=== PATIENT | male | born 1950 | race Caucasian/White ===

== ENCOUNTER → 2023-12-09 | Outpatient (CLI) | payer OTHER, MEDICARE ==
[2023-12-09 19:05] LABS: HCT 40.7 % (39.6-50.0); HGB 13.5 g/dL (13.0-17.0); MCH 33.7 pg (27.0-32.0); MCHC 33.2 g/dL (32.0-37.0); MCV 101.5 FL (80.0-97.0); NRBC Per 100 WBC 0 X 10*3/uL (0.00-0.01); Platelet Count 130 X 10*3/uL (140-440); RBC 4.01 X 10*6/uL (4.40-5.60); RDW 15.9 % (11.5-14.5); WBC 5.64 X 10*3/uL (4.50-10.00)
[2023-12-09 20:45] LABS: VLDL Calculation 6.18 mg/dL (5.00-40.00)
[2023-12-09 22:00] LABS: ALT 18 U/L (10-49); AST 22 U/L (14-35); Calcium 9.7 mg/dL (8.7-10.3); Carbon Dioxide 25.5 mmol/L (21.6-31.8); Chloride 93 mmol/L (96-109); Chol/HDL Ratio 1.86 Ratio; Glucose 99 mg/dL (70-110); LDL Cholesterol,Calculated 32.7 mg/dL (0.0-131.0); Potassium 4.9 mmol/L (3.5-5.5); Sodium 131 mmol/L (135-145)
[2023-12-10 14:04] LABS: NT-Pro-B-Type Natriuretic Pept 2070 pg/mL
== END | disposition home or self-care (01) ==
LOC: LABWHC1 12:50
PROVIDERS: ATTEND Internal Medicine Cardiovascular Disease
DX: I50.22 Chronic systolic (congestive) heart failure (principal); E78.2 Mixed hyperlipidemia
CPT/HCPCS: 36415; 80048; 80061; 83880; 84450; 84460; 85027

== ENCOUNTER 2024-01-21 10:55 | Inpatient (IN) | payer MEDICARE, OTHER ==
--- NOTE | 2024-01-21 11:36 | ED ---
General Adult HPI - General Chief complaint: Abdominal Pain Stated complaint: abn labs-sent by Time Seen by Provider: 01/21/24 11:10 Source: patient, family, RN notes reviewed, old records reviewed Mode of arrival: ambulatory Limitations: no limitations - History of Present Illness Initial comments: This is a 73-year-old male who presents to the emergency department because his doctor told him to come in. Patient states he had no symptoms he has been tired and weak and somewhat short of breath over the last month but he states is not much worse today than it has been. Patient states he does not know why they sent him in but they said it was something abnormal in his blood work. Patient has multiple wounds on his legs he has a wound on the posterior aspect of his left leg and the left big toe patient also has a wound on the right heel. [place] any recent fevers or chills. Patient denies lightheadedness or dizziness. Patient denies any chest pain palpitations or difficulty breathing. Patient has abdominal pain. - Related Data Home Medications Medication Instructions Recorded Confirmed Apixaban [Eliquis] 5 mg PO BID 01/21/24 01/21/24 Bumetanide 1 mg PO BID 01/21/24 01/21/24 Furosemide [Lasix] 40 mg PO BID 01/21/24 01/21/24 Indapamide [Lozol] 1.25 mg PO DAILY 01/21/24 01/21/24 Spironolactone [Aldactone] 50 mg PO DAILY 01/21/24 01/21/24 allopurinoL [Zyloprim] 100 mg PO DAILY 01/21/24 01/21/24 carvediloL [Coreg] 12.5 mg PO BID 01/21/24 01/21/24 lisinopriL [Zestril] 10 mg PO DAILY 01/21/24 01/21/24 Allergies Allergy/AdvReac Type Severity Reaction Status Date / Time No Known Allergies Allergy Verified 01/21/24 13:41 Review of Systems ROS Statement: Those systems with pertinent positive or pertinent negative responses have been documented in the HPI. ROS Other: All systems not noted in ROS Statement are negative. Past Medical History Past Medical History: Atrial Fibrillation, Hyperlipidemia, Hypertension Past Surgical History: No Surgical Hx Reported General Exam - General Exam Comments Initial Comments: GENERAL: Patient is well-developed and well-nourished. Patient is nontoxic and well- hydrated and is in no acute distress. Patient's ideal body weight is 78 kg ENT: Neck is soft and supple. No significant lymphadenopathy is noted. Oropharynx is clear. Moist mucous membranes. Neck has full range of motion without eliciting any pain. EYES: The sclera were anicteric and conjunctiva were pink and moist. Extraocular movements were intact and pupils were equal round and reactive to light. Eyelids were unremarkable. PULMONARY: Unlabored respirations. Good breath sounds bilaterally. No audible rales rhonchi or wheezing was noted. CARDIOVASCULAR: There is a regular rate and rhythm without any murmurs gallops or rubs. ABDOMEN: Soft and nontender with normal bowel sounds. SKIN: Patient has a wound on the posterior lower left leg and the area is tender and malodorous. Patient also has a wound on the right heel. Patient's overall color is a little pale. NEUROLOGIC: Patient is alert and oriented x3. Cranial nerves II through XII are grossly intact. Motor and sensory are also intact. Normal speech, volume and content. Symmetrical smile. MUSCULOSKELETAL: Normal extremities with adequate strength and full range of motion. No lower extremity swelling or edema. No calf tenderness. LYMPHATICS: No significant lymphadenopathy is noted PSYCHIATRIC: Normal psychiatric evaluation. Limitations: no limitations Course Vital Signs 01/21/24 01/21/24 01/21/24 11:08 11:21 12:38 Temperature 97.6 F Pulse Rate 67 58 L Respiratory 16 16 Rate Blood Pressure 66/40 91/52 98/57 O2 Sat by Pulse 94 L 93 L Oximetry 01/21/24 14:00 Temperature Pulse Rate 73 Respiratory 16 Rate Blood Pressure 93/54 O2 Sat by Pulse 98 Oximetry Medical Decision Making - Medical Decision Making EKG is interpreted by myself. EKG shows atrial fibrillation at 66 bpm QRS is 130 QT interval 442 QTc is 455. Patient's EKG shows a right bundle branch block. Was pt. sent in by a medical professional or institution (, [facility], [facility], urgent care, hospital, or longterm...) When possible be specific @ -Patient was sent in by her primary medical care doctor Did you speak to anyone other than the patient for history (EMS, parent, family, police, friend...)? What history was obtained from this source @ -Patient's gave quite a bit of history Did you review nursing and triage notes (agree or disagree)? Why? @ -I reviewed and agree with nursing and triage notes Were old charts reviewed (outside hosp., previous admission, EMS record, old EKG, old radiological studies, urgent care reports/EKG's, longterm records)? Report findings @ -I reviewed prior charts and prior lab work on this patient Differential Diagnosis (chest pain, altered mental status, abdominal pain women, abdominal pain men, vaginal bleeding, weakness, fever, dyspnea, syncope, headache, dizziness, GI bleed, back pain, seizure, CVA, palpatations, mental health, musculoskeletal)? @ -Not applicable EKG interpreted by me (3pts min.). @ -As above X-rays interpreted by me (1pt min.). @ -Patient's chest x-ray showed no acute normality. Patient's x-ray of the leg shows no sign cutaneous air. CT interpreted by me (1pt min.). @ -None done U/S interpreted by me (1pt. min.). @ -None done What testing was considered but not performed or refused? (CT, X-rays, U/S, labs)? Why? @ -None What meds were considered but not given or refused? Why? @ -None Did you discuss the management of the patient with other professionals (professionals i.e. , PA, [facility], lab, RT, psych nurse, social worker health services, cask maker, teacher, sustainability officer, data architect manager)? Give summary @ -I spoke with sound physicians they agreed to admit the patient Was smoking cessation discussed for >3mins.? @ -No Was critical care preformed (if so, how long)? @ -No Were there social determinants of health that impacted care today? How? (Homelessness, low income, unemployed, alcoholism, drug addiction, gutierrez sportation, low edu. Level, literacy, decrease access to med. care, senior living, rehab)? @ -No Was there de-escalation of care discussed even if they declined (Discuss DNR or withdrawal of care, Hospice)? DNR status @ -No What co-morbidities impacted this encounter? (DM, HTN, Smoking, COPD, CAD, Cancer, CVA, ARF, Chemo, Hep., AIDS, mental health diagnosis, sleep apnea, morbid obesity)? @ -None Was patient admitted / discharged? Hospital course, mention meds given and route, prescriptions, significant lab abnormalities, going to OR and other pertinent info. @ -Patient's lab work came back and showed the patient was in acute renal failure. I will admit the patient I will consult nephrology patient will be admitted to sound Undiagnosed new problem with uncertain prognosis? @ -No Drug Therapy requiring intensive monitoring for toxicity (Heparin, Nitro, Insulin, Cardizem)? @ -No Were any procedures done? @ -No Diagnosis/symptom? @ -Acute renal failure Acute, or Chronic, or Acute on Chronic? @ -Acute Uncomplicated (without systemic symptoms) or Complicated (systemic symptoms)? @ -Complicated Side effects of treatment? @ -No Exacerbation, Progression, or Severe Exacerbation? @ -No Poses a threat to life or bodily function? How? (Chest pain, [place], SD, pneumonia, PE, COPD, DKA, ARF, appy, cholecystitis, CVA, Diverticulitis, Homicidal, Suicidal, threat to staff... and all critical care pts) @ -Yes this could lead to electrolyte abnormalities and arrhythmias and possible - Lab Data Result diagrams: 01/21/24 11:39 01/21/24 11:38 Lab Results 01/21/24 01/21/24 01/21/24 Range/Units 11:38 11:38 11:38 WBC (3.8-10.6) k/uL RBC (4.30-5.90) m/uL Hgb (13.0-17.5) gm/dL Hct (39.0-53.0) % MCV (80.0-100.0) fL MCH (25.0-35.0) pg MCHC (31.0-37.0) g/dL RDW (11.5-15.5) % Plt Count (150-450) k/uL MPV Neutrophils % % Lymphocytes % % Monocytes % % Eosinophils % % Basophils % % Neutrophils # (1.3-7.7) k/uL Lymphocytes # (1.0-4.8) k/uL Monocytes # (0-1.0) k/uL Eosinophils # (0-0.7) k/uL Basophils # (0-0.2) k/uL Manual Slide Review Macrocytosis PT 14.4 H (10.0-12.5) sec INR 1.4 H (<1.2) APTT 34.1 H (22.0-30.0) sec Sodium 131 L (137-145) mmol/L Potassium 5.3 H (3.5-5.1) mmol/L Chloride 92 L (98-107) mmol/L Carbon Dioxide 23 (22-30) mmol/L Anion Gap 16 mmol/L BUN 163 H* (9-20) mg/dL Creatinine 4.43 H (0.66-1.25) mg/dL Est GFR (CKD-EPI)AfAm 14 (>60 ml/min/1.73 sqM) Est GFR (CKD-EPI)NonAf 12 (>60 ml/min/1.73 sqM) Glucose 115 H (74-99) mg/dL Plasma Lactic Acid Marcos 1.2 (0.7-2.0) mmol/L Calcium 8.8 (8.4-10.2) mg/dL Total Bilirubin 1.4 H (0.2-1.3) mg/dL AST 24 (17-59) U/L ALT 16 (4-49) U/L Alkaline Phosphatase 98 (38-126) U/L Total Protein 7.4 (6.3-8.2) g/dL Albumin 4.0 (3.5-5.0) g/dL Urine Color Urine Appearance (Clear) Urine pH (5.0-8.0) Ur Specific [place] (1.001-1.035) Urine Protein (Negative) Urine Glucose (UA) (Negative) Urine Ketones (Negative) Urine Blood (Negative) Urine Nitrite (Negative) Urine Bilirubin (Negative) Urine Urobilinogen (<2.0) mg/dL Ur Leukocyte Esterase (Negative) 01/21/24 01/21/24 Range/Units 11:39 13:56 WBC 6.1 (3.8-10.6) k/uL RBC 3.70 L (4.30-5.90) m/uL Hgb 12.4 L (13.0-17.5) gm/dL Hct 38.4 L (39.0-53.0) % MCV 104.0 H (80.0-100.0) fL MCH 33.6 (25.0-35.0) pg MCHC 32.3 (31.0-37.0) g/dL RDW 15.7 H (11.5-15.5) % Plt Count 98 L (150-450) k/uL MPV 11.0 Neutrophils % 76 % Lymphocytes % 11 % Monocytes % 8 % Eosinophils % 1 % Basophils % 1 % Neutrophils # 4.7 (1.3-7.7) k/uL Lymphocytes # 0.7 L (1.0-4.8) k/uL Monocytes # 0.5 (0-1.0) k/uL Eosinophils # 0.1 (0-0.7) k/uL Basophils # 0.0 (0-0.2) k/uL Manual Slide Review Performed Macrocytosis Moderate PT (10.0-12.5) sec INR (<1.2) APTT (22.0-30.0) sec Sodium (137-145) mmol/L Potassium (3.5-5.1) mmol/L Chloride (98-107) mmol/L Carbon Dioxide (22-30) mmol/L Anion Gap mmol/L BUN (9-20) mg/dL Creatinine (0.66-1.25) mg/dL Est GFR (CKD-EPI)AfAm (>60 ml/min/1.73 sqM) Est GFR (CKD-EPI)NonAf (>60 ml/min/1.73 sqM) Glucose (74-99) mg/dL Plasma Lactic Acid Marcos (0.7-2.0) mmol/L Calcium (8.4-10.2) mg/dL Total Bilirubin (0.2-1.3) mg/dL AST (17-59) U/L ALT (4-49) U/L Alkaline Phosphatase (38-126) U/L Total Protein (6.3-8.2) g/dL Albumin (3.5-5.0) g/dL Urine Color Colorless Urine Appearance Clear (Clear) Urine pH 5.5 (5.0-8.0) Ur Specific [place] 1.008 (1.001-1.035) Urine Protein Negative (Negative) Urine Glucose (UA) Negative (Negative) Urine Ketones Negative (Negative) Urine Blood Negative (Negative) Urine Nitrite Negative (Negative) Urine Bilirubin Negative (Negative) Urine Urobilinogen <2.0 (<2.0) mg/dL Ur Leukocyte Esterase Negative (Negative) Disposition Clinical Impression: Acute renal failure Disposition: ADMITTED IP TO THIS HOSP Referrals: Dg Maria MD [Primary Care Provider] - 1-2 days Time of Disposition: 15:05
[2024-01-21 11:53] LABS: Basophils % (A) 1 %; Eosinophils # (A) 0.1 k/uL (0-0.7); Eosinophils % (A) 1 %; HCT 38.4 % (39.0-53.0); HGB 12.4 gm/dL (13.0-17.5); Lymphocytes # (A) 0.7 k/uL (1.0-4.8); Lymphocytes % (A) 11 %; MCH 33.6 pg (25.0-35.0); MCHC 32.3 g/dL (31.0-37.0); Macrocytosis Moderate; Monocytes # (A) 0.5 k/uL (0-1.0); Monocytes % (A) 8 %; Neutrophils # (A) 4.7 k/uL (1.3-7.7); Neutrophils % (A) 76 %; RDW 15.7 % (11.5-15.5); WBC 6.1 k/uL (3.8-10.6)
[2024-01-21] MEDS: SODIUM CHLORIDE 0.9% 500 ML 500 ML IV SCH (11:57)
[2024-01-21 12:13] LABS: ALT 16 U/L (4-49); AST 24 U/L (17-59); African American GFR (CKD) 14 (>60 ml/min/1.73 sqM); Alkaline Phosphatase 98 U/L (38-126); Anion Gap 16 mmol/L; Calcium 8.8 mg/dL (8.4-10.2); Carbon Dioxide 23 mmol/L (22-30); Chloride 92 mmol/L (98-107); Glucose 115 mg/dL (74-99); Non-African American GFR(CKD) 12 (>60 ml/min/1.73 sqM); Potassium 5.3 mmol/L (3.5-5.1); Sodium 131 mmol/L (137-145); Total Bilirubin 1.4 mg/dL (0.2-1.3); Total Protein 7.4 g/dL (6.3-8.2)
[2024-01-21 12:25] LABS: Platelet Count 98 k/uL (150-450)
[2024-01-21 12:41] LABS: Blood Urea Nitrogen 163 mg/dL (9-20)
[2024-01-21 12:44] LABS: INR 1.4 (<1.2); Partial Thromboplastin Time 34.1 sec (22.0-30.0); Prothrombin Time 14.4 sec (10.0-12.5)
[2024-01-21] MEDS: PIPERACILLIN-TAZOBACTAM 3.375 GM in SODIUM CHLORIDE 0.9% 100 ML IVPB STA (12:57)
[2024-01-21 14:30] LABS: Appearance,Urine Clear (Clear); Bilirubin,Urine Negative (Negative); Blood,Urine Negative (Negative); Color,Urine Colorless; Glucose,Urine (UA) Negative (Negative); Ketones,Urine Negative (Negative); Leukocyte Esterase,Urine Negative (Negative); Nitrite,Urine Negative (Negative); PH, Urine 5.5 (5.0-8.0); Protein,Urine Negative (Negative); Specific Gravity,Urine 1.008 (1.001-1.035); Urobilinogen,Urine <2.0 mg/dL (<2.0)
--- NOTE | 2024-01-21 14:54 | XR ---
EXAMINATION TYPE: XR chest 2V DATE OF EXAM: 01/21/2024 2:42 PM CLINICAL INDICATION:Male, 73 years old with history of Fever; PHH COMPARISON: None TECHNIQUE: XR chest 2V Frontal and lateral views of the chest. FINDINGS: Lungs/Pleura: There is no evidence of pleural effusion, focal consolidation, or pneumothorax. Pulmonary vascularity: Mild pulmonary vascular congestion. Heart/mediastinum: Cardiomediastinal silhouette is enlarged and stable. Musculoskeletal: No acute osseous pathology. IMPRESSION: No airspace consolidation visualized.
--- NOTE | 2024-01-21 14:55 | XR ---
EXAMINATION TYPE: XR tibia fibula LT DATE OF EXAM: 01/21/2024 2:42 PM CLINICAL INDICATION:Male, 73 years old with history of Infection; PHH COMPARISON: None TECHNIQUE: XR tibia fibula LT; tibia/fibula was examined in AP and lateral projections. FINDINGS: No evidence of any acute osseous pathology, or joint dislocation. A fabella is present. Sof t tissue swelling throughout the leg is suggested. Mild multi compartment degeneration of the knee wi th osteophyte formation. IMPRESSION: Soft tissue edema without evidence of acute fracture.
[2024-01-21] MEDS ORDERED: ACETAMINOPHEN TAB 325 MG TAB PO PRN (16:06)
[2024-01-21] MEDS ORDERED: MAG HYDROX/AL HYDROX/SIMETH 30 ML CUP PO PRN (16:06)
[2024-01-21] MEDS ORDERED: ONDANSETRON 4 MG/2 ML VIAL IVP PRN (16:06)
[2024-01-21] MEDS ORDERED: NALOXONE 0.4 MG/ML 1 ML VIAL IV PRN (16:06)
--- NOTE | 2024-01-21 16:12 | P.HPIM ---
History of Present Illness H&P Date: 01/21/24 73-year-old male with PMH of atrial fibrillation, CHF presents to the ED for abnormal lab work. He reports fatigue but no other complaints. Recently had his diuretics increased due to lower extremity edema. No nausea or vomiting, diarrhea. Urinating freely. In the ED, he underwent extensive evaluation. BP 66/40, HR 67, RR 16, T 97.6, 94% on room air. CBC, coag panel, CMP was done significant for hemoglobin 12.4, hematocrit 38.4, MCV 104, platelet 98, PT was 14.4, INR 1.4, APTT 34.1, sodium 131, potassium 5.3, chloride 92, BUN 163, creatinine 4.43, Luke was 1:15, total bilirubin 1.4. Urinalysis negative. EKG A-Fib, RBBB, ST/T wave abnormalities II, III, aVF. CXR negative. TibFib XR soft tissue edema without acute fracture. General: non toxic, no distress, appears at stated age Derm: warm, dry Head: atraumatic, normocephalic, symmetric Eyes: EOMI, no lid lag, anicteric sclera Mouth: no lip lesion, mucus membranes moist Cardiovascular: S1S2 reg, no murmur Lungs: Clear to auscultation bilateral, no rhonchi, no rales , no accessory muscle use Ext: no gross muscle atrophy, no edema Neuro: no focal neuro deficits, bilateral upper extremity tremors Psych: Alert, oriented, appropriate affect Based on my assessment of this patient, this patient meets a high complexity level of care. Patient has an acute diagnosis of KOBE that poses a threat to life. KOBE: Start NS at 75 cc/hr. Discontinue Lisinopril, Aldactone, Lasix and Bumex. Renal Bladder US ordered. Repeat BMP tomorrow morning. Nephrology consult. Hypotension: Discontinue Coreg and above antihypertensives. Hyperkalemia: IV hydration as above. Discontinue Lisinopril and Aldactone as above. Repeat K at 7PM and tomorrow morning. Hyponatremia: IV hydration as above. Elevated total bilirubin: Repeat CMP tomorrow morning. Macrocytic anemia: Obtain B12, Folate. Thrombocytopenia: Unknown etiology. Monitor. Chronic conditions: A-Fib, CHF CODE STATUS: FULL CODE. DVT Prophylaxis: Eliquis. GI Prophylaxis: Designated medical POA if patient is not able to make medical decisions for themselves: I have reviewed the following database consultant notes: ED note I have reviewed the results of the following tests: As above. I have ordered the following tests: As above. I have discussed the care of this patient with the following independent historian: I have independently interpreted the following test below: EKG. I have discussed the management of this patient with the following physician: Past Medical History Past Medical History: Atrial Fibrillation, Hyperlipidemia, Hypertension Past Surgical History: No Surgical Hx Reported Medications and Allergies Home Medications Medication Instructions Recorded Confirmed Type Apixaban [Eliquis] 5 mg PO BID 01/21/24 01/21/24 History Bumetanide 1 mg PO BID 01/21/24 01/21/24 History Furosemide [Lasix] 40 mg PO BID 01/21/24 01/21/24 History Indapamide [Lozol] 1.25 mg PO DAILY 01/21/24 01/21/24 History Spironolactone [Aldactone] 50 mg PO DAILY 01/21/24 01/21/24 History allopurinoL [Zyloprim] 100 mg PO DAILY 01/21/24 01/21/24 History carvediloL [Coreg] 12.5 mg PO BID 01/21/24 01/21/24 History lisinopriL [Zestril] 10 mg PO DAILY 01/21/24 01/21/24 History Allergies Allergy/AdvReac Type Severity Reaction Status Date / Time No Known Allergies Allergy Verified 01/21/24 13:41 Physical Exam Vitals: Vital Signs Temp Pulse Resp BP Pulse Ox 01/21/24 14:00 73 16 93/54 98 01/21/24 12:38 98/57 01/21/24 11:21 58 L 16 91/52 93 L 01/21/24 11:08 97.6 F 67 16 66/40 94 L Intake and Output 01/21/24 01/21/24 01/21/24 06:59 14:59 22:59 Other: Weight 104.326 kg Results CBC & Chem 7: 01/21/24 11:39 01/21/24 11:38 Labs: Abnormal Lab Results - Last 24 Hours (Table) 01/21/24 01/21/24 01/21/24 Range/Units 11:38 11:38 11:39 RBC 3.70 L (4.30-5.90) m/uL Hgb 12.4 L (13.0-17.5) gm/dL Hct 38.4 L (39.0-53.0) % MCV 104.0 H (80.0-100.0) fL RDW 15.7 H (11.5-15.5) % Plt Count 98 L (150-450) k/uL Lymphocytes # 0.7 L (1.0-4.8) k/uL PT 14.4 H (10.0-12.5) sec INR 1.4 H (<1.2) APTT 34.1 H (22.0-30.0) sec Sodium 131 L (137-145) mmol/L Potassium 5.3 H (3.5-5.1) mmol/L Chloride 92 L (98-107) mmol/L BUN 163 H* (9-20) mg/dL Creatinine 4.43 H (0.66-1.25) mg/dL Glucose 115 H (74-99) mg/dL Total Bilirubin 1.4 H (0.2-1.3) mg/dL
[2024-01-21] MEDS: SODIUM CHLORIDE 0.9% 1,000 ML IV SCH (16:40)
--- NOTE | 2024-01-21 17:14 | US ---
EXAMINATION TYPE: US kidneys/renal and bladder DATE OF EXAM: 01/21/2024 COMPARISON: NONE CLINICAL INDICATION: Male, 73 years old with history of KOBE; KOBE EXAM MEASUREMENTS: Right Kidney: 11.5 x 6.0 x 5.5 cm Left Kidney: 11.4 x 5.2 x 6.1 cm Right Kidney: Anechoic area seen laterally: 2.0 x 1.7 x 1.1 cm. Cortical medullary differentiation is maintained. Left Kidney: No hydronephrosis or masses seen. Cortical medullary differentiation is maintained. Bladder: Appears anechoic. Bilateral Jets seen: No, only left jet was seen IMPRESSION: 1. No evidence for obstructive uropathy. 2. Right renal cyst.
--- NOTE | 2024-01-21 17:16 | US ---
EXAMINATION TYPE: US venous doppler duplex LE DATE OF EXAM: 01/21/2024 5:01 PM COMPARISON: NONE CLINICAL INDICATION: Male, 73 years old with history of swelling; Swelling. No hx of DVT. Patient is on eliquis. SIDE PERFORMED: Bilateral TECHNIQUE: The lower extremity deep venous system is examined utilizing real time linear array sonog zee with graded compression, doppler sonography and color-flow sonography. VESSELS IMAGED: Common Femoral Vein Deep Femoral Vein Greater Saphenous Vein * Femoral Vein Popliteal Vein Small Saphenous Vein * Proximal Calf Veins (* superficial vessels) Right Leg: No evidence of DVT. Left Leg: No evidence of DVT. IMPRESSION:
[2024-01-21] MEDS: APIXABAN 5 MG TAB PO SCH (20:26)
[2024-01-21] MEDS ORDERED: HEPARIN SODIUM,PORCINE 5,000 UNIT/ML 1 ML VIAL SQ SCH (21:00)
[2024-01-22 08:37] LABS: Basophils # (A) 0.04 X 10*3/uL (0.00-0.10); Basophils % (A) 0.6 %; Eosinophils % (A) 1.6 %; HCT 37.2 % (39.6-50.0); HGB 12.5 g/dL (13.0-17.0); Lymphocytes # (A) 0.75 X 10*3/uL (0.90-5.00); Lymphocytes % (A) 12.1 %; MCH 34.2 pg (27.0-32.0); MCHC 33.6 g/dL (32.0-37.0); MCV 101.6 FL (80.0-97.0); Mean Platelet Volume 14.4 FL (9.5-12.2); Monocytes # (A) 0.55 X 10*3/uL (0.20-1.00); Monocytes % (A) 8.9 %; NRBC Per 100 WBC 0 X 10*3/uL (0.00-0.01); Neutrophils # (A) 4.72 X 10*3/uL (1.80-7.70); Neutrophils % (A) 76.3 %; Platelet Count 90 X 10*3/uL (140-440); RBC 3.66 X 10*6/uL (4.40-5.60); WBC 6.19 X 10*3/uL (4.50-10.00)
[2024-01-22 09:33] LABS: ALT 15 U/L (10-49); AST 15 U/L (14-35); Albumin 4.1 g/dL (3.8-4.9); Albumin/Globulin Ratio 1.41 Ratio (1.60-3.17); Alkaline Phosphatase 111 U/L (41-126); Calcium 9.1 mg/dL (8.7-10.3); Carbon Dioxide 26.5 mmol/L (21.6-31.8); Chloride 94 mmol/L (96-109); Globulin 2.9 g/dL (1.6-3.3); Glucose 111 mg/dL (70-110); Potassium 4.6 mmol/L (3.5-5.5); Sodium 137 mmol/L (135-145); Total Bilirubin 1.4 mg/dL (0.3-1.2)
--- NOTE | 2024-01-22 11:06 | P.CRDCN ---
History of Present Illness History of present illness: HISTORY OF PRESENT ILLNESS: This is a 73-year-old male with a past medical history significant for persistent atrial fibrillation, congestive heart failure, and hypertension. Patient follows in the office with Dr. Reis. We have been asked to see the patient in consultation for multiple diuretics. Patient examined at the bedside. Patient presented to the hospital after being called by his primary care physician's office secondary to worsening kidney function. The patient states he reports generalized weakness that has progressed over the past 4 weeks. It appears that the patient was recently prescribed Bumex by his PCP. According to his med list he is also taking Lasix, Aldactone, and Lozol. The patient was found to have acute kidney failure. He is receiving IV fluids. His diuretics are on hold. DIAGNOSTICS: - EKG reveals atrial fibrillation with controlled ventricular rate - Chest xray negative for acute process - Laboratory data: WBC 6.19. Hemoglobin 12.5. Platelet count 90. Sodium 137. Potassium 4.6. BUN 133. Creatinine 3.9. Lactic acid 1.2. - Current home cardiac medications include Lasix 40 mg twice a day, lisinopril 10 mg daily, carvedilol 12.5 mg twice a day, Aldactone 50 mg daily, Eliquis 5 mg twice a day, Lozol 1.25 mg daily, and Bumex 1 mg twice a day. - Most recent echocardiogram obtained at the office on 12/07/2023 revealed ejection fraction 55 to 60%, trace to mild AR, mild to moderate MR, and moderate to severe TR -Patient underwent Lexiscan stress test on 12/18/2023 which was negative for ischemia REVIEW OF SYSTEMS: At the time of my exam: CONSTITUTIONAL: Denies fever or chills. HEENT: Denies blurred vision, vision changes, or eye pain. Denies hemoptysis CARDIOVASCULAR: Denies chest pain. Denies orthopnea. Denies PND. Denies p alpitations RESPIRATORY: Denies shortness of breath. GASTROINTESTINAL: Denies abdominal pain. Denies nausea or vomiting. HEMATOLOGIC: Denies bleeding disorders. GENITOURINARY: Denies any blood in urine. SKIN: Denies pruitis. Denies rash. PHYSICAL EXAM: VITAL SIGNS: Reviewed. GENERAL: Well-developed in no acute distress. HEENT: Head is normocephalic. Pupils are equal, round. Sclerae anicteric. Mucous membranes of the mouth are moist. Neck supple. No JVD or thyromegaly LUNGS: Respirations even and unlabored. Lungs essentially clear to auscultation bilaterally. HEART: Irregular rate and rhythm. S1 and S2 heard. Systolic murmur noted ABDOMEN: Soft. Nondistended. Nontender. EXTREMITIES: Normal range of motion. No clubbing or cyanosis. Peripheral pulses intact. Trace bilateral lower extremity edema with chronic discoloration noted. NEUROLOGIC: Awake and alert. Oriented x 3. ASSESSMENT: Acute renal failure Hypotension Chronic heart failure with preserved EF, currently not fluid overloaded Persistent atrial fibrillation Hypertension PLAN: No need to repeat echocardiogram as this was performed in the office in November 2023 Continue to hold all diuretics Hold carvedilol as patient's blood pressures are on the lower side with a systolic ranging in the 80s and 90s Continue IV fluid hydration Continue to monitor kidney function Further recommendations pending patient course Nurse practitioner note has been reviewed by physician. Signing provider agrees with the documented findings, assessment, and plan of care documented by TELECOMMUNICATIONS FIELD ENGINEER as a scribe. Past Medical History Past Medical History: Atrial Fibrillation, Heart Failure, Hypertension, Skin Disorder Additional Past Medical History / Comment(s): leg wounds since early 2022. History of Any Multi-Drug Resistant Organisms: None Reported Past Surgical History: No Surgical Hx Reported Past Anesthesia/Blood Transfusion Reactions: No Reported Reaction Past Psychological History: No Psychological Hx Reported Smoking Status: Never smoker Past Alcohol Use History: None Reported Past Drug Use History: None Reported - Past Family History Mother Family Medical History: Hypertension Father Family Medical History: Hypertension Medications and Allergies Home Medications Medication Instructions Recorded Confirmed Type Apixaban [Eliquis] 5 mg PO BID 01/21/24 01/21/24 History Bumetanide 1 mg PO BID 01/21/24 01/21/24 History Furosemide [Lasix] 40 mg PO BID 01/21/24 01/21/24 History Indapamide [Lozol] 1.25 mg PO DAILY 01/21/24 01/21/24 History Spironolactone [Aldactone] 50 mg PO DAILY 01/21/24 01/21/24 History allopurinoL [Zyloprim] 100 mg PO DAILY 01/21/24 01/21/24 History carvediloL [Coreg] 12.5 mg PO BID 01/21/24 01/21/24 History lisinopriL [Zestril] 10 mg PO DAILY 01/21/24 01/21/24 History Allergies Allergy/AdvReac Type Severity Reaction Status Date / Time No Known Allergies Allergy Verified 01/21/24 13:41 Physical Exam Vitals: Vital Signs Temp Pulse Pulse Resp BP BP BP 01/22/24 07:39 97.5 F L 73 16 98/59 01/22/24 02:00 97.9 F 65 16 98/72 01/21/24 21:49 97.4 F L 61 16 86/52 01/21/24 19:16 68 18 94/59 01/21/24 18:00 73 16 89/57 01/21/24 16:45 66 16 104/69 01/21/24 14:00 73 16 93/54 01/21/24 12:38 98/57 01/21/24 11:21 58 L 16 91/52 01/21/24 11:08 97.6 F 67 16 66/40 Pulse Ox 01/22/24 07:39 96 01/22/24 02:00 95 01/21/24 21:49 97 01/21/24 19:16 94 L 01/21/24 18:00 97 01/21/24 16:45 96 01/21/24 14:00 98 01/21/24 12:38 01/21/24 11:21 93 L 01/21/24 11:08 94 L Intake and Output 01/21/24 01/22/24 01/22/24 22:59 06:59 14:59 Intake Total 120 Output Total 600 Balance -480 Intake: Oral 120 Output: Urine 600 Other: Voiding Method Toilet Urinal # Voids 1 2 Weight 104.326 kg 92.5 kg Results 01/22/24 05:42 01/22/24 05:42 Cardiac Enzymes 01/21/24 01/22/24 Range/Units 11:38 05:42 AST 24 15 (17-59) U/L Coagulation 01/21/24 Range/Units 11:38 PT 14.4 H (10.0-12.5) sec APTT 34.1 H (22.0-30.0) sec CBC 01/21/24 01/22/24 Range/Units 11:39 05:42 WBC 6.1 6.19 (3.8-10.6) k/uL RBC 3.70 L 3.66 L (4.30-5.90) m/uL Hgb 12.4 L 12.5 L (13.0-17.5) gm/dL Hct 38.4 L 37.2 L (39.0-53.0) % Plt Count 98 L 90 L (150-450) k/uL Comprehensive Metabolic Panel 01/21/24 01/21/24 01/22/24 Range/Units 11:38 20:26 05:42 Sodium 131 L 137 (137-145) mmol/L Potassium 5.3 H 4.4 4.6 (3.5-5.1) mmol/L Chloride 92 L 94 L (98-107) mmol/L Carbon Dioxide 23 26.5 (22-30) mmol/L BUN 163 H* 133.0 A* (9-20) mg/dL Creatinine 4.43 H 3.9 H (0.66-1.25) mg/dL Glucose 115 H 111 H (74-99) mg/dL Calcium 8.8 9.1 (8.4-10.2) mg/dL AST 24 15 (17-59) U/L ALT 16 15 (4-49) U/L Alkaline Phosphatase 98 111 (38-126) U/L Total Protein 7.4 7.0 (6.3-8.2) g/dL Albumin 4.0 4.1 (3.5-5.0) g/dL Current Medications Generic Name Dose Route Start Last Admin Trade Name Freq PRN Reason Stop Dose Admin Acetaminophen 650 mg 01/21/24 16:06 Acetaminophen Tab 325 Mg Tab PO Q6HR PRN Mild Pain or Fever > 100.5 Al Hydroxide/Mg Hydroxide 15 ml 01/21/24 16:06 Mag Hydrox/Al Hydrox/Simeth 30 Ml Cup PO Q6HR PRN Indigestion Apixaban 5 mg 01/23/24 09:00 Apixaban 5 Mg Tab PO BID KATELYN Protocol Sodium Chloride 1,000 mls @ 75 mls/hr 01/21/24 16:15 01/22/24 06:01 Saline 0.9% IV 75 mls/hr .[id number] KATELYN Administration Naloxone HCl 0.2 mg 01/21/24 16:06 Naloxone 0.4 Mg/Ml 1 Ml Vial IV Q2M PRN Opioid Reversal Ondansetron HCl 4 mg 01/21/24 16:06 Ondansetron 4 Mg/2 Ml Vial IVP Q8HR PRN Nausea And Vomiting Intake and Output 01/21/24 01/22/24 01/22/24 22:59 06:59 14:59 Intake Total 120 Output Total 600 Balance -480 Intake: Oral 120 Output: Urine 600 Other: Voiding Method Toilet Urinal # Voids 1 2 Weight 104.326 kg 92.5 kg 01/22/24 05:42 01/22/24 05:42
--- NOTE | 2024-01-22 11:08 | P.PN ---
Subjective Progress Note Date: 01/22/24 73-year-old male with PMH of atrial fibrillation, CHF presents to the ED for abnormal lab work. He reports fatigue but no other complaints. Recently had his diuretics increased due to lower extremity edema. No nausea or vomiting, diarrhea. Urinating freely. In the ED, he underwent extensive evaluation. BP 66/40, HR 67, RR 16, T 97.6, 94% on room air. CBC, coag panel, CMP was done significant for hemoglobin 12.4, hematocrit 38.4, MCV 104, platelet 98, PT was 14.4, INR 1.4, APTT 34.1, sodium 131, potassium 5.3, chloride 92, BUN 163, creatinine 4.43, Luke was 1:15, total bilirubin 1.4. Urinalysis negative. EKG A-Fib, RBBB, ST/T wave abnormalities II, III, aVF. CXR negative. TibFib XR soft tissue edema without acute fracture. 01/21 Patient was seen and examined. Maintained on NS at 75 cc/hr. Repeat K yesterday 4.4. CBC Hg 12.5 Hct 37.2 MCV 101.6 Plt 90. BMP Cl 94, AG 16.5 BUN 133 Cr 3.9, glu 111, T. Bili 1.4. B12 848. Folate 12.6. Renal US negative for obstruction. LE Duplex negative for DVT. Discussed with Dr. Rossi, agreeable to the current plan. General: non toxic, no distress, appears at stated age Derm: warm, dry Head: atraumatic, normocephalic, symmetric Eyes: EOMI, no lid lag, anicteric sclera Mouth: no lip lesion, mucus membranes moist Cardiovascular: S1S2 reg, no murmur Lungs: Clear to auscultation bilateral, no rhonchi, no rales , no accessory muscle use Ext: no gross muscle atrophy, no edema, right heel wound and left calf wound present on admission Neuro: no focal neuro deficits Psych: Alert, oriented, appropriate affect Based on my assessment of this patient, this patient meets a high complexity level of care. Patient has an acute diagnosis of KOBE that poses a threat to life. KOBE: NS at 75 cc/hr. Discontinue Lisinopril, Aldactone, Lasix and Bumex. Renal Bladder US as above. Nephrology on board. Hypotension: Discontinue Coreg and above antihypertensives. Elevated total bilirubin: Obtain Liver US with GB. Macrocytic anemia: B12 and Folate as above. Thrombocytopenia: Unknown etiology. Monitor. Bilateral lower extremity wounds: Present on admission. Wound care consult. History of CHF: Unknown EF. Obtain Echo. Consult Cardiology. Resolved: Hyperkalemia, Hyponatremia Chronic conditions: A-Fib, CHF CODE STATUS: FULL CODE. DVT Prophylaxis: Eliquis. GI Prophylaxis: Designated medical POA if patient is not able to make medical decisions for themselves: I have reviewed the following supply chain consultant notes: Nephrology, Cardiology I have reviewed the results of the following tests: Renal US, LE Duplex, CBC, BMP I have ordered the following tests: Echo. CBC + BMP for tomorrow morning. I have discussed the care of this patient with the following independent historian: MARTIN. I have independently interpreted the following test below: I have discussed the management of this patient with the following physician: Dr. Rossi Objective - Vital Signs Vital signs: Vital Signs Temp 97.5 F L 01/22/24 07:39 Pulse 73 01/22/24 07:39 Resp 16 01/22/24 07:39 BP 98/59 01/22/24 07:39 Pulse Ox 96 01/22/24 07:39 FiO2 Intake & Output 01/21/24 01/22/24 01/22/24 18:59 06:59 18:59 Output Total 600 Balance -600 Weight 104.326 kg 92.5 kg Output: Urine 600 Other: Voiding Method Toilet Urinal # Voids 2 - Labs CBC & Chem 7: 01/22/24 05:42 01/22/24 05:42 Labs: Abnormal Lab Results - Last 24 Hours (Table) 01/21/24 01/21/24 01/21/24 Range/Units 11:38 11:38 11:39 RBC 3.70 L (4.30-5.90) m/uL Hgb 12.4 L (13.0-17.5) gm/dL Hct 38.4 L (39.0-53.0) % MCV 104.0 H (80.0-100.0) fL MCH (27.0-32.0) pg RDW 15.7 H (11.5-15.5) % Plt Count 98 L (150-450) k/uL MPV (9.5-12.2) FL Lymphocytes # 0.7 L (1.0-4.8) k/uL PT 14.4 H (10.0-12.5) sec INR 1.4 H (<1.2) APTT 34.1 H (22.0-30.0) sec Sodium 131 L (137-145) mmol/L Potassium 5.3 H (3.5-5.1) mmol/L Chloride 92 L (98-107) mmol/L BUN 163 H* (9-20) mg/dL Creatinine 4.43 H (0.66-1.25) mg/dL Glucose 115 H (74-99) mg/dL Total Bilirubin 1.4 H (0.2-1.3) mg/dL 01/22/24 Range/Units 05:42 RBC 3.66 L (4.30-5.90) m/uL Hgb 12.5 L (13.0-17.5) gm/dL Hct 37.2 L (39.0-53.0) % MCV 101.6 H (80.0-100.0) fL MCH 34.2 H (27.0-32.0) pg RDW 16.0 H (11.5-15.5) % Plt Count 90 L (150-450) k/uL MPV 14.4 H (9.5-12.2) FL Lymphocytes # 0.75 L (1.0-4.8) k/uL PT (10.0-12.5) sec INR (<1.2) APTT (22.0-30.0) sec Sodium (137-145) mmol/L Potassium (3.5-5.1) mmol/L Chloride (98-107) mmol/L BUN (9-20) mg/dL Creatinine (0.66-1.25) mg/dL Glucose (74-99) mg/dL Total Bilirubin (0.2-1.3) mg/dL
--- NOTE | 2024-01-22 11:57 | P.NPCON ---
History of Present Illness - Reason for Consult acute renal failure - History of Present Illness Reason for consultation: Acute kidney injury History of present illness: Patient is a 73-year-old male seen in renal consultation for acute kidney injury. Patient's creatinine dated December 09, 2023 was 1.6. This admission it was elevated at 4.43 and is down to 3.9 today. Patient came to the hospital due to abnormal labs. Patient states he had blood work done outpatient and was advised to go to the hospital due to abnormal kidney function. Patient's creatinine on admission was 4.43 and 3.9 today. BUN was also elevated above 160 and is now trending down. Patient's blood pressure was in the systolic 60s and he did receive fluid bolus in the ER. Blood pressure this morning was 98/59. Patient states he follows with cardiology and has been placed on multiple diuretics. Patient states he has been taking Lasix, spironolactone. I also see indapamide on his home medication list. Also on lisinopril and Aldactone. All of these medications are currently held. He is currently receiving IV fluids. Kidney ultrasound showed no evidence of hydronephrosis. No evidence of fluid overload no evidence of fluid overload noted on chest x-ray. Patient denies any dizziness or syncopal episodes. He does admit to feeling weak. Vital signs are stable. General: No acute distress. HEENT: Head exam is unremarkable. LUNGS: No audible rhonchi or wheezes. HEART: Rate and Rhythm are regular. ABDOMEN: Edema. Nontender. EXTREMITITES: No edema. Past Medical History Past Medical History: Atrial Fibrillation, Heart Failure, Hypertension, Skin Disorder Additional Past Medical History / Comment(s): leg wounds since early 2022. History of Any Multi-Drug Resistant Organisms: None Reported Past Surgical History: No Surgical Hx Reported Past Anesthesia/Blood Transfusion Reactions: No Reported Reaction Past Psychological History: No Psychological Hx Reported Smoking Status: Never smoker Past Alcohol Use History: None Reported Past Drug Use History: None Reported - Past Family History Mother Family Medical History: Hypertension Father Family Medical History: Hypertension Medications and Allergies Home Medications Medication Instructions Recorded Confirmed Type Apixaban [Eliquis] 5 mg PO BID 01/21/24 01/21/24 History Bumetanide 1 mg PO BID 01/21/24 01/21/24 History Furosemide [Lasix] 40 mg PO BID 01/21/24 01/21/24 History Indapamide [Lozol] 1.25 mg PO DAILY 01/21/24 01/21/24 History Spironolactone [Aldactone] 50 mg PO DAILY 01/21/24 01/21/24 History allopurinoL [Zyloprim] 100 mg PO DAILY 01/21/24 01/21/24 History carvediloL [Coreg] 12.5 mg PO BID 01/21/24 01/21/24 History lisinopriL [Zestril] 10 mg PO DAILY 01/21/24 01/21/24 History Allergies Allergy/AdvReac Type Severity Reaction Status Date / Time No Known Allergies Allergy Verified 01/21/24 13:41 Physical Exam Vitals: Vital Signs Temp Pulse Pulse Resp BP BP BP 01/22/24 07:39 97.5 F L 73 16 98/59 01/22/24 02:00 97.9 F 65 16 98/72 01/21/24 21:49 97.4 F L 61 16 86/52 01/21/24 19:16 68 18 94/59 01/21/24 18:00 73 16 89/57 01/21/24 16:45 66 16 104/69 01/21/24 14:00 73 16 93/54 01/21/24 12:38 98/57 Pulse Ox 01/22/24 07:39 96 01/22/24 02:00 95 01/21/24 21:49 97 01/21/24 19:16 94 L 01/21/24 18:00 97 01/21/24 16:45 96 01/21/24 14:00 98 01/21/24 12:38 Intake and Output 01/21/24 01/22/24 01/22/24 22:59 06:59 14:59 Intake Total 120 Output Total 600 Balance -480 Intake: Oral 120 Output: Urine 600 Other: Voiding Method Toilet Urinal # Voids 1 2 Weight 104.326 kg 92.5 kg Results - Lab Results Most recent lab results Calcium 9.1 mg/dL (8.7-10.3) 01/22/24 05:42 01/22/24 05:42 01/22/24 05:42 Assessment and Plan Plan: Assessment: 1. Acute kidney injury secondary to ATN secondary to hypotension and diuretics. Creatinine 4.43 on admission and is 3.9 today. Creatinine 1.6 in November 2023. No hydronephrosis noted on kidney ultrasound. UA benign. 2. Hypovolemic hyponatremia improved with IV fluids. 3. Chronic diastolic CHF. 4. Hypovolemia diuretics. Plan: Maintain normal saline. Continue to hold all diuretics. Avoid nephrotoxins. Continue to monitor renal function and urine output. Thank you for the consultation. I will continue to follow the patient with you during his hospital stay. Time with Patient: Greater than 30
--- NOTE | 2024-01-22 12:51 | CA ---
Transthoracic Echo Report Name: Keanu Kent Age: 73 Gender: M : 1950 Exam Date: 01/22/2024 09:19 Exam Location: [place] [facility] Ht (in): 71 Wt (lb): 203 Ordering Physician: Boyd Simeon MD Attending/Referring Phys: Environmental Programs Manager Faye Tian RDCS Procedure CPT: Indications: chf Cardiac Hx: Technical Quality: Contrast 1: Total Dose (mL): Contrast 2: Total Dose (mL): MEASUREMENTS (Male / Female) Normal Values 2D ECHO LV Diastolic Diameter PLAX 4.1 cm 4.2 - 5.9 / 3.9 - 5.3 cm LV Systolic Diameter PLAX 2.8 cm IVS Diastolic Thickness 1.3 cm 0.6 - 1.0 / 0.6 - 0.9 cm LVPW Diastolic Thickness 0.9 cm 0.6 - 1.0 / 0.6 - 0.9 cm LV Relative Wall Thickness 0.5 LVOT Diameter 1.9 cm Aortic Root Diameter 3.2 cm LA Systolic Diameter LX 5.2 cm 3.0 - 4.0 / 2.7 - 3.8 cm LA Volume 158.1 cm??? 18 - 58 / 22 - 52 cm??? LA Volume Index 73.0 cm???/m??? 16 - 28 cm???/m??? DOPPLER AV Peak Velocity 237.3 cm/s AV Peak Gradient 22.5 mmHg AV Mean Velocity 169.0 cm/s AV Mean Gradient 12.9 mmHg AV Velocity Time Integral 46.4 cm LVOT Peak Velocity 72.4 cm/s LVOT Peak Gradient 2.1 mmHg LVOT Velocity Time Integral 12.7 cm LVOT Stroke Volume 34.4 cm??? LVOT Stroke Volume Index 16.2 ml/m??? LVOT Cardiac Index 1097.1 cm???/min???m??? AV Area Cont Eq vti 0.7 cm??? AV Area Cont Eq pk 0.8 cm??? MR Peak Velocity 223.2 cm/s MR Peak Gradient 19.9 mmHg Mitral E Point Velocity 116.1 cm/s Mitral A Point Velocity 33.0 cm/s Mitral E to A Ratio 3.5 MV Deceleration Time 166.2 ms MV E' Velocity 8.1 cm/s Mitral E to MV E' Ratio 14.3 TR Peak Velocity 305.4 cm/s TR Peak Gradient 37.3 mmHg PV Peak Velocity 99.7 cm/s PV Peak Gradient 4.0 mmHg FINDINGS Left Ventricle Left ventricular ejection fraction is estimated at 55-60 %. Normal left ventricular systolic function with no obvious regional wall motion abnormalities.left ventricular cavity size normal. Right Ventricle Mild right ventricular dilatation. Right ventricular systolic pressure estimated at 42.21mmhg. Right Atrium Mild right atrial dilatation. Left Atrium Severely increased left atrial diameter. Mitral Valve Structurally normal mitral valve. Mild mitral regurgitation. Aortic Valve Aortic valve sclerosis. Mild aortic regurgitation. Tricuspid Valve Mild tricuspid regurgitation.structurally normal tricuspid valve. Pulmonic Valve Trace pulmonic regurgitation. Pericardium No pericardial effusion. Aorta Normal size aortic root. CONCLUSIONS 1. Normal left ventricular size and systolic function 2. Mild mitral, aortic and tricuspid regurgitation 3. Mild pulmonary hypertension Previewed by: Dr. Mariam Da Silva MD (Electronically Signed) Final Date: 22 January 2024 12:51
--- NOTE | 2024-01-22 16:03 | P.GSCN ---
History of Present Illness Consult date: 01/22/24 Reason for Consult: Ulcer right heel and left calf. Requesting physician: Boyd Simeon History of present illness: This 73-year-old gentleman is currently hospitalized for renal insufficiency. He has had an ulcer on his left calf and right heel for about a month. He is not a diabetic. He does suffer from heart failure and atrial fibrillation. Past Medical History Past Medical History: Atrial Fibrillation, Heart Failure, Hypertension, Skin Disorder Additional Past Medical History / Comment(s): leg wounds since early 2022. History of Any Multi-Drug Resistant Organisms: None Reported Past Surgical History: No Surgical Hx Reported Past Anesthesia/Blood Transfusion Reactions: No Reported Reaction Past Psychological History: No Psychological Hx Reported Smoking Status: Never smoker Past Alcohol Use History: None Reported Past Drug Use History: None Reported - Past Family History Mother Family Medical History: Hypertension Father Family Medical History: Hypertension Medications and Allergies Home Medications Medication Instructions Recorded Confirmed Type Apixaban [Eliquis] 5 mg PO BID 01/21/24 01/21/24 History Bumetanide 1 mg PO BID 01/21/24 01/21/24 History Furosemide [Lasix] 40 mg PO BID 01/21/24 01/21/24 History Indapamide [Lozol] 1.25 mg PO DAILY 01/21/24 01/21/24 History Spironolactone [Aldactone] 50 mg PO DAILY 01/21/24 01/21/24 History allopurinoL [Zyloprim] 100 mg PO DAILY 01/21/24 01/21/24 History carvediloL [Coreg] 12.5 mg PO BID 01/21/24 01/21/24 History lisinopriL [Zestril] 10 mg PO DAILY 01/21/24 01/21/24 History Allergies Allergy/AdvReac Type Severity Reaction Status Date / Time No Known Allergies Allergy Verified 01/21/24 13:41 Surgical - Exam Osteopathic Statement: *. No significant issues noted on an osteopathic structural exam other than those noted in the History and Physical/Consult. Vital Signs Temp Pulse Resp BP Pulse Ox 97.6 F 67 16 66/40 94 L 01/21/24 11:08 01/21/24 11:08 01/21/24 11:08 01/21/24 11:08 01/21/24 11:08 - General well developed, well nourished, no distress - Eyes normal ocular movement, no icteric - ENT no hearing loss, no congestion - Neck no masses, trachea midline - Respiratory normal respiratory effort, clear to auscultation - Cardiovascular Rhythm: irregularly irregular - Abdomen Abdomen: soft, non tender, no guarding, no rigid, no rebound - Integumentary no rash, no abnormal pigmentation - Neurologic no disoriented, no combative - Psychiatric oriented to time, oriented to person, oriented to place, speech is normal, memory intact Patient has a 2.5 cm hypergranulating ulcer on the posterior left calf and a 1 cm smooth shallow ulcer on the plantar aspect of the right heel. He also has an area on the inner aspect of the left great toe with degenerated callus buildup. Results - Labs 01/22/24 05:42 01/22/24 05:42 Abnormal Lab Results - Last 24 Hours (Table) 01/22/24 01/22/24 Range/Units 05:42 05:42 RBC 3.66 L (4.40-5.60) X 10*6/uL Hgb 12.5 L (13.0-17.0) g/dL Hct 37.2 L (39.6-50.0) % MCV 101.6 H (80.0-97.0) FL MCH 34.2 H (27.0-32.0) pg RDW 16.0 H (11.5-14.5) % Plt Count 90 L (140-440) X 10*3/uL MPV 14.4 H (9.5-12.2) FL Lymphocytes # 0.75 L (0.90-5.00) X 10*3/uL Chloride 94 L (96-109) mmol/L Anion Gap 16.50 H (4.00-12.00) mmol/L BUN 133.0 A* (9.0-27.0) mg/dL Creatinine 3.9 H (0.6-1.5) mg/dL Est GFR (CKD-EPI) 15 L (>=60) BUN/Creatinine Ratio 34.10 H (12.00-20.00) Ratio Glucose 111 H (70-110) mg/dL Total Bilirubin 1.4 H (0.3-1.2) mg/dL Albumin/Globulin Ratio 1.41 L (1.60-3.17) Ratio Diabetes panel 01/21/24 01/22/24 Range/Units 20: 05:42 Sodium 137 (135-145) mmol/L Potassium 4.4 4.6 (3.5-5.1) mmol/L Chloride 94 L (96-109) mmol/L Carbon Dioxide 26.5 (21.6-31.8) mmol/L BUN 133.0 A* (9.0-27.0) mg/dL Creatinine 3.9 H (0.6-1.5) mg/dL Glucose 111 H (70-110) mg/dL Calcium 9.1 (8.7-10.3) mg/dL AST 15 (14-35) U/L ALT 15 (10-49) U/L Alkaline Phosphatase 111 (41-126) U/L Total Protein 7.0 (6.2-8.2) g/dL Albumin 4.1 (3.8-4.9) g/dL Calcium panel 01/22/24 Range/Units 05:42 Calcium 9.1 (8.7-10.3) mg/dL Albumin 4.1 (3.8-4.9) g/dL Pituitary panel 01/21/24 01/22/24 Range/Units 20: 05:42 Sodium 137 (135-145) mmol/L Potassium 4.4 4.6 (3.5-5.1) mmol/L Chloride 94 L (96-109) mmol/L Carbon Dioxide 26.5 (21.6-31.8) mmol/L BUN 133.0 A* (9.0-27.0) mg/dL Creatinine 3.9 H (0.6-1.5) mg/dL Glucose 111 H (70-110) mg/dL Calcium 9.1 (8.7-10.3) mg/dL Adrenal panel 01/21/24 01/22/24 Range/Units 20:26 05:42 Sodium 137 (135-145) mmol/L Potassium 4.4 4.6 (3.5-5.1) mmol/L Chloride 94 L (96-109) mmol/L Carbon Dioxide 26.5 (21.6-31.8) mmol/L BUN 133.0 A* (9.0-27.0) mg/dL Creatinine 3.9 H (0.6-1.5) mg/dL Glucose 111 H (70-110) mg/dL Calcium 9.1 (8.7-10.3) mg/dL Total Bilirubin 1.4 H (0.3-1.2) mg/dL AST 15 (14-35) U/L ALT 15 (10-49) U/L Alkaline Phosphatase 111 (41-126) U/L Total Protein 7.0 (6.2-8.2) g/dL Albumin 4.1 (3.8-4.9) g/dL Assessment and Plan (1) Ulcer of left calf with fat layer exposed Current Visit: Yes Status: Acute Code(s): L97.222 - NON-PRESSURE CHRONIC ULCER OF LEFT CALF W FAT LAYER EXPOSED SNOMED Code(s): 17141772034598067 (2) Ulcer of right heel and midfoot with fat layer exposed Current Visit: Yes Status: Acute Code(s): L97.412 - NON-PRS CHR ULCER OF RIGHT HEEL AND MIDFT W FAT LAYER EXPOS SNOMED Code(s): 756640401 Plan: The left calf ulcer is probably related to swelling and blistering. It is not healed probably related to ongoing E flux of fluid secondary to his other medical issues. The right heel ulcer has had healing stalled, probably related to continued walking and simply lesser degree of healing potential related to hi s illness. Healing can be facilitated by offloading the right heel. I have recommended he use a walker and use the forefoot for balance only. Healing will be facilitated on the left calf by elevating the leg to decrease the amount of fluid coming out of the wound. Use of properly placed Jim wrap's will also facilitate this. To simplify matters I would utilize collagen silver as a topical therapy for both wounds. We would be happy to follow him in the wound center following his discharge to both facilitate healing of these wounds and to follow-up on the area on the medial aspect of the left great toe. We appreciate the opportunity to participate in this pleasant gentleman's care.
--- NOTE | 2024-01-22 16:54 | US ---
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 FINDINGS: EXAM MEASUREMENTS: Liver Length: 18.5 cm Gallbladder Wall: 0.2 cm CBD: 0.2 cm Pancreas: visualized portions wnl, limited by overlying midline bowel gas Liver: enlarged, mildly heterogeneous Gallbladder: wnl Evidence for sonographic Luciano's sign: no CBD: wnl Right Kidney: imaged on renal ultrasound 1 day ago IMPRESSION: 1. Hepatomegaly.
[2024-01-23 08:07] LABS: HCT 36.6 % (39.0-53.0); HGB 11.4 gm/dL (13.0-17.5); MCH 33.2 pg (25.0-35.0); MCV 106.8 fL (80.0-100.0); Macrocytosis Marked; RBC 3.42 m/uL (4.30-5.90); RDW 15.6 % (11.5-15.5); WBC 4.9 k/uL (3.8-10.6)
[2024-01-23 08:09] LABS: African American GFR (CKD) 26 (>60 ml/min/1.73 sqM); Anion Gap 9 mmol/L; Calcium 8.5 mg/dL (8.4-10.2); Carbon Dioxide 26 mmol/L (22-30); Chloride 103 mmol/L (98-107); Glucose 131 mg/dL (74-99); Non-African American GFR(CKD) 22 (>60 ml/min/1.73 sqM); Potassium 4.4 mmol/L (3.5-5.1); Sodium 138 mmol/L (137-145)
[2024-01-23 08:15] LABS: Blood Urea Nitrogen 115 mg/dL (9-20); Platelet Count 94 k/uL (150-450)
[2024-01-23] MEDS: APIXABAN 5 MG TAB PO SCH (09:26)
--- NOTE | 2024-01-23 11:48 | P.PN ---
Subjective Patient is seen in follow-up for acute kidney injury. Renal function improving with IV fluids. Has been voiding. Denies chest pain or shortness of breath. Vital signs are stable. General: No acute distress. HEENT: Head exam is unremarkable. LUNGS: No audible rhonchi or wheezes. HEART: Rate and Rhythm are regular. ABDOMEN: Nontender. EXTREMITITES: No edema. Objective - Vital Signs Vital signs: Vital Signs Temp 97.5 F L 01/23/24 08:00 Pulse 63 01/23/24 08:00 Resp 16 01/23/24 08:00 BP 96/63 01/23/24 08:00 Pulse Ox 95 01/23/24 08:00 FiO2 Intake & Output 01/22/24 01/23/24 01/23/24 18:59 06:59 18:59 Intake Total 700 1300 Output Total 1550 1200 Balance -850 100 Weight 86 kg Intake: Intake, IV Titration 900 Amount Sodium Chloride 0.9% 1, 900 000 ml @ 75 mls/hr IV . [id number] [facility] Rx#:[id number] Oral 700 400 Output: Urine 1550 1200 Other: Voiding Method Toilet Toilet Toilet Urinal Urinal Urinal # Voids 1 - Labs CBC & Chem 7: 01/23/24 06:50 01/23/24 06:50 Labs: Abnormal Lab Results - Last 24 Hours (Table) 01/23/24 01/23/24 Range/Units 06:50 06:50 RBC 3.42 L (4.30-5.90) m/uL Hgb 11.4 L (13.0-17.5) gm/dL Hct 36.6 L (39.0-53.0) % MCV 106.8 H (80.0-100.0) fL RDW 15.6 H (11.5-15.5) % Plt Count 94 L (150-450) k/uL Macrocytosis Marked A BUN 115 H* (9-20) mg/dL Creatinine 2.70 H (0.66-1.25) mg/dL Glucose 131 H (74-99) mg/dL Microbiology - Last 24 Hours (Table) 01/21/24 12:50 Gram Stain - Preliminary Leg - Left Wound Culture - Preliminary 01/21/24 11:25 Blood Culture - Preliminary Blood 01/21/24 11:40 Blood Culture - Preliminary Blood Assessment and Plan Plan: Assessment: 1. Acute kidney injury secondary to ATN secondary to hypotension and diuretics. Creatinine 4.43 on admission and is 2.7 today. Creatinine 1.6 in November 2023. No hydronephrosis noted on kidney ultrasound. UA benign. 2. Hypovolemic hyponatremia improved with IV fluids. 3. Chronic diastolic CHF. 4. Hypovolemia from diuretics. Plan: Maintain normal saline. Continue to hold all diuretics. Avoid nephrotoxins. Continue to monitor renal function and urine output. Check TSH and a.m. cortisol level.
--- NOTE | 2024-01-23 13:06 | P.PN ---
Subjective HISTORY OF PRESENT ILLNESS: This is a 73-year-old male with a past medical history significant for persistent atrial fibrillation, congestive heart failure, and hypertension. Patient follows in the office with Dr. Reis. We have been asked to see the patient in consultation for multiple diuretics. Patient examined at the bedside. Patient presented to the hospital after being called by his primary care physician's office secondary to worsening kidney function. The patient states he reports generalized weakness that has progressed over the past 4 weeks. It appears that the patient was recently prescribed Bumex by his PCP. According to his med list he is also taking Lasix, Aldactone, and Lozol. The patient was found to have acute kidney failure. He is receiving IV fluids. His diuretics are on hold. DIAGNOSTICS: - EKG reveals atrial fibrillation with controlled ventricular rate - Chest xray negative for acute process - Laboratory data: WBC 6.19. Hemoglobin 12.5. Platelet count 90. Sodium 137. Potassium 4.6. BUN 133. Creatinine 3.9. Lactic acid 1.2. - Current home cardiac medications include Lasix 40 mg twice a day, lisinopril 10 mg daily, carvedilol 12.5 mg twice a day, Aldactone 50 mg daily, Eliquis 5 mg twice a day, Lozol 1.25 mg daily, and Bumex 1 mg twice a day. - Most recent echocardiogram obtained at the office on 12/07/2023 revealed ejection fraction 55 to 60%, trace to mild AR, mild to moderate MR, and moderate to severe TR -Patient underwent Lexiscan stress test on 12/18/2023 which was negative for isc hemia 01/23/2024 Patient examined this morning at bedside. Patient denies any chest pain or pressure. He denies shortness of breath. Patient's diuretics and blood pressure medications remain on hold. He is receiving IV fluids. Creatinine has improved today down to 2.7 from 3.9 yesterday. Blood pressure remains on the lower side with a systolic in the low 90s. PHYSICAL EXAM: VITAL SIGNS: Reviewed. GENERAL: Well-developed in no acute distress. HEENT: Head is normocephalic. Pupils are equal, round. Sclerae anicteric. Mucous membranes of the mouth are moist. Neck supple. No JVD or thyromegaly LUNGS: Respirations even and unlabored. Lungs essentially clear to auscultation bilaterally. HEART: Irregular rate and rhythm. S1 and S2 heard. Systolic murmur noted ABDOMEN: Soft. Nondistended. Nontender. EXTREMITIES: Normal range of motion. No clubbing or cyanosis. Peripheral pulses intact. Trace bilateral lower extremity edema with chronic discoloration noted. NEUROLOGIC: Awake and alert. Oriented x 3. ASSESSMENT: Acute renal failure Hypotension Chronic heart failure with preserved EF, currently not fluid overloaded Persistent atrial fibrillation Hypertension PLAN: No need to repeat echocardiogram as this was performed in the office in November 2023 Continue to hold all diuretics Hold carvedilol as patient's blood pressures are on the lower side with a systolic ranging in the 80s and 90s Continue IV fluid hydration Continue to monitor kidney function Further recommendations pending patient course Nurse practitioner note has been reviewed by physician. Signing provider agrees with the documented findings, assessment, and plan of care documented by PREDICTIVE MAINTENANCE SPECIALIST as a scribe. Objective - Vital Signs Vital signs: Vital Signs Temp 97.5 F L 01/23/24 08:00 Pulse 63 01/23/24 08:00 Resp 16 01/23/24 08:00 BP 96/63 01/23/24 08:00 Pulse Ox 95 01/23/24 08:00 FiO2 Intake & Output 01/22/24 01/23/24 01/23/24 18:59 06:59 18:59 Intake Total 700 1300 Output Total 1550 1200 Balance -850 100 Weight 86 kg Intake: Intake, IV Titration 900 Amount Sodium Chloride 0.9% 1, 900 000 ml @ 75 mls/hr IV . [id number] [facility] Rx#:[id number] Oral 700 400 Output: Urine 1550 1200 Other: Voiding Method Toilet Toilet Toilet Urinal Urinal Urinal # Voids 1 - Labs CBC & Chem 7: 01/23/24 06:50 01/23/24 06:50 Labs: Abnormal Lab Results - Last 24 Hours (Table) 01/23/24 01/23/24 Range/Units 06:50 06:50 RBC 3.42 L (4.30-5.90) m/uL Hgb 11.4 L (13.0-17.5) gm/dL Hct 36.6 L (39.0-53.0) % MCV 106.8 H (80.0-100.0) fL RDW 15.6 H (11.5-15.5) % Plt Count 94 L (150-450) k/uL Macrocytosis Marked A BUN 115 H* (9-20) mg/dL Creatinine 2.70 H (0.66-1.25) mg/dL Glucose 131 H (74-99) mg/dL Microbiology - Last 24 Hours (Table) 01/21/24 12:50 Gram Stain - Preliminary Leg - Left Wound Culture - Preliminary 01/21/24 11:25 Blood Culture - Preliminary Blood 01/21/24 11:40 Blood Culture - Preliminary Blood
--- NOTE | 2024-01-23 15:39 | P.PN ---
Subjective Progress Note Date: 01/23/24 Hospital Course: 73-year-old male with PMH of atrial fibrillation, CHF presents to the ED for a bnormal lab work. He reports fatigue but no other complaints. Recently had his diuretics increased due to lower extremity edema. No nausea or vomiting, diarrhea. Urinating freely. In the ED, he underwent extensive evaluation. BP 66/40, HR 67, RR 16, T 97.6, 94% on room air. CBC, coag panel, CMP was done significant for hemoglobin 12.4, hematocrit 38.4, MCV 104, platelet 98, PT was 14.4, INR 1.4, APTT 34.1, sodium 131, potassium 5.3, chloride 92, BUN 163, creatinine 4.43, Luke was 1:15, total bilirubin 1.4. Urinalysis negative. EKG A-Fib, RBBB, ST/T wave abnormalities II, III, aVF. CXR negative. TibFib XR soft tissue edema without acute fracture. 01/21 Patient was seen and examined. Maintained on NS at 75 cc/hr. Repeat K yesterday 4.4. CBC Hg 12.5 Hct 37.2 MCV 101.6 Plt 90. BMP Cl 94, AG 16.5 BUN 133 Cr 3.9, glu 111, T. Bili 1.4. B12 848. Folate 12.6. Renal US negative for obstruction. LE Duplex negative for DVT. Discussed with Dr. Rossi, agreeable to the current plan. Subjective: Patient seen and examined at bedside. No acute events overnight. Pertinent positives and negatives as discussed above, a complete review of systems was performed and all other systems are negative. Vitals Signs Reviewed. General: Nontoxic, no distress, appears at stated age Derm: Warm, dry venous stasis dermatitis Head: Atraumatic, normocephalic, symmetric Eyes: EOMI, no lid lag, anicteric sclera Mouth: No lip lesion, mucus membranes moist Cardiovascular: S1S2 reg, no murmur Lungs: CTA bilateral, no rhonchi, no rales, no accessory muscle use Abdominal: Soft, nontender to palpation, no guarding, no appreciable organomegaly Ext: Bilateral lower extremity movements,, 2+ edema Neuro: CN II-XI grossly intact, no focal neuro deficits Psych: Alert, oriented, appropriate affect Data Reviewed Today: Pertinent Labs: Hemoglobin 11.4, BUN 115, creatinine 2.7, potassium 4.4 Imaging: Liver ultrasound showed hepatomegaly Assessment and Plan: KOBE: NS at 75 cc/hr. Discontinue Lisinopril, Aldactone, Lasix and Bumex. Nephrology note reviewed, continue current management Hypotension: Discontinue Coreg and above antihypertensives. Cardiology note reviewed, Elevated total bilirubin: Liver ultrasound showed hepatomegaly Macrocytic anemia: B12 and Folate within normal limits Thrombocytopenia: Unknown etiology. Monitor. Bilateral lower extremity wounds: Present on admission. Wound care recommending offload boot History of CHF: Cardiology not recommending new echocardiogram as it was done previously Resolved: Hyperkalemia, Hyponatremia Chronic conditions: A-Fib DVT ppx: Eliquis Code status: Full code Anticipated discharge place: Pending clinical course Anticipated discharge time: Pending clinical course Objective - Vital Signs Vital signs: Vital Signs Temp 97.2 F L 01/23/24 14:00 Pulse 62 01/23/24 14:00 Resp 17 01/23/24 14:00 BP 98/64 01/23/24 14:00 Pulse Ox 94 L 01/23/24 14:00 FiO2 Intake & Output 01/22/24 01/23/24 01/23/24 18:59 06:59 18:59 Intake Total 700 1300 Output Total 1550 1200 1000 Balance -850 100 -1000 Weight 86 kg Intake: Intake, IV Titration 900 Amount Sodium Chloride 0.9% 1, 900 000 ml @ 75 mls/hr IV . [id number] [facility] Rx#:[id number] Oral 700 400 Output: Urine 1550 1200 1000 Other: Voiding Method Toilet Toilet Toilet Urinal Urinal Urinal # Voids 1 # Bowel Movements 1 - Labs CBC & Chem 7: 01/23/24 06:50 01/23/24 06:50 Labs: Abnormal Lab Results - Last 24 Hours (Table) 01/23/24 01/23/24 Range/Units 06:50 06:50 RBC 3.42 L (4.30-5.90) m/uL Hgb 11.4 L (13.0-17.5) gm/dL Hct 36.6 L (39.0-53.0) % MCV 106.8 H (80.0-100.0) fL RDW 15.6 H (11.5-15.5) % Plt Count 94 L (150-450) k/uL Macrocytosis Marked A BUN 115 H* (9-20) mg/dL Creatinine 2.70 H (0.66-1.25) mg/dL Glucose 131 H (74-99) mg/dL Microbiology - Last 24 Hours (Table) 01/21/24 12:50 Gram Stain - Preliminary Leg - Left Wound Culture - Preliminary 01/21/24 11:25 Blood Culture - Preliminary Blood 01/21/24 11:40 Blood Culture - Preliminary Blood
[2024-01-23 16:06] VITALS: BMI 26.4
[2024-01-24 02:29] VITALS: RESP 20
--- NOTE | 2024-01-24 10:02 | P.PN ---
Subjective HISTORY OF PRESENT ILLNESS: This is a 73-year-old male with a past medical history significant for persistent atrial fibrillation, congestive heart failure, and hypertension. Patient follows in the office with Dr. Reis. We have been asked to see the patient in consultation for multiple diuretics. Patient examined at the bedside. Patient presented to the hospital after being called by his primary care physician's office secondary to worsening kidney function. The patient states he reports generalized weakness that has progressed over the past 4 weeks. It appears that the patient was recently prescribed Bumex by his PCP. According to his med list he is also taking Lasix, Aldactone, and Lozol. The patient was found to have acute kidney failure. He is receiving IV fluids. His diuretics are on hold. DIAGNOSTICS: - EKG reveals atrial fibrillation with controlled ventricular rate - Chest xray negative for acute process - Laboratory data: WBC 6.19. Hemoglobin 12.5. Platelet count 90. Sodium 137. Potassium 4.6. BUN 133. Creatinine 3.9. Lactic acid 1.2. - Current home cardiac medications include Lasix 40 mg twice a day, lisinopril 10 mg daily, carvedilol 12.5 mg twice a day, Aldactone 50 mg daily, Eliquis 5 mg twice a day, Lozol 1.25 mg daily, and Bumex 1 mg twice a day. - Most recent echocardiogram obtained at the office on 12/07/2023 revealed ejection fraction 55 to 60%, trace to mild AR, mild to moderate MR, and moderate to severe TR -Patient underwent Lexiscan stress test on 12/18/2023 which was negative for isc hemia 01/23/2024 Patient examined this morning at bedside. Patient denies any chest pain or pressure. He denies shortness of breath. Patient's diuretics and blood pressure medications remain on hold. He is receiving IV fluids. Creatinine has improved today down to 2.7 from 3.9 yesterday. Blood pressure remains on the lower side with a systolic in the low 90s. 01/24/2024 Patient examined this morning at the bedside. Patient denies any chest pain or pressure. He denies any shortness of breath. Vital signs are stable. Patient's diuretics remain on hold. Kidney function from this morning is currently pending. PHYSICAL EXAM: VITAL SIGNS: Reviewed. GENERAL: Well-developed in no acute distress. HEENT: Head is normocephalic. Pupils are equal, round. Sclerae anicteric. Mucous membranes of the mouth are moist. Neck supple. Positive JVD LUNGS: Respirations even and unlabored. Lungs essentially clear to auscultation bilaterally. HEART: Irregular rate and rhythm. S1 and S2 heard. Systolic murmur noted ABDOMEN: Soft. Nondistended. Nontender. EXTREMITIES: Normal range of motion. No clubbing or cyanosis. Peripheral pulses intact. Bilateral lower extremity edema with chronic discoloration noted. NEUROLOGIC: Awake and alert. Oriented x 3. ASSESSMENT: Acute renal failure Hypotension Chronic heart failure with preserved EF Persistent atrial fibrillation Hypertension PLAN: No need to repeat echocardiogram as this was performed in the office in November 2023 Continue to hold all diuretics Hold carvedilol as patient's blood pressures are on the lower side with a systolic ranging in the 80s and 90s Recommend discontinuing IV fluids as patient has JVD this morning and worsening lower extremity edema. Will defer to nephrology. Continue to monitor kidney function No further inpatient recommendations from a cardiac standpoint We will sign off. Please reconsult if needed. Nurse practitioner note has been reviewed by physician. Signing provider agrees with the documented findings, assessment, and plan of care documented by FIELD TRAFFIC INVESTIGATOR as a scribe. Objective - Vital Signs Vital signs: Vital Signs Temp 97.8 F 01/24/24 07:08 Pulse 84 01/24/24 07:08 Resp 20 01/24/24 07:08 BP 112/74 01/24/24 07:08 Pulse Ox 96 01/24/24 07:08 FiO2 Intake & Output 01/23/24 01/24/24 01/24/24 18:59 06:59 18:59 Intake Total 1480 1400 Output Total 1000 1400 Balance 480 0 Weight 86 kg 85 kg Intake: Intake, IV Titration 900 900 Amount Sodium Chloride 0.9% 1, 900 900 000 ml @ 75 mls/hr IV . [id number] [facility] Rx#:[id number] Oral 580 500 Output: Urine 1000 1400 Other: Voiding Method Toilet Toilet Urinal Urinal # Voids 1 2 # Bowel Movements 1 - Labs CBC & Chem 7: 01/23/24 06:50 01/23/24 06:50 Labs: Microbiology - Last 24 Hours (Table) 01/21/24 12:50 Anaerobic Culture - Preliminary Leg - Left 01/21/24 11:25 Blood Culture - Preliminary Blood 01/21/24 11:40 Blood Culture - Preliminary Blood 01/21/24 12:50 Gram Stain - Preliminary Leg - Left Wound Culture - Preliminary
[2024-01-24 11:31] LABS: Magnesium 1.7 mg/dL (1.5-2.4)
[2024-01-24 11:39] LABS: Calcium 8.9 mg/dL (8.7-10.3); Carbon Dioxide 26.8 mmol/L (21.6-31.8); Chloride 104 mmol/L (96-109); Glucose 125 mg/dL (70-110); Potassium 4.7 mmol/L (3.5-5.5); Sodium 141 mmol/L (135-145)
--- NOTE | 2024-01-24 12:42 | P.PN ---
Subjective Patient is seen in follow-up for acute kidney injury. Renal function improving with IV fluids. Has been voiding. Denies chest pain or shortness of breath. No active complaints. Vital signs are stable. General: No acute distress. HEENT: Head exam is unremarkable. LUNGS: No audible rhonchi or wheezes. HEART: Rate and Rhythm are regular. ABDOMEN: Nontender. EXTREMITITES: No edema. Objective - Vital Signs Vital signs: Vital Signs Temp 97.5 F L 01/24/24 11:25 Pulse 70 01/24/24 11:25 Resp 20 01/24/24 11:25 BP 120/81 01/24/24 11:25 Pulse Ox 96 01/24/24 11:25 FiO2 Intake & Output 01/23/24 01/24/24 01/24/24 18:59 06:59 18:59 Intake Total 1480 1400 Output Total 1000 1400 1250 Balance 480 0 -1250 Weight 86 kg 85 kg Intake: Intake, IV Titration 900 900 Amount Sodium Chloride 0.9% 1, 900 900 000 ml @ 75 mls/hr IV . [id number] [facility] Rx#:[id number] Oral 580 500 Output: Urine 1000 1400 1250 Other: Voiding Method Toilet Toilet Toilet Urinal Urinal Urinal # Voids 1 2 # Bowel Movements 1 - Labs CBC & Chem 7: 01/23/24 06:50 01/24/24 06:54 Labs: Abnormal Lab Results - Last 24 Hours (Table) 01/24/24 Range/Units 06:54 BUN 72.0 H (9.0-27.0) mg/dL Creatinine 1.8 H (0.6-1.5) mg/dL Est GFR (CKD-EPI) 39 L (>=60) BUN/Creatinine Ratio 40.00 H (12.00-20.00) Ratio Glucose 125 H (70-110) mg/dL Microbiology - Last 24 Hours (Table) 01/21/24 12:50 Gram Stain - Final Leg - Left Wound Culture - Final Staphylococcus aureus Serratia marcescens 01/21/24 12:50 Anaerobic Culture - Preliminary Leg - Left 01/21/24 11:25 Blood Culture - Preliminary Blood 01/21/24 11:40 Blood Culture - Preliminary Blood Assessment and Plan Plan: Assessment: 1. Acute kidney injury secondary to ATN secondary to hypotension and diuretics. Creatinine 4.43 on admission and is 1.8 today. Creatinine 1.6 in November 2023. No hydronephrosis noted on kidney ultrasound. UA benign. 2. Hypovolemic hyponatremia improved with IV fluids. 3. Chronic diastolic CHF. 4. Hypovolemia from diuretics. Improved. TSH and cortisol level normal. Plan: Maintain normal saline. Continue to hold all diuretics. Avoid nephrotoxins. Continue to monitor renal function and urine output. Patient advised to monitor his weight closely at home and to resume Lasix 40 mg once daily if develops edema or gains more than 3 pounds in 1 week duration. Follow-up outpatient 1 week postdischarge.
--- NOTE | 2024-01-24 12:46 | P.DS ---
Providers Date of admission: 01/21/24 15:07 Expected date of discharge: 01/24/24 Attending physician: Rick Khalil MD Consults: 01/21/24 15:06 Consult Physician Urgent Consulting Provider: Deon Rossi Consult Reason/Comments: Acute renal failure Do you want consulting provider notified?: Yes Primary care physician: Dg Maria Hospital Course: Discharge Diagnosis: Acute kidney injury Hypotension Elevated total bilirubin Macrocytic anemia Thrombocytopenia Bilateral lower extremity wounds present on admission Hypokalemia Hyponatremia Diastolic CHF, not in exacerbation Paroxysmal atrial fibrillation Hospital Course: 73-year-old male with history of paroxysmal atrial fibrillation, diastolic CHF presented to the ED for abnormal lab work. Patient recently had his diuretics increased to 2 lower extremity edema. In the ED, he underwent extensive evaluation. BP 66/40, HR 67, RR 16, T 97.6, 94% on room air. CBC, coag panel, CMP was done significant for hemoglobin 12.4, hematocrit 38.4, MCV 104, platelet 98, PT was 14.4, INR 1.4, APTT 34.1, sodium 131, potassium 5.3, chloride 92, BUN 163, creatinine 4.43, total bilirubin 1.4. Urinalysis negative. EKG A-Fib, RBBB, ST/T wave abnormalities II, III, aVF. CXR negative. TibFib XR soft tissue edema without acute fracture. Diuretics and KARRIE inhibitor held. Blood pressure medications held. Renal function improved with gentle hydration. Cardiology also evaluated patient, recommending no further changes. Carvedilol changed to metoprolol for atrial fibrillation, continue Eliquis. Patient to follow-up with cardiology and nephrology outpatient. Patient seen and examined at bedside. Vital signs reviewed and stable. General: Nontoxic, no distress, appears at stated age Derm: Warm, venous stasis dermatitis lower extremity bilateral Head: Atraumatic, normocephalic, symmetric Eyes: EOMI, no lid lag, anicteric sclera Mouth: No lip lesion, mucus membranes moist Cardiovascular: S1S2 reg, no murmur Lungs: CTA bilateral, no rhonchi, no rales, no accessory muscle use Abdominal: Soft, nontender to palpation, no guarding, no appreciable organomegaly Ext: No gross muscle atrophy, 1+ edema, no contractures Neuro: CN II-XI grossly intact, no focal neuro deficits Psych: Alert, oriented, appropriate affect A total of 33 minutes of time were spent preparing this complex discharge summary. Patient was discharged on 01/24/2024 at 1241. Patient Condition at Discharge: Stable Plan - Discharge Summary New Discharge Prescriptions: New Metoprolol Tartrate 25 mg PO BID #90 tab Continue allopurinoL [Zyloprim] 100 mg PO DAILY Apixaban [Eliquis] 5 mg PO BID Discontinued Furosemide [Lasix] 40 mg PO BID Spironolactone [Aldactone] 50 mg PO DAILY Bumetanide 1 mg PO BID carvediloL [Coreg] 12.5 mg PO BID Indapamide [Lozol] 1.25 mg PO DAILY lisinopriL [Zestril] 10 mg PO DAILY Discharge Medication List Apixaban [Eliquis] 5 mg PO BID 01/21/24 [History] allopurinoL [Zyloprim] 100 mg PO DAILY 01/21/24 [History] Metoprolol Tartrate 25 mg PO BID #90 tab 01/24/24 [Rx] Follow up Appointment(s)/Referral(s): Dg Maria MD [Primary Care Provider] - 1-2 days Deon Rossi DO [STAFF PHYSICIAN] - 1 Week Jay Hunter MD [Medical Doctor] - 1 Week Patient Instructions/Handouts: Heart Failure (DC), Acute Kidney Injury (DC) Activity/Diet/Wound Care/Special Instructions: Please check your weight daily. If increased by 5 lbs, please take 40 mg of lasix and call your abrasive water jet cutter operator and PCP. Please see your PCP, cardiology, and nephrology. Discharge Disposition: HOME SELF-CARE
[2024-01-24 12:53] VITALS: BP 120/81; PULSE 70; TEMP 97.5
== END 2024-01-24 16:13 | disposition home or self-care (01) | DRG 683 ==
LOC: EC 10:55 → 5NMEDONC 15:07
PROVIDERS: ADMIT Student in an Organized Health Care Education/Training Program; ATTEND Student in an Organized Health Care Education/Training Program
DX: N17.0 Acute kidney failure with tubular necrosis (principal); E87.1 Hypo-osmolality and hyponatremia; L97.222 Non-pressure chronic ulcer of left calf with fat layer exposed; I48.19 Other persistent atrial fibrillation; L97.412 Non-pressure chronic ulcer of right heel and midfoot with fat layer exposed; I50.32 Chronic diastolic (congestive) heart failure; D69.6 Thrombocytopenia, unspecified; I11.0 Hypertensive heart disease with heart failure; I95.9 Hypotension, unspecified; D53.9 Nutritional anemia, unspecified; Z28.310 Unvaccinated for COVID-19; E87.5 Hyperkalemia; E86.1 Hypovolemia; E78.5 Hyperlipidemia, unspecified; I45.10 Unspecified right bundle-branch block; I87.2 Venous insufficiency (chronic) (peripheral); Z79.01 Long term (current) use of anticoagulants; Z79.899 Other long term (current) drug therapy
CPT/HCPCS: 36415; 71046; 76705; 76770; 80048; 80053; 81003; 82533; 82607; 82746; 83605; 83735; 84132; 84443; 85025; 85027; 85610; 85730; 87040; 87070; 87075; 87077; 87186; 87205; 93005; 93306; 93970; 96361; 96365; 96366; 99285

== ENCOUNTER → 2024-02-13 | Outpatient (CLI) | payer MEDICARE ==
--- NOTE | 2024-02-13 19:45 | US ---
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 WI; Multiple non healing wounds lower legs x couple months History of: Smoker: No Hypertension: Yes Diabetic: No Hyperlipidemia: No TIA/CVA: No Previous Vascular Surgery: No NV: No Vascular Ulcers: Both Doppler Waveforms: Right: Triphasic Left: Triphasic Pulse Volume Recording: Normal waveforms Pressure Gradients: No significant pressure gradients Right Brachial Pressure: 137 Left Brachial Pressure: 129 Ankle-Brachial Indices: Right: 1.31 Left: 1.11 (Vessel hardening > 1.4; Normal 0.9 - 1.4, Moderate 0.7 - 0.9, Severe 0.5-0.7) IMPRESSION: No significant peripheral arterial disease based on ABIs, pressure volume recordings and Doppler waveforms of the pedal arteries
== END | disposition home or self-care (01) ==
LOC: RADUSWWP 12:53
PROVIDERS: ATTEND Nurse Practitioner Family
DX: L97.222 Non-pressure chronic ulcer of left calf with fat layer exposed (principal); L89.612 Pressure ulcer of right heel, stage 2; L97.522 Non-pressure chronic ulcer of other part of left foot with fat layer exposed; L97.812 Non-pressure chronic ulcer of other part of right lower leg with fat layer exposed; I87.333 Chronic venous hypertension (idiopathic) with ulcer and inflammation of bilateral lower extremity
CPT/HCPCS: 93923

== ENCOUNTER → 2024-02-27 | Outpatient (CLI) | payer MEDICARE ==
[2024-02-27 19:27] LABS: Basophils % (A) 1.9 %; Elliptocytes 2+; Eosinophils % (A) 1.9 %; HCT 42.4 % (39.6-50.0); HGB 13.6 g/dL (13.0-17.0); Lymphocytes # (A) 0.87 X 10*3/uL (0.90-5.00); Lymphocytes % (A) 16.5 %; MCH 34.4 pg (27.0-32.0); MCHC 32.1 g/dL (32.0-37.0); MCV 107.3 FL (80.0-97.0); Macrocytosis (M) 2+; Mean Platelet Volume 13.5 FL (9.5-12.2); Monocytes # (A) 0.78 X 10*3/uL (0.20-1.00); Monocytes % (A) 14.8 %; NRBC Per 100 WBC 0 X 10*3/uL (0.00-0.01); Neutrophils # (A) 3.41 X 10*3/uL (1.80-7.70); Neutrophils % (A) 64.7 %; Platelet Count 127 X 10*3/uL (140-440); RBC 3.95 X 10*6/uL (4.40-5.60); RDW 17.6 % (11.5-14.5); WBC 5.27 X 10*3/uL (4.50-10.00)
[2024-02-27 21:15] LABS: NT-Pro-B-Type Natriuretic Pept 1296 pg/mL (0-450)
[2024-02-27 21:18] LABS: Albumin 3.7 g/dL (3.8-4.9); BUN/Creat Ratio 21.55 Ratio (12.00-20.00); Blood Urea Nitrogen 23.7 mg/dL (9.0-27.0); Calcium 9.4 mg/dL (8.7-10.3); Carbon Dioxide 33.3 mmol/L (21.6-31.8); Chloride 91 mmol/L (96-109); Glucose 101 mg/dL (70-110); Potassium 2.9 mmol/L (3.5-5.5); Sodium 141 mmol/L (135-145)
== END | disposition home or self-care (01) ==
LOC: LABWHC1 15:47
PROVIDERS: ATTEND Internal Medicine Cardiovascular Disease
DX: I50.32 Chronic diastolic (congestive) heart failure (principal); N18.32 Chronic kidney disease, stage 3b
CPT/HCPCS: 36415; 80048; 80069; 83880; 85025

== ENCOUNTER → 2024-03-02 | Outpatient (CLI) | payer MEDICARE ==
[2024-03-02 17:33] LABS: Magnesium 2.1 mg/dL (1.5-2.4)
[2024-03-02 18:02] LABS: BUN/Creat Ratio 22.75 Ratio (12.00-20.00); Blood Urea Nitrogen 27.3 mg/dL (9.0-27.0); Calcium 9.1 mg/dL (8.7-10.3); Carbon Dioxide 31.2 mmol/L (21.6-31.8); Chloride 93 mmol/L (96-109); Glucose 111 mg/dL (70-110); Potassium 3.7 mmol/L (3.5-5.5); Sodium 137 mmol/L (135-145)
== END | disposition home or self-care (01) ==
LOC: LABWHC1 10:40
PROVIDERS: ATTEND Internal Medicine
DX: N17.9 Acute kidney failure, unspecified (principal)
CPT/HCPCS: 36415; 80048; 83735

== ENCOUNTER 2024-03-12 10:42 | Inpatient (IN) | payer MEDICARE ==
[2024-03-12 11:59] LABS: Basophils % (A) 1 %; Eosinophils # (A) 0.1 k/uL (0-0.7); Eosinophils % (A) 1 %; HCT 44.1 % (39.0-53.0); HGB 13.4 gm/dL (13.0-17.5); Hypochromasia Slight; Lymphocytes # (A) 0.7 k/uL (1.0-4.8); Lymphocytes % (A) 14 %; MCH 33.7 pg (25.0-35.0); MCHC 30.4 g/dL (31.0-37.0); Macrocytosis Marked; Monocytes # (A) 0.4 k/uL (0-1.0); Monocytes % (A) 8 %; Neutrophils # (A) 3.8 k/uL (1.3-7.7); Neutrophils % (A) 74 %; Platelet Count 127 k/uL (150-450); RBC 3.98 m/uL (4.30-5.90); RDW 15.9 % (11.5-15.5); WBC 5.1 k/uL (3.8-10.6)
[2024-03-12 12:18] LABS: ALT 29 U/L (4-49); AST 51 U/L (17-59); African American GFR (CKD) 51 (>60 ml/min/1.73 sqM); Albumin 3.3 g/dL (3.5-5.0); Alkaline Phosphatase 137 U/L (38-126); Anion Gap 9 mmol/L; Blood Urea Nitrogen 32 mg/dL (9-20); Calcium 8.5 mg/dL (8.4-10.2); Carbon Dioxide 23 mmol/L (22-30); Chloride 100 mmol/L (98-107); Glucose 95 mg/dL (74-99); Non-African American GFR(CKD) 44 (>60 ml/min/1.73 sqM); Potassium 4.7 mmol/L (3.5-5.1); Sodium 132 mmol/L (137-145); Total Bilirubin 4.6 mg/dL (0.2-1.3); Total Protein 7.3 g/dL (6.3-8.2)
[2024-03-12 12:22] LABS: INR 2.3 (<1.2); Partial Thromboplastin Time 34.2 sec (22.0-30.0); Prothrombin Time 23.3 sec (10.0-12.5)
[2024-03-12 12:26] LABS: NT-Pro-B-Type Natriuretic Pept 1870 pg/mL
--- NOTE | 2024-03-12 12:28 | XR ---
EXAMINATION TYPE: XR chest 2V DATE OF EXAM: 03/12/2024 COMPARISON: 01/21/2024 HISTORY: 74 year-old male shortness of breath, difficulty breathing TECHNIQUE: PA and lateral views FINDINGS: Mild to moderate cardiomegaly. Cephalization of the pulmonary vasculature. No kory consolidation or pleural effusion. IMPRESSION: Mild/moderate cardiomegaly and possible early pulmonary vascular congestion. No pulmonary edema.
[2024-03-12] MEDS ORDERED: NALOXONE 0.4 MG/ML 1 ML VIAL IV PRN (13:17)
--- NOTE | 2024-03-12 13:17 | ED ---
General Adult HPI - General Chief complaint: Extremity Problem,Nontraumatic Stated complaint: Abn labs-Sent by PCP Time Seen by Provider: 03/12/24 10:54 Source: patient, RN notes reviewed, old records reviewed Mode of arrival: ambulatory Limitations: no limitations - History of Present Illness Initial comments: 74-year-old male presenting from primary care office for evaluation of weight gain, known chronic kidney disease and CHF. Patient is currently on Lasix and spironolactone. He had seen the primary care provider today and was noted to have a 15 pound weight gain and was sent to the emergency department for admission for diuresis. Patient denies fever. He does not report significant dyspnea. - Related Data Home Medications Medication Instructions Recorded Confirmed Apixaban [Eliquis] 5 mg PO BID 01/21/24 03/12/24 allopurinoL [Zyloprim] 100 mg PO DAILY 01/21/24 03/12/24 Furosemide [Lasix] 40 mg PO DAILY 03/12/24 03/12/24 Spironolactone [Aldactone] 50 mg PO DAILY 03/12/24 03/12/24 Sulfamethox-Tmp 800-160Mg [Bactrim 1 tab PO Q12HR 03/12/24 03/12/24 DS 800-160 mg] Previous Rx's Medication Instructions Recorded Metoprolol Tartrate 25 mg PO BID #90 tab 01/24/24 Allergies Allergy/AdvReac Type Severity Reaction Status Date / Time No Known Allergies Allergy Verified 03/12/24 11:48 Review of Systems ROS Statement: Those systems with pertinent positive or pertinent negative responses have been documented in the HPI. ROS Other: All systems not noted in ROS Statement are negative. Past Medical History Past Medical History: Atrial Fibrillation, Heart Failure, Hypertension, Skin Disorder Additional Past Medical History / Comment(s): leg wounds since early 2022. History of Any Multi-Drug Resistant Organisms: None Reported Past Surgical History: No Surgical Hx Reported Past Anesthesia/Blood Transfusion Reactions: No Reported Reaction Past Psychological History: No Psychological Hx Reported Smoking Status: Never smoker Past Alcohol Use History: None Reported Past Drug Use History: None Reported - Past Family History Mother Family Medical History: Hypertension Father Family Medical History: Hypertension General Exam Limitations: no limitations General appearance: alert, in no apparent distress Head exam: Present: atraumatic, normocephalic Eye exam: Present: normal appearance, PERRL ENT exam: Present: normal exam Neck exam: Present: normal inspection. Absent: tenderness, meningismus Respiratory exam: Present: normal lung sounds bilaterally. Absent: respiratory distress, wheezes Cardiovascular Exam: Present: regular rate, irregular rhythm GI/Abdominal exam: Present: soft. Absent: distended, tenderness, guarding Extremities exam: Present: pedal edema Neurological exam: Present: alert, oriented X3 Psychiatric exam: Present: normal affect, normal mood Skin exam: Present: warm, dry Course Vital Signs 03/12/24 03/12/24 10:50 12:24 Temperature 98.4 F Pulse Rate 70 76 Respiratory 20 18 Rate Blood Pressure 105/72 104/80 O2 Sat by Pulse 99 96 Oximetry Procedures - [place] Protocol (Time Out) Nurse: Kiara Greene Medical Decision Making - Medical Decision Making Was pt. sent in by a medical professional or institution (, PA, AUTO RENTAL CLERK, urgent care, hospital, or [place] health care facility...) When possible be specific @Sent from Dr. Maria's office for evaluation and treatment Did you speak to anyone other than the patient for history (EMS, parent, family, police, friend...)? What history was obtained from this source @ -No Did you review nursing and triage notes (agree or disagree)? Why? @ -I reviewed and agree with nursing and triage notes Were old charts reviewed (outside hosp., previous admission, EMS record, old EKG, old radiological studies, urgent care reports/EKG's, [place] health care facility records)? Report findings @ -No old charts were reviewed Differential Dyspnea: Coronary syndrome, arrhythmia, tamponade, asthma, COPD, pulmonary embolism, pneumonia, pneumothorax, pulmonary effusion, anaphylaxis, diabetic ketoacidosis, flailed chest, pulmonary contusion, diaphragmatic rupture, anemia, neuromuscular, this is not meant to be an all-inclusive list. EKG interpreted by me (3pts min.). @ -Atrial fibrillation, rate of 83, right bundle branch block, QRS duration 129, QTc [address] segment elevation. Similar compared to EKG in December of this year. X-rays interpreted by me (1pt min.). @ -Chest x-ray negative for focal pneumonia or pneumothorax, cardiomegaly with pulmonary vascular congestion CT interpreted by me (1pt min.). @ -None done U/S interpreted by me (1pt. min.). @ -None done What testing was considered but not performed or refused? (CT, X-rays, U/S, l abs)? Why? @ -None What meds were considered but not given or refused? Why? @ -None Did you discuss the management of the patient with other professionals (professionals i.e. , PA, AUTO RENTAL CLERK, lab, RT, psych nurse, social work nurse, bilingual sales consultant, teacher, event security officer, field case manager)? Give summary @ -Case discussed with Dr. Tijerina who will admit Was smoking cessation discussed for >3mins.? @ -No Was critical care preformed (if so, how long)? @ -No Were there social determinants of health that impacted care today? How? (Homelessness, low income, unemployed, alcoholism, drug addiction, transportation, low edu. Level, literacy, decrease access to med. care, long term, rehab)? @ -No Was there de-escalation of care discussed even if they declined (Discuss DNR or withdrawal of care, Hospice)? DNR status @ -No What co-morbidities impacted this encounter? (DM, HTN, Smoking, COPD, CAD, Cancer, CVA, ARF, Chemo, Hep., AIDS, mental health diagnosis, sleep apnea, morbid obesity)? @ -CHF, chronic kidney disease. Was patient admitted / discharged? Hospital course, mention meds given and route, prescriptions, significant lab abnormalities, going to OR and other pertinent info. @ -74-year-old male presenting with concern for cardiorenal syndrome, CHF. Sent from [facility] for IV diuresis. Patient is edematous. No dyspnea. He is on room air. He is in atrial fibrillation which is rate controlled. Chest x-ray showing cardiomegaly with pulmonary vascular congestion. Patient has normal white blood cell count, stable hemoglobin, he has creatinine of 1.51 which is slightly elevated above recent. His troponin is elevated at 0.12 and he is anticoagulated at baseline. His BNP is elevated at 1870. He received IV Lasix in the emergency department. He will be admitted for IV diuresis. Undiagnosed new problem with uncertain prognosis? @ -No Drug Therapy requiring intensive monitoring for toxicity (Heparin, Nitro, Insulin, Cardizem)? @ -No Were any procedures done? @ -No Diagnosis/symptom? @ -[CHF, troponin elevation, cardiorenal Acute, or Chronic, or Acute on Chronic? @ -Acute on chronic Uncomplicated (without systemic symptoms) or Complicated (systemic symptoms)? @ -[default Side effects of treatment? @ -No Exacerbation, Progression, or Severe Exacerbation? @ -No Poses a threat to life or bodily function? How? (Chest pain, USA, GA, pneumonia, PE, COPD, DKA, ARF, appy, cholecystitis, CVA, Diverticulitis, Homicidal, Suicidal, threat to staff... and all critical care pts) @ -Yes, CHF - Lab Data Result diagrams: 03/12/24 11:46 03/12/24 11:46 Lab Results 03/12/24 03/12/24 03/12/24 Range/Units 11:46 11:46 11:46 WBC 5.1 (3.8-10.6) k/uL RBC 3.98 L (4.30-5.90) m/uL Hgb 13.4 (13.0-17.5) gm/dL Hct 44.1 (39.0-53.0) % MCV 111.0 H (80.0-100.0) fL MCH 33.7 (25.0-35.0) pg MCHC 30.4 L (31.0-37.0) g/dL RDW 15.9 H (11.5-15.5) % Plt Count 127 L (150-450) k/uL MPV 10.0 Neutrophils % 74 % Lymphocytes % 14 % Monocytes % 8 % Eosinophils % 1 % Basophils % 1 % Neutrophils # 3.8 (1.3-7.7) k/uL Lymphocytes # 0.7 L (1.0-4.8) k/uL Monocytes # 0.4 (0-1.0) k/uL Eosinophils # 0.1 (0-0.7) k/uL Basophils # 0.0 (0-0.2) k/uL Manual Slide Review Performed Hypochromasia Slight Macrocytosis Marked A PT 23.3 H (10.0-12.5) sec INR 2.3 H (<1.2) APTT 34.2 H (22.0-30.0) sec Sodium 132 L (137-145) mmol/L Potassium 4.7 (3.5-5.1) mmol/L Chloride 100 (98-107) mmol/L Carbon Dioxide 23 (22-30) mmol/L Anion Gap 9 mmol/L BUN 32 H (9-20) mg/dL Creatinine 1.51 H (0.66-1.25) mg/dL Est GFR (CKD-EPI)AfAm 51 (>60 ml/min/1.73 sqM) Est GFR (CKD-EPI)NonAf 44 (>60 ml/min/1.73 sqM) Glucose 95 (74-99) mg/dL Calcium 8.5 (8.4-10.2) mg/dL Total Bilirubin 4.6 H (0.2-1.3) mg/dL AST 51 (17-59) U/L ALT 29 (4-49) U/L Alkaline Phosphatase 137 H (38-126) U/L Troponin I (0.000-0.034) ng/mL NT-Pro-B Natriuret Pep 1870 pg/mL Total Protein 7.3 (6.3-8.2) g/dL Albumin 3.3 L (3.5-5.0) g/dL 03/12/24 Range/Units 11:46 WBC (3.8-10.6) k/uL RBC (4.30-5.90) m/uL Hgb (13.0-17.5) gm/dL Hct (39.0-53.0) % MCV (80.0-100.0) fL MCH (25.0-35.0) pg MCHC (31.0-37.0) g/dL RDW (11.5-15.5) % Plt Count (150-450) k/uL MPV Neutrophils % % Lymphocytes % % Monocytes % % Eosinophils % % Basophils % % Neutrophils # (1.3-7.7) k/uL Lymphocytes # (1.0-4.8) k/uL Monocytes # (0-1.0) k/uL Eosinophils # (0-0.7) k/uL Basophils # (0-0.2) k/uL Manual Slide Review Hypochromasia Macrocytosis PT (10.0-12.5) sec INR (<1.2) APTT (22.0-30.0) sec Sodium (137-145) mmol/L Potassium (3.5-5.1) mmol/L Chloride (98-107) mmol/L Carbon Dioxide (22-30) mmol/L Anion Gap mmol/L BUN (9-20) mg/dL Creatinine (0.66-1.25) mg/dL Est GFR (CKD-EPI)AfAm (>60 ml/min/1.73 sqM) Est GFR (CKD-EPI)NonAf (>60 ml/min/1.73 sqM) Glucose (74-99) mg/dL Calcium (8.4-10.2) mg/dL Total Bilirubin (0.2-1.3) mg/dL AST (17-59) U/L ALT (4-49) U/L Alkaline Phosphatase (38-126) U/L Troponin I 0.121 H* (0.000-0.034) ng/mL NT-Pro-B Natriuret Pep pg/mL Total Protein (6.3-8.2) g/dL Albumin (3.5-5.0) g/dL Disposition Clinical Impression: CHF (congestive heart failure) Disposition: ADMITTED IP TO THIS HOSP Condition: Stable Is patient prescribed a controlled substance at d/c from ED?: No Referrals: Dg Maria MD [Primary Care Provider] - 1-2 days Time of Disposition: 13:17
[2024-03-12] MEDS: FUROSEMIDE 10 MG/ML 4 ML VIAL IV STA (13:53)
[2024-03-12] MEDS ORDERED: HEPARIN SODIUM 1,000 UN/ML (10ML VL) IV PRN (13:56)
--- NOTE | 2024-03-12 14:23 | P.HPIM ---
History of Present Illness H&P Date: 03/12/24 History of Presenting Illness: Patient is a 74-year-old male with a past medical history of chronic atrial fibrillation on anticoagulation with Eliquis, chronic diastolic heart failure with a EF of 55 to 60% on Lasix and Aldactone, hypertension, chronic kidney disease stage IIIb and chronic bilateral lower extremity wounds/ulcers. Pt was recently found to have infected ulcers of left lower extremity and right foot with Staphylococcus aureus and Serratia marcescens with multiple resistance and was started outpatient on Bactrim. He was taking as prescribed and following with wound care clinic. Today patient was following up outpatient with his PCP and was found to have a reported weight gain of 15 pounds over the past couple of weeks concerning for fluid overload and was sent to the emergency department for evaluation and admission for IV diuresis. Patient reports exertional shortness of breath that seems to be worsening, but currently denies having any other complaints including fevers, chills, diaphoresis, headache, lightheadedness, dizziness, chest pain, palpitations, shortness of breath at rest, cough or congestion, abdominal pain, nausea, vomiting, or noticing any increased swelling in his extremities. On arrival to the emergency department, patient underwent evaluation. Vital signs revealing blood pressure 105/72, heart rate 70, respiratory rate 20, temp 98.4 F, and SpO2 of 99% on room air. EKG was completed showing atrial fibrillation with a controlled ventricular rate of 83 bpm. X-ray completed showing mild to moderate cardiomegaly and possible findings of early pulmonary vascular congestion. Completed and reviewed. CBC and thrombocytopenia with platelet count of 127, this is chronic and at baseline. Coagulation profile showing elevated PT of 23.3, INR of 2.3, and PTT of 34.2. BMP showing hyponatremia with sodium of 132 consistent with stage IIIb chronic kidney disease with BUN of 32, creatinine 1.51, and GFR 44 with baseline creatinine of 1.2. Liver profile showing hyperbilirubinemia with total bili of 4.6 and elevated alkaline phosphatase of 137. Troponin was elevated at 0.121 and proBNP 1870. Pt was admitted under our services with consultation to cardiology and gastroenterology. Review of systems: Pertinent positives and negatives as discussed in HPI, a complete review of systems was performed and all other systems are negative. Physical exam: Vital signs reviewed and stable. General: Nontoxic, no distress and appears stated age. Morbidly obese. Derm: Skin warm and dry, normal coloration for ethnicity. Head: Atraumatic, normocephalic and symmetric. Eyes: EOMs intact, no lid lag. Positive for scleral icterus. Mouth: no lip lesions, mucus membranes moist Cardiovascular: regular rate and rhythm with normal S1S2, no murmur, positive posterior tibial pulses bilaterally, and cap refill < 2 seconds. Lungs: Respirations even, regular, and unlabored on room air. Lungs diminished with no rhonchi, no rales, no wheezing, and no accessory muscle usage. Abdominal: soft distended obese abdomen, nontender to palpation, no guarding, no appreciable organomegaly Ext: No gross muscle atrophy, bilateral lower extremity edema, no contractures. Dressings in place to bilateral lower extremities secondary to chronic wounds. Neuro: Speech clear, face symmetrical and CN II-XII grossly intact with no noted focal neuro deficits Psych: Alert and oriented to person, place, time, and situation. Appropriate and pleasant affect. Assessment and Plan of Care: NSTEMI Acute exacerbation of chronic diastolic heart failure Hyperbilirubinemia with new onset scleral icterus Acute kidney injury on stage III chronic kidney disease Chronic atrial fibrillation -Troponin elevated at 0.121. proBNP 1870. -Will hold Eliquis and placed patient on low intensity heparin infusion at 12 u nits/kg/h with repeat PTT every 6 hours to monitor for goal therapeutic range of 44 to 79 ms. -Trend troponins -Consult placed to cardiology for evaluation, appreciate recommendations. -Patient given aspirin 324 mg p.o. x 1 dose and started on aspirin 81 mg daily. -Lasix 40 mg IVP every 12 hours with his daily weights and close/strict monitoring of I's and O's. -Continuous telemetry monitoring -Hyperbilirubinemia with new onset scleral icterus. Possibly secondary to underlying undiagnoses hepatitis vs adverse effect of Bactrim vs hepatic congestion resulting from right sided heart failure vs other etiology. 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 Appreciate recommendations. -Reviewed echocardiogram completed 01/22/2024 showing an EF of 55 to 60% and mild mitral, aortic, and tricuspid regurgitation with mild pulmonary hypertension. Will defer to casework specialist if they want to repeat echocardiogram. Hypertension -Continue daily medication regimen with metoprolol 25 mg twice daily. Data and imaging reviewed: As stated above in HPI. The patient is admitted with an anticipated greater than 2 midnight stay for evaluation of NSTEMI, HFpEF, and acute hyperbilirubinemia with scleral icterus CODE STATUS: Full code DVT prophylaxis: Heparin infusion Anticipated discharge date: Clinical course to determine Anticipated discharge place: To determine Patient was seen independently by Nurse Practitioner. This document was prepared using [employer] dictation software. Please allow for errors in respiratory technician while rare they do occur. Bandar King NP rendered care for this patient independently, reviewed the findings and plan as documented in the note above. I did not physically speak with or examine the patient on this date. Highly doubt CHF suspect cirrhosis patient should have GI eval and consider elastography in the outpatient setting. Past Medical History Past Medical History: Atrial Fibrillation, Heart Failure, Hypertension, Skin Disorder Additional Past Medical History / Comment(s): leg wounds since early 2022. History of Any Multi-Drug Resistant Organisms: None Reported Past Surgical History: No Surgical Hx Reported Past Anesthesia/Blood Transfusion Reactions: No Reported Reaction Past Psychological History: No Psychological Hx Reported Smoking Status: Never smoker Past Alcohol Use History: None Reported Past Drug Use History: None Reported - Past Family History Mother Family Medical History: Hypertension Father Family Medical History: Hypertension Medications and Allergies Home Medications Medication Instructions Recorded Confirmed Type Apixaban [Eliquis] 5 mg PO BID 01/21/24 03/12/24 History allopurinoL [Zyloprim] 100 mg PO DAILY 01/21/24 03/12/24 History Metoprolol Tartrate 25 mg PO BID #90 tab 01/24/24 03/12/24 Rx Furosemide [Lasix] 40 mg PO DAILY 03/12/24 03/12/24 History Spironolactone [Aldactone] 50 mg PO DAILY 03/12/24 03/12/24 History Sulfamethox-Tmp 800-160Mg [Bactrim 1 tab PO Q12HR 03/12/24 03/12/24 History DS 800-160 mg] Allergies Allergy/AdvReac Type Severity Reaction Status Date / Time No Known Allergies Allergy Verified 03/12/24 11:48 Physical Exam Osteopathic Statement: *. No significant issues noted on an osteopathic structural exam other than those noted in the History and Physical/Consult. Vitals: Vital Signs Temp Pulse Resp BP Pulse Ox 03/12/24 12:24 76 18 104/80 96 03/12/24 10:50 98.4 F 70 20 105/72 99 Intake and Output 03/11/24 03/12/24 03/12/24 22:59 06:59 14:59 Other: Weight 105.687 kg Results CBC & Chem 7: 03/12/24 11:46 03/12/24 11:46 Labs: Abnormal Lab Results - Last 24 Hours (Table) 03/12/24 03/12/24 03/12/24 Range/Units 11:46 11:46 11:46 RBC 3.98 L (4.30-5.90) m/uL MCV 111.0 H (80.0-100.0) fL MCHC 30.4 L (31.0-37.0) g/dL RDW 15.9 H (11.5-15.5) % Plt Count 127 L (150-450) k/uL Lymphocytes # 0.7 L (1.0-4.8) k/uL Macrocytosis Marked A PT 23.3 H (10.0-12.5) sec INR 2.3 H (<1.2) APTT 34.2 H (22.0-30.0) sec Sodium 132 L (137-145) mmol/L BUN 32 H (9-20) mg/dL Creatinine 1.51 H (0.66-1.25) mg/dL Total Bilirubin 4.6 H (0.2-1.3) mg/dL Alkaline Phosphatase 137 H (38-126) U/L Troponin I (0.000-0.034) ng/mL Albumin 3.3 L (3.5-5.0) g/dL 03/12/24 Range/Units 11:46 RBC (4.30-5.90) m/uL MCV (80.0-100.0) fL MCHC (31.0-37.0) g/dL RDW (11.5-15.5) % Plt Count (150-450) k/uL Lymphocytes # (1.0-4.8) k/uL Macrocytosis PT (10.0-12.5) sec INR (<1.2) APTT (22.0-30.0) sec Sodium (137-145) mmol/L BUN (9-20) mg/dL Creatinine (0.66-1.25) mg/dL Total Bilirubin (0.2-1.3) mg/dL Alkaline Phosphatase (38-126) U/L Troponin I 0.121 H* (0.000-0.034) ng/mL Albumin (3.5-5.0) g/dL
[2024-03-12] MEDS: HEPARIN SODIUM 1,000 UN/ML (10ML VL) IV ONE (15:22)
[2024-03-12] MEDS: HEPARIN SOD,PORK IN 0.45% NACL 25,000 UNIT in 0.45% NACL 1 250ML.BAG IV SCH (15:22)
[2024-03-12] MEDS: ASPIRIN 81 MG PO STA (15:24)
[2024-03-12] MEDS ORDERED: AMPICILLIN-SULBACTAM 3 GM in SODIUM CHLORIDE 0.9% 100 ML IVPB SCH (16:30)
--- NOTE | 2024-03-12 16:44 | US ---
EXAMINATION TYPE: US abdomen limited DATE OF EXAM: 03/12/2024 COMPARISON: NONE CLINICAL INDICATION: Male, 74 years old with history of hyperbilirubinemia, evaluate liver for asci laura; hyperbilirubinemia TECHNIQUE: Multiple sonographic images of the right upper quadrant are obtained. 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 Pancreas: Obscured by bowel gas Liver: upper limits of normal. Slightly heterogeneous Gallbladder: contracted, patient not NPO. The wall is borderline to mildly thickened. Evidence for sonographic Luciano's sign: no CBD: appears wnl Right Kidney: Lower pole cortical cyst measuring 1.7 x 1.3 x 1.5cm. No hydronephrosis. *Small amount of free fluid adjacent to liver IMPRESSION: 1. Trace ascites fluid. Borderline hepatomegaly at 17.5 cm. No focal liver lesion. 2. Borderline to mild gallbladder wall thickening may be due to nondistention or third spacing. No ga llstones or additional findings of acute cholecystitis. 3. No biliary ductal dilatation.
[2024-03-12] MEDS: CEFEPIME 2 GM in SODIUM CHLORIDE 0.9% 100 ML IVPB SCH (18:08)
[2024-03-12] MEDS: FUROSEMIDE 10 MG/ML 4 ML VIAL IV SCH (20:38)
[2024-03-12] MEDS: METOPROLOL TARTRATE 25 MG TAB PO SCH (20:38)
[2024-03-12 20:44] LABS: INR 2.1 (<1.2); Partial Thromboplastin Time 51.8 sec (22.0-30.0); Prothrombin Time 20.6 sec (10.0-12.5)
[2024-03-13 03:42] LABS: Hepatitis A Antibody IgM Nonreactive (Nonreactive); Hepatitis B Core IgM Nonreactive (Nonreactive); Hepatitis B Surface Antigen Nonreactive (Nonreactive); Hepatitis C IgG Antibody Nonreactive (Nonreactive)
[2024-03-13] MEDS: ASPIRIN 81 MG PO SCH (09:17)
[2024-03-13] MEDS: allopurinoL 100 MG TAB PO SCH (09:17)
[2024-03-13] MEDS: SPIRONOLACTONE 25 MG TAB PO SCH (09:17)
[2024-03-13 09:47] LABS: Anisocytosis Slight; Basophils % (A) 1 %; Eosinophils # (A) 0.1 k/uL (0-0.7); Eosinophils % (A) 2 %; HCT 43.6 % (39.0-53.0); HGB 13.1 gm/dL (13.0-17.5); Hypochromasia Marked; Lymphocytes # (A) 0.7 k/uL (1.0-4.8); Lymphocytes % (A) 14 %; MCH 33.9 pg (25.0-35.0); MCHC 29.9 g/dL (31.0-37.0); MCV 113.4 fL (80.0-100.0); Macrocytosis Marked; Monocytes # (A) 0.5 k/uL (0-1.0); Monocytes % (A) 10 %; Neutrophils # (A) 3.5 k/uL (1.3-7.7); Neutrophils % (A) 71 %; Platelet Count 105 k/uL (150-450); RBC 3.85 m/uL (4.30-5.90); WBC 4.9 k/uL (3.8-10.6)
[2024-03-13 10:30] LABS: ALT 29 U/L (4-49); AST 49 U/L (17-59); African American GFR (CKD) 48 (>60 ml/min/1.73 sqM); Albumin 3.1 g/dL (3.5-5.0); Alkaline Phosphatase 141 U/L (38-126); Anion Gap 8 mmol/L; Blood Urea Nitrogen 31 mg/dL (9-20); Calcium 8.4 mg/dL (8.4-10.2); Carbon Dioxide 26 mmol/L (22-30); Chloride 100 mmol/L (98-107); Glucose 134 mg/dL (74-99); Non-African American GFR(CKD) 41 (>60 ml/min/1.73 sqM); Potassium 4.9 mmol/L (3.5-5.1); Sodium 134 mmol/L (137-145); Total Bilirubin 4.2 mg/dL (0.2-1.3); Total Protein 7.1 g/dL (6.3-8.2)
--- NOTE | 2024-03-13 11:06 | P.CRDCN ---
History of Present Illness Consult date: 03/13/24 History of present illness: - . HPI: This is a 74-year-old gentleman with a known diagnosis of diastolic heart failure lower extremity edema came in from primary care office with complaints of weight gain. I was asked to see him because of elevated troponin. Patient c omplains of fatigue. His bilirubin is elevated liver functions are also slightly abnormal. Denies any chest pain complains of lower extremity edema. Patient is not in left heart failure clinically. He has chronic atrial fibrillation on Eliquis 5 mg twice daily. He is resting comfortably at the time of my evaluation. His last echo from December of this year revealed preserved systolic function and no significant pulmonary hypertension right-sided pressures were about 40 to 45 mmHg. His bilirubin elevation is a matter of some concern could be related to some viral hepatitis type picture and this should be looked into. We are not dealing with any specific overt heart failure type picture. BNP is actually in the close to normal range. No chest pain shortness of breath or palpitations. RELEVANT PAST MEDICAL HISTORY: Chronic atrial fibrillation, diastolic heart failure, hypertension. And chronic kidney disease. MEDICATIONS: Medications include Aldactone, Lasix, allopurinol, metoprolol tartrate 25 mg twice daily and Eliquis 5 mg twice daily ALLERGIES: None. REVIEW OF SYSTEMS: Generalized weakness lower extremity edema some weight gain no chest pain palpitation shortness of breath is chronic and stable no hematemesis melena or genitourinary symptoms. PHYSICIAL EXAM: Physical exam revealed vital signs are normal JVD 1 cm no carotid bruit S1-S2 heard normally irregularities and rhythm noted short systolic murmur noted lungs reveal decent air entry no rales or rhonchi abdomen is soft lower extremities are both bandaged probably has edema pulses were not assessed Central nervous system generalized weakness no focal deficits. IMPRESSION: 1. Abnormal bilirubin and liver function test rule out hepatitis advised GI evaluation. 2. Exacerbation of diastolic heart failure. 3. [Chronic atrial fibrillation. 4. No overt systolic heart failure. 5. Lower extremity edema. RECOMMENDATIONS: I am recommending that we can switch him from heparin back to Eliquis. His troponin profile does not suggest myocardial injury. Lower or lower extremity edema is chronic and probably has a component of local causes with venous insufficiency and also some mild to moderate pulmonary hypertension. Elevated liver function test is an issue I am recommending GI evaluation and probably rule out any viral hepatitis type picture. An ultrasound of the liver also may be helpful.. Past Medical History Past Medical History: Atrial Fibrillation, Heart Failure, Hypertension, Skin Disorder Additional Past Medical History / Comment(s): leg wounds since early 2022. History of Any Multi-Drug Resistant Organisms: None Reported Past Surgical History: No Surgical Hx Reported Past Anesthesia/Blood Transfusion Reactions: No Reported Reaction Past Psychological History: No Psychological Hx Reported Smoking Status: Never smoker Past Alcohol Use History: None Reported Past Drug Use History: None Reported - Past Family History Mother Family Medical History: Hypertension Father Family Medical History: Hypertension Medications and Allergies Home Medications Medication Instructions Recorded Confirmed Type Apixaban [Eliquis] 5 mg PO BID 01/21/24 03/12/24 History allopurinoL [Zyloprim] 100 mg PO DAILY 01/21/24 03/12/24 History Metoprolol Tartrate 25 mg PO BID #90 tab 01/24/24 03/12/24 Rx Furosemide [Lasix] 40 mg PO DAILY 03/12/24 03/12/24 History Spironolactone [Aldactone] 50 mg PO DAILY 03/12/24 03/12/24 History Sulfamethox-Tmp 800-160Mg [Bactrim 1 tab PO Q12HR 03/12/24 03/12/24 History DS 800-160 mg] Allergies Allergy/AdvReac Type Severity Reaction Status Date / Time No Known Allergies Allergy Verified 03/12/24 11:48 Physical Exam Vitals: Vital Signs Temp Pulse Pulse Resp BP BP Pulse Ox 03/13/24 09:13 97.4 F L 72 16 108/72 95 03/13/24 04:00 97.9 F 74 16 103/68 96 03/13/24 01:21 88 03/12/24 23:16 97.7 F 66 16 103/66 97 03/12/24 20:00 88 100/61 03/12/24 18:56 97.6 F 74 18 115/75 94 L 03/12/24 15:35 98.1 F 74 18 113/71 95 03/12/24 12:24 76 18 104/80 96 Intake and Output 03/12/24 03/13/24 03/13/24 22:59 06:59 14:59 Output Total 300 325 450 Balance -300 -325 -450 Output: Urine 300 325 450 Other: # Voids 1 1 Weight 105.687 kg 105.3 kg Results 03/13/24 08:30 03/13/24 08:30 Cardiac Enzymes 03/12/24 03/12/24 03/12/24 Range/Units 11:46 11:46 15:18 AST 51 (17-59) U/L Troponin I 0.121 H* 0.100 H* (0.000-0.034) ng/mL 03/12/24 03/13/24 Range/Units 18:54 08:30 AST 49 (17-59) U/L Troponin I 0.107 H* (0.000-0.034) ng/mL Coagulation 03/12/24 03/12/24 03/13/24 Range/Units 11:46 20:21 08:30 PT 23.3 H 20.6 H (10.0-12.5) sec APTT 34.2 H 51.8 H 57.6 H (22.0-30.0) sec CBC 03/12/24 03/13/24 Range/Units 11:46 08:30 WBC 5.1 4.9 (3.8-10.6) k/uL RBC 3.98 L 3.85 L (4.30-5.90) m/uL Hgb 13.4 13.1 (13.0-17.5) gm/dL Hct 44.1 43.6 (39.0-53.0) % Plt Count 127 L 105 L (150-450) k/uL Comprehensive Metabolic Panel 03/12/24 03/13/24 Range/Units 11:46 08:30 Sodium 132 L 134 L (137-145) mmol/L Potassium 4.7 4.9 (3.5-5.1) mmol/L Chloride 100 100 (98-107) mmol/L Carbon Dioxide 23 26 (22-30) mmol/L BUN 32 H 31 H (9-20) mg/dL Creatinine 1.51 H 1.61 H (0.66-1.25) mg/dL Glucose 95 134 H (74-99) mg/dL Calcium 8.5 8.4 (8.4-10.2) mg/dL AST 51 49 (17-59) U/L ALT 29 29 (4-49) U/L Alkaline Phosphatase 137 H 141 H (38-126) U/L Total Protein 7.3 7.1 (6.3-8.2) g/dL Albumin 3.3 L 3.1 L (3.5-5.0) g/dL Current Medications Generic Name Dose Route Start Last Admin Trade Name Freq PRN Reason Stop Dose Admin Acetaminophen 650 mg 03/12/24 13:17 Acetaminophen Tab 325 Mg Tab PO Q6HR PRN Mild Pain or Fever > 100.5 Allopurinol 100 mg 03/13/24 09:00 03/13/24 09:17 Allopurinol 100 Mg Tab PO 100 mg DAILY KATELYN Administration Apixaban 5 mg 03/13/24 10:30 Apixaban 5 Mg Tab PO BID KATELYN Protocol Aspirin 81 mg 03/13/24 09:00 03/13/24 09:17 Aspirin 81 Mg PO 81 mg DAILY KATELYN Administration Furosemide 40 mg 03/12/24 21:00 03/13/24 09:17 Furosemide 10 Mg/Ml 4 Ml Vial IV 40 mg Q12HR KATELYN Administration Cefepime HCl 2 gm/ Sodium 100 mls @ 25 mls/hr 03/12/24 17:00 03/13/24 04:39 Chloride IVPB 25 mls/hr Q12H KATELYN Administration Protocol Metoprolol Tartrate 25 mg 03/12/24 21:00 03/13/24 09:17 Metoprolol Tartrate 25 Mg Tab PO 25 mg BID KATELYN Administration Naloxone HCl 0.2 mg 03/12/24 13:17 Naloxone 0.4 Mg/Ml 1 Ml Vial IV Q2M PRN Opioid Reversal Spironolactone 50 mg 03/13/24 09:00 03/13/24 09:17 Spironolactone 25 Mg Tab PO 50 mg DAILY KATELYN Administration Intake and Output 03/12/24 03/13/24 03/13/24 22:59 06:59 14:59 Output Total 300 325 450 Balance -300 -325 -450 Output: Urine 300 325 450 Other: # Voids 1 1 Weight 105.687 kg 105.3 kg 03/13/24 08:30 03/13/24 08:30
--- NOTE | 2024-03-13 11:27 | P.CONS ---
History of Present Illness - Reason for Consult Consult date: 03/13/24 wound care - History of Present Illness This is a 74-year-old patient known to the wound care center with past medical history significant for venous insufficiency hypertension A-fib COPD denies diabetes. Patient follows in the wound care center for a right calcaneus ulceration right lower extremity ulceration left great toe ulceration and a left lower extremity ulceration. We have been utilizing absorptive silver and 2 layer compression wrap. Patient has been tolerating the dressings without any difficulties. Patient did complain last week of increased pain to the right calcaneus deep tissue culture was obtained and was positive. However the patient was not treated due to him being in the ER yesterday. Wound #1 status is Open. Original cause of wound was Pressure Injury. The date acquired was: 01/01. The wound has been in treatment 4 weeks. The wound is currently classified as a Unstageable/Unclassified wound with etiology of Pressure Ulcer and is located on the Left,Medial,Plantar Toe Great. The wound measures 0.9cm length x 1cm width x 0.3cm depth; 0.707cm^2 area and 0.212cm^3 volume. There is no tunneling or undermining noted. There is a small amount of serosanguineous drainage noted. The wound margin is indistinct and nonvisible. There is small (1-33%) granulation within the wound bed. There is a large (67-100%) amount of necrotic tissue within the wound bed including Eschar and Adherent Slough. The periwound skin appearance exhibited: Callus, Scarring. The periwound skin appe arance did not exhibit: Crepitus, Excoriation, Induration, Rash, Dry/Scaly, Maceration, Atrophie Luc[place], Cyanosis, Ecchymosis, Hemosiderin Staining, Mottled, Pallor, Rubor, Erythema. Periwound temperature was noted as No Abnormality. The periwound has tenderness on palpation. Wound #2 status is Open. Original cause of wound was Blister. The date acquired was: 12/07/2023. The wound has been in treatment 4 weeks. The wound is currently classified as a Full Thickness Without Exposed Support Structures wound with etiology of Venous Leg Ulcer and is located on the Left,Posterior Lower Leg. The wound measures 0.6cm length x 0.5cm width x 0.3cm depth; 0.236cm^2 area and 0.071cm^3 volume. There is Fat Layer (Subcutaneous Tissue) exposed. There is no tunneling or undermining noted. There is a large amount of serosanguineous drainage noted. The wound margin is flat and intact. There is large (67-100%) red, hyper - granulation within the wound bed. There is a small (1-33%) amount of necrotic tissue within the wound bed including Adherent Slough. The periwound skin appearance exhibited: Hemosiderin Staining, Erythema. The periwound skin appearance did not exhibit: Callus, Crepitus, Excoriation, Induration, Rash, Scarring, Dry/Scaly, Maceration, Atrophie Lucila, Cyanosis, Ecchymosis, Mottled, Pallor, Rubor. The surrounding wound skin color is noted with erythema which is circumferential. P eriwound temperature was noted as No Abnormality. The periwound has tenderness on palpation. Wound #3 status is Open. Original cause of wound was Pressure Injury. The date acquired was: 12/07/2023. The wound has been in treatment 4 weeks. The wound is currently classified as a Category/Stage II wound with etiology of Pressure Ulcer and is located on the Right,Plantar Calcaneus. The wound measures 1.6cm length x 0.6cm width x 0.3cm depth; 0.754cm^2 area and 0.226cm^3 volume. There is Fat Layer (Subcutaneous Tissue) exposed. There is no tunneling or undermining noted. There is a medium amount of purulent drainage noted. The wound margin is indistinct and nonvisible. There is medium (34-66%) pink granulation within the wound bed. There is a small (1-33%) amount of necrotic tissue within the wound bed including Adherent Slough. The periwound skin appearance exhibited: Callus, Dry/Scaly. The periwound skin appearance did not exhibit: Crepitus, Excoriation, Induration, Rash, Scarring, Maceration, Atrophie Lucila, Cyanosis, Ecchymosis, Hemosiderin Staining, Mottled, Pallor, Rubor, Erythema. Periwound temperature was noted as No Abnormality. The periwound has tenderness on palpation. Wound #4 status is Open. Original cause of wound was Blister. The date acquired was: 01/30/2024. The wound has been in treatment 4 weeks. The wound is currently classified as a Full Thickness Without Exposed Support Structures wound with etiology of Venous Leg Ulcer and is located on the Right,Anterior Lower Leg. The wound measures 0cm length x 0cm width x 0cm depth; 0cm^2 area and 0cm^3 volume. There is Fat Layer (Subcutaneous Tissue) exposed. There is no tunneling or undermining noted. There is a none present amount of drainage noted. The wound margin is flat and intact. There is no granulation within the wound bed. There is no necrotic tissue within the wound bed. The periwound skin appearance exhibited: Scarring, Hemosiderin Staining. The periwound skin appearance did not exhibit: Callus, Crepitus, Excoriation, Induration, Rash, Dry/Scaly, Maceration, Atrophie [place], Cyanosis, Ecchymosis, Mottled, Pallor, Rubor, Erythema. Review Of Systems: Constitutional: No fever, no chills, no night sweats. No weight change. No weakness, fatigue or lethargy. No daytime sleepiness. Integumentary:reports wounds, no lesions. No rash or pruritus. No unusual bruising. No change in hair or nails. Physical exam: General Appearance: Alert, cooperative, no distress, appears stated age. Skin: See HPI all other Skin color, texture, tugor normal, no rashes or lesions. Neurologic: Alert oriented x3 Assessment: 1. Nonpressure ulceration of left calf with fat layer exposed 2. Nonpressure chronic ulcer of other part of right lower extremity with fat layer exposed 3. Chronic venous hypertension with ulcer and inflammation of bilateral lower extremities 4. Pressure ulcer right heel stage II 5. Nonpressure chronic ulcer of other part of left foot with fat layer exposure Plan: 1. Apply absorptive silver, saline moist gauze, dry gauze, rolled gauze and secure with paper tape. Wrap with Jim wrap for compression. Elevate legs 30 minutes 3 times a day. Patient should not sit with his legs dependent. Patient will follow-up next , March 19 at 2 PM. Thank you for the consultation any questions please contact the wound care center DNP note has been reviewed and discussed with Dr. Chavis and the impression and plan of care has been directed as dictated. Past Medical History Past Medical History: Atrial Fibrillation, Heart Failure, Hypertension, Skin Disorder Additional Past Medical History / Comment(s): leg wounds since early 2022. History of Any Multi-Drug Resistant Organisms: None Reported Past Surgical History: No Surgical Hx Reported Past Anesthesia/Blood Transfusion Reactions: No Reported Reaction Past Psychological History: No Psychological Hx Reported Smoking Status: Never smoker Past Alcohol Use History: None Reported Past Drug Use History: None Reported - Past Family History Mother Family Medical History: Hypertension Father Family Medical History: Hypertension Medications and Allergies Home Medications Medication Instructions Recorded Confirmed Type Apixaban [Eliquis] 5 mg PO BID 01/21/24 03/12/24 History allopurinoL [Zyloprim] 100 mg PO DAILY 01/21/24 03/12/24 History Metoprolol Tartrate 25 mg PO BID #90 tab 01/24/24 03/12/24 Rx Furosemide [Lasix] 40 mg PO DAILY 03/12/24 03/12/24 History Spironolactone [Aldactone] 50 mg PO DAILY 03/12/24 03/12/24 History Sulfamethox-Tmp 800-160Mg [Bactrim 1 tab PO Q12HR 03/12/24 03/12/24 History DS 800-160 mg] Allergies Allergy/AdvReac Type Severity Reaction Status Date / Time No Known Allergies Allergy Verified 03/12/24 11:48 Physical Exam Vitals: Vital Signs Temp Pulse Pulse Resp BP BP Pulse Ox 03/13/24 09:13 97.4 F L 72 16 108/72 95 03/13/24 04:00 97.9 F 74 16 103/68 96 03/13/24 01:21 88 03/12/24 23:16 97.7 F 66 16 103/66 97 03/12/24 20:00 88 100/61 03/12/24 18:56 97.6 F 74 18 115/75 94 L 03/12/24 15:35 98.1 F 74 18 113/71 95 03/12/24 12:24 76 18 104/80 96 Intake and Output 03/12/24 03/13/24 03/13/24 22:59 06:59 14:59 Output Total 300 325 450 Balance -300 -325 -450 Output: Urine 300 325 450 Other: # Voids 1 1 Weight 105.687 kg 105.3 kg Results CBC & Chem 7: 03/13/24 08:30 03/13/24 08:30 Labs: Abnormal Lab Results - Last 24 Hours (Table) 03/12/24 03/12/24 03/12/24 Range/Units 11:46 11:46 11:46 RBC 3.98 L (4.30-5.90) m/uL MCV 111.0 H (80.0-100.0) fL MCHC 30.4 L (31.0-37.0) g/dL RDW 15.9 H (11.5-15.5) % Plt Count 127 L (150-450) k/uL Lymphocytes # 0.7 L (1.0-4.8) k/uL Macrocytosis Marked A PT 23.3 H (10.0-12.5) sec INR 2.3 H (<1.2) APTT 34.2 H (22.0-30.0) sec Sodium 132 L (137-145) mmol/L BUN 32 H (9-20) mg/dL Creatinine 1.51 H (0.66-1.25) mg/dL Glucose (74-99) mg/dL Total Bilirubin 4.6 H (0.2-1.3) mg/dL Alkaline Phosphatase 137 H (38-126) U/L Ammonia (<30) umol/L Troponin I (0.000-0.034) ng/mL Albumin 3.3 L (3.5-5.0) g/dL 03/12/24 03/12/24 03/12/24 Range/Units 11:46 15:18 18:54 RBC (4.30-5.90) m/uL MCV (80.0-100.0) fL MCHC (31.0-37.0) g/dL RDW (11.5-15.5) % Plt Count (150-450) k/uL Lymphocytes # (1.0-4.8) k/uL Macrocytosis PT (10.0-12.5) sec INR (<1.2) APTT (22.0-30.0) sec Sodium (137-145) mmol/L BUN (9-20) mg/dL Creatinine (0.66-1.25) mg/dL Glucose (74-99) mg/dL Total Bilirubin (0.2-1.3) mg/dL Alkaline Phosphatase (38-126) U/L Ammonia (<30) umol/L Troponin I 0.121 H* 0.100 H* 0.107 H* (0.000-0.034) ng/mL Albumin (3.5-5.0) g/dL 03/12/24 03/13/24 03/13/24 Range/Units 20:21 08:30 08:30 RBC 3.85 L (4.30-5.90) m/uL MCV 113.4 H (80.0-100.0) fL MCHC 29.9 L (31.0-37.0) g/dL RDW 16.0 H (11.5-15.5) % Plt Count 105 L (150-450) k/uL Lymphocytes # 0.7 L (1.0-4.8) k/uL Macrocytosis Marked A PT 20.6 H (10.0-12.5) sec INR 2.1 H (<1.2) APTT 51.8 H (22.0-30.0) sec Sodium 134 L (137-145) mmol/L BUN 31 H (9-20) mg/dL Creatinine 1.61 H (0.66-1.25) mg/dL Glucose 134 H (74-99) mg/dL Total Bilirubin 4.2 H (0.2-1.3) mg/dL Alkaline Phosphatase 141 H (38-126) U/L Ammonia (<30) umol/L Troponin I (0.000-0.034) ng/mL Albumin 3.1 L (3.5-5.0) g/dL 03/13/24 03/13/24 Range/Units 08:30 08:30 RBC (4.30-5.90) m/uL MCV (80.0-100.0) fL MCHC (31.0-37.0) g/dL RDW (11.5-15.5) % Plt Count (150-450) k/uL Lymphocytes # (1.0-4.8) k/uL Macrocytosis PT (10.0-12.5) sec INR (<1.2) APTT 57.6 H (22.0-30.0) sec Sodium (137-145) mmol/L BUN (9-20) mg/dL Creatinine (0.66-1.25) mg/dL Glucose (74-99) mg/dL Total Bilirubin (0.2-1.3) mg/dL Alkaline Phosphatase (38-126) U/L Ammonia 78 H (<30) umol/L Troponin I (0.000-0.034) ng/mL Albumin (3.5-5.0) g/dL Assessment and Plan (1) Non-pressure chronic ulcer of left calf with fat layer exposed Current Visit: Yes Status: Acute Code(s): L97.222 - NON-PRESSURE CHRONIC ULCER OF LEFT CALF W FAT LAYER EXPOSED SNOMED Code(s): 38613837035885359 (2) Non-pressure chronic ulcer of other part of right lower leg with fat layer exposed Current Visit: Yes Status: Acute Code(s): L97.812 - NON-PRS CHRONIC ULCER OTH PRT R LOW LEG W FAT LAYER EXPOSED SNOMED Code(s): 86556084941930183 (3) Chronic venous hypertension (idiopathic) with ulcer and inflammation of bilateral lower extremity Current Visit: Yes Status: Acute Code(s): I87.333 - CHRONIC VENOUS HTN W ULCER AND INFLAM OF BILATERAL LOW EXTRM SNOMED Code(s): 744828659794317 (4) Pressure ulcer of right heel, stage 2 Current Visit: Yes Status: Acute Code(s): L89.612 - PRESSURE ULCER OF RIGHT HEEL, STAGE 2 SNOMED Code(s): 64331038879303 (5) Non-pressure chronic ulcer of other part of left foot with fat layer exposed Current Visit: Yes Status: Acute Code(s): L97.522 - NON-PRS CHRONIC ULCER OTH PRT LEFT FOOT W FAT LAYER EXPOSED SNOMED Code(s): 18130191619217418
[2024-03-13] MEDS: APIXABAN 5 MG TAB PO SCH (11:40)
--- NOTE | 2024-03-13 13:17 | P.CONS ---
History of Present Illness - Reason for Consult Consult date: 03/13/24 hyperbilirubinemia, scleral icterus Requesting physician: Bandar King - Chief Complaint edema, weight gain - History of Present Illness Is a pleasant 74-year-old male who was sent in by his primary care provider with concerns of swelling and 15 pound weight gain. He has a past medical history including chronic kidney disease, heart failure hypertension and atrial fibri llation Eliquis. Patient was noted to have elevated troponins on admission. He also was noted to have elevated total bilirubin and gastroenterology was consulted for hyperbilirubinemia. Patient denies any history of liver disease. He denies any abdominal pain, nausea or vomiting. He underwent abdominal ultrasound that reported trace of ascites fluid borderline hepatomegaly slight heterogeneous liver borderline mild gallbladder wall thickening. Reviewing patient's labs noted that his MCV is elevated he has thrombocytopenia and elevated INR which can be seen in the setting liver disease. He denies any history of alcoholism. States that he has been overweight most of his life. Today's labs WBC 4.9 hemoglobin 13 platelet count 105,000 INR 2.1 sodium 134 potassium 4.9 BUN 31 creatinine 1.6 total bilirubin 4.2 AST 49 ALT 26 alkaline phosphatase 141 hepatitis panel nonreactive, acetaminophen less than 10.0 Review of Systems REVIEW OF SYSTEMS: CARDIOPULMONARY: No chest pain or shortness of breath. Lower extremity edema. Gastrointestinal: No abdominal pain. No nausea or vomiting. No hematemesis, coffee-ground emesis. No rectal bleeding, or melena. GENITOURINARY: No dysuria or hematuria. MUSCULOSKELETAL: Reports normal range of motion., Joint pain. SKIN: No rashes. No jaundice. ENDOCRINE: No chills, fevers. 15 pound weight gain. No polydipsia or polyuria. PSYCHIATRIC: Unremarkable. NEUROLOGY: No change in mental status. Denies dizziness, headache. ENT: Vision unremarkable. CONSTITUTIONAL: No recent weight loss. No fever, chills, night sweats. Past Medical History Past Medical History: Atrial Fibrillation, Heart Failure, Hypertension, Skin Disorder Additional Past Medical History / Comment(s): leg wounds since early 2022. History of Any Multi-Drug Resistant Organisms: None Reported Past Surgical History: No Surgical Hx Reported Past Anesthesia/Blood Transfusion Reactions: No Reported Reaction Past Psychological History: No Psychological Hx Reported Smoking Status: Never smoker Past Alcohol Use History: None Reported Past Drug Use History: None Reported - Past Family History Mother Family Medical History: Hypertension Father Family Medical History: Hypertension Medications and Allergies Home Medications Medication Instructions Recorded Confirmed Type Apixaban [Eliquis] 5 mg PO BID 01/21/24 03/12/24 History allopurinoL [Zyloprim] 100 mg PO DAILY 01/21/24 03/12/24 History Metoprolol Tartrate 25 mg PO BID #90 tab 01/24/24 03/12/24 Rx Furosemide [Lasix] 40 mg PO DAILY 03/12/24 03/12/24 History Spironolactone [Aldactone] 50 mg PO DAILY 03/12/24 03/12/24 History Sulfamethox-Tmp 800-160Mg [Bactrim 1 tab PO Q12HR 03/12/24 03/12/24 History DS 800-160 mg] Allergies Allergy/AdvReac Type Severity Reaction Status Date / Time No Known Allergies Allergy Verified 03/12/24 11:48 Physical Exam Vitals: Vital Signs Temp Pulse Pulse Resp BP BP Pulse Ox 03/13/24 04:00 97.9 F 74 16 103/68 96 03/13/24 01:21 88 03/12/24 23:16 97.7 F 66 16 103/66 97 03/12/24 20:00 88 100/61 03/12/24 18:56 97.6 F 74 18 115/75 94 L 03/12/24 15:35 98.1 F 74 18 113/71 95 03/12/24 12:24 76 18 104/80 96 03/12/24 10:50 98.4 F 70 20 105/72 99 Intake and Output 03/12/24 03/12/24 03/13/24 14:59 22:59 06:59 Output Total 300 325 Balance -300 -325 Output: Urine 300 325 Other: # Voids 1 1 Weight 105.687 kg 105.687 kg 105.3 kg General appearance: The patient is alert, oriented, appears in no acute distress. HET: Head is normocephalic and atraumatic. Conjunctiva pink. Sclera icteric. Neck: Supple without lymphadenopathy. Trachea midline. Heart: Regular. Lungs: Equal expansion, normal respiratory effort. Abdomen: Soft, nontender, nondistended. Skin: No rashes. Jaundice. Extremities: Normal skin color and turgor. Lower extremity edema. Neurological: No focal deficits. Alert and oriented x3. Results CBC & Chem 7: 03/13/24 08:30 03/13/24 08:30 Labs: Abnormal Lab Results - Last 24 Hours (Table) 03/12/24 03/12/24 03/12/24 Range/Units 11:46 11:46 11:46 RBC 3.98 L (4.30-5.90) m/uL MCV 111.0 H (80.0-100.0) fL MCHC 30.4 L (31.0-37.0) g/dL RDW 15.9 H (11.5-15.5) % Plt Count 127 L (150-450) k/uL Lymphocytes # 0.7 L (1.0-4.8) k/uL Macrocytosis Marked A PT 23.3 H (10.0-12.5) sec INR 2.3 H (<1.2) APTT 34.2 H (22.0-30.0) sec Sodium 132 L (137-145) mmol/L BUN 32 H (9-20) mg/dL Creatinine 1.51 H (0.66-1.25) mg/dL Total Bilirubin 4.6 H (0.2-1.3) mg/dL Alkaline Phosphatase 137 H (38-126) U/L Troponin I (0.000-0.034) ng/mL Albumin 3.3 L (3.5-5.0) g/dL 03/12/24 03/12/24 03/12/24 Range/Units 11:46 15:18 18:54 RBC (4.30-5.90) m/uL MCV (80.0-100.0) fL MCHC (31.0-37.0) g/dL RDW (11.5-15.5) % Plt Count (150-450) k/uL Lymphocytes # (1.0-4.8) k/uL Macrocytosis PT (10.0-12.5) sec INR (<1.2) APTT (22.0-30.0) sec Sodium (137-145) mmol/L BUN (9-20) mg/dL Creatinine (0.66-1.25) mg/dL Total Bilirubin (0.2-1.3) mg/dL Alkaline Phosphatase (38-126) U/L Troponin I 0.121 H* 0.100 H* 0.107 H* (0.000-0.034) ng/mL Albumin (3.5-5.0) g/dL 03/12/24 Range/Units 20:21 RBC (4.30-5.90) m/uL MCV (80.0-100.0) fL MCHC (31.0-37.0) g/dL RDW (11.5-15.5) % Plt Count (150-450) k/uL Lymphocytes # (1.0-4.8) k/uL Macrocytosis PT 20.6 H (10.0-12.5) sec INR 2.1 H (<1.2) APTT 51.8 H (22.0-30.0) sec Sodium (137-145) mmol/L BUN (9-20) mg/dL Creatinine (0.66-1.25) mg/dL Total Bilirubin (0.2-1.3) mg/dL Alkaline Phosphatase (38-126) U/L Troponin I (0.000-0.034) ng/mL Albumin (3.5-5.0) g/dL Comments: Abdominal ultrasound reports trace ascites fluid. Borderline hepatomegaly at 17.5 cm. No focal liver lesion. Borderline to mild gallbladder wall thickening may be due to nondistention or third spacing. No gallstones or additional findings of acute cholecystitis. No biliary ductal dilation. Chest x-ray reports mild/moderate cardiomegaly and possible early pulmonary vascular congestion. No pulmonary edema. Assessment and Plan (1) Hyperbilirubinemia Narrative/Plan: 74-year-old male coming in for increased fluid retention and weight gain with a history of heart failure hypertension, and chronic atrial fibrillation on Eliquis. Apparently patient had about a 15 pound increase in weight since last time he had seen his PCP. He was noted to have elevated bilirubin and alkaline phosphatase on admission. Denies any previous history of liver disease however after evaluating labs does appear that patient may have some underlying undi agnosed liver disease possibly secondary to fatty liver disease. Elevation likely secondary to intrahepatic cholestasis secondary to heart failure with some underlying liver disease. Hepatitis panel nonreactive. Patient can follow-up with gastroenterology in outpatient basis. Likely bilirubin and alkaline phosphatase will be improved as heart failure improves. No further workup indicated by gastroenterology at this time. Current Visit: Yes Status: Acute Code(s): E80.6 - OTHER DISORDERS OF BILIRUBIN METABOLISM SNOMED Code(s): 20367093 (2) Chronic atrial fibrillation Current Visit: Yes Status: Acute Code(s): I48.20 - CHRONIC ATRIAL FIBRILLATION, UNSPECIFIED SNOMED Code(s): 805804702 (3) Heart failure Current Visit: Yes Status: Acute Code(s): I50.9 - HEART FAILURE, UNSPECIFIED SNOMED Code(s): 19322828 (4) Acute renal failure Current Visit: No Status: Acute Code(s): N17.9 - ACUTE KIDNEY FAILURE, UNSPECIFIED SNOMED Code(s): 34723234 Plan: 1. Continue symptomatic and supportive care 2. Liver ultrasound reviewed 3. Hepatitis panel reviewed 4. No further workup indicated by gastroenterology 5. Patient may follow-up with gastroenterology after discharge, likely has some underlying liver disease superimposed by heart failure 6. Continue with recommendations from cardiology for heart failure 7. Rest of medical management per primary medical team Thank you for this consultation, we will sign off at this time. Dr. Winnie Reis I agree with the dictator's note, documented as a scribe by Nona Warner.
--- NOTE | 2024-03-13 15:11 | P.PN ---
Subjective Progress Note Date: 03/13/24 Hospital course: Patient is a 74-year-old male with a past medical history of chronic atrial fibrillation on anticoagulation with Eliquis, chronic diastolic heart failure with a EF of 55 to 60% on Lasix and Aldactone, hypertension, chronic kidney disease stage IIIb and chronic bilateral lower extremity wounds/ulcers. Pt was recently found to have infected ulcers of left lower extremity and right foot with Staphylococcus aureus and Serratia marcescens with multiple resistance and was started outpatient on Bactrim. He was taking as prescribed and following w [facility] wound care clinic. Today patient was following up outpatient with his PCP and was found to have a reported weight gain of 15 pounds over the past couple of weeks concerning for fluid overload and was sent to the emergency department for evaluation and admission for IV diuresis. Patient reports exertional shortness of breath that seems to be worsening, but currently denies having any other complaints including fevers, chills, diaphoresis, headache, lightheadedness, dizziness, chest pain, palpitations, shortness of breath at rest, cough or congestion, abdominal pain, nausea, vomiting, or noticing any increased swelling in his extremities. On arrival to the emergency department, patient underwent evaluation. Vital signs revealing blood pressure 105/72, heart rate 70, respiratory rate 20, temp 98.4 F, and SpO2 of 99% on room air. EKG was completed showing atrial fibrillation with a controlled ventricular rate of 83 bpm. X-ray completed showing mild to moderate cardiomegaly and possible findings of early pulmonary vascular congestion. Completed and reviewed. CBC and thrombocytopenia with platelet count of 127, this is chronic and at baseline. Coagulation profile showing elevated PT of 23.3, INR of 2.3, and PTT of 34.2. BMP showing hyponatremia with sodium of 132 consistent with stage IIIb chronic kidney disease with BUN of 32, creatinine 1.51, and GFR 44 with baseline creatinine of 1.2. Liver profile showing hyperbilirubinemia with total bili of 4.6 and elevated alkaline phosphatase of 137. Troponin was elevated at 0.121 and proBNP 1870. Pt was admitted under our services with consultation to cardiology and gastroenterology. Troponins were trended overnight resulting at 0.121, 0.100, and 0.107. Acute hepatitis panel nonreactive. Abdominal ultrasound showing trace ascites fluid with borderline hepatomegaly at 17.5 cm with no focal liver lesion, borderline to mild gallbladder wall thickening with no gallstones or additional findings of acute cholecystitis and no biliary ductal dilation. Physical exam: Seen and fully evaluated at bedside this morning. He reports he is feeling slightly better this morning, currently denies shortness of breath or any other complaints at this time. Vital signs reviewed and stable. General: Nontoxic, no distress and appears stated age. Morbidly obese. Derm: Skin warm and dry, normal coloration for ethnicity. Head: Atraumatic, normocephalic and symmetric. Eyes: EOMs intact, no lid lag. Positive for scleral icterus. Mouth: no lip lesions, mucus membranes moist Cardiovascular: regular rate and rhythm with normal S1S2, no murmur, positive posterior tibial pulses bilaterally, and cap refill < 2 seconds. Lungs: Respirations even, regular, and unlabored on room air. Lungs diminished with no rhonchi, no rales, no wheezing, and no accessory muscle usage. Abdominal: soft distended obese abdomen, nontender to palpation, no guarding, no appreciable organomegaly Ext: No gross muscle atrophy, bilateral lower extremity edema, no contractures. Dressings in place to bilateral lower extremities secondary to chronic wounds. Neuro: Speech clear, face symmetrical and CN II-XII grossly intact with no noted focal neuro deficits Psych: Alert and oriented to person, place, time, and situation. Appropriate and pleasant affect. Assessment and Plan of Care: Elevated troponins likely type II secondary to CHF exacerbation Acute exacerbation of chronic diastolic heart failure Hyperbilirubinemia with new onset scleral icterus Acute kidney injury on stage III chronic kidney disease Chronic atrial fibrillation Thrombocytopenia, likely secondary to underlying liver cirrhosis Elevated INR, likely secondary to underlying cirrhosis -Troponins were trended overnight resulting at 0.121, 0.100, and 0.107. -Acute hepatitis panel nonreactive. -Abdominal ultrasound showing trace ascites fluid with borderline hepatomegaly at 17.5 cm with no focal liver lesion, borderline to mild gallbladder wall thickening with no gallstones or additional findings of acute cholecystitis and no biliary ductal dilation. -Cardiology evaluated, discontinued heparin infusion and recommending resumption of Eliquis 5 mg twice daily and for repeat echocardiogram to be completed. -Labor/Excavator evaluated. Stating patient likely does have underlying undiagnosed liver disease likely worsened by heart failure recommending continuation of diuresis for heart failure stating bilirubin and alkaline phosphatase should improve as heart failure improves and patient will need to follow-up outpatient in their office after discharge. -Continue aspirin 81 mg daily, metoprolol 25 mg twice daily, and Aldactone 50 mg daily. -Lasix 40 mg IVP every 12 hours with his daily weights and close/strict monitoring of I's and O's. -Continuous telemetry monitoring -Reviewed echocardiogram completed 01/22/2024 showing an EF of 55 to 60% and mild mitral, aortic, and tricuspid regurgitation with mild pulmonary hypertension. Per recommendations of conservation educator, repeat echocardiogram was ordered. Staphylococcus aureus and Serratia marcescens infected ulcers/wounds -Hold Bactrim and patient started on cefepime 2 g every 12 hours. -Consult placed to wound care for management. Hypertension -Continue daily medication regimen with metoprolol 25 mg twice daily. Data and imaging reviewed: Troponins were trended overnight resulting at 0.121, 0.100, and 0.107. Acute hepatitis panel nonreactive. Abdominal ultrasound showing trace ascites fluid with borderline hepatomegaly at 17.5 cm with no focal liver lesion, borderline to mild gallbladder wall thickening with no gallstones or additional findings of acute cholecystitis and no biliary ductal dilation. Morning labs completed and reviewed. CBC showing continued thrombocytopenia with platelet count of 105. BMP showing hyponatremia with sodium of 134, BUN of 31, creatinine of 1.61, GFR 41. Liver profile showing hyperbilirubinemia with bilirubin of 4.2 and alkaline phosphatase of 141. Ammonia level was elevated at 78 but hemolyzed specimen. CODE STATUS: Full code DVT prophylaxis: Heparin infusion Anticipated discharge date: Clinical course to determine Anticipated discharge place: To determine Patient was seen independently by Nurse Practitioner. This document was prepared using [employer] dictation software. Please allow for errors in mergers and acquisitions associate while rare they do occur. Objective - Vital Signs Vital signs: Vital Signs Temp 97.9 F 03/13/24 04:00 Pulse 74 03/13/24 04:00 Resp 16 03/13/24 04:00 BP 103/68 03/13/24 04:00 Pulse Ox 96 03/13/24 04:00 FiO2 Intake & Output 03/12/24 03/13/24 03/13/24 18:59 06:59 18:59 Output Total 300 325 450 Balance -300 -325 -450 Weight 105.687 kg 105.3 kg Output: Urine 300 325 450 Other: # Voids 1 1 - Labs CBC & Chem 7: 03/13/24 08:30 03/13/24 08:30 Labs: Abnormal Lab Results - Last 24 Hours (Table) 03/12/24 03/12/24 03/12/24 Range/Units 11:46 11:46 11:46 RBC 3.98 L (4.30-5.90) m/uL MCV 111.0 H (80.0-100.0) fL MCHC 30.4 L (31.0-37.0) g/dL RDW 15.9 H (11.5-15.5) % Plt Count 127 L (150-450) k/uL Lymphocytes # 0.7 L (1.0-4.8) k/uL Macrocytosis Marked A PT 23.3 H (10.0-12.5) sec INR 2.3 H (<1.2) APTT 34.2 H (22.0-30.0) sec Sodium 132 L (137-145) mmol/L BUN 32 H (9-20) mg/dL Creatinine 1.51 H (0.66-1.25) mg/dL Total Bilirubin 4.6 H (0.2-1.3) mg/dL Alkaline Phosphatase 137 H (38-126) U/L Troponin I (0.000-0.034) ng/mL Albumin 3.3 L (3.5-5.0) g/dL 03/12/24 03/12/24 03/12/24 Range/Units 11:46 15:18 18:54 RBC (4.30-5.90) m/uL MCV (80.0-100.0) fL MCHC (31.0-37.0) g/dL RDW (11.5-15.5) % Plt Count (150-450) k/uL Lymphocytes # (1.0-4.8) k/uL Macrocytosis PT (10.0-12.5) sec INR (<1.2) APTT (22.0-30.0) sec Sodium (137-145) mmol/L BUN (9-20) mg/dL Creatinine (0.66-1.25) mg/dL Total Bilirubin (0.2-1.3) mg/dL Alkaline Phosphatase (38-126) U/L Troponin I 0.121 H* 0.100 H* 0.107 H* (0.000-0.034) ng/mL Albumin (3.5-5.0) g/dL 03/12/24 Range/Units 20:21 RBC (4.30-5.90) m/uL MCV (80.0-100.0) fL MCHC (31.0-37.0) g/dL RDW (11.5-15.5) % Plt Count (150-450) k/uL Lymphocytes # (1.0-4.8) k/uL Macrocytosis PT 20.6 H (10.0-12.5) sec INR 2.1 H (<1.2) APTT 51.8 H (22.0-30.0) sec Sodium (137-145) mmol/L BUN (9-20) mg/dL Creatinine (0.66-1.25) mg/dL Total Bilirubin (0.2-1.3) mg/dL Alkaline Phosphatase (38-126) U/L Troponin I (0.000-0.034) ng/mL Albumin (3.5-5.0) g/dL
--- NOTE | 2024-03-13 18:33 | CA ---
Transthoracic Echo Report Name: Keanu Kent Age: 74 Gender: M : 1950 Exam Date: 03/13/2024 16:28 Exam Location: [facility] Ht (in): 71 Wt (lb): 232 Ordering Physician: Neyda Tijerina DO Attending/Referring Phys: [id number], Breezy Polysomnograph Tech Heather Johnson RDCS Procedure CPT: Indications: LVF Cardiac Hx: Technical Quality: Good Contrast 1: Total Dose (mL): Contrast 2: Total Dose (mL): MEASUREMENTS (Male / Female) Normal Values 2D ECHO LV Diastolic Diameter PLAX 4.5 cm 4.2 - 5.9 / 3.9 - 5.3 cm LV Systolic Diameter PLAX 2.9 cm IVS Diastolic Thickness 1.8 cm 0.6 - 1.0 / 0.6 - 0.9 cm LVPW Diastolic Thickness 1.5 cm 0.6 - 1.0 / 0.6 - 0.9 cm LV Relative Wall Thickness 0.7 RV Internal Dim ED PLAX 4.3 cm LVOT Diameter 2.2 cm LA Systolic Diameter LX 5.3 cm 3.0 - 4.0 / 2.7 - 3.8 cm LV Diastolic Volume MOD BP 49.9 cm??? 67 - 155 / 56 - 104 cm??? LV Systolic Volume MOD BP 28.1 cm??? 22 - 58 / 19 - 49 cm??? LV Ejection Fraction MOD BP 43.6 % >= 55 % LV Cardiac Index MOD BP 681.8 cm???/min???m??? LV Diastolic Volume MOD 4C 45.8 cm??? LV Systolic Volume MOD 4C 26.0 cm??? LV Ejection Fraction MOD 4C 43.2 % LV Cardiac Index MOD 4C 621.1 cm???/min???m??? LV Diastolic Length 4C 7.1 cm LV Systolic Length 4C 6.3 cm LV Diastolic Volume MOD 2C 58.2 cm??? LV Systolic Volume MOD 2C 22.9 cm??? LV Ejection Fraction MOD 2C 60.7 % LV Cardiac Index MOD 2C 1108.3 cm???/min???m??? LV Diastolic Length 2C 6.9 cm LV Systolic Length 2C 4.7 cm LA Volume 87.1 cm??? 18 - 58 / 22 - 52 cm??? LA Volume Index 37.4 cm???/m??? 16 - 28 cm???/m??? M-MODE Aortic Root Diameter MM 3.7 cm AV Cusp Separation MM 1.6 cm DOPPLER AV Peak Velocity 239.7 cm/s AV Peak Gradient 23.0 mmHg AV Mean Velocity 158.3 cm/s AV Mean Gradient 11.9 mmHg AV Velocity Time Integral 47.8 cm LVOT Peak Velocity 93.4 cm/s LVOT Peak Gradient 3.5 mmHg AV Area Cont Eq pk 1.5 cm??? MV Area PHT 4.2 cm??? Mitral E Point Velocity 103.7 cm/s Mitral A Point Velocity 40.7 cm/s Mitral E to A Ratio 2.5 MV Deceleration Time 181.0 ms TR Peak Velocity 249.2 cm/s TR Peak Gradient 24.9 mmHg Right Ventricular Systolic Press 38.7 mmHg FINDINGS Left Ventricle Left ventricular ejection fraction is estimated at 50-55 %. Left ventricular cavity size normal. Borderline left ventricular ejection fraction. No obvious regional wall motion abnormalities.Severely increased left ventricular wall thickness. Asymmetric septal hypertrophy Right Ventricle Severe right ventricular dilatation. Mild pulmonary hypertension. Reduced right ventricular global systolic function. Right Atrium Severe right atrial dilatation. No right atrial thrombus or mass seen. Left Atrium Severely increased left atrial diameter. Moderately increased left atrial volume. Mildly increased left atrial area. Mitral Valve Mitral valve thickened. Mild mitral annular calcification. Mild mitral regurgitation. Aortic Valve Aortic valve sclerosis. Mild aortic stenosis with a peak gradient of 23 mmHg and a mean gradient of 12 mmHg. Tricuspid Valve Structurally normal tricuspid valve. Severe tricuspid regurgitation. Pulmonic Valve Structurally normal pulmonic valve. Mild pulmonic regurgitation. Pericardium No pericardial or pleural effusion. Aorta Normal size aortic root and proximal ascending aorta. CONCLUSIONS 1. Left ventricular systolic function borderline normal 2. Severe tricuspid regurgitation with mild pulmonary hypertension 3. Dilated right ventricle with global hypokinesis 4. Severely calcified aortic valve with a mean gradient of 12 mmHg, the valve area could be underestimated 5. Mild mitral regurgitation Previewed by: Dr. Mariam Da Silva MD (Electronically Signed) Final Date: 13 Mar 2024 18:33
[2024-03-13] MEDS ORDERED: APIXABAN 5 MG TAB PO SCH (21:00)
--- NOTE | 2024-03-14 06:07 | P.PN ---
Subjective Progress Note Date: 03/14/24 HPI: This is a 74-year-old gentleman with a known diagnosis of diastolic heart failure lower extremity edema came in from primary care office with complaints of weight gain. I was asked to see him because of elevated troponin. Patient complains of fatigue. His bilirubin is elevated liver functions are also slightly abnormal. Denies any chest pain complains of lower extremity edema. Patient is not in left heart failure clinically. He has chronic atrial fibrillation on Eliquis 5 mg twice daily. He is resting comfortably at the time of my evaluation. His last echo from December of this year revealed preserved systolic function and no significant pulmonary hypertension right-sided pressures were about 40 to 45 mmHg. His bilirubin elevation is a matter of some concern could be related to some viral hepatitis type picture and this should be looked into. We are not dealing with any specific overt heart failure type picture. BNP is actually in the close to normal range. No chest pain shortness of breath or palpitations. RELEVANT PAST MEDICAL HISTORY: Chronic atrial fibrillation, diastolic heart failure, hypertension. And chronic kidney disease. MEDICATIONS: Medications include Aldactone, Lasix, allopurinol, metoprolol tartrate 25 mg twice daily and Eliquis 5 mg twice daily ALLERGIES: None. Progress note 03/14/2024 Patient is resting comfortably in bed. Patient denies having any chest pain chest pressure. He does have chronic lower extremity swelling which appears somewhat similar as compared to yesterday. He continues to be in chronic atrial fibrillation which is rate controlled PHYSICIAL EXAM: Physical exam revealed vital signs are normal JVD 1 cm no carotid bruit S1-S2 heard normally irregularities and rhythm noted short systolic murmur noted lungs reveal decent air entry no rales or rhonchi abdomen is soft lower extremities are both bandaged probably has edema pulses were not assessed Central nervous system generalized weakness no focal deficits. IMPRESSION: Abnormal bilirubin and liver function test rule out hepatitis advised GI evaluation. Acute exacerbation of diastolic heart failure. Chronic atrial fibrillation. Chronic lower extremity edema Elevated troponin with flat pattern, likely type II NSTEMI CKD stage IIIb RECOMMENDATIONS: Continue IV Lasix 40 mg twice daily, Aldactone 50 mg daily Continue Eliquis 5 mg daily. Discontinue aspirin. . Objective - Vital Signs Vital signs: Vital Signs Temp 97.9 F 03/14/24 04:00 Pulse 70 03/14/24 04:00 Resp 16 03/14/24 04:00 BP 104/75 03/14/24 04:00 Pulse Ox 95 03/14/24 04:00 FiO2 Intake & Output 03/13/24 03/13/24 03/14/24 06:59 18:59 06:59 Intake Total 340 Output Total 325 1275 500 Balance -325 -4355 -160 Weight 105.3 kg 105.3 kg Intake: Intake, IV Titration 100 Amount Cefepime 2 gm In Sodium 100 Chloride 0.9% 100 ml @ 25 mls/hr IVPB Q12H KATELYN Rx# :[id number] Oral 240 Output: Urine 325 1275 500 Other: # Voids 1 1 2 - Labs CBC & Chem 7: 03/13/24 08:30 03/13/24 08:30 Labs: Abnormal Lab Results - Last 24 Hours (Table) 03/13/24 03/13/24 03/13/24 Range/Units 08:30 08:30 08:30 RBC 3.85 L (4.30-5.90) m/uL MCV 113.4 H (80.0-100.0) fL MCHC 29.9 L (31.0-37.0) g/dL RDW 16.0 H (11.5-15.5) % Plt Count 105 L (150-450) k/uL Lymphocytes # 0.7 L (1.0-4.8) k/uL Macrocytosis Marked A APTT 57.6 H (22.0-30.0) sec Sodium 134 L (137-145) mmol/L BUN 31 H (9-20) mg/dL Creatinine 1.61 H (0.66-1.25) mg/dL Glucose 134 H (74-99) mg/dL Total Bilirubin 4.2 H (0.2-1.3) mg/dL Alkaline Phosphatase 141 H (38-126) U/L Ammonia (<30) umol/L Albumin 3.1 L (3.5-5.0) g/dL 03/13/24 Range/Units 08:30 RBC (4.30-5.90) m/uL MCV (80.0-100.0) fL MCHC (31.0-37.0) g/dL RDW (11.5-15.5) % Plt Count (150-450) k/uL Lymphocytes # (1.0-4.8) k/uL Macrocytosis APTT (22.0-30.0) sec Sodium (137-145) mmol/L BUN (9-20) mg/dL Creatinine (0.66-1.25) mg/dL Glucose (74-99) mg/dL Total Bilirubin (0.2-1.3) mg/dL Alkaline Phosphatase (38-126) U/L Ammonia 78 H (<30) umol/L Albumin (3.5-5.0) g/dL Microbiology - Last 24 Hours (Table) 03/12/24 18:54 Blood Culture - Preliminary Blood
[2024-03-14 08:22] LABS: Anisocytosis Slight; HCT 43.1 % (39.0-53.0); HGB 12.9 gm/dL (13.0-17.5); Hypochromasia Moderate; MCH 33.4 pg (25.0-35.0); MCHC 29.9 g/dL (31.0-37.0); MCV 111.8 fL (80.0-100.0); Macrocytosis Marked; Mean Platelet Volume 10.6; Platelet Count 118 k/uL (150-450); RBC 3.86 m/uL (4.30-5.90); RDW 16.4 % (11.5-15.5); WBC 5.5 k/uL (3.8-10.6)
[2024-03-14 08:39] LABS: ALT 31 U/L (4-49); AST 45 U/L (17-59); African American GFR (CKD) 57 (>60 ml/min/1.73 sqM); Alkaline Phosphatase 135 U/L (38-126); Anion Gap 8 mmol/L; Blood Urea Nitrogen 27 mg/dL (9-20); Calcium 8.5 mg/dL (8.4-10.2); Carbon Dioxide 21 mmol/L (22-30); Chloride 103 mmol/L (98-107); Glucose 87 mg/dL (74-99); Non-African American GFR(CKD) 49 (>60 ml/min/1.73 sqM); Potassium 5.1 mmol/L (3.5-5.1); Sodium 132 mmol/L (137-145); Total Bilirubin 3.7 mg/dL (0.2-1.3); Total Protein 6.9 g/dL (6.3-8.2)
[2024-03-14] MEDS: LACTULOSE 20 GM/30 ML CUP PO SCH (11:29)
--- NOTE | 2024-03-14 13:13 | P.PN ---
Subjective Progress Note Date: 03/14/24 Hospital Course: Patient is a 74-year-old male with a past medical history of chronic atrial fi brillation on anticoagulation with Eliquis, chronic diastolic heart failure with a EF of 55 to 60% on Lasix and Aldactone, hypertension, chronic kidney disease stage IIIb and chronic bilateral lower extremity wounds/ulcers. Pt was recently found to have infected ulcers of left lower extremity and right foot with Staphylococcus aureus and Serratia marcescens with multiple resistance and was started outpatient on Bactrim. He presented with increased weight, exertional shortness of breath. On arrival, vital signs revealing blood pressure 105/72, heart rate 70, respiratory rate 20, temp 98.4 F, and SpO2 of 99% on room air. EKG was completed showing atrial fibrillation with a controlled ventricular rate of 83 bpm. X-ray completed showing mild to moderate cardiomegaly and possible findings of early pulmonary vascular congestion. CBC showed thrombocytopenia with platelet count of 127, this is chronic and at baseline. Coagulation profile showing elevated PT of 23.3, INR of 2.3, and PTT of 34.2. BMP showing hyponatremia with sodium of 132 consistent with stage IIIb chronic kidney dise ase with BUN of 32, creatinine 1.51, and GFR 44 with baseline creatinine of 1.2. Liver profile showing hyperbilirubinemia with total bili of 4.6 and elevated alkaline phosphatase of 137. Troponin was elevated at 0.121 and proBNP 1870. Pt was admitted under our services with consultation to cardiology and gastroenterology. Troponins were trended overnight resulting at 0.121, 0.100, and 0.107. Acute hepatitis panel nonreactive. Abdominal ultrasound showing trace ascites fluid with borderline hepatomegaly at 17.5 cm with no focal liver lesion, borderline to mild gallbladder wall thickening with no gallstones or additional findings of acute cholecystitis and no biliary ductal dilation. Sym ptoms improved with IV Lasix. Echocardiogram report reviewed, shows borderline LV systolic function, severe TR with mild pulmonary hypertension, calcified aortic valve, mild mitral regurgitation, dilated right ventricle with global hypokinesis. Heparin drip was discontinued, started on Eliquis. Wound care consulted. Per GI, patient likely has underlying liver disease, possibly cirrhosis. Needs outpatient follow-up. Subjective: Patient seen and examined at bedside. No acute events overnight. He claims that he is feeling a lot better and has more energy. However still feels a little confused. Pertinent positives and negatives as discussed above, a complete review of systems was performed and all other systems are negative. Vitals Signs Reviewed. General: Nontoxic, no distress, appears at stated age Derm: Warm, dry, jaundice, lower extremity dressings, wounds not observed Head: Atraumatic, normocephalic, symmetric Eyes: EOMI, no lid lag, scleral icterus Mouth: No lip lesion, mucus membranes moist Cardiovascular: S1S2 reg, no murmur Lungs: CTA bilateral, no rhonchi, no rales, no accessory muscle use Abdominal: Soft, nontender to palpation, no guarding, no appreciable orga nomegaly Ext: No gross muscle atrophy, 2+ pitting edema, no contractures Neuro: CN II-XI grossly intact, no focal neuro deficits Psych: Alert, oriented, appropriate affect Data Reviewed Today: Pertinent Labs: WBC 5.5, hemoglobin 12.9, platelet 118, sodium 132, creatinine 1.38, total bili 3.7. Imaging: Echocardiogram report reviewed, shows borderline LV systolic function, severe TR with mild pulmonary hypertension, calcified aortic valve, mild mitral regurgitation, dilated right ventricle with global hypokinesis. Assessment and Plan: Active: Acute on chronic diastolic CHF exacerbation Elevated troponin, nonischemic Chronic atrial fibrillation Acute kidney injury on CKD stage III -Patient continued on IV Lasix 40 mg every 12 hours, monitor renal function as well as electrolytes -Continued on Eliquis 5 mg twice daily and metoprolol 25 twice daily -Cardiology note reviewed aspirin discontinued -Creatinine increased likely in the setting of Bactrim use Acute encephalopathy, likely hepatic Suspected liver cirrhosis Thrombocytopenia, secondary to above Elevated INR, secondary to above Hyperbilirubinemia, secondary to above -Ammonia 78, patient and his has been complaining of increased confusion -Started on lactulose 20 twice daily, titrate to 2-3 bowel movements a day -Repeat CBC tomorrow -Outpatient follow-up with GI MSSA and Serratia infected lower extremity ulcers/wounds -Wound care following -Okay to continue cefepime 2 g IV every 12 hours for now -Will likely switch to Bactrim at the time of discharge Hypertension -Continue spironolactone 50 mg daily Chronic: Gout DVT ppx: Eliquis Code status: Full code Anticipated discharge place: Pending clinical course Anticipated discharge time: Pending clinical course Objective - Vital Signs Vital signs: Vital Signs Temp 97.8 F 03/14/24 12:00 Pulse 80 03/14/24 12:00 Resp 18 03/14/24 12:00 BP 112/64 03/14/24 12:00 Pulse Ox 94 L 03/14/24 12:00 FiO2 Intake & Output 03/13/24 03/14/24 03/14/24 18:59 06:59 18:59 Intake Total 340 360 Output Total 8397 983 5588 Balance -7853 -961 -9155 Weight 105.3 kg Intake: Intake, IV Titration 100 Amount Cefepime 2 gm In Sodium 100 Chloride 0.9% 100 ml @ 25 mls/hr IVPB Q12H KATELYN Rx# :[id number] Oral 240 360 Output: Gastric Drainage 0 Urine [id number] Stool 0 Urine/Stool Mix 0 Emesis 0 Oral Regurgitation 0 Other 0 Other: # Voids 1 2 0 # Bowel Movements 0 - Labs CBC & Chem 7: 03/14/24 07:26 03/14/24 07:26 Labs: Abnormal Lab Results - Last 24 Hours (Table) 03/14/24 03/14/24 Range/Units 07:26 07:26 RBC 3.86 L (4.30-5.90) m/uL Hgb 12.9 L (13.0-17.5) gm/dL MCV 111.8 H (80.0-100.0) fL MCHC 29.9 L (31.0-37.0) g/dL RDW 16.4 H (11.5-15.5) % Plt Count 118 L (150-450) k/uL Macrocytosis Marked A Sodium 132 L (137-145) mmol/L Carbon Dioxide 21 L (22-30) mmol/L BUN 27 H (9-20) mg/dL Creatinine 1.38 H (0.66-1.25) mg/dL Total Bilirubin 3.7 H (0.2-1.3) mg/dL Alkaline Phosphatase 135 H (38-126) U/L Albumin 3.0 L (3.5-5.0) g/dL Microbiology - Last 24 Hours (Table) 03/12/24 18:54 Blood Culture - Preliminary Blood
[2024-03-15 07:48] LABS: African American GFR (CKD) 65 (>60 ml/min/1.73 sqM); Anion Gap 6 mmol/L; Blood Urea Nitrogen 24 mg/dL (9-20); Calcium 8.8 mg/dL (8.4-10.2); Carbon Dioxide 24 mmol/L (22-30); Chloride 103 mmol/L (98-107); Glucose 100 mg/dL (74-99); Magnesium 2.1 mg/dL (1.6-2.3); Non-African American GFR(CKD) 56 (>60 ml/min/1.73 sqM); Potassium 4.6 mmol/L (3.5-5.1); Sodium 133 mmol/L (137-145)
[2024-03-15 08:39] LABS: Anisocytosis Slight; Basophils # (A) 0.1 k/uL (0-0.2); Basophils % (A) 1 %; Eosinophils # (A) 0.2 k/uL (0-0.7); Eosinophils % (A) 3 %; HCT 45.1 % (39.0-53.0); HGB 13.6 gm/dL (13.0-17.5); Hypochromasia Moderate; Lymphocytes # (A) 0.8 k/uL (1.0-4.8); Lymphocytes % (A) 15 %; MCH 33.8 pg (25.0-35.0); MCHC 30.2 g/dL (31.0-37.0); Macrocytosis Marked; Monocytes # (A) 0.5 k/uL (0-1.0); Monocytes % (A) 9 %; Neutrophils # (A) 3.8 k/uL (1.3-7.7); Neutrophils % (A) 67 %; Platelet Count 102 k/uL (150-450); RBC 4.03 m/uL (4.30-5.90); RDW 16.2 % (11.5-15.5); WBC 5.6 k/uL (3.8-10.6)
[2024-03-15 10:47] LABS: Large Platelets Present
--- NOTE | 2024-03-15 13:24 | P.PN ---
Subjective Progress Note Date: 03/15/24 Hospital Course: Patient is a 74-year-old male with a past medical history of chronic atrial fi brillation on anticoagulation with Eliquis, chronic diastolic heart failure with a EF of 55 to 60% on Lasix and Aldactone, hypertension, chronic kidney disease stage IIIb and chronic bilateral lower extremity wounds/ulcers. Pt was recently found to have infected ulcers of left lower extremity and right foot with Staphylococcus aureus and Serratia marcescens with multiple resistance and was started outpatient on Bactrim. He presented with increased weight, exertional shortness of breath. On arrival, vital signs revealing blood pressure 105/72, heart rate 70, respiratory rate 20, temp 98.4 F, and SpO2 of 99% on room air. EKG was completed showing atrial fibrillation with a controlled ventricular rate of 83 bpm. X-ray completed showing mild to moderate cardiomegaly and possible findings of early pulmonary vascular congestion. CBC showed thrombocytopenia with platelet count of 127, this is chronic and at baseline. Coagulation profile showing elevated PT of 23.3, INR of 2.3, and PTT of 34.2. BMP showing hyponatremia with sodium of 132 consistent with stage IIIb chronic kidney dise ase with BUN of 32, creatinine 1.51, and GFR 44 with baseline creatinine of 1.2. Liver profile showing hyperbilirubinemia with total bili of 4.6 and elevated alkaline phosphatase of 137. Troponin was elevated at 0.121 and proBNP 1870. Pt was admitted under our services with consultation to cardiology and gastroenterology. Troponins were trended overnight resulting at 0.121, 0.100, and 0.107. Acute hepatitis panel nonreactive. Abdominal ultrasound showing trace ascites fluid with borderline hepatomegaly at 17.5 cm with no focal liver lesion, borderline to mild gallbladder wall thickening with no gallstones or additional findings of acute cholecystitis and no biliary ductal dilation. Sym ptoms improved with IV Lasix. Echocardiogram report reviewed, shows borderline LV systolic function, severe TR with mild pulmonary hypertension, calcified aortic valve, mild mitral regurgitation, dilated right ventricle with global hypokinesis. Heparin drip was discontinued, started on Eliquis. Wound care consulted. Per GI, patient likely has underlying liver disease, possibly cirrhosis. Needs outpatient follow-up. Subjective: Patient seen and examined at bedside. No acute events overnight. He claims that he is feeling a lot better and has more energy. Had very minimal bowel movement. Still feels a little confused. Pertinent positives and negatives as discussed above, a complete review of systems was performed and all other systems are negative. Vitals Signs Reviewed. General: Nontoxic, no distress, appears at stated age Derm: Warm, dry, jaundice, lower extremity dressings, wounds not observed Head: Atraumatic, normocephalic, symmetric Eyes: EOMI, no lid lag, scleral icterus Mouth: No lip lesion, mucus membranes moist Cardiovascular: S1S2 reg, no murmur Lungs: CTA bilateral, no rhonchi, no rales, no accessory muscle use Abdominal: Soft, nontender to palpation, no guarding, no appreciable organomegaly Ext: No gross muscle atrophy, 2+ pitting edema, no contractures Neuro: CN II-XI grossly intact, no focal neuro deficits Psych: Alert, oriented, appropriate affect Data Reviewed Today: Pertinent Labs: WBC 5.6, hemoglobin 13.6, platelet 102, sodium 133, creatinine 1.5, magnesium 2.1 Imaging: No new imaging Assessment and Plan: Active: Acute on chronic diastolic CHF exacerbation Elevated troponin, nonischemic Chronic atrial fibrillation Acute kidney injury on CKD stage III -Lasix changed to oral Lasix 40 mg twice daily -Continued on Eliquis 5 mg twice daily and metoprolol 25 twice daily -Cardiology following, aspirin has been discontinued -Creatinine increased likely in the setting of Bactrim use, now coming down Acute encephalopathy, likely hepatic, improving Suspected liver cirrhosis Thrombocytopenia, secondary to above Elevated INR, secondary to above Hyperbilirubinemia, secondary to above -Lactulose 20 mg increased to 3 times daily, titrate to 2-3 bowel movements a day -Outpatient follow-up with GI MSSA and Serratia infected lower extremity ulcers/wounds -Wound care following -Okay to continue cefepime 2 g IV every 12 hours for now -Will likely switch to Bactrim at the time of discharge Hypertension -Continue spironolactone 50 mg daily Chronic: Gout DVT ppx: Eliquis Code status: Full code Anticipated discharge place: Pending clinical course Anticipated discharge time: After patient starts having more bowel movements, mental status improves Objective - Vital Signs Vital signs: Vital Signs Temp 97.0 F L 03/15/24 11:31 Pulse 76 03/15/24 11:31 Resp 16 03/15/24 11:31 BP 118/72 03/15/24 11:31 Pulse Ox 95 03/15/24 11:31 FiO2 Intake & Output 03/14/24 03/15/24 03/15/24 18:59 06:59 18:59 Intake Total 600 580 Output Total 2325 600 1200 Balance -1725 -600 -620 Weight 102.9 kg Intake: Oral 600 580 Output: Gastric Drainage 0 Urine 2325 600 1200 Stool 0 Urine/Stool Mix 0 Emesis 0 Oral Regurgitation 0 Other 0 Other: # Voids 0 # Bowel Movements 0 - Labs CBC & Chem 7: 03/15/24 06:57 03/15/24 06:57 Labs: Abnormal Lab Results - Last 24 Hours (Table) 03/15/24 03/15/24 Range/Units 06:57 06:57 RBC 4.03 L (4.30-5.90) m/uL MCV 112.0 H (80.0-100.0) fL MCHC 30.2 L (31.0-37.0) g/dL RDW 16.2 H (11.5-15.5) % Plt Count 102 L (150-450) k/uL Lymphocytes # 0.8 L (1.0-4.8) k/uL Macrocytosis Marked A Sodium 133 L (137-145) mmol/L BUN 24 H (9-20) mg/dL Glucose 100 H (74-99) mg/dL Microbiology - Last 24 Hours (Table) 03/12/24 18:54 Blood Culture - Preliminary Blood
[2024-03-15] MEDS: FUROSEMIDE 40 MG TAB PO SCH (15:37)
[2024-03-15] MEDS: LACTULOSE 20 GM/30 ML CUP PO SCH (15:37)
--- NOTE | 2024-03-15 16:44 | P.PN ---
Subjective Progress Note Date: 03/15/24 HPI: This is a 74-year-old gentleman with a known diagnosis of diastolic heart failure lower extremity edema came in from primary care office with complaints of weight gain. I was asked to see him because of elevated troponin. Patient complains of fatigue. His bilirubin is elevated liver functions are also slightly abnormal. Denies any chest pain complains of lower extremity edema. Patient is not in left heart failure clinically. He has chronic atrial fibrillation on Eliquis 5 mg twice daily. He is resting comfortably at the time of my evaluation. His last echo from December of this year revealed preserved systolic function and no significant pulmonary hypertension right-sided pressures were about 40 to 45 mmHg. His bilirubin elevation is a matter of some concern could be related to some viral hepatitis type picture and this should be looked into. We are not dealing with any specific overt heart failure type picture. BNP is actually in the close to normal range. No chest pain shortness of breath or palpitations. RELEVANT PAST MEDICAL HISTORY: Chronic atrial fibrillation, diastolic heart failure, hypertension. And chronic kidney disease. MEDICATIONS: Medications include Aldactone, Lasix, allopurinol, metoprolol tartrate 25 mg twice daily and Eliquis 5 mg twice daily ALLERGIES: None. Progress note 03/14/2024 Patient is resting comfortably in bed. Patient denies having any chest pain chest pressure. He does have chronic lower extremity swelling which appears somewhat similar as compared to yesterday. He continues to be in chronic atrial fibrillation which is rate controlled 03/15/2024. Patient is resting comfortably in bed. Denies any chest pain chest pressure. No extremity swelling is better. Continues to be in chronic atrial fibrillation which is rate controlled. PHYSICIAL EXAM: Physical exam revealed vital signs are normal JVD 1 cm no carotid bruit S1-S2 heard normally irregularities and rhythm noted short systolic murmur noted lungs reveal decent air entry no rales or rhonchi abdomen is soft lower extremities are both bandaged probably has edema pulses were not assessed Central nervous system generalized weakness no focal deficits. IMPRESSION: Abnormal bilirubin and liver function test rule out hepatitis advised GI ev aluation. Acute exacerbation of diastolic heart failure. Chronic atrial fibrillation. Chronic lower extremity edema Elevated troponin with flat pattern, likely type II NSTEMI CKD stage IIIb RECOMMENDATIONS: Continue IV Lasix 40 mg twice daily, Aldactone 50 mg daily Continue Eliquis 5 mg daily. Discontinue aspirin. Metoprolol 25 mg twice daily Objective - Vital Signs Vital signs: Vital Signs Temp 97.6 F 03/15/24 15:33 Pulse 89 03/15/24 15:33 Resp 16 03/15/24 15:33 BP 125/77 03/15/24 15:33 Pulse Ox 95 03/15/24 15:33 FiO2 Intake & Output 03/14/24 03/15/24 03/15/24 18:59 06:59 18:59 Intake Total 600 820 Output Total 2325 600 1200 Balance -1725 -600 -380 Weight 102.9 kg Intake: Oral 600 820 Output: Gastric Drainage 0 Urine 2325 600 1200 Stool 0 0 Urine/Stool Mix 0 Emesis 0 Oral Regurgitation 0 Other 0 Other: # Voids 0 1 # Bowel Movements 0 1 - Labs CBC & Chem 7: 03/15/24 06:57 03/15/24 06:57 Labs: Abnormal Lab Results - Last 24 Hours (Table) 03/15/24 03/15/24 Range/Units 06:57 06:57 RBC 4.03 L (4.30-5.90) m/uL MCV 112.0 H (80.0-100.0) fL MCHC 30.2 L (31.0-37.0) g/dL RDW 16.2 H (11.5-15.5) % Plt Count 102 L (150-450) k/uL Lymphocytes # 0.8 L (1.0-4.8) k/uL Macrocytosis Marked A Sodium 133 L (137-145) mmol/L BUN 24 H (9-20) mg/dL Glucose 100 H (74-99) mg/dL Microbiology - Last 24 Hours (Table) 03/12/24 18:54 Blood Culture - Preliminary Blood
[2024-03-15] MEDS: ACETAMINOPHEN TAB 325 MG TAB PO PRN (19:49)
[2024-03-16] MEDS ORDERED: FUROSEMIDE 10 MG/ML 4 ML VIAL IV SCH (10:30)
--- NOTE | 2024-03-16 13:40 | P.PN ---
Subjective Progress Note Date: 03/16/24 HPI: This is a 74-year-old gentleman with a known diagnosis of diastolic heart failure lower extremity edema came in from primary care office with complaints of weight gain. I was asked to see him because of elevated troponin. Patient complains of fatigue. His bilirubin is elevated liver functions are also slightly abnormal. Denies any chest pain complains of lower extremity edema. Patient is not in left heart failure clinically. He has chronic atrial fibrillation on Eliquis 5 mg twice daily. He is resting comfortably at the time of my evaluation. His last echo from December of this year revealed preserved systolic function and no significant pulmonary hypertension right-sided pressures were about 40 to 45 mmHg. His bilirubin elevation is a matter of some concern could be related to some viral hepatitis type picture and this should be looked into. We are not dealing with any specific overt heart failure type picture. BNP is actually in the close to normal range. No chest pain shortness of breath or palpitations. RELEVANT PAST MEDICAL HISTORY: Chronic atrial fibrillation, diastolic heart failure, hypertension. And chronic kidney disease. MEDICATIONS: Medications include Aldactone, Lasix, allopurinol, metoprolol tartrate 25 mg twice daily and Eliquis 5 mg twice daily ALLERGIES: None. Progress note 03/14/2024 Patient is resting comfortably in bed. Patient denies having any chest pain chest pressure. He does have chronic lower extremity swelling which appears somewhat similar as compared to yesterday. He continues to be in chronic atrial fibrillation which is rate controlled 03/15/2024. Patient is resting comfortably in bed. Denies any chest pain chest pressure. No extremity swelling is better. Continues to be in chronic atrial fibrillation which is rate controlled. 03/16 Recommendations to continue IV Lasix but patient was transition to oral by attending. He is also maintained on Aldactone and Eliquis. Blood pressure 109/68, heart rate 70, pulse ox 98% on room air. PHYSICIAL EXAM: Physical exam revealed vital signs are normal, no carotid bruit S1-S2 heard normally irregularities and rhythm noted short systolic murmur noted lungs reveal decent air entry no rales or rhonchi abdomen is soft lower extremities are both bandaged probably has 3+ edema. Central nervous system generalized weakness no focal deficits. IMPRESSION: Abnormal bilirubin and liver function test, patient evaluated by GI. Acute exacerbation of diastolic heart failure. Chronic atrial fibrillation. Chronic lower extremity edema Elevated troponin with flat pattern, likely type II NSTEMI CKD stage IIIb RECOMMENDATIONS: Resume patient back on IV Lasix 40 mg twice daily for another 24 hours, and continue Aldactone 50 mg daily Continue Eliquis 5 mg daily. Discontinue aspirin. Metoprolol 25 mg twice daily Monitor SONIA, daily weights, electrolytes and renal function Nurse practitioner note has been reviewed, I agree with documented findings and plan of care. Patient was seen and examined. Objective - Vital Signs Vital signs: Vital Signs Temp 98.1 F 03/16/24 07:54 Pulse 70 03/16/24 12:00 Resp 16 03/16/24 12:00 BP 109/68 03/16/24 12:00 Pulse Ox 98 03/16/24 12:00 FiO2 Intake & Output 03/15/24 03/16/24 03/16/24 18:59 06:59 18:59 Intake Total 938 20 250 Output Total 1200 250 375 Balance -262 -230 -125 Weight 99.5 kg Intake: IV 20 10 Invasive Line 2 20 10 Oral 938 240 Output: Urine 1200 250 375 Stool 0 Other: # Voids 1 # Bowel Movements 1 1 - Labs CBC & Chem 7: 03/15/24 06:57 03/15/24 06:57 Labs: Microbiology - Last 24 Hours (Table) 03/12/24 18:54 Blood Culture - Preliminary Blood
--- NOTE | 2024-03-16 13:58 | P.PN ---
Subjective Progress Note Date: 03/16/24 Hospital course: Patient is a 74-year-old male with a past medical history of chronic atrial fibrillation on anticoagulation with Eliquis, chronic diastolic heart failure with a EF of 55 to 60% on Lasix and Aldactone, hypertension, chronic kidney disease stage IIIb and chronic bilateral lower extremity wounds/ulcers. Pt was recently found to have infected ulcers of left lower extremity and right foot with Staphylococcus aureus and Serratia marcescens with multiple resistance and was started outpatient on Bactrim. He was taking as prescribed and following [facility] and PCP. Upon follow-up visit patient was found to have a reported weight gain of 15 pounds concerning for fluid overload and was sent to the emergency department for evaluation and admission for IV diuresis On arrival to the emergency department, patient underwent evaluation. Vital signs revealing blood pressure 105/72, heart rate 70, respiratory rate 20, temp 98.4 F, and SpO2 of 99% on room air. EKG was completed showing atrial fibrillation with a controlled ventricular rate of 83 bpm. X-ray completed showing mild to moderate cardiomegaly and possible findings of early pulmonary vascular congestion. Completed and reviewed. CBC and thrombocytopenia with platelet count of 127, this is chronic and at baseline. Coagulation profile showing elevated PT of 23.3, INR of 2.3, and PTT of 34.2. BMP showing hyponatremia with sodium of 132 consistent with stage IIIb chronic kidney disease with BUN of 32, creatinine 1.51, and GFR 44 with baseline creatinine of 1.2. Liver profile showing hyperbilirubinemia with total bili of 4.6 and elevated alkaline phosphatase of 137. Troponin was elevated at 0.121 and proBNP 1870. Pt was admitted under our services with consultation to cardiology and gastroenterology. Troponins were trended overnight resulting at 0.121, 0.100, and 0.107. Acute hepatitis panel nonreactive. Abdominal ultrasound showing trace ascites fluid with borderline hepatomegaly at 17.5 cm with no focal liver lesion, borderline to mild gallbladder wall thickening with no gallstones or additional findings of acute cholecystitis and no biliary ductal dilation. Patient having symptom improvement with successful IV diuresis. Echocardiogram was completed showing a preserved EF of 50 to 55% with severe tricuspid regurgitation, mild pulmonary hypertension, and dilated right ventricle with global hypokinesis. Heparin infusion was discontinued and patient was started on anticoagulation with Eliquis. Patient was also evaluated by gastroenterol ogist, stating patient likely has underlying liver disease, likely cirrhosis and will need outpatient follow-up with their office. Physical exam: Patient was seen and fully evaluated at the bedside this morning. He was sitting up in the edge of bed. Patient continues with moderate edema bilateral lower extremities and with diffuse edema in bilateral upper extremities. Currently reports feeling great and at baseline. Confusion appears to have resolved. Family visiting at bedside. Patient and family deny having any needs or concerns at this time. Vital signs reviewed and stable. General: Nontoxic, no distress and appears stated age. Morbidly obese Derm: Skin warm and dry, normal coloration for ethnicity. Head: Atraumatic, normocephalic and symmetric. Eyes: EOMs intact, no lid lag, scleral icterus present. Mouth: no lip lesions, mucus membranes moist Cardiovascular: Irregularly irregular, systolic murmur, positive posterior tibial pulses bilaterally, and cap refill < 2 seconds. Lungs: Respirations even, regular, and unlabored on room air. Lungs CTA bilaterally, no rhonchi, no rales, no wheezing, and no accessory muscle usage. Abdominal: soft, nontender to palpation, no guarding, no appreciable organomegaly Ext: ROM intact. No gross muscle atrophy, bilateral lower extremity pitting edema bilateral upper extremity edema, no contractures Neuro: Speech clear, face symmetrical and CN II-XII grossly intact with no noted focal neuro deficits Psych: Alert and oriented to person, place, time, and situation. Appropriate and pleasant affect. Assessment and Plan of Care: Acute on chronic diastolic CHF exacerbation Elevated troponin, nonischemic likely secondary to CHF exacerbation Chronic atrial fibrillation Acute kidney injury on CKD stage III -Patient started back on IV Lasix 40 mg IVP twice daily. -Continue Eliquis 5 mg twice daily, Aldactone 50 mg daily and metoprolol 25 twic e daily -Cardiology following, documentation in chart. -Creatinine increased likely in the setting of Bactrim use, now coming down Acute encephalopathy, likely hepatic, resolved Suspected liver cirrhosis hyperbilirubinemia, thrombocytopenia, and elevated INR Thrombocytopenia, secondary to above Elevated INR, secondary to above Hyperbilirubinemia, secondary to above Hyperammonemia -Continue lactulose 20 mg 3 times daily, titrate to 2-3 bowel movements a day -Cigarette [employer] Chief Inspector evaluated stating likely underlying liver disease such as cirrhosis but will need outpatient follow-up with their office after discharge MSSA and Serratia infected lower extremity ulcers/wounds -Wound care following -Continue cefepime 2 g IV every 12 hours for now and will likely switch to Bactrim at the time of discharge Hypertension -Continue spironolactone 50 mg daily Data reviewed: Morning labs pending. Vital signs reviewed. Blood pressure 114/75, heart rate 71, respiratory rate 16, temp 98.1 F, and SpO2 of 98% on room air. CODE STATUS: Full code DVT prophylaxis: Eliquis Anticipated discharge date: Pending clinical course Anticipated discharge place: Pending clinical course Patient was seen independently by Nurse Pracitioner. This document was prepared using [employer] dictation software. Please allow for errors in funeral pre arrangement counselor, while rare they do occur. Bandar King NP rendered care for this patient independently, reviewed the findings and plan as documented in the note above. I did not physically speak with or examine the patient on this date. Objective - Vital Signs Vital signs: Vital Signs Temp 98.1 F 03/16/24 07:54 Pulse 71 03/16/24 07:54 Resp 16 03/16/24 07:54 BP 114/75 03/16/24 07:54 Pulse Ox 98 03/16/24 07:54 FiO2 Intake & Output 03/15/24 03/16/24 03/16/24 18:59 06:59 18:59 Intake Total 938 20 10 Output Total 1200 250 Balance -262 -230 10 Weight 99.5 kg Intake: IV 20 10 Invasive Line 2 20 10 Oral 938 Output: Urine 1200 250 Stool 0 Other: # Voids 1 # Bowel Movements 1 1 - Labs CBC & Chem 7: 03/16/24 14:59 03/16/24 14:59 Labs: Abnormal Lab Results - Last 24 Hours (Table) 03/15/24 Range/Units 06:57 RBC 4.03 L (4.30-5.90) m/uL MCV 112.0 H (80.0-100.0) fL MCHC 30.2 L (31.0-37.0) g/dL RDW 16.2 H (11.5-15.5) % Plt Count 102 L (150-450) k/uL Lymphocytes # 0.8 L (1.0-4.8) k/uL Macrocytosis Marked A Microbiology - Last 24 Hours (Table) 03/12/24 18:54 Blood Culture - Preliminary Blood
[2024-03-16 15:36] LABS: HCT 45.7 % (39.0-53.0); HGB 13.9 gm/dL (13.0-17.5); Hypochromasia Moderate; MCH 33.9 pg (25.0-35.0); MCHC 30.4 g/dL (31.0-37.0); MCV 111.5 fL (80.0-100.0); Macrocytosis Marked; Mean Platelet Volume 10.3; Platelet Count 129 k/uL (150-450); WBC 5.5 k/uL (3.8-10.6)
[2024-03-16 15:51] LABS: ALT 34 U/L (4-49); African American GFR (CKD) 77 (>60 ml/min/1.73 sqM); Albumin 3.5 g/dL (3.5-5.0); Anion Gap 8 mmol/L; Blood Urea Nitrogen 23 mg/dL (9-20); Calcium 8.3 mg/dL (8.4-10.2); Carbon Dioxide 23 mmol/L (22-30); Chloride 100 mmol/L (98-107); Glucose 154 mg/dL (74-99); Non-African American GFR(CKD) 66 (>60 ml/min/1.73 sqM); Sodium 131 mmol/L (137-145); Total Bilirubin 3.5 mg/dL (0.2-1.3); Total Protein 7.9 g/dL (6.3-8.2)
[2024-03-16 15:56] LABS: AST 52 U/L (17-59); Alkaline Phosphatase 133 U/L (38-126); Potassium 4.9 mmol/L (3.5-5.1)
[2024-03-16] MEDS: FUROSEMIDE 10 MG/ML 4 ML VIAL IV SCH (21:07)
[2024-03-17] MEDS: CEFEPIME 2 GM in SODIUM CHLORIDE 0.9% 100 ML IVPB SCH (03:11)
[2024-03-17 10:48] LABS: HCT 48.8 % (39.0-53.0); HGB 14.7 gm/dL (13.0-17.5); Hypochromasia Moderate; MCH 33.7 pg (25.0-35.0); MCHC 30.1 g/dL (31.0-37.0); MCV 111.7 fL (80.0-100.0); Macrocytosis Marked; Mean Platelet Volume 9.7; Platelet Count 129 k/uL (150-450); RBC 4.37 m/uL (4.30-5.90); RDW 15.8 % (11.5-15.5); WBC 5.8 k/uL (3.8-10.6)
[2024-03-17 11:32] LABS: ALT 37 U/L (4-49); AST 50 U/L (17-59); African American GFR (CKD) 80 (>60 ml/min/1.73 sqM); Albumin 3.7 g/dL (3.5-5.0); Alkaline Phosphatase 136 U/L (38-126); Anion Gap 9 mmol/L; Blood Urea Nitrogen 20 mg/dL (9-20); Calcium 8.7 mg/dL (8.4-10.2); Carbon Dioxide 25 mmol/L (22-30); Chloride 102 mmol/L (98-107); Glucose 79 mg/dL (74-99); Non-African American GFR(CKD) 69 (>60 ml/min/1.73 sqM); Potassium 4.4 mmol/L (3.5-5.1); Sodium 136 mmol/L (137-145); Total Bilirubin 3.6 mg/dL (0.2-1.3); Total Protein 8.3 g/dL (6.3-8.2)
--- NOTE | 2024-03-17 11:35 | P.PN ---
Subjective Progress Note Date: 03/17/24 HPI: This is a 74-year-old gentleman with a known diagnosis of diastolic heart failure lower extremity edema came in from primary care office with complaints of weight gain. I was asked to see him because of elevated troponin. Patient complains of fatigue. His bilirubin is elevated liver functions are also slightly abnormal. Denies any chest pain complains of lower extremity edema. Patient is not in left heart failure clinically. He has chronic atrial fibrillation on Eliquis 5 mg twice daily. He is resting comfortably at the time of my evaluation. His last echo from December of this year revealed preserved systolic function and no significant pulmonary hypertension right-sided pressures were about 40 to 45 mmHg. His bilirubin elevation is a matter of some concern could be related to some viral hepatitis type picture and this should be looked into. We are not dealing with any specific overt heart failure type picture. BNP is actually in the close to normal range. No chest pain shortness of breath or palpitations. RELEVANT PAST MEDICAL HISTORY: Chronic atrial fibrillation, diastolic heart failure, hypertension. And chronic kidney disease. MEDICATIONS: Medications include Aldactone, Lasix, allopurinol, metoprolol tartrate 25 mg twice daily and Eliquis 5 mg twice daily ALLERGIES: None. Progress note 03/14/2024 Patient is resting comfortably in bed. Patient denies having any chest pain chest pressure. He does have chronic lower extremity swelling which appears somewhat similar as compared to yesterday. He continues to be in chronic atrial fibrillation which is rate controlled 03/15/2024. Patient is resting comfortably in bed. Denies any chest pain chest pressure. No extremity swelling is better. Continues to be in chronic atrial fibrillation which is rate controlled. 03/16 Recommendations to continue IV Lasix but patient was transition to oral by attending. He is also maintained on Aldactone and Eliquis. Blood pressure 109/68, heart rate 70, pulse ox 98% on room air. 03/17 Patient has been maintained back on IV Lasix 40 mg twice daily. He continues to have significant amount of lower extremity edema and crackles in the bases. He is on IV antibiotics for lower extremity cellulitis. Blood pressure 103/59, heart rate 88, pulse ox 94% on room air. Repeat blood work reveals hemoglobin 14.7. Sodium 136, potassium 4.4, BUN 20 and creatinine 1.05. PHYSICIAL EXAM: Physical exam revealed vital signs are normal, no carotid bruit S1-S2 heard normally irregularities and rhythm noted short systolic murmur at the apex, noted lungs reveal decent air entry with crackles bilateral bases, abdomen is soft lower extremities are both bandaged probably has 2-3+ edema. Central nervous system generalized weakness no focal deficits. IMPRESSION: Abnormal bilirubin and liver function test, patient evaluated by GI. Acute exacerbation of diastolic heart failure. Chronic atrial fibrillation. Chronic lower extremity edema Elevated troponin with flat pattern, likely type II NSTEMI CKD stage IIIb RECOMMENDATIONS: Continue patient on IV Lasix 40 mg twice daily for another 24 hours, and continue Aldactone 50 mg daily Continue Eliquis 5 mg daily. Discontinue aspirin. Metoprolol 25 mg twice daily Monitor SONIA, daily weights, electrolytes and renal function Nurse practitioner note has been reviewed, I agree with documented findings and plan of care. Patient was seen and examined. Objective - Vital Signs Vital signs: Vital Signs Temp 97.8 F 03/17/24 08:00 Pulse 88 03/17/24 08:00 Resp 16 03/17/24 08:00 BP 103/59 03/17/24 08:00 Pulse Ox 94 L 03/17/24 08:00 FiO2 Intake & Output 03/16/24 03/17/24 03/17/24 18:59 06:59 18:59 Intake Total 368 240 Output Total 375 225 0 Balance -7 -225 240 Weight 104 kg Intake: IV 10 Invasive Line 2 10 Oral 358 240 Output: Urine 375 225 Stool 0 0 Other: # Voids 1 1 1 - Labs CBC & Chem 7: 03/17/24 10:01 03/17/24 10:01 Labs: Abnormal Lab Results - Last 24 Hours (Table) 03/16/24 03/16/24 03/17/24 Range/Units 14:59 14:59 10:01 RBC 4.10 L (4.30-5.90) m/uL MCV 111.5 H 111.7 H (80.0-100.0) fL MCHC 30.4 L 30.1 L (31.0-37.0) g/dL RDW 16.0 H 15.8 H (11.5-15.5) % Plt Count 129 L 129 L (150-450) k/uL Macrocytosis Marked A Marked A Sodium 131 L (137-145) mmol/L BUN 23 H (9-20) mg/dL Glucose 154 H (74-99) mg/dL Calcium 8.3 L (8.4-10.2) mg/dL Total Bilirubin 3.5 H (0.2-1.3) mg/dL Alkaline Phosphatase 133 H (38-126) U/L Total Protein (6.3-8.2) g/dL 03/17/24 Range/Units 10:01 RBC (4.30-5.90) m/uL MCV (80.0-100.0) fL MCHC (31.0-37.0) g/dL RDW (11.5-15.5) % Plt Count (150-450) k/uL Macrocytosis Sodium 136 L (137-145) mmol/L BUN (9-20) mg/dL Glucose (74-99) mg/dL Calcium (8.4-10.2) mg/dL Total Bilirubin 3.6 H (0.2-1.3) mg/dL Alkaline Phosphatase 136 H (38-126) U/L Total Protein 8.3 H (6.3-8.2) g/dL
--- NOTE | 2024-03-17 13:13 | P.PN ---
Subjective Progress Note Date: 03/17/24 Hospital course: Patient is a 74-year-old male with a past medical history of chronic atrial fibrillation on anticoagulation with Eliquis, chronic diastolic heart failure with a EF of 55 to 60% on Lasix and Aldactone, hypertension, chronic kidney disease stage IIIb and chronic bilateral lower extremity wounds/ulcers. Pt was recently found to have infected ulcers of left lower extremity and right foot with Staphylococcus aureus and Serratia marcescens with multiple resistance and was started outpatient on Bactrim. He was taking as prescribed and following with wound care clinic and PCP. Upon follow-up visit patient was found to have a reported weight gain of 15 pounds concerning for fluid overload and was sent to the emergency department for evaluation and admission for IV diuresis On arrival to the emergency department, patient underwent evaluation. Vital signs revealing blood pressure 105/72, heart rate 70, respiratory rate 20, temp 98.4 F, and SpO2 of 99% on room air. EKG was completed showing atrial fibrillation with a controlled ventricular rate of 83 bpm. X-ray completed showing mild to moderate cardiomegaly and possible findings of early pulmonary vascular congestion. Completed and reviewed. CBC and thrombocytopenia with platelet count of 127, this is chronic and at baseline. Coagulation profile showing e levated PT of 23.3, INR of 2.3, and PTT of 34.2. BMP showing hyponatremia with sodium of 132 consistent with stage IIIb chronic kidney disease with BUN of 32, creatinine 1.51, and GFR 44 with baseline creatinine of 1.2. Liver profile showing hyperbilirubinemia with total bili of 4.6 and elevated alkaline phosphatase of 137. Troponin was elevated at 0.121 and proBNP 1870. Pt was admitted under our services with consultation to cardiology and gastroenterology. Troponins were trended overnight resulting at 0.121, 0.100, and 0.107. Acute hepatitis panel nonreactive. Abdominal ultrasound showing trace ascites fluid with borderline hepatomegaly at 17.5 cm with no focal liver lesion, borderline to mild gallbladder wall thickening with no gallstones or additional findings of acute cholecystitis and no biliary ductal dilation. Patient having symptom improvement with successful IV diuresis. Echocardiogram was completed showing a preserved EF of 50 to 55% with severe tricuspid regurgitation, mild pulmonary hypertension, and dilated right ventricle with global hypokinesis. Heparin infusion was discontinued and patient was started on anticoagulation with Eliquis. Patient was also evaluated by company laundry worker, stating patient likely has underlying liver disease, likely cirrhosis and will need outpatient follow-up with their office. Physical exam: Patient was seen and fully evaluated at the bedside this morning. He was sitting up on the edge of bed. Patient continues with moderate edema bilateral lower extremities and with diffuse edema in bilateral upper extremities. He is currently at baseline mentation, RN reports patient did exhibit some confusion overnight. Will repeat ammonia levels to ensure they are trending downward. Vital signs reviewed and stable. General: Nontoxic, no distress and appears stated age. Morbidly obese Derm: Skin warm and dry, normal coloration for ethnicity. Head: Atraumatic, normocephalic and symmetric. Eyes: EOMs intact, no lid lag, scleral icterus present. Mouth: no lip lesions, mucus membranes moist Cardiovascular: Irregularly irregular, systolic murmur, positive posterior tibial pulses bilaterally, and cap refill < 2 seconds. Lungs: Respirations even, regular, and unlabored on room air. Lungs diminished, no rhonchi, no rales, no wheezing, and no accessory muscle usage. Abdominal: soft, nontender to palpation, no guarding, no appreciable organomegaly Ext: ROM intact. No gross muscle atrophy, bilateral lower extremity pitting edema bilateral upper extremity edema, no contractures Neuro: Speech clear, face symmetrical and CN II-XII grossly intact with no noted focal neuro deficits Psych: Alert and oriented to person, place, time, and situation. Appropriate and pleasant affect. Assessment and Plan of Care: Acute on chronic diastolic CHF exacerbation with EF of 50 to 55% Elevated troponin, nonischemic likely secondary to CHF exacerbation Chronic atrial fibrillation Acute kidney injury on CKD stage III -Continue IV Lasix 40 mg IVP twice daily. -Continue Eliquis 5 mg twice daily, Aldactone 50 mg daily and metoprolol 25 twice daily -Cardiology following, reviewed documentation in chart and agricultural extension educator recommending continuation of IV diuretics. -Continue strict I's and O's and daily weights. Acute encephalopathy, likely hepatic, resolved Suspected liver cirrhosis hyperbilirubinemia, thrombocytopenia, and elevated INR Thrombocytopenia, secondary to above Elevated INR, secondary to above Hyperbilirubinemia, secondary to above Hyperammonemia -Continue lactulose 20 mg 3 times daily, titrate to 2-3 bowel movements a day -Senior International Tax Manager evaluated stating likely underlying liver disease such as cirrhosis but will need outpatient follow-up with their office after discharge MSSA and Serratia infected lower extremity ulcers/wounds -Wound care following -Continue cefepime 2 g IV every 12 hours for now and will likely switch to Bactrim at the time of discharge -Creatinine was increased likely in the setting of Bactrim use and has improved currently BUN 20, creatinine 1.05, GFR of 69. Hypertension -Continue spironolactone 50 mg daily Data reviewed: Morning labs reviewed. CBC showing macrocytosis with MCV of 111.7 and thrombocytopenia with platelet count of 129. BMP showing no significant abnormalities, sodium 136, potassium 4.4, chloride 102, bicarb 25, and anion gap of 9 with renal function showing BUN of 20, creatinine 1.05, and GFR of 69. Magnesium normal findings at 2.0. Liver profile showing persistently elevated total bili of 3.6 and alkaline phosphatase of 136. Vital signs reviewed. Blood pressure 103/59, heart rate 88, respiratory rate 16, temp 97.8 F, and SpO2 of 94% on room air. CODE STATUS: Full code DVT prophylaxis: Eliquis Anticipated discharge date: Pending clinical course Anticipated discharge place: Pending clinical course Patient was seen independently by Nurse Pracitioner. This document was prepared using [employer] dictation software. Please allow for errors in commissioning specialist, while rare they do occur. Bandar King NP rendered care for this patient independently, reviewed the findings and plan as documented in the note above. I did not physically speak with or examine the patient on this date. Objective - Vital Signs Vital signs: Vital Signs Temp 97.8 F 03/17/24 08:00 Pulse 88 03/17/24 08:00 Resp 16 03/17/24 08:00 BP 103/59 03/17/24 08:00 Pulse Ox 94 L 03/17/24 08:00 FiO2 Intake & Output 03/16/24 03/17/24 03/17/24 18:59 06:59 18:59 Intake Total 368 Output Total 375 225 Balance -7 -225 Weight 104 kg Intake: IV 10 Invasive Line 2 10 Oral 358 Output: Urine 375 225 Stool 0 Other: # Voids 1 1 - Labs CBC & Chem 7: 03/17/24 10:01 03/17/24 10:01 Labs: Abnormal Lab Results - Last 24 Hours (Table) 03/16/24 03/16/24 Range/Units 14:59 14:59 RBC 4.10 L (4.30-5.90) m/uL MCV 111.5 H (80.0-100.0) fL MCHC 30.4 L (31.0-37.0) g/dL RDW 16.0 H (11.5-15.5) % Plt Count 129 L (150-450) k/uL Macrocytosis Marked A Sodium 131 L (137-145) mmol/L BUN 23 H (9-20) mg/dL Glucose 154 H (74-99) mg/dL Calcium 8.3 L (8.4-10.2) mg/dL Total Bilirubin 3.5 H (0.2-1.3) mg/dL Alkaline Phosphatase 133 H (38-126) U/L Microbiology - Last 24 Hours (Table) 03/12/24 18:54 Blood Culture - Preliminary Blood
[2024-03-18 10:40] LABS: HCT 45.3 % (39.0-53.0); HGB 13.6 gm/dL (13.0-17.5); Hypochromasia Marked; MCHC 30.1 g/dL (31.0-37.0); MCV 113.1 fL (80.0-100.0); Macrocytosis Marked; Mean Platelet Volume 9.8; Platelet Count 112 k/uL (150-450); RBC 4.01 m/uL (4.30-5.90); RDW 15.8 % (11.5-15.5); WBC 5.7 k/uL (3.8-10.6)
[2024-03-18 11:36] LABS: ALT 33 U/L (4-49); AST 64 U/L (17-59); African American GFR (CKD) >90 (>60 ml/min/1.73 sqM); Albumin 3.5 g/dL (3.5-5.0); Alkaline Phosphatase 137 U/L (38-126); Anion Gap 11 mmol/L; Blood Urea Nitrogen 18 mg/dL (9-20); Calcium 8.5 mg/dL (8.4-10.2); Carbon Dioxide 19 mmol/L (22-30); Chloride 104 mmol/L (98-107); Glucose 148 mg/dL (74-99); Magnesium 1.9 mg/dL (1.6-2.3); Non-African American GFR(CKD) 82 (>60 ml/min/1.73 sqM); Sodium 134 mmol/L (137-145); Total Bilirubin 3.5 mg/dL (0.2-1.3); Total Protein 8.1 g/dL (6.3-8.2)
[2024-03-18 11:47] LABS: Potassium 4.5 mmol/L (3.5-5.1)
--- NOTE | 2024-03-18 13:44 | P.PN ---
Subjective Progress Note Date: 03/18/24 HPI: This is a 74-year-old gentleman with a known diagnosis of diastolic heart failure lower extremity edema came in from primary care office with complaints of weight gain. I was asked to see him because of elevated troponin. Patient complains of fatigue. His bilirubin is elevated liver functions are also slightly abnormal. Denies any chest pain complains of lower extremity edema. Patient is not in left heart failure clinically. He has chronic atrial fibrillation on Eliquis 5 mg twice daily. He is resting comfortably at the time of my evaluation. His last echo from December of this year revealed preserved systolic function and no significant pulmonary hypertension right-sided pressures were about 40 to 45 mmHg. His bilirubin elevation is a matter of some concern could be related to some viral hepatitis type picture and this should be looked into. We are not dealing with any specific overt heart failure type picture. BNP is actually in the close to normal range. No chest pain shortness of breath or palpitations. RELEVANT PAST MEDICAL HISTORY: Chronic atrial fibrillation, diastolic heart failure, hypertension. And chronic kidney disease. MEDICATIONS: Medications include Aldactone, Lasix, allopurinol, metoprolol tartrate 25 mg twice daily and Eliquis 5 mg twice daily ALLERGIES: None. Progress note 03/14/2024 Patient is resting comfortably in bed. Patient denies having any chest pain chest pressure. He does have chronic lower extremity swelling which appears somewhat similar as compared to yesterday. He continues to be in chronic atrial fibrillation which is rate controlled 03/15/2024. Patient is resting comfortably in bed. Denies any chest pain chest pressure. No extremity swelling is better. Continues to be in chronic atrial fibrillation which is rate controlled. 03/16 Recommendations to continue IV Lasix but patient was transition to oral by attending. He is also maintained on Aldactone and Eliquis. Blood pressure 109/68, heart rate 70, pulse ox 98% on room air. 03/17 Patient has been maintained back on IV Lasix 40 mg twice daily. He continues to have significant amount of lower extremity edema and crackles in the bases. He is on IV antibiotics for lower extremity cellulitis. Blood pressure 103/59, heart rate 88, pulse ox 94% on room air. Repeat blood work reveals hemoglobin 14.7. Sodium 136, potassium 4.4, BUN 20 and creatinine 1.05. 03/18 Patient is seen today in follow-up. He has been maintained on IV Lasix 40 mg twice daily as well as Aldactone. He has a negative fluid balance but less over the past 2 days. Laboratory studies reveal hemoglobin 13.6. BUN 18 creatinine 0.91 and potassium 4.5. Blood pressure 110/71, heart rate 71, pulse ox 96% on room air. Patient is confused today. He is trying to call his and is upset that she was not here for lunch. She apparently just left the building. Noted that ammonia level was 82 yesterday. He is known to have less lower extremity edema. Lungs seem to be improving and he denies shortness of breath. No chest pain. PHYSICIAL EXAM: Physical exam revealed vital signs are normal, no carotid bruit S1-S2 heard normally irregularities and rhythm noted short systolic murmur at the apex, noted lungs reveal decent air entry bilateral, abdomen is soft lower extremities are both bandaged probably has 1-2+ edema. Central nervous system generalized weakness no focal deficits. Patient is maintained on IV antibiotics for lower extremity cellulitis. IMPRESSION: Abnormal bilirubin and liver function test, patient evaluated by GI. Acute exacerbation of diastolic heart failure. Chronic atrial fibrillation. Chronic lower extremity edema Elevated troponin with flat pattern, likely type II NSTEMI CKD stage IIIb Metabolic encephalopathy most likely to hyperammonemia RECOMMENDATIONS: Transition IV Lasix to oral 40 mg twice daily, and continue Aldactone 50 mg daily Continue Eliquis 5 mg daily. Metoprolol 25 mg twice daily Monitor SONIA, daily weights, electrolytes and renal function Nurse practitioner note has been reviewed, I agree with documented findings and plan of care. Patient was seen and examined. Objective - Vital Signs Vital signs: Vital Signs Temp 97.7 F 03/18/24 11:40 Pulse 71 03/18/24 11:40 Resp 16 03/18/24 12:59 BP 110/71 03/18/24 11:40 Pulse Ox 96 03/18/24 11:40 FiO2 Intake & Output 03/17/24 03/18/24 03/18/24 18:59 06:59 18:59 Intake Total 1280 240 Output Total 0 775 Balance 1280 -775 240 Weight 97.1 kg Intake: Intake, IV Titration 200 Amount Cefepime 2 gm In Sodium 200 Chloride 0.9% 100 ml @ 25 mls/hr [facility] Rx#: [id number] Oral 1080 240 Output: Urine 775 Stool 0 Other: # Voids 1 3 1 # Bowel Movements 1 - Labs CBC & Chem 7: 03/18/24 10:03 03/18/24 10:03 Labs: Abnormal Lab Results - Last 24 Hours (Table) 03/17/24 03/18/24 03/18/24 Range/Units 13:55 10:03 10:03 RBC 4.01 L (4.30-5.90) m/uL MCV 113.1 H (80.0-100.0) fL MCHC 30.1 L (31.0-37.0) g/dL RDW 15.8 H (11.5-15.5) % Plt Count 112 L (150-450) k/uL Macrocytosis Marked A Sodium 134 L (137-145) mmol/L Carbon Dioxide 19 L (22-30) mmol/L Glucose 148 H (74-99) mg/dL Total Bilirubin 3.5 H (0.2-1.3) mg/dL AST 64 H (17-59) U/L Alkaline Phosphatase 137 H (38-126) U/L Ammonia 82 H (<30) umol/L Microbiology - Last 24 Hours (Table) 03/12/24 18:54 Blood Culture - Final Blood
[2024-03-18] MEDS: LACTULOSE 20 GM/30 ML CUP PO SCH (13:48)
[2024-03-18] MEDS: FUROSEMIDE 40 MG TAB PO SCH (15:21)
--- NOTE | 2024-03-18 17:05 | P.PN ---
Subjective Progress Note Date: 03/18/24 Hospital course: Patient is a 74-year-old male with a past medical history of chronic atrial fibrillation on anticoagulation with Eliquis, chronic diastolic heart failure with a EF of 55 to 60% on Lasix and Aldactone, hypertension, chronic kidney disease stage IIIb and chronic bilateral lower extremity wounds/ulcers. Pt was recently found to have infected ulcers of left lower extremity and right foot with Staphylococcus aureus and Serratia marcescens with multiple resistance and was started outpatient on Bactrim. He was taking as prescribed and following with wound care clinic and PCP. Upon follow-up visit patient was found to have a reported weight gain of 15 pounds concerning for fluid overload and was sent to the emergency department for evaluation and admission for IV diuresis On arrival to the emergency department, patient underwent evaluation. Vital signs revealing blood pressure 105/72, heart rate 70, respiratory rate 20, temp 98.4 F, and SpO2 of 99% on room air. EKG was completed showing atrial fibrillation with a controlled ventricular rate of 83 bpm. X-ray completed showing mild to moderate cardiomegaly and possible findings of early pulmonary vascular congestion. Completed and reviewed. CBC and thrombocytopenia with platelet count of 127, this is chronic and at baseline. Coagulation profile showing e levated PT of 23.3, INR of 2.3, and PTT of 34.2. BMP showing hyponatremia with sodium of 132 consistent with stage IIIb chronic kidney disease with BUN of 32, creatinine 1.51, and GFR 44 with baseline creatinine of 1.2. Liver profile showing hyperbilirubinemia with total bili of 4.6 and elevated alkaline phosphatase of 137. Troponin was elevated at 0.121 and proBNP 1870. Pt was admitted under our services with consultation to cardiology and gastroenterology. Troponins were trended overnight resulting at 0.121, 0.100, and 0.107. Acute hepatitis panel nonreactive. Abdominal ultrasound showing trace ascites fluid with borderline hepatomegaly at 17.5 cm with no focal liver lesion, borderline to mild gallbladder wall thickening with no gallstones or additional findings of acute cholecystitis and no biliary ductal dilation. Patient having symptom improvement with successful IV diuresis. Echocardiogram was completed showing a preserved EF of 50 to 55% with severe tricuspid regurgitation, mild pulmonary hypertension, and dilated right ventricle with global hypokinesis. Heparin infusion was discontinued and patient was started on anticoagulation with Eliquis. Patient was also evaluated by car checker, stating patient likely has underlying liver disease, likely cirrhosis and will need outpatient follow-up with their office. Physical exam: Patient was seen and fully evaluated at the bedside this morning. He was sitting up in chair this morning. He reports feeling ready to go home, but does continue to have 2+ pitting bilateral lower extremities. Upper extremity edema has improved. Patient currently alert and oriented x 3-4. RN reports that patient's mentation has been waxing and waning and he has gone greater than 24 hours without a bowel movement. Ammonia levels increasing will increase lac tulose dose and monitor for resolution of confusion. Vital signs reviewed and stable. General: Nontoxic, no distress and appears stated age. Morbidly obese Derm: Skin warm and dry, normal coloration for ethnicity. Head: Atraumatic, normocephalic and symmetric. Eyes: EOMs intact, no lid lag, scleral icterus present. Mouth: no lip lesions, mucus membranes moist Cardiovascular: Irregularly irregular, systolic murmur, positive posterior tibial pulses bilaterally, and cap refill < 2 seconds. Lungs: Respirations even, regular, and unlabored on room air. Lungs diminished, no rhonchi, no rales, no wheezing, and no accessory muscle usage. Abdominal: soft, nontender to palpation, no guarding, no appreciable organomegaly Ext: ROM intact. No gross muscle atrophy, bilateral lower extremity pitting edema bilateral upper extremity edema, no contractures Neuro: Speech clear, face symmetrical and CN II-XII grossly intact with no noted focal neuro deficits Psych: Alert and oriented to person, place, time, and situation. Appropriate and pleasant affect. Assessment and Plan of Care: Acute on chronic diastolic CHF exacerbation with EF of 50 to 55% Elevated troponin, nonischemic likely secondary to CHF exacerbation Chronic atrial fibrillation Acute kidney injury on CKD stage III -Continue Eliquis 5 mg twice daily, Aldactone 50 mg daily and metoprolol 25 twice daily -Cardiology following. Discussed with cardiology CLIENT SOLUTIONS MANAGER, they recommended transitioning patient to oral diuretic with Lasix 40 mg twice daily tomorrow morning. -Continue strict I's and O's and daily weights. -Continue current monitoring. -Continue close monitoring of electrolytes while diuresing. Acute encephalopathy, likely hepatic Suspected liver cirrhosis hyperbilirubinemia, thrombocytopenia, and elevated INR Thrombocytopenia, secondary to above Elevated INR, secondary to above Hyperbilirubinemia, secondary to above Hyperammonemia -Patient's confusion waxing and waning and he has not had any bowel movements since 03/16/2024 despite taking lactulose. Ammonia level increased to 82. -Lactulose dose was increased to 30 g four times daily and to be titrate to 2-3 bowel movements a day. -Will monitor for resolution of confusion. Maintain fall precautions. -Band Sawing Machine Operator evaluated stating likely underlying liver disease such as cirrhosis but will need outpatient follow-up with their office after discharge MSSA and Serratia infected lower extremity ulcers/wounds -Wound care following -Continue cefepime 2 g IV every 12 hours for now and will likely switch to Bactrim at the time of discharge -Creatinine was increased likely in the setting of Bactrim use and has improved currently BUN 20, creatinine 1.05, GFR of 69. Hypertension -Continue spironolactone 50 mg daily Data reviewed: Morning labs reviewed. CBC showing macrocytosis with MCV of 113.1 and thrombocytopenia with platelet count of 112. BMP showing sodium 134, bicarb 19, and glucose of 148. Magnesium normal findings at 1.9. Liver profile showing elevated total bili of 3.5, AST of 64, and alkaline phosphatase of 137. Vital signs reviewed. Blood pressure 112/67, heart rate 84, respiratory rate 16, temp 97.2 F, and SpO2 of 96% on room air. CODE STATUS: Full code DVT prophylaxis: Eliquis Anticipated discharge date: Possibly within the next 24 hours, pending improvement in mentation. Anticipated discharge place: Home, recommending home care however patient declining. Patient was seen independently by Nurse Pracitioner. This document was prepared using [employer] dictation software. Please allow for errors in technical staff engineer, while rare they do occur. Bandar King NP rendered care for this patient independently, reviewed the findings and plan as documented in the note above. I did not physically speak with or examine the patient on this date. Objective - Vital Signs Vital signs: Vital Signs Temp 97.2 F L 03/18/24 08:17 Pulse 84 03/18/24 08:17 Resp 16 03/18/24 08:17 BP 112/67 03/18/24 08:17 Pulse Ox 96 03/18/24 08:17 FiO2 Intake & Output 03/17/24 03/18/24 03/18/24 18:59 06:59 18:59 Intake Total 1280 Output Total 0 775 Balance 1280 -775 Weight 97.1 kg Intake: Intake, IV Titration 200 Amount Cefepime 2 gm In Sodium 200 Chloride 0.9% 100 ml @ 25 mls/hr IVPB Q8H [facility] Rx#: [id number] Oral 1080 Output: Urine 775 Stool 0 Other: # Voids 1 3 - Labs CBC & Chem 7: 03/18/24 10:03 03/18/24 10:03 Labs: Abnormal Lab Results - Last 24 Hours (Table) 03/17/24 03/17/24 03/17/24 Range/Units 10:01 10:01 13:55 MCV 111.7 H (80.0-100.0) fL MCHC 30.1 L (31.0-37.0) g/dL RDW 15.8 H (11.5-15.5) % Plt Count 129 L (150-450) k/uL Macrocytosis Marked A Sodium 136 L (137-145) mmol/L Total Bilirubin 3.6 H (0.2-1.3) mg/dL Alkaline Phosphatase 136 H (38-126) U/L Ammonia 82 H (<30) umol/L Total Protein 8.3 H (6.3-8.2) g/dL Microbiology - Last 24 Hours (Table) 03/12/24 18:54 Blood Culture - Final Blood
[2024-03-18] MEDS: ALPRAZolam 0.5 MG TAB PO STA (18:19)
[2024-03-19 08:18] VITALS: BP 113/66; PULSE 77; RESP 18; TEMP 98.1
[2024-03-19 11:51] LABS: HGB 13.2 gm/dL (13.0-17.5); Hypochromasia Moderate; MCHC 30.7 g/dL (31.0-37.0); MCV 110.7 fL (80.0-100.0); Macrocytosis Marked; Mean Platelet Volume 9.6; Platelet Count 113 k/uL (150-450); RBC 3.88 m/uL (4.30-5.90); RDW 15.8 % (11.5-15.5); WBC 5.2 k/uL (3.8-10.6)
[2024-03-19 12:12] LABS: ALT 29 U/L (4-49); AST 40 U/L (17-59); African American GFR (CKD) >90 (>60 ml/min/1.73 sqM); Alkaline Phosphatase 113 U/L (38-126); Anion Gap 7 mmol/L; Blood Urea Nitrogen 17 mg/dL (9-20); Calcium 8.5 mg/dL (8.4-10.2); Carbon Dioxide 22 mmol/L (22-30); Chloride 104 mmol/L (98-107); Glucose 109 mg/dL (74-99); Magnesium 1.9 mg/dL (1.6-2.3); Non-African American GFR(CKD) 86 (>60 ml/min/1.73 sqM); Potassium 4.2 mmol/L (3.5-5.1); Sodium 133 mmol/L (137-145); Total Bilirubin 3.1 mg/dL (0.2-1.3); Total Protein 7.2 g/dL (6.3-8.2)
--- NOTE | 2024-03-19 13:25 | P.DS ---
Providers Date of admission: 03/12/24 13:18 Expected date of discharge: 03/19/24 Attending physician: Neyda Tijerina, Consults: 03/12/24 13:17 Consult Physician Routine Consulting Provider: Mariam Da Silva Consult Reason/Comments: CHF, trop elevated Do you want consulting provider notified?: Yes 03/12/24 14:19 Consult Physician Routine Consulting Provider: Abbie Reis Consult Reason/Comments: hyperbilirubinemia, scleral icterus and 14 lb weight gain Do you want consulting provider notified?: Yes Primary care physician: Dg Maria Hospital Course: Discharge Diagnosis: Acute on chronic diastolic CHF exacerbation with EF of 50 to 55% Elevated troponin, nonischemic likely secondary to CHF exacerbation Chronic atrial fibrillation Acute kidney injury on CKD stage III. Resolved. Acute encephalopathy, likely hepatic Suspected liver cirrhosis hyperbilirubinemia, thrombocytopenia, and elevated INR Thrombocytopenia, secondary to above Elevated INR, secondary to above Hyperbilirubinemia, secondary to above Hyperammonemia MSSA and Serratia infected lower extremity ulcers/wounds Hypertension Hospital course: Patient is a 74-year-old male with a past medical history of chronic atrial fibrillation on anticoagulation with Eliquis, chronic diastolic heart failure with a EF of 55 to 60% on Lasix and Aldactone, hypertension, chronic kidney disease stage IIIb and chronic bilateral lower extremity wounds/ulcers. Pt was recently found to have infected ulcers of left lower extremity and right foot with Staphylococcus aureus and Serratia marcescens with multiple resistance and was started outpatient on Bactrim. He was taking as prescribed and following with wound care clinic and PCP. Upon follow-up visit patient was found to have a reported weight gain of 15 pounds concerning for fluid overload and was sent to the emergency department for evaluation and admission for IV diuresis On arrival to the emergency department, patient underwent evaluation. Vital signs revealing blood pressure 105/72, heart rate 70, respiratory rate 20, temp 98.4 F, and SpO2 of 99% on room air. EKG was completed showing atrial fibrillation with a controlled ventricular rate of 83 bpm. X-ray completed showing mild to moderate cardiomegaly and possible findings of early pulmonary vascular congestion. Completed and reviewed. CBC and thrombocytopenia with platelet count of 127, this is chronic and at baseline. Coagulation profile showing elevated PT of 23.3, INR of 2.3, and PTT of 34.2. BMP showing hyponatremia with sodium of 132 consistent with stage IIIb chronic kidney disease with BUN of 32, creatinine 1.51, and GFR 44 with baseline creatinine of 1.2. Liver profile showing hyperbilirubinemia with total bili of 4.6 and elevated alkaline phosphatase of 137. Troponin was elevated at 0.121 and proBNP 1870. Pt was admitted under our services with consultation to cardiology and gastroenterology. Troponins were trended overnight resulting at 0.121, 0.100, and 0.107. Acute hepatitis panel nonreactive. Abdominal ultrasound showing trace ascites fluid with borderline hepatomegaly at 17.5 cm with no focal liver lesion, borderline to mild gallbladder wall thickening with no gallstones or additional findings of acute cholecystitis and no biliary ductal dilation. Patient having symptom improvement with successful IV diuresis. Echocardiogram was completed showing a preserved EF of 50 to 55% with severe tricuspid regurgitation, mild pulmonary hypertension, and dilated right ventricle with global hypokinesis. Heparin infusion was discontinued and patient was started on anticoagulation with Eliquis. Patient was also evaluated by gas troenterologist, stating patient likely has underlying liver disease, likely cirrhosis and will need outpatient follow-up with their office. Metabolic encephalopathy resolved after increasing lactulose to 30 mg 4 times daily, discussed with patient and family members at bedside that frequency of lactulose can be titrated for goal bowel movements of 2 to 3/day. In addition to lactulose patient being discharged home on furosemide 40 mg twice daily along with current dose of Aldactone 50 mg daily. Patient and family at bedside were given discharge instructions and instructed they will need to follow-up with PCP, labor relations representative, and top precipitator operator helper upon discharge. Patient and patient's family at bedside also informed that patient to resume Bactrim for treatment of his MSSA and Serratia infected lower extremity ulcers/wounds and continue to follow-up outpatient with wound care clinic and infectious disease as previously scheduled. Physical exam: Vital signs reviewed and stable. General: Nontoxic, no distress and appears stated age. Morbidly obese Derm: Skin warm and dry, normal coloration for ethnicity. Head: Atraumatic, normocephalic and symmetric. Eyes: EOMs intact, no lid lag, scleral icterus present. Mouth: no lip lesions, mucus membranes moist Cardiovascular: Irregularly irregular, systolic murmur, positive posterior tibial pulses bilaterally, and cap refill < 2 seconds. Lungs: Respirations even, regular, and unlabored on room air. Lungs diminished, no rhonchi, no rales, no wheezing, and no accessory muscle usage. Abdominal: soft, nontender to palpation, no guarding, no appreciable organomegaly Ext: ROM intact. No gross muscle atrophy, bilateral lower extremity pitting edema bilateral upper extremity edema, no contractures Neuro: Speech clear, face symmetrical and CN II-XII grossly intact with no noted focal neuro deficits Psych: Alert and oriented to person, place, time, and situation. Appropriate and pleasant affect. A total of 39 minutes of time were spent preparing this complex discharge summary. Pt was discharged on 03/19/2024 at 9:44 AM. Patient was seen independently by Nurse Practitioner. This document was prepared using [employer] dictation software. Please allow for errors in tractor engine mechanic while rare they do occur. Bandar King NP rendered care for this patient independently, reviewed the findings and plan as documented in the note above. I did not physically speak with or examine the patient on this date. Patient Condition at Discharge: Stable Plan - Discharge Summary Discharge Rx Participant: No New Discharge Prescriptions: New Furosemide [Lasix] 40 mg PO BID@0900,1600 30 Days #60 tab Lactulose [Cephulac] 30 gm PO QID 30 Days #3600 g Continue allopurinoL [Zyloprim] 100 mg PO DAILY Metoprolol Tartrate 25 mg PO BID #90 tab Spironolactone [Aldactone] 50 mg PO DAILY Apixaban [Eliquis] 5 mg PO BID Sulfamethox-Tmp 800-160Mg [Bactrim DS 800-160 mg] 1 tab PO Q12HR Discontinued Furosemide [Lasix] 40 mg PO DAILY Discharge Medication List Apixaban [Eliquis] 5 mg PO BID 01/21/24 [History] allopurinoL [Zyloprim] 100 mg PO DAILY 01/21/24 [History] Metoprolol Tartrate 25 mg PO BID #90 tab 01/24/24 [Rx] Spironolactone [Aldactone] 50 mg PO DAILY 03/12/24 [History] Sulfamethox-Tmp 800-160Mg [Bactrim DS 800-160 mg] 1 tab PO Q12HR 03/12/24 [History] Furosemide [Lasix] 40 mg PO BID@0900,1600 30 Days #60 tab 03/19/24 [Rx] Lactulose [Cephulac] 30 gm PO QID 30 Days #3600 g 03/19/24 [Rx] Follow up Appointment(s)/Referral(s): Gavin Chen MD [STAFF PHYSICIAN] - 03/26/24 3:00 pm (same appointment with Dr. Reis at 3pm) Luzmaria Hale, RENITA [REFERRING] - 03/25/24 3:00 pm (Follow-up with gastroenterology for hyperbilirubinemia, possible underlying liver disease) Dg Maria MD [Primary Care Provider] - 03/24/24 11:30 am Abbie Reis MD [STAFF PHYSICIAN] - 1 Week [facility] [NON-STAFF] - 1 Week Patient Instructions/Handouts: Heart Failure (DC), Cirrhosis (DC), Hepatic Encephalopathy (DC) Activity/Diet/Wound Care/Special Instructions: Activity: As tolerated. Take breaks as needed. Diet: Heart healthy and carb consistent diet. Avoid salts, or foods with hidden salts such as canned or boxed foods and frozen dinners. Extra salt makes your heart work harder and traps the fluid in your body for longer. Special Instructions: Take all of your medications as directed and remember to keep all of your doctor's appointments and follow-up as needed. Continue taking lactulose as ordered 4 times daily and may titrate number of times given per day for goal number of bowel movements of 2 to 3/day, ensuring 2-3 bowel movements daily can assist in preventing future episodes of hepatic encephalopathy. Resume home antibiotic as previously prescribed with Bactrim for treatment of MSSA and Serratia infected lower extremity ulcers/wounds and continue to follow- up outpatient with wound care clinic and infectious disease for further guidance/treatment and close monitoring of these wounds. Thank you for allowing us to participate in your care, it was truly a pleasure having you for our patient!!! . Discharge/Stand Alone Forms: Who Do I Call?, Personal Chief Counsel Discharge Disposition: HOME SELF-CARE
--- NOTE | 2024-03-19 14:40 | P.PN ---
Subjective Progress Note Date: 03/19/24 HPI: This is a 74-year-old gentleman with a known diagnosis of diastolic heart failure lower extremity edema came in from primary care office with complaints of weight gain. I was asked to see him because of elevated troponin. Patient complains of fatigue. His bilirubin is elevated liver functions are also slightly abnormal. Denies any chest pain complains of lower extremity edema. Patient is not in left heart failure clinically. He has chronic atrial fibrillation on Eliquis 5 mg twice daily. He is resting comfortably at the time of my evaluation. His last echo from December of this year revealed preserved systolic function and no significant pulmonary hypertension right-sided pressures were about 40 to 45 mmHg. His bilirubin elevation is a matter of some concern could be related to some viral hepatitis type picture and this should be looked into. We are not dealing with any specific overt heart failure type picture. BNP is actually in the close to normal range. No chest pain shortness of breath or palpitations. RELEVANT PAST MEDICAL HISTORY: Chronic atrial fibrillation, diastolic heart failure, hypertension. And chronic kidney disease. MEDICATIONS: Medications include Aldactone, Lasix, allopurinol, metoprolol tartrate 25 mg twice daily and Eliquis 5 mg twice daily ALLERGIES: None. Progress note 03/14/2024 Patient is resting comfortably in bed. Patient denies having any chest pain chest pressure. He does have chronic lower extremity swelling which appears somewhat similar as compared to yesterday. He continues to be in chronic atrial fibrillation which is rate controlled 03/15/2024. Patient is resting comfortably in bed. Denies any chest pain chest pressure. No extremity swelling is better. Continues to be in chronic atrial fibrillation which is rate controlled. 03/16 Recommendations to continue IV Lasix but patient was transition to oral by attending. He is also maintained on Aldactone and Eliquis. Blood pressure 109/68, heart rate 70, pulse ox 98% on room air. 03/17 Patient has been maintained back on IV Lasix 40 mg twice daily. He continues to have significant amount of lower extremity edema and crackles in the bases. He is on IV antibiotics for lower extremity cellulitis. Blood pressure 103/59, heart rate 88, pulse ox 94% on room air. Repeat blood work reveals hemoglobin 14.7. Sodium 136, potassium 4.4, BUN 20 and creatinine 1.05. 03/18 Patient is seen today in follow-up. He has been maintained on IV Lasix 40 mg twice daily as well as Aldactone. He has a negative fluid balance but less over the past 2 days. Laboratory studies reveal hemoglobin 13.6. BUN 18 creatinine 0.91 and potassium 4.5. Blood pressure 110/71, heart rate 71, pulse ox 96% on room air. Patient is confused today. He is trying to call his and is upset that she was not here for lunch. She apparently just left the building. Noted that ammonia level was 82 yesterday. He is known to have less lower extremity edema. Lungs seem to be improving and he denies shortness of breath. No chest pain. 03/19 Patient is seen today in follow-up. We transition IV Lasix to oral yesterday, continued Aldactone. Patient denies having shortness of breath at this time. His mental status is improved and was addressed yesterday with lactulose. Blood pressure 113/66, heart rate 77, pulse ox 96% on room air. Repeat blood work reveals sodium 133, potassium 4.2, BUN 17 and creatinine 0.83. PHYSICIAL EXAM: Physical exam revealed vital signs are normal, no carotid bruit S1-S2 heard normally irregularities and rhythm noted short systolic murmur at the apex, noted lungs reveal decent air entry bilateral, abdomen is soft lower extremities are both bandaged probably has 1-2+ edema. Central nervous system generalized weakness no focal deficits. Patient is maintained on IV antibiotics for lower extremity cellulitis. IMPRESSION: Abnormal bilirubin and liver function test, patient evaluated by GI. Acute exacerbation of diastolic heart failure. Chronic atrial fibrillation. Chronic lower extremity edema Elevated troponin with flat pattern, likely type II NSTEMI CKD stage IIIb Hepatic encephalopathy RECOMMENDATIONS: Continue Lasix oral 40 mg twice daily, and continue Aldactone 50 mg daily Continue Eliquis 5 mg daily. Metoprolol 25 mg twice daily Monitor SONIA, daily weights, electrolytes and renal function Patient is cleared for discharge from cardiology and may follow-up in the office in 1 to 2 weeks. Nurse practitioner note has been reviewed, I agree with documented findings and plan of care. Patient was seen and examined. Objective - Vital Signs Vital signs: Vital Signs Temp 98.1 F 03/19/24 08:12 Pulse 77 03/19/24 08:12 Resp 18 03/19/24 08:12 BP 113/66 03/19/24 08:12 Pulse Ox 96 03/19/24 08:12 FiO2 Intake & Output 03/18/24 03/19/24 03/19/24 18:59 06:59 18:59 Intake Total 476 221 118 Balance 476 221 118 Weight 96.2 kg Intake: Oral 476 221 118 Other: # Voids 1 1 # Bowel Movements 1 3 - Labs CBC & Chem 7: 03/19/24 11:02 03/19/24 11:02 Labs: Abnormal Lab Results - Last 24 Hours (Table) 03/19/24 03/19/24 Range/Units 11:02 11:02 RBC 3.88 L (4.30-5.90) m/uL MCV 110.7 H (80.0-100.0) fL MCHC 30.7 L (31.0-37.0) g/dL RDW 15.8 H (11.5-15.5) % Plt Count 113 L (150-450) k/uL Macrocytosis Marked A Sodium 133 L (137-145) mmol/L Glucose 109 H (74-99) mg/dL Total Bilirubin 3.1 H (0.2-1.3) mg/dL Albumin 3.0 L (3.5-5.0) g/dL
== END 2024-03-19 13:39 | disposition home or self-care (01) | DRG 280 ==
LOC: EC 10:42 → 3SCARD 13:18
PROVIDERS: ADMIT Internal Medicine; ATTEND Internal Medicine
DX: I13.0 Hypertensive heart and chronic kidney disease with heart failure and stage 1 through stage 4 chronic kidney disease, or unspecified chronic kidney disease (principal); G93.41 Metabolic encephalopathy; I21.A1 Myocardial infarction type 2; I50.33 Acute on chronic diastolic (congestive) heart failure; E87.1 Hypo-osmolality and hyponatremia; N17.9 Acute kidney failure, unspecified; I48.20 Chronic atrial fibrillation, unspecified; I87.333 Chronic venous hypertension (idiopathic) with ulcer and inflammation of bilateral lower extremity; L97.812 Non-pressure chronic ulcer of other part of right lower leg with fat layer exposed; Z79.01 Long term (current) use of anticoagulants; N18.30 Chronic kidney disease, stage 3 unspecified; I45.10 Unspecified right bundle-branch block; N18.32 Chronic kidney disease, stage 3b; L97.522 Non-pressure chronic ulcer of other part of left foot with fat layer exposed; L89.612 Pressure ulcer of right heel, stage 2; D69.59 Other secondary thrombocytopenia; E11.621 Type 2 diabetes mellitus with foot ulcer; B96.89 Other specified bacterial agents as the cause of diseases classified elsewhere; B95.62 Methicillin resistant Staphylococcus aureus infection as the cause of diseases classified elsewhere; I27.20 Pulmonary hypertension, unspecified; K74.60 Unspecified cirrhosis of liver; M10.9 Gout, unspecified; K76.82 Hepatic encephalopathy; E11.22 Type 2 diabetes mellitus with diabetic chronic kidney disease; E66.3 Overweight; R79.1 Abnormal coagulation profile; Z79.899 Other long term (current) drug therapy; Z82.49 Family history of ischemic heart disease and other diseases of the circulatory system
CPT/HCPCS: 36415; 71046; 76705; 80048; 80053; 80074; 80143; 82140; 83735; 83880; 84484; 85025; 85027; 85610; 85730; 87040; 93005; 93306; 96365; 96366; 96375; 99285

== ENCOUNTER 2024-04-23 01:38 | Inpatient (IN) | payer MEDICARE ==
[2024-04-23] MEDS ORDERED: VANCOMYCIN IV PER PHARMACY 1 EACH MISC MISCELLANE PRN (02:23)
[2024-04-23 02:48] LABS: Basophils % (A) 0 %; Eosinophils % (A) 0 %; HCT 47.4 % (39.0-53.0); HGB 14.8 gm/dL (13.0-17.5); Hypochromasia Moderate; Lymphocytes # (A) 0.3 k/uL (1.0-4.8); Lymphocytes % (A) 4 %; MCH 33.1 pg (25.0-35.0); MCHC 31.1 g/dL (31.0-37.0); MCV 106.4 fL (80.0-100.0); Macrocytosis Moderate; Mean Platelet Volume 10.3; Monocytes % (A) 13 %; Neutrophils # (A) 6.5 k/uL (1.3-7.7); Neutrophils % (A) 83 %; Platelet Count 143 k/uL (150-450); RBC 4.46 m/uL (4.30-5.90); RDW 15.1 % (11.5-15.5); WBC 7.9 k/uL (3.8-10.6)
[2024-04-23] MEDS: VANCOMYCIN 1,500 MG in SODIUM CHLORIDE 0.9% 500 ML 500 ML IVPB ONE (03:00)
[2024-04-23 03:06] LABS: ALT 18 U/L (4-49); AST 35 U/L (17-59); African American GFR (CKD) 72 (>60 ml/min/1.73 sqM); Albumin 3.3 g/dL (3.5-5.0); Alkaline Phosphatase 148 U/L (38-126); Anion Gap 11 mmol/L; Blood Urea Nitrogen 23 mg/dL (9-20); Calcium 8.3 mg/dL (8.4-10.2); Carbon Dioxide 19 mmol/L (22-30); Chloride 99 mmol/L (98-107); Glucose 82 mg/dL (74-99); Magnesium 1.9 mg/dL (1.6-2.3); Non-African American GFR(CKD) 63 (>60 ml/min/1.73 sqM); Potassium 4.9 mmol/L (3.5-5.1); Sodium 129 mmol/L (137-145); Total Protein 7.2 g/dL (6.3-8.2)
--- NOTE | 2024-04-23 03:06 | ED ---
General Adult HPI - General Chief complaint: Extremity Problem,Nontraumatic Stated complaint: leg swelling Time Seen by Provider: 04/23/24 02:15 Source: patient, family, RN notes reviewed, old records reviewed Mode of arrival: wheelchair Limitations: no limitations - History of Present Illness Initial comments: Patient is a 74-year-old male who presents emergency department complaining of leg edema, leg wounds, as well as increased altered mental status. Patient has a history of chronic liver cirrhosis, CHF, A-fib on blood thinner with bilateral lower extremity pitting edema that is worsening. Has been having leg wounds for at least a year however they seem worse. Right leg does appear warm as well. Patient is on blood thinners. Swelling also appears worse in bilateral legs. Has had worsening mental status changes over the last month or so. Is on lactulose. Presents for further evaluation with his . Patient denies chest pain, shortness of breath, abdominal pain, nausea, vomiting. - Related Data Home Medications Medication Instructions Recorded Confirmed Apixaban [Eliquis] 5 mg PO BID 01/21/24 03/12/24 allopurinoL [Zyloprim] 100 mg PO DAILY 01/21/24 03/12/24 Spironolactone [Aldactone] 50 mg PO DAILY 03/12/24 03/12/24 Sulfamethox-Tmp 800-160Mg [Bactrim 1 tab PO Q12HR 03/12/24 03/12/24 DS 800-160 mg] Previous Rx's Medication Instructions Recorded Metoprolol Tartrate 25 mg PO BID #90 tab 01/24/24 Furosemide [Lasix] 40 mg PO BID@0900,1600 30 Days #60 03/19/24 tab Lactulose [Cephulac] 30 gm PO QID 30 Days #3600 g 03/19/24 Allergies Allergy/AdvReac Type Severity Reaction Status Date / Time No Known Allergies Allergy Verified 03/12/24 11:48 Review of Systems ROS Statement: Those systems with pertinent positive or pertinent negative responses have been documented in the HPI. Review of Systems: CONST: Denies fever EYES: Denies blurry vision ENT: Denies nasal congestion C/V: Denies Chest pain RESP: Denies shortness of breath GI: Denies abdominal pain : Denies dysuria SKIN: Endorses open wounds on lower extremity MSK: Endorses leg pain NEURO: Denies headache ROS Other: All systems not noted in ROS Statement are negative. Past Medical History Past Medical History: Atrial Fibrillation, Heart Failure, Hypertension, Skin Disorder Additional Past Medical History / Comment(s): leg wounds since early 2022. History of Any Multi-Drug Resistant Organisms: None Reported Past Surgical History: No Surgical Hx Reported Past Anesthesia/Blood Transfusion Reactions: No Reported Reaction Past Psychological History: No Psychological Hx Reported Smoking Status: Never smoker Past Alcohol Use History: None Reported Past Drug Use History: None Reported - Past Family History Mother Family Medical History: Hypertension Father Family Medical History: Hypertension General Exam - General Exam Comments Initial Comments: General: Appears in mild distress. HEAD: Normal with no signs of head trauma. EYES: PERRLA, EOMI, conjunctiva normal, no discharge. 3 mm and equal bilaterally. ENT: Hearing grossly intact, normal oropharynx. RESPIRATORY: Clear breath sounds bilaterally. No wheezes, rales, or rhonchi. C/V: Regular rate and rhythm. S1 and S2 auscultated, skin symmetrical bilateral lower extremity pitting edema with chronic skin changes., peripheral pulses 2+ and intact throughout ABD: Abd is soft, nontender, nondistended EXT: Normal range of motion, no obvious deformity SKIN: Lower extremity pitting edema with chronic skin changes as well as open wounds on bilateral calfs. Right calf is warm to touch around the posterior wound on that leg. Concern for possible cellulitis. NEURO: Alert and oriented x 2-3 which per patient's seems to be baseline for him. Able to move all 4 extremities. Limitations: no limitations Course Vital Signs 04/23/24 04/23/24 04/23/24 01:39 02:15 02:30 Temperature 98.7 F Pulse Rate 110 H 108 H 107 H Respiratory 18 18 18 Rate Blood Pressure 111/64 116/76 114/81 O2 Sat by Pulse 95 95 95 Oximetry 04/23/24 04/23/24 04/23/24 02:45 03:15 05:00 Temperature Pulse Rate 104 H 109 H Respiratory 18 18 Rate Blood Pressure 118/74 131/111 133/75 O2 Sat by Pulse 95 94 L Oximetry 04/23/24 06:05 Temperature Pulse Rate 105 H Respiratory 18 Rate Blood Pressure 112/83 O2 Sat by Pulse 95 Oximetry Medical Decision Making - Medical Decision Making Was pt. sent in by a medical professional or institution (MALKA Gao, [employer], urgent care, hospital, or skilled nursing...) When possible be specific @ -No Did you speak to anyone other than the patient for history (EMS, parent, family, police, friend...)? What history was obtained from this source @ -Patient's is the primary historian for the patient as he is baseline confused. Did you review nursing and triage notes (agree or disagree)? Why? @ -I reviewed and agree with nursing and triage notes Were old charts reviewed (outside hosp., previous admission, EMS record, old EKG, old radiological studies, urgent care reports/EKG's, skilled nursing records)? Report findings @ -Chart reviewed from February 2024 when he was admitted for CHF. Differential Diagnosis (chest pain, altered mental status, abdominal pain women, abdominal pain men, vaginal bleeding, weakness, fever, dyspnea, syncope, headache, dizziness, GI bleed, back pain, seizure, CVA, palpatations, mental h ealth, musculoskeletal)? @ -Differential Altered Mental Status: Hypoglycemia, DKA, hypercapnia, ETOH, overdose, CO poisoning, trauma, myxedema coma, HTN encephalopathy, infection, encephalitis, psychosis, intercranial hemorrhage, hepatic encephalopathy, meningitis, CVA, this is not meant to be an all-inclusive list EKG interpreted by me (3pts min.). @ -As above X-rays interpreted by me (1pt min.). @ -Chest x-ray shows findings consistent with CHF exacerbation.Tib-fib x-ray reveals no obvious acute process. CT interpreted by me (1pt min.). @ -CT brain reveals no obvious acute intracranial process but questionable right orbital fracture. Confirmatory face CT does show a right orbital fracture with hematoma. U/S interpreted by me (1pt. min.). @ -None done What testing was considered but not performed or refused? (CT, X-rays, U/S, labs)? Why? @ -None What meds were considered but not given or refused? Why? @ -None Did you discuss the management of the patient with other professionals (professionals i.e. MALKA Gao, [employer] INSTRUCTOR, lab, RT, psych nurse, sr. social media & mobile manager, insight director, teacher, combatant diver officer, case preparer and liner)? Give summary @ -Discussed with Dr. Bonilla who accepted the admission. He does request that I consult Dr. Raymond due to the findings of the orbital fracture. Was smoking cessation discussed for >3mins.? @ -No Was critical care preformed (if so, how long)? @ -No Were there social determinants of health that impacted care today? How? (Homelessness, low income, unemployed, alcoholism, drug addiction, transportation, low edu. Level, literacy, decrease access to med. care, assisted, rehab)? @ -No Was there de-escalation of care discussed even if they declined (Discuss DNR or withdrawal of care, Hospice)? DNR status @ -No What co-morbidities impacted this encounter? (DM, HTN, Smoking, COPD, CAD, Cancer, CVA, ARF, Chemo, Hep., AIDS, mental health diagnosis, sleep apnea, morb id obesity)? @ -None Was patient admitted / discharged? Hospital course, mention meds given and rou te, prescriptions, significant lab abnormalities, going to OR and other pertinent info. @ -Based on patient's presentation and physical exam, presents emergency department complaining of leg swelling as well as open wounds on bilateral lower extremities. Has a history of CHF. Symptoms have been worsening for the last week. Based on exam, there is concern for possible infection of the right lower extremity as patient is warm there with the open wound. We will obtain cultures and patient will be empirically placed on vancomycin upon arrival. We will obtain broad workup. Patient and patient's in agreement this plan. Vital signs currently within acceptable limits. He will be symptomatically treated with the use of low-dose morphine in addition to vancomycin. No fluids at this time over concern for CHF exacerbation. EKG shows A-fib with no signs of acute ischemia. Imaging remarkable for right inferior orbital wall fracture. No concern for muscle entrapment at this time. Labs remarkable for lactic acidosis likely secondary to his liver cirrhosis, elevated total bilirubin which is chronic for him, as well as ammonia level that is elevated to 66. BNP is also elevated to 2100 with CHF findings on chest x- ray. Started on IV Lasix in addition to lactulose.Back to lactic acidosis is from his chronic liver cirrhosis and being unable to clear it. I do not think it is infectious related. Patient does not have any SIRS criteria. He will not tolerate IV fluids as he is volume overloaded. Will continue to monitor. On reevaluation, I discussed the results with the patient as well as his . No known falls to the be the cause of the orbit fracture however we will proceed with nasal precautions and patient will be given IV Unasyn in addition to IV vancomycin empirically. They were in agreement this plan. I spoke to Dr. Bonilla who accepted the admission and requested that Dr. Raymond be consulted in addition to ENT for the orbit fracture. This was completed. Patient admitted at this time. Undiagnosed new problem with uncertain prognosis? @ -No Drug Therapy requiring intensive monitoring for toxicity (Heparin, Nitro, Insulin, Cardizem)? @ -No Were any procedures done? @ -No Diagnosis/symptom? @ -Lactic acidosis likely secondary to chronic liver cirrhosis, hyperammonemia, CHF Acute, or Chronic, or Acute on Chronic? @ -Acute on chronic Uncomplicated (without systemic symptoms) or Complicated (systemic symptoms)? @ -Complicated Side effects of treatment? @ -None Exacerbation, Progression, or Severe Exacerbation] @ -No Poses a threat to life or bodily function? @ -Yes Diagnosis/symptom? @ -Inferior orbital wall fracture on the right without any known acute trauma. Acute, or Chronic, or Acute on Chronic? @ -Acute Uncomplicated (without systemic symptoms) or Complicated (systemic symptoms)? @ -Uncomplicated Side effects of treatment? @ -None Exacerbation, Progression, or Severe Exacerbation] @ -No Poses a threat to life or bodily function? @ -Unlikely - Lab Data Result diagrams: 04/23/24 01:54 04/23/24 01:54 Lab Results 04/23/24 04/23/24 04/23/24 Range/Units 01:54 01:54 01:54 WBC 7.9 (3.8-10.6) k/uL RBC 4.46 (4.30-5.90) m/uL Hgb 14.8 (13.0-17.5) gm/dL Hct 47.4 (39.0-53.0) % MCV 106.4 H (80.0-100.0) fL MCH 33.1 (25.0-35.0) pg MCHC 31.1 (31.0-37.0) g/dL RDW 15.1 (11.5-15.5) % Plt Count 143 L (150-450) k/uL MPV 10.3 Neutrophils % 83 % Lymphocytes % 4 % Monocytes % 13 % Eosinophils % 0 % Basophils % 0 % Neutrophils # 6.5 (1.3-7.7) k/uL Lymphocytes # 0.3 L (1.0-4.8) k/uL Monocytes # 1.0 (0-1.0) k/uL Eosinophils # 0.0 (0-0.7) k/uL Basophils # 0.0 (0-0.2) k/uL Hypochromasia Moderate Macrocytosis Moderate PT 18.6 H (10.0-12.5) sec INR 1.8 H (<1.2) APTT 31.7 H (22.0-30.0) sec Sodium 129 L (137-145) mmol/L Potassium 4.9 (3.5-5.1) mmol/L Chloride 99 (98-107) mmol/L Carbon Dioxide 19 L (22-30) mmol/L Anion Gap 11 mmol/L BUN 23 H (9-20) mg/dL Creatinine 1.14 (0.66-1.25) mg/dL Est GFR (CKD-EPI)AfAm 72 (>60 ml/min/1.73 sqM) Est GFR (CKD-EPI)NonAf 63 (>60 ml/min/1.73 sqM) Glucose 82 (74-99) mg/dL Lactic Ac Sepsis Rflx Plasma Lactic Acid Marcos (0.7-2.0) mmol/L Calcium 8.3 L (8.4-10.2) mg/dL Magnesium 1.9 (1.6-2.3) mg/dL Total Bilirubin 4.0 H (0.2-1.3) mg/dL AST 35 (17-59) U/L ALT 18 (4-49) U/L Alkaline Phosphatase 148 H (38-126) U/L Ammonia (<30) umol/L NT-Pro-B Natriuret Pep 2140 pg/mL Total Protein 7.2 (6.3-8.2) g/dL Albumin 3.3 L (3.5-5.0) g/dL Urine Color Urine Appearance (Clear) Urine pH (5.0-8.0) Ur Specific [place] (1.001-1.035) Urine Protein (Negative) Urine Glucose (UA) (Negative) Urine Ketones (Negative) Urine Blood (Negative) Urine Nitrite (Negative) Urine Bilirubin (Negative) Urine Urobilinogen (<2.0) mg/dL Ur Leukocyte Esterase (Negative) 04/23/24 04/23/24 04/23/24 Range/Units 01:54 03:35 04:37 WBC (3.8-10.6) k/uL RBC (4.30-5.90) m/uL Hgb (13.0-17.5) gm/dL Hct (39.0-53.0) % MCV (80.0-100.0) fL MCH (25.0-35.0) pg MCHC (31.0-37.0) g/dL RDW (11.5-15.5) % Plt Count (150-450) k/uL MPV Neutrophils % % Lymphocytes % % Monocytes % % Eosinophils % % Basophils % % Neutrophils # (1.3-7.7) k/uL Lymphocytes # (1.0-4.8) k/uL Monocytes # (0-1.0) k/uL Eosinophils # (0-0.7) k/uL Basophils # (0-0.2) k/uL Hypochromasia Macrocytosis PT (10.0-12.5) sec INR (<1.2) APTT (22.0-30.0) sec Sodium (137-145) mmol/L Potassium (3.5-5.1) mmol/L Chloride (98-107) mmol/L Carbon Dioxide (22-30) mmol/L Anion Gap mmol/L BUN (9-20) mg/dL Creatinine (0.66-1.25) mg/dL Est GFR (CKD-EPI)AfAm (>60 ml/min/1.73 sqM) Est GFR (CKD-EPI)NonAf (>60 ml/min/1.73 sqM) Glucose (74-99) mg/dL Lactic Ac Sepsis Rflx Y Plasma Lactic Acid Marcos 3.8 H* (0.7-2.0) mmol/L Calcium (8.4-10.2) mg/dL Magnesium (1.6-2.3) mg/dL Total Bilirubin (0.2-1.3) mg/dL AST (17-59) U/L ALT (4-49) U/L Alkaline Phosphatase (38-126) U/L Ammonia 66 H (<30) umol/L NT-Pro-B Natriuret Pep pg/mL Total Protein (6.3-8.2) g/dL Albumin (3.5-5.0) g/dL Urine Color Yellow Urine Appearance Clear (Clear) Urine pH 5.5 (5.0-8.0) Ur Specific [place] 1.018 (1.001-1.035) Urine Protein Negative (Negative) Urine Glucose (UA) Negative (Negative) Urine Ketones Negative (Negative) Urine Blood Negative (Negative) Urine Nitrite Negative (Negative) Urine Bilirubin Negative (Negative) Urine Urobilinogen 2.0 (<2.0) mg/dL Ur Leukocyte Esterase Negative (Negative) 04/23/24 Range/Units 04:45 WBC (3.8-10.6) k/uL RBC (4.30-5.90) m/uL Hgb (13.0-17.5) gm/dL Hct (39.0-53.0) % MCV (80.0-100.0) fL MCH (25.0-35.0) pg MCHC (31.0-37.0) g/dL RDW (11.5-15.5) % Plt Count (150-450) k/uL MPV Neutrophils % % Lymphocytes % % Monocytes % % Eosinophils % % Basophils % % Neutrophils # (1.3-7.7) k/uL Lymphocytes # (1.0-4.8) k/uL Monocytes # (0-1.0) k/uL Eosinophils # (0-0.7) k/uL Basophils # (0-0.2) k/uL Hypochromasia Macrocytosis PT (10.0-12.5) sec INR (<1.2) APTT (22.0-30.0) sec Sodium (137-145) mmol/L Potassium (3.5-5.1) mmol/L Chloride (98-107) mmol/L Carbon Dioxide (22-30) mmol/L Anion Gap mmol/L BUN (9-20) mg/dL Creatinine (0.66-1.25) mg/dL Est GFR (CKD-EPI)AfAm (>60 ml/min/1.73 sqM) Est GFR (CKD-EPI)NonAf (>60 ml/min/1.73 sqM) Glucose (74-99) mg/dL Lactic Ac Sepsis Rflx Plasma Lactic Acid Marcos 3.1 H* (0.7-2.0) mmol/L Calcium (8.4-10.2) mg/dL Magnesium (1.6-2.3) mg/dL Total Bilirubin (0.2-1.3) mg/dL AST (17-59) U/L ALT (4-49) U/L Alkaline Phosphatase (38-126) U/L Ammonia (<30) umol/L NT-Pro-B Natriuret Pep pg/mL Total Protein (6.3-8.2) g/dL Albumin (3.5-5.0) g/dL Urine Color Urine Appearance (Clear) Urine pH (5.0-8.0) Ur Specific [place] (1.001-1.035) Urine Protein (Negative) Urine Glucose (UA) (Negative) Urine Ketones (Negative) Urine Blood (Negative) Urine Nitrite (Negative) Urine Bilirubin (Negative) Urine Urobilinogen (<2.0) mg/dL Ur Leukocyte Esterase (Negative) - EKG Data -: EKG Interpreted by Me EKG Comments: 12-lead Electrocardiogram Interpretation Note EKG was reviewed and interpreted by myself. 12-lead ECG performed at 0150 is interpreted by me as revealing A-fib with RVR at a rate of 112 beats per minute. Indeterminate axis. Right bundle branch block morphology. QRS duration is 111 ms, QTc is 403 ms.. There were no ST or T wave abnormalities to suggest myocardial ischemia or injury. R wave progression across the precordium was satisfactory. By my interpretation this EKG is non-diagnostic for acute ischemia. Disposition Clinical Impression: Liver cirrhosis, Cellulitis, CHF (congestive heart failure), Hyperammonemia Disposition: ADMITTED IP TO THIS HOSP Condition: Stable Time of Disposition: 05:13
[2024-04-23] MEDS: MORPHINE SULFATE 2 MG/ML SYRINGE IVP STA (03:10)
[2024-04-23 03:15] LABS: NT-Pro-B-Type Natriuretic Pept 2140 pg/mL
--- NOTE | 2024-04-23 03:16 | CT ---
EXAM: CT Head Without Intravenous Contrast CLINICAL HISTORY: ITS.REASON CT Reason: confusion TECHNIQUE: Axial computed tomography images of the head/brain without intravenous contrast. CTDI is 49.2 mGy and DLP is 1184.4 mGy-cm. This CT exam was performed using one or more of the following dose reduction techniques: automated exposure control, adjustment of the mA and/or kV according to patient size, and/or use of iterative reconstruction technique. COMPARISON: No relevant prior studies available. FINDINGS: Brain: No hemorrhage, herniation, or mass effect. Chronic microvascular ischemic changes. Ventricles: No hydrocephalus. Age related cerebral volume loss. Bones/joints: Questionable right inferior orbital wall fracture obscured by motion artifact. Soft tissues: Unremarkable. Sinuses: Severely opacified right maxillary sinus. Mastoid air cells: Clear. IMPRESSION: 1. No acute hemorrhage, hydrocephalus, or mass effect. 2. Questionable right inferior orbital wall fracture obscured by motion artifact. 3. Recommend CT of the face.
[2024-04-23 03:40] LABS: INR 1.8 (<1.2); Partial Thromboplastin Time 31.7 sec (22.0-30.0); Prothrombin Time 18.6 sec (10.0-12.5)
[2024-04-23] MEDS: LORazepam 2 MG/ML INJ IV STA (04:00)
[2024-04-23 04:15] LABS: Appearance,Urine Clear (Clear); Bilirubin,Urine Negative (Negative); Blood,Urine Negative (Negative); Color,Urine Yellow; Glucose,Urine (UA) Negative (Negative); Ketones,Urine Negative (Negative); Leukocyte Esterase,Urine Negative (Negative); Nitrite,Urine Negative (Negative); PH, Urine 5.5 (5.0-8.0); Protein,Urine Negative (Negative); Specific Gravity,Urine 1.018 (1.001-1.035)
--- NOTE | 2024-04-23 04:19 | XR ---
EXAM: XR Bilateral Tibias and Fibulas, 2 Views CLINICAL HISTORY: ITS.REASON XR Reason: eval for osteo. concern for cellulitis TECHNIQUE: Frontal and lateral views of the bilateral tibias and fibulas. COMPARISON: No relevant prior studies available. FINDINGS: Bones/joints: Heel spur measures 4 mm. No acute fracture. No dislocation. Soft tissues: Circumferential soft tissue swelling. No radiopaque foreign body. IMPRESSION: No acute findings in the bilateral tibia and fibulas or surrounding soft tissues.
--- NOTE | 2024-04-23 04:25 | XR ---
EXAM: XR Chest, 1 View CLINICAL HISTORY: ITS.REASON XR Reason: difficulty breathing TECHNIQUE: Frontal view of the chest. COMPARISON: No relevant prior studies available. FINDINGS: Lungs: Unremarkable. No consolidation. Pleural space: Unremarkable. No pneumothorax. Heart: Cardiomegaly. Mediastinum: Unremarkable. Normal mediastinal contour. Bones/joints: Unremarkable. No acute fracture. IMPRESSION: No consolidation.
[2024-04-23 04:35] LABS: Lactic Acid, Venous 3.8 mmol/L (0.7-2.0)
[2024-04-23] MEDS ORDERED: ONDANSETRON 4 MG/2 ML VIAL IVP PRN (05:13)
[2024-04-23] MEDS ORDERED: NALOXONE 0.4 MG/ML 1 ML VIAL IV PRN (05:13)
[2024-04-23] MEDS: LACTULOSE 20 GM/30 ML CUP PO ONE (05:17)
[2024-04-23] MEDS: FUROSEMIDE 10 MG/ML 4 ML VIAL IV STA (05:17)
--- NOTE | 2024-04-23 06:30 | CT ---
EXAMINATION TYPE: CT facial bones wo con DATE OF EXAM: 04/23/2024 COMPARISON: CT brain earlier today HISTORY: possible right inf orbital wall fx on CT brain. CT DLP: 577.9 mGycm. Automated Exposure Control for Dose Reduction was Utilized. TECHNIQUE: CT scan of the facial bones are performed without contrast. FINDINGS: Nasal bones are intact. Zygomatic arches are intact. The maxilla is intact. Temporomandibul ar joints are maintained bilaterally. Confirmation of an acute minimally displaced fracture through t he right orbital floor sagittal image 44. There is associated near complete opacification or hemorrha ge into the right maxillary sinus. No inferior displacement of the right inferior rectus muscle. Intr aconal fat is preserved bilaterally. The pterygoid plates are intact. Remainder of the paranasal sinu ses are clear. IMPRESSION: Confirmation of acute minimally displaced fracture through the right orbital floor with a ssociated hemorrhage into the right maxillary sinus. No additional acute displaced facial bone fractu re.
[2024-04-23] MEDS: AMPICILLIN-SULBACTAM 3 GM in SODIUM CHLORIDE 0.9% 100 ML IVPB SCH (07:44)
--- NOTE | 2024-04-23 08:34 | P.HPIM ---
History of Present Illness This is a pleasant 74 years old male with past medical history of multiple medical problems including history of liver cirrhosis diagnosed last January, he supposed to follow-up with Dr. Toth from but not yet and he missed his last appointment. Also has history of chronic heart failure and atrial fibrillation on Eliquis. 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 Toth. Also he follow-up with the wound clinic for his right leg wound and left toe ulcers for more than a year. He attends wound clinic once a week. His noticed his right leg was becoming more painful and doubled in size yesterday so brought him to the emergency room. Patient was agitated and in severe pain and received morphine and Ativan and now he is sleepy and not waking up and hard to get any information from him. History was obtained from staff, records and at bedside. His right leg has denuded skin with sloughing of the skin posteriorly with some discharge in the dressing, his left leg is also swollen and red but significantly less. He has dry ulcer on his left big toe As per he was diagnosed with cirrhosis last January. Not knowing the cause but he used to be alcohol drinker and he stopped about that time. Also he is non-smoker with no illicit drugs He did not complaining from any chest pain or dyspnea. No fever or chills. No vomiting but he has low appetite per His abdomen looks soft and no reports of abdominal pain or urinary complaints. At baseline he walks by himself but uses a walker. Per patient has been confused for 2 weeks, he has been mildly confused. No reports of fall in the emergency room CT scan of the brain was obtained showing possible right orbital fracture. Face CT was obtained showing fractures with acute hemorrhage into the right axillary sinus. Patient does have some tenderness in the right cheek. Patient was admitted with ENT/ophthalmology team consult. There is no report of vision changes in the right eye. And an inspection there is no deformity or discoloration. Patient is afebrile, mildly tachycardic with heart rate 105 CBC, liver enzymes are reviewed Sodium is 129, INR 1.8 Lactic acid elevated 3.8 and 3.1 ammonia level is high Bilateral tibia/fibula x-ray is negative for acute fracture or process Chest x-ray shows no consolidation mild I reviewed the chest x-ray showing some cardiomegaly and pulmonary vascular congestion CT of the brain showing no acute hemorrhage For CT showing acute fracture minimally displaced through the right orbital floor with associated hemorrhage into the right maxillary sinus EKG showing A-fib with RVR Review of Systems ROS unobtainable: due to mental status Past Medical History Past Medical History: Atrial Fibrillation, Heart Failure, Hypertension, Skin Disorder Additional Past Medical History / Comment(s): leg wounds since early 2022. History of Any Multi-Drug Resistant Organisms: None Reported Past Surgical History: No Surgical Hx Reported Past Anesthesia/Blood Transfusion Reactions: No Reported Reaction Past Psychological History: No Psychological Hx Reported Smoking Status: Never smoker Past Alcohol Use History: None Reported Past Drug Use History: None Reported - Past Family History Mother Family Medical History: Hypertension Father Family Medical History: Hypertension Medications and Allergies Home Medications Medication Instructions Recorded Confirmed Type Apixaban [Eliquis] 5 mg PO BID 01/21/24 04/23/24 History allopurinoL [Zyloprim] 100 mg PO DAILY 01/21/24 04/23/24 History Metoprolol Tartrate 25 mg PO BID #90 tab 01/24/24 04/23/24 Rx Spironolactone [Aldactone] 50 mg PO DAILY 03/12/24 04/23/24 History Furosemide [Lasix] 40 mg PO DAILY 04/23/24 04/23/24 History Furosemide [Lasix] 40 mg PO DAILY@1600 PRN 04/23/24 04/23/24 History Allergies Allergy/AdvReac Type Severity Reaction Status Date / Time No Known Allergies Allergy Verified 04/23/24 08:09 Physical Exam Vitals: Vital Signs Temp Pulse Resp BP Pulse Ox 04/23/24 07:00 99 18 119/79 94 L 04/23/24 06:05 105 H 18 112/83 95 04/23/24 05:00 109 H 18 133/75 94 L 04/23/24 03:15 104 H 18 131/111 95 04/23/24 02:45 118/74 04/23/24 02:30 107 H 18 114/81 95 04/23/24 02:15 108 H 18 116/76 95 04/23/24 01:39 98.7 F 110 H 18 111/64 95 Intake and Output 04/22/24 04/23/24 04/23/24 22:59 06:59 14:59 Other: Weight 99.79 kg -GENERAL: The patient is sleeping, does not wake to verbal or tactile stimuli (he got 2 doses of Ativan and morphine in emergency room) not in any acute distress. Well developed, well nourished. Obese HEENT: Pupils are round and equally reacting to light. EOMI. No scleral icterus. No conjunctival pallor. Normocephalic, atraumatic. No pharyngeal erythema. No thyromegaly. CARDIOVASCULAR: S1 and S2 present. No murmurs, rubs, or gallops. PULMONARY: Chest is clear to auscultation, no wheezing , no crackles. ABDOMEN: Soft, nontender, nondistended, normoactive bowel sounds. No palpable organomegaly. MUSCULOSKELETAL: No joint swelling or deformity. -EXTREMITIES: No cyanosis, clubbing, or pedal edema. Right leg in dressing, right leg is swollen and red and tender, there is sloughing of the tibia skin posteriorly with some purulent discharge but no ulcers. Left leg is similar but less swelling with minimal discharge. He has also ulcer with dried base on the left big toe. Also with mild bilateral leg swelling on the left side. Significant swelling on the right side NEUROLOGICAL: Gross neurological examination did not reveal any focal deficits. SKIN: No rashes. no petechiae. Results CBC & Chem 7: 04/23/24 01:54 04/23/24 01:54 Labs: Abnormal Lab Results - Last 24 Hours (Table) 04/23/24 04/23/24 04/23/24 Range/Units 01:54 01:54 01:54 MCV 106.4 H (80.0-100.0) fL Plt Count 143 L (150-450) k/uL Lymphocytes # 0.3 L (1.0-4.8) k/uL PT 18.6 H (10.0-12.5) sec INR 1.8 H (<1.2) APTT 31.7 H (22.0-30.0) sec Sodium 129 L (137-145) mmol/L Carbon Dioxide 19 L (22-30) mmol/L BUN 23 H (9-20) mg/dL Plasma Lactic Acid Marcos (0.7-2.0) mmol/L Calcium 8.3 L (8.4-10.2) mg/dL Total Bilirubin 4.0 H (0.2-1.3) mg/dL Alkaline Phosphatase 148 H (38-126) U/L Ammonia (<30) umol/L Albumin 3.3 L (3.5-5.0) g/dL 04/23/24 04/23/24 Range/Units 01:54 04:45 MCV (80.0-100.0) fL Plt Count (150-450) k/uL Lymphocytes # (1.0-4.8) k/uL PT (10.0-12.5) sec INR (<1.2) APTT (22.0-30.0) sec Sodium (137-145) mmol/L Carbon Dioxide (22-30) mmol/L BUN (9-20) mg/dL Plasma Lactic Acid Marcos 3.8 H* 3.1 H* (0.7-2.0) mmol/L Calcium (8.4-10.2) mg/dL Total Bilirubin (0.2-1.3) mg/dL Alkaline Phosphatase (38-126) U/L Ammonia 66 H (<30) umol/L Albumin (3.5-5.0) g/dL Assessment and Plan Assessment: Altered mental status, combined hepatic encephalopathy on the top of toxic/metabolic encephalopathy right leg cellulitis Right leg swelling, rule out hemorrhage/hematoma or abscess or edema. Mild coagulopathy secondary to Eliquis Decompensated liver cirrhosis, recently diagnosed, could be related to fatty liver versus alcoholic versus others. With elevated ammonia level related to above High lactic acid A-fib and RVR on anticoagulation Chronic heart failure Hypertension Obesity Plan: Patient was admitted with ID team consult He was already started on IV vancomycin and Unasyn in the emergency room Continue with lactulose and follow-up ammonia level Follow-up culture results Hold Eliquis till cleared by ENT and ophthalmology surgery Check ultrasound of the right lower extremity Cardiology team consult Labs and medication were reviewed.. Continue same treatment. Continue with symptomatic treatment. Resume home medication. Monitor labs and vitals. DVT and GI prophylaxis. Further recommendations as per clinical course of the patient DVT prophylaxis: Patient already mildly coagulopathic, was on Eliquis and held GI Prophylaxis: Protonix Prognosis is guarded
[2024-04-23] MEDS ORDERED: APIXABAN 5 MG TAB PO SCH (09:00)
[2024-04-23] MEDS: FUROSEMIDE 10 MG/ML 4 ML VIAL IV SCH (09:26)
--- NOTE | 2024-04-23 09:28 | US ---
EXAMINATION TYPE: US extremity nonvasc mass RT DATE OF EXAM: 04/23/2024 COMPARISON: NONE CLINICAL INDICATION: Male, 74 years old with history of swelling and infection , r/o abscess or hemat mao; swelling of right anterior lower leg. Pt's states it has been there "a while" TECHNIQUE: Right anterior lower leg scanned FINDINGS: Edema noted in area of redness. No obvious fluid collection noticed. IMPRESSION: Edema no evidence for abnormal collection or mass.
[2024-04-23] MEDS: LACTULOSE 20 GM/30 ML CUP PO SCH (09:31)
[2024-04-23] MEDS: SPIRONOLACTONE 25 MG TAB PO SCH (09:35)
[2024-04-23] MEDS: METOPROLOL TARTRATE 25 MG TAB PO SCH (09:35)
[2024-04-23] MEDS: metOLazone 5 MG TAB PO SCH (12:53)
--- NOTE | 2024-04-23 13:29 | P.CRDCN ---
History of Present Illness Consult date: 04/23/24 Reason for Consult (text): Atrial fibrillation on Eliquis at home History of present illness: This is a 74-year-old male patient of Dr. Sandra Reis with past medical history of persistent atrial fibrillation on Eliquis, chronic liver disease, chronic bilateral lower extremity edema, chronic diastolic heart failure, hypertension, mitral valve insufficiency. We have been asked to evaluate the patient for atrial fibrillation on Eliquis at home. Patient presented to the emergency center due to edema in his legs and wounds. He also had change in mental status. Patient's history is obtained from his , patient is unable to provide any history. Patient apparently had a fall at home which his states occurred probably while she was sleeping. Patient has been started on IV Lasix 40 mg every 12 hours. Blood pressure 113/77, heart rate 84, pulse ox 95% on room air. Patient is seen today in the emergency center waiting for bed on the [facility] floor. EKG: Atrial fibrillation with RVR at 112 bpm Chest x-ray: No consolidation. CT of the head no acute hemorrhage, hydrocephalus or mass effect. Questionable right inferior orbital wall fracture. Tib-fib x-ray no acute findings. CT face: Acute minimally displaced fracture through the right orbital floor with associated hemorrhage into the right maxillary sinus. Laboratory studies: WBC 7.9, hemoglobin 14.8. INR 1.8. Sodium 129, potassium 4.9, BUN 23 creatinine 1.14. Lactic acid elevated 3.3. Alkaline phosphatase 148, ammonia 66. proBNP 2140. Home cardiac medications: Eliquis 5 mg twice daily, Lasix 40 mg twice daily, metoprolol tartrate 25 mg twice daily, Aldactone 50 mg daily Echocardiogram performed on 03/13/2024 reveals left ventricular systolic function borderline normal at 50 to 55%, severe tricuspid regurgitation with mild pulmonary hypertension. Severely calcified aortic valve with mean gradient 12 mmHg. The valve area could be underestimated. Mild mitral regurgitation. Lexiscan Cardiolite stress test performed 12/18/2023 in the office revealed inconclusive EKG part of the stress test due to baseline EKG abnormalities. Normal myocardial perfusion and function. Review Of Systems: At the time of my exam: Unable to obtain from the patient. Physical examination: Gen: This is a 74-year-old obese male in no respiratory distress VS: reviewed HEENT: Head is atraumatic, normocephalic. Pupils equal, round. Sclerae is anicteric. NECK: Supple. Positive JVD. LUNGS: Clear to auscultation. No wheezes or rhonchi. No intercostal retractions. HEART: Regular rate and rhythm. No murmur. ABDOMEN: Soft No tenderness. Positive ascites EXTREMITIES: 3+ bilateral lower extremity edema, chronic skin changes. No calf tenderness. NEUROLOGICAL: Patient is not responding. Assessment: Persistent atrial fibrillation on Eliquis Nasal bone fracture with bleeding into the sinus Acute metabolic encephalopathy most likely hepatic in nature with elevated ammonia level Fall at home Chronic liver disease Chronic bilateral lower extremity edema increased Chronic diastolic heart failure Hypertension Mitral valve insufficiency Plan: Resume patient's home cardiac medications with the following changes: Discontinue metoprolol and start patient on Coreg 6.25 mg twice daily Start patient on metolazone 5 mg daily Continue IV Lasix 40 mg every 12 hours Monitor SONIA, daily weights, electrolytes and renal function Eliquis on hold due to bleeding in the sinus from nasal fracture No need to repeat echocardiogram as this was done in February Further recommendations to follow based upon clinical course Thank you kindly for this consultation. Nurse practitioner note has been reviewed, I agree with documented findings and plan of care. Patient was seen and examined. Past Medical History Past Medical History: Atrial Fibrillation, Heart Failure, Hypertension, Skin Disorder Additional Past Medical History / Comment(s): leg wounds since early 2022. History of Any Multi-Drug Resistant Organisms: None Reported Past Surgical History: No Surgical Hx Reported Past Anesthesia/Blood Transfusion Reactions: No Reported Reaction Past Psychological History: No Psychological Hx Reported Smoking Status: Never smoker Past Alcohol Use History: None Reported Past Drug Use History: None Reported - Past Family History Mother Family Medical History: Hypertension Father Family Medical History: Hypertension Medications and Allergies Home Medications Medication Instructions Recorded Confirmed Type Apixaban [Eliquis] 5 mg PO BID 01/21/24 04/23/24 History allopurinoL [Zyloprim] 100 mg PO DAILY 01/21/24 04/23/24 History Metoprolol Tartrate 25 mg PO BID #90 tab 01/24/24 04/23/24 Rx Spironolactone [Aldactone] 50 mg PO DAILY 03/12/24 04/23/24 History Furosemide [Lasix] 40 mg PO DAILY 04/23/24 04/23/24 History Furosemide [Lasix] 40 mg PO DAILY@1600 PRN 04/23/24 04/23/24 History Allergies Allergy/AdvReac Type Severity Reaction Status Date / Time No Known Allergies Allergy Verified 04/23/24 08:09 Physical Exam Vitals: Vital Signs Temp Pulse Resp BP Pulse Ox 04/23/24 12:53 84 16 113/77 95 04/23/24 10:22 100 16 122/85 94 L 04/23/24 09:39 98.5 F 105 H 16 119/81 95 04/23/24 07:00 99 18 119/79 94 L 04/23/24 06:05 105 H 18 112/83 95 04/23/24 05:00 109 H 18 133/75 94 L 04/23/24 03:15 104 H 18 131/111 95 04/23/24 02:45 118/74 04/23/24 02:30 107 H 18 114/81 95 04/23/24 02:15 108 H 18 116/76 95 04/23/24 01:39 98.7 F 110 H 18 111/64 95 Intake and Output 04/22/24 04/23/24 04/23/24 22:59 06:59 14:59 Other: Weight 99.79 kg Results 04/23/24 01:54 04/23/24 01:54 Cardiac Enzymes 04/23/24 Range/Units 01:54 AST 35 (17-59) U/L Coagulation 04/23/24 Range/Units 01:54 PT 18.6 H (10.0-12.5) sec APTT 31.7 H (22.0-30.0) sec CBC 04/23/24 Range/Units 01:54 WBC 7.9 (3.8-10.6) k/uL RBC 4.46 (4.30-5.90) m/uL Hgb 14.8 (13.0-17.5) gm/dL Hct 47.4 (39.0-53.0) % Plt Count 143 L (150-450) k/uL Comprehensive Metabolic Panel 04/23/24 Range/Units 01:54 Sodium 129 L (137-145) mmol/L Potassium 4.9 (3.5-5.1) mmol/L Chloride 99 (98-107) mmol/L Carbon Dioxide 19 L (22-30) mmol/L BUN 23 H (9-20) mg/dL Creatinine 1.14 (0.66-1.25) mg/dL Glucose 82 (74-99) mg/dL Calcium 8.3 L (8.4-10.2) mg/dL AST 35 (17-59) U/L ALT 18 (4-49) U/L Alkaline Phosphatase 148 H (38-126) U/L Total Protein 7.2 (6.3-8.2) g/dL Albumin 3.3 L (3.5-5.0) g/dL Current Medications Generic Name Dose Route Start Last Admin Trade Name Freq PRN Reason Stop Dose Admin Carvedilol 6.25 mg 04/23/24 17:30 Carvedilol 6.25 Mg Tab PO BID-W/MEALS KATELYN Furosemide 40 mg 04/23/24 09:00 04/23/24 09:26 Furosemide 10 Mg/Ml 4 Ml Vial IV 40 mg Q12HR KATELYN Administration Vancomycin HCl 1,500 mg/ 500 mls @ 167 mls/hr 04/23/24 16:00 Sodium Chloride IVPB Q16H KATELYN Ampicillin Sodium/Sulbactam 100 mls @ 200 mls/hr 04/23/24 08:00 04/23/24 07:44 Sodium 3 gm/ Sodium Chloride IVPB 200 mls/hr Q8HR KATELYN Administration Protocol Ibuprofen 400 mg 04/23/24 05:13 Ibuprofen 400 Mg Tab PO Q6HR PRN Mild Pain or Fever > 100.5 Lactulose 30 gm 04/23/24 09:00 04/23/24 12:53 Lactulose 20 Gm/30 Ml Cup PO 30 gm QID KATELYN Administration Metolazone 5 mg 04/23/24 11:30 04/23/24 12:53 Metolazone 5 Mg Tab PO 5 mg DAILY KATELYN Administration Naloxone HCl 0.2 mg 04/23/24 05:13 Naloxone 0.4 Mg/Ml 1 Ml Vial IV Q2M PRN Opioid Reversal Ondansetron HCl 4 mg 04/23/24 05:13 Ondansetron 4 Mg/2 Ml Vial IVP Q8HR PRN Nausea And Vomiting Spironolactone 50 mg 04/23/24 09:00 04/23/24 09:35 Spironolactone 25 Mg Tab PO 50 mg DAILY KATELYN Administration Intake and Output 04/22/24 04/23/2404/23/24 22:59 06:59 14:59 Other: Weight 99.79 kg 04/23/24 01:54 04/23/24 01:54
[2024-04-23 16:19] LABS: Glucose,Whole Blood 102 mg/dL (70-110)
[2024-04-23] MEDS: VANCOMYCIN 1,500 MG in SODIUM CHLORIDE 0.9% 500 ML 500 ML IVPB SCH (16:34)
[2024-04-23] MEDS ORDERED: carvediloL 12.5 MG TAB PO SCH (17:30)
[2024-04-23] MEDS: carvediloL 6.25 MG TAB PO SCH (18:26)
[2024-04-23] MEDS: ALBUTEROL NEBULIZED 2.5 MG/3 ML INHALATION STA (19:37)
--- NOTE | 2024-04-23 20:36 | XR ---
EXAMINATION TYPE: XR chest 2V DATE OF EXAM: 04/23/2024 COMPARISON: Chest x-ray earlier today HISTORY: Wheezing. TECHNIQUE: Frontal and lateral views of the chest are obtained. FINDINGS: There is no suspicious new focal air space opacity, pleural effusion, or pneumothorax seen . Cardiomegaly is redemonstrated. Osseous structures are intact. IMPRESSION: Cardiomegaly without acute peripheral pulmonary infiltrate. No significant change from m ost recent prior.
[2024-04-24] MEDS: PIPERACILLIN-TAZOBACTAM 3.375 GM in SODIUM CHLORIDE 0.9% 100 ML IVPB SCH (04:22)
[2024-04-24 06:48] LABS: Basophils % (A) 0 %; Eosinophils % (A) 0 %; HGB 12.2 gm/dL (13.0-17.5); Hypochromasia Moderate; Lymphocytes # (A) 0.4 k/uL (1.0-4.8); Lymphocytes % (A) 5 %; MCH 33.3 pg (25.0-35.0); MCHC 31.2 g/dL (31.0-37.0); Macrocytosis Marked; Mean Platelet Volume 10.1; Monocytes # (A) 1.6 k/uL (0-1.0); Monocytes % (A) 20 %; Neutrophils # (A) 6.2 k/uL (1.3-7.7); Neutrophils % (A) 73 %; Platelet Count 132 k/uL (150-450); RBC 3.64 m/uL (4.30-5.90); RDW 15.2 % (11.5-15.5); WBC 8.4 k/uL (3.8-10.6)
[2024-04-24 07:04] LABS: ALT 14 U/L (4-49); AST 27 U/L (17-59); African American GFR (CKD) 87 (>60 ml/min/1.73 sqM); Albumin 2.3 g/dL (3.5-5.0); Alkaline Phosphatase 91 U/L (38-126); Anion Gap 6 mmol/L; Blood Urea Nitrogen 26 mg/dL (9-20); Calcium 7.9 mg/dL (8.4-10.2); Carbon Dioxide 23 mmol/L (22-30); Chloride 102 mmol/L (98-107); Glucose 137 mg/dL (74-99); Non-African American GFR(CKD) 75 (>60 ml/min/1.73 sqM); Potassium 3.5 mmol/L (3.5-5.1); Sodium 131 mmol/L (137-145); Total Bilirubin 3.7 mg/dL (0.2-1.3); Total Protein 5.6 g/dL (6.3-8.2)
--- NOTE | 2024-04-24 11:09 | P.CONS ---
History of Present Illness - Reason for Consult Consult date: 04/24/24 wound care - History of Present Illness This is a 74-year-old patient known to the wound care center with nonhealing ulcerations to the left plantar great toe left posterior lower extremity right calcaneus and right lateral lower extremity. Patient has history of venous insufficiency pressure ulceration to the right heel. He has been following the wound care center utilizing compression wraps and Hydrofera Blue. Patient is being seen in 3 S. for management of the ulcerations. Original cause of wound was Pressure Injury. The date acquired was: 01/02/2024. The wound has been in treatment 9 weeks. The wound is currently classified as a Unstageable/Unclassified wound with etiology of Pressure Ulcer and is located on the Left,Medial,Plantar Toe Great. The wound measures 0.7cm length x 1.4cm width x 0.1cm depth; 0.77cm^2 area and 0.077cm^3 volume. There is no tunneling or undermining noted. There is a small amount of serosanguineous drainage noted. The wound margin is indistinct and nonvisible. There is small (1-33%) pink granulation within the wound bed. There is a large (67-100%) amount of necrotic tissue within the wound bed including Eschar. The periwound skin appearance exhibited: Callus, Scarring, Dry/Scaly. The periwound skin appearance did not exhibit: Crepitus, Excoriation, Induration, Rash, Maceration, Atrophie Lucila, Cyanosis, Ecchymosis, Hemosiderin Staining, Mottled, Pallor, Rubor, Erythema. P eriwound temperature was noted as No Abnormality. The periwound has tenderness on palpation. Wound #2 status is Open. Original cause of wound was Blister. The date acquired was: 12/07/2023. The wound has been in treatment 9 weeks. The wound is currently classified as a Full Thickness Without Exposed Support Structures wound with etiology of Venous Leg Ulcer and is located on the Left,Posterior Lower Leg. The wound measures 0cm length x 0cm width x 0cm depth; 0cm^2 area and 0cm^3 volume. There is Fat Layer (Subcutaneous Tissue) exposed. There is no tunneling or undermining noted. There is a none present amount of drainage noted. The wound margin is flat and intact. There is no granulation within the wound bed. There is no necrotic tissue within the wound bed. The periwound skin appearance exhibited: Hemosiderin Staining, Erythema. The periwound skin appearance did not exhibit: Callus, Crepitus, Excoriation, Induration, Rash, Scarring, Dry/Scaly, Maceration, Atrophie Whitetail, Cyanosis, Ecchymosis, Mottled, Pallor, Rubor. The surrounding wound skin color is noted with erythema which is circumferential. Periwound temperature was noted as No Abnormality. The periwound has tenderness on palpation. Wound #3 status is Open. Original cause of wound was Pressure Injury. The date acquired was: 12/07/2023. The wound has been in treatment 9 weeks. The wound is currently classified as a Category/Stage II wound with etiology of Pressure Ulcer and is located on the Right,Plantar Calcaneus. The wound measures 0.9cm length x 0.6cm width x 0.2cm depth; 0.424cm^2 area and 0.085cm^3 volume. There is Fat Layer (Subcutaneous Tissue) exposed. There is no tunneling or undermining noted. There is a medium amount of purulent drainage noted. The wound margin is indistinct and nonvisible. There is medium (34-66%) pink granulation within the wound bed. There is a medium (34- 66%) amount of necrotic tissue within the wound bed. The periwound skin appearance exhibited: Callus, Scarring, Dry/Scaly. The periwound skin appearance did not exhibit: Crepitus, Excoriation, Induration, Rash, Maceration, Atrophie Whitetail, Cyanosis, Ecchymosis, Hemosiderin Staining, Mottled, Pallor, Rubor, Erythema. Periwound temperature was noted as No Abnormality. The periwound has tenderness on palpation. Wound #6 status is Healed - Epithelialized. Original cause of wound was Blister. The date acquired was: 03/19/2024. The wound has been in treatment 2 weeks. The wound is currently classified as a Partial Thickness wound with etiology of Venous Leg Ulcer and is located on the Right,Lateral Lower Leg. The wound measures 0cm length x 0cm width x 0cm depth; 0cm^2 area and 0cm^3 volume. There is no tunneling or undermining noted. There is a none present amount of drainage noted. The wound margin is flat and intact. There is no granulation within the wound bed. There is a large (67-100%) amount of necrotic tissue within the wound bed including Eschar. The periwound skin appearance exhibited: Hemosiderin Staining. The periwound skin appearance did not exhibit: Callus, Crepitus, Excoriation, Induration, Rash, Scarring, Dry/Scaly, Maceration, Atrophie Whitetail, Cyanosis, Ecchymosis, Mottled, Pallor, Rubor, Erythema. Periwound temperature was noted as No Abnormality. The periwound has tenderness on palpation. General Notes: scabbed over Review Of Systems: Constitutional: No fever, no chills, no night sweats. No weight change. No weakness, fatigue or lethargy. No daytime sleepiness. Integumentary:reports wounds, no lesions. No rash or pruritus. No unusual bruising. No change in hair or nails. Physical exam: General Appearance: Alert, cooperative, no distress, appears stated age. Skin: See HPI all other Skin color, texture, tugor normal, no rashes or lesions. Neurologic: Alert oriented x3 Assessment: 1. Non-pressure chronic ulcer of left calf with fat layer exposed 2. Non-pressure chronic ulcer of other part of right lower leg with fat layer exposed 3. Chronic venous hypertension (idiopathic) with ulcer and inflammation of bilateral lower extremity 4. Pressure ulcer of right heel, stage 2 5. Non-pressure chronic ulcer of other part of left foot with fat layer exposed Plan: Left plantar great toe, left posterior lower extremity, right plantar calcaneus, right medial lower extremity: Apply collagen, saline moist gauze, dry gauze, rolled gauze and secure with paper tape. Wrap with Jim wrap for compression. Patient to return to the wound care center on May 07 at 2:00. Thank you for the consultation any questions please contact the wound care center DNP note has been reviewed and discussed with Dr. Chavis and the impression and plan of care has been directed as dictated. Past Medical History Past Medical History: Atrial Fibrillation, Heart Failure, Hypertension, Skin Disorder Additional Past Medical History / Comment(s): leg wounds since early 2022. History of Any Multi-Drug Resistant Organisms: None Reported Past Surgical History: No Surgical Hx Reported Past Anesthesia/Blood Transfusion Reactions: No Reported Reaction Past Psychological History: No Psychological Hx Reported Smoking Status: Never smoker Past Alcohol Use History: None Reported Past Drug Use History: None Reported - Past Family History Mother Family Medical History: Hypertension Father Family Medical History: Hypertension Medications and Allergies Home Medications Medication Instructions Recorded Confirmed Type Apixaban [Eliquis] 5 mg PO BID 01/21/24 04/23/24 History allopurinoL [Zyloprim] 100 mg PO DAILY 01/21/24 04/23/24 History Metoprolol Tartrate 25 mg PO BID #90 tab 01/24/24 04/23/24 Rx Spironolactone [Aldactone] 50 mg PO DAILY 03/12/24 04/23/24 History Furosemide [Lasix] 40 mg PO DAILY 04/23/24 04/23/24 History Furosemide [Lasix] 40 mg PO DAILY@1600 PRN 04/23/24 04/23/24 History Allergies Allergy/AdvReac Type Severity Reaction Status Date / Time No Known Allergies Allergy Verified 04/23/24 08:09 Physical Exam Vitals: Vital Signs Temp Pulse Pulse Resp BP BP Pulse Ox 04/24/24 07:52 98.5 F 82 17 103/68 94 L 04/24/24 04:00 80 16 141/70 95 04/24/24 00:00 97.8 F 77 16 102/59 95 04/23/24 22:51 96 16 107/51 95 04/23/24 20:00 83 15 103/63 95 04/23/24 19:42 87 04/23/24 19:37 84 04/23/24 18:14 97.6 F 80 16 97/59 94 L 04/23/24 16:28 97.2 F L 83 18 110/80 98 04/23/24 15:43 97.6 F 75 16 103/72 93 L 04/23/24 12:53 84 16 113/77 95 Intake and Output 04/23/24 04/24/24 04/24/24 22:59 06:59 14:59 Intake Total 540 240 Output Total 800 600 Balance -260 -360 Intake: Oral 540 240 Output: Urine 800 600 Other: Voiding Method Bedside Commode Bedside Commode Urinal Urinal Diaper Diaper # Bowel Movements 3 Results CBC & Chem 7: 04/24/24 06:06 04/24/24 06:06 Labs: Abnormal Lab Results - Last 24 Hours (Table) 04/23/24 04/23/24 04/23/24 Range/Units 12:33 16:01 19:48 RBC (4.30-5.90) m/uL Hgb (13.0-17.5) gm/dL MCV (80.0-100.0) fL Plt Count (150-450) k/uL Lymphocytes # (1.0-4.8) k/uL Monocytes # (0-1.0) k/uL Macrocytosis Sodium (137-145) mmol/L BUN (9-20) mg/dL Glucose (74-99) mg/dL Plasma Lactic Acid Marcos 3.4 H* 3.7 H* 3.6 H* (0.7-2.0) mmol/L Calcium (8.4-10.2) mg/dL Total Bilirubin (0.2-1.3) mg/dL Total Protein (6.3-8.2) g/dL Albumin (3.5-5.0) g/dL 04/23/24 04/24/24 04/24/24 Range/Units 22:40 01:39 06:06 RBC 3.64 L (4.30-5.90) m/uL Hgb 12.2 L (13.0-17.5) gm/dL MCV 107.0 H (80.0-100.0) fL Plt Count 132 L (150-450) k/uL Lymphocytes # 0.4 L (1.0-4.8) k/uL Monocytes # 1.6 H (0-1.0) k/uL Macrocytosis Marked A Sodium (137-145) mmol/L BUN (9-20) mg/dL Glucose (74-99) mg/dL Plasma Lactic Acid Marcos 2.5 H* 2.1 H* (0.7-2.0) mmol/L Calcium (8.4-10.2) mg/dL Total Bilirubin (0.2-1.3) mg/dL Total Protein (6.3-8.2) g/dL Albumin (3.5-5.0) g/dL 04/24/24 04/24/24 Range/Units 06:06 06:06 RBC (4.30-5.90) m/uL Hgb (13.0-17.5) gm/dL MCV (80.0-100.0) fL Plt Count (150-450) k/uL Lymphocytes # (1.0-4.8) k/uL Monocytes # (0-1.0) k/uL Macrocytosis Sodium 131 L (137-145) mmol/L BUN 26 H (9-20) mg/dL Glucose 137 H (74-99) mg/dL Plasma Lactic Acid Marcos 2.3 H* (0.7-2.0) mmol/L Calcium 7.9 L (8.4-10.2) mg/dL Total Bilirubin 3.7 H (0.2-1.3) mg/dL Total Protein 5.6 L (6.3-8.2) g/dL Albumin 2.3 L (3.5-5.0) g/dL Microbiology - Last 24 Hours (Table) 04/23/24 02:25 Blood Culture Gram Stain - Preliminary Blood Blood Culture - Preliminary Molecular ID Assessment and Plan (1) Chronic venous hypertension (idiopathic) with ulcer and inflammation of bi lateral lower extremity Current Visit: No Status: Acute Code(s): I87.333 - CHRONIC VENOUS HTN W ULCER AND INFLAM OF BILATERAL LOW EXTRM SNOMED Code(s): 479800392498416 (2) Non-pressure chronic ulcer of left calf with fat layer exposed Current Visit: No Status: Acute Code(s): L97.222 - NON-PRESSURE CHRONIC ULCER OF LEFT CALF W FAT LAYER EXPOSED SNOMED Code(s): 33446166879616524 (3) Non-pressure chronic ulcer of other part of left foot with fat layer exposed Current Visit: No Status: Acute Code(s): L97.522 - NON-PRS CHRONIC ULCER OTH PRT LEFT FOOT W FAT LAYER EXPOSED SNOMED Code(s): 67137950836164799 (4) Non-pressure chronic ulcer of other part of right lower leg with fat layer exposed Current Visit: No Status: Acute Code(s): L97.812 - NON-PRS CHRONIC ULCER OTH PRT R LOW LEG W FAT LAYER EXPOSED SNOMED Code(s): 22982803898680695 (5) Pressure ulcer of right heel, stage 2 Current Visit: No Status: Acute Code(s): L89.612 - PRESSURE ULCER OF RIGHT HEEL, STAGE 2 SNOMED Code(s): 99835741444125
--- NOTE | 2024-04-24 12:06 | P.PN ---
Subjective Progress Note Date: 04/24/24 I assumed care for this patient on 04/24. 74-year-old male with a PMH of liver cirrhosis, chronic atrial fibrillation on anticoagulation with Eliquis, chronic diastolic CHF with a EF of 55 to 60% on Lasix and Aldactone, HTN, CKD stage IIIb and chronic bilateral lower extremity wounds/ulcers presents to the ED for worsening swelling, redness and pain in his bilateral lower extremities. also reports intermittent confusion. Patient recently admitted from 03/12-03/19 for CHF exacerbation, hepatic ence phalopathy and MSSA/Seratia cellulitis of the lower extremities. Patient reports sharp stabbing pain in his lower extremities. He denies any recent falls or LOC. He denies any head trauma. reports diarrhea which she related to the use of Lactulose. In the ED he underwent extensive evaluation. BP 111/64, HR 110, RR 18, T 98.7F, 95% on RA. CBC, Coag panel, CMP performed significant for MCV 106.5, Plt 143, PT 18.6, INR 1.8, APTT 31.7, Na 129, bicarb 19, BUN 23, Ca 8.3, T. Bili 4, alk phos 148, alb 3.3. BNP 2140. Ammonia 66. Lactic acid 2.5. EKG atrial fibrillation with RVR rate of 112, RBBB, nonspecific ST T wave changes. CT brain negative. CT face acute minimally displaced fracture through right orbital floor with associated right maxillary sinus hemorrhage. Tib-Fib and CXR negative. Started on Vancomycin and Zosyn for treatment of cellulitis. US RLE negative for abscess. ID and Wound care consulted. BCx + gram negative bacteria. Cardiology consulted for A-Fib with RVR. Eliquis held, Metoprolol discontinued and started on Coreg 6.25 mg PO BID, metolazone 5 mg PO QD added and continued on Lasix 40 mg IV BID. ENT consulted for orbital fracture. 04/24 Patient was seen and examined. at bedside. No acute events overnight. CBC RBC 3.64, Hg 12.2, MCV 107, Plt 132. CMP Na 131, BUN 26, glu 137, Ca 7.9, T. Bili 3.7, alb 2.3. Lactic acid 2.3. General: no acute distress, appears at stated age Derm: warm, dry Head: atraumatic, normocephalic, symmetric Eyes: EOMI, no lid lag, anicteric sclera Mouth: no lip lesion, mucus membranes moist Cardiovascular: S1S2 irreg, no murmur Lungs: Decreased BS bilateral, no rhonchi, no rales , no accessory muscle use Ext: no gross muscle atrophy, bilateral lower extremity edema with weeping wounds and erythema, no contractures Neuro: no focal neuro deficits Psych: Alert, oriented, appropriate affect Based on my assessment of this patient, this patient meets a high complexity level of care. Acute metabolic encephalopathy likey due to hyperammonemia and bacteremia: Fall and aspiration precautions. Continue Lactulose 30g PO QID. PT and OT consulted. Gram negative bacteremia likely due to cellulitis: Continue Vancomycin dosed per pharmacy and Zosyn 3.375g IV TID. Telemetry monitoring. Follow WCx and final BCx. ID and wound care on board. Atrial fibrillation with RVR: Coreg 6.25 mg PO BID. Eliquis on hold due to maxillary sinus hemorrhage. Cardiology on board. Right orbital floor fracture with right maxillary sinus hemorrhage: ENT consulted. Lactic acidosis in the setting of liver cirrhosis: We will stop trending per sistently elevated lactic acid. Hyponatremia: Improving with IV diuresis. Prerenal azotemia due to forced diuresis: Monitor electrolytes and renal function while on Lasix IV and Vancomycin. Supratherapeutic INR in the setting of liver cirrhosis Chronic conditions: Diastolic CHF with EF 55-60%, HTN, CKD stage IIIb CODE STATUS: FULL CODE DVT Prophylaxis: Lovenox GI Prophylaxis: Designated medical POA if patient is not able to make medical decisions for themselves: I have reviewed the following workforce consultant notes: Cardiology, ID, Wound care. I have reviewed the results of the following tests: CBC, CMP. I have ordered the following tests: CBC, BMP. C. diff. I have discussed the care of this patient with the following independent historian: . I have independently interpreted the following test below: I have discussed the management of this patient with the following physician: Objective - Vital Signs Vital signs: Vital Signs Temp 98.5 F 04/24/24 07:52 Pulse 78 04/24/24 11:57 Resp 15 04/24/24 11:57 BP 101/69 04/24/24 11:57 Pulse Ox 95 04/24/24 11:57 FiO2 Intake & Output 06/27/24 06/28/24 06/28/24 18:59 06:59 18:59 Intake Total 540 240 Output Total 800 600 Balance -260 -360 Weight 99.79 kg Intake: Oral 540 240 Output: Urine 800 600 Other: Voiding Method Bedside Commode Bedside Commode Urinal Urinal Diaper Diaper # Bowel Movements 3 - Labs CBC & Chem 7: 04/24/24 06:06 04/24/24 06:06 Labs: Abnormal Lab Results - Last 24 Hours (Table) 04/23/24 04/23/24 04/23/24 Range/Units 12:33 16:01 19:48 RBC (4.30-5.90) m/uL Hgb (13.0-17.5) gm/dL MCV (80.0-100.0) fL Plt Count (150-450) k/uL Lymphocytes # (1.0-4.8) k/uL Monocytes # (0-1.0) k/uL Macrocytosis Sodium (137-145) mmol/L BUN (9-20) mg/dL Glucose (74-99) mg/dL Plasma Lactic Acid Marcos 3.4 H* 3.7 H* 3.6 H* (0.7-2.0) mmol/L Calcium (8.4-10.2) mg/dL Total Bilirubin (0.2-1.3) mg/dL Total Protein (6.3-8.2) g/dL Albumin (3.5-5.0) g/dL 04/23/24 04/24/24 04/24/24 Range/Units 22:40 01:39 06:06 RBC 3.64 L (4.30-5.90) m/uL Hgb 12.2 L (13.0-17.5) gm/dL MCV 107.0 H (80.0-100.0) fL Plt Count 132 L (150-450) k/uL Lymphocytes # 0.4 L (1.0-4.8) k/uL Monocytes # 1.6 H (0-1.0) k/uL Macrocytosis Marked A Sodium (137-145) mmol/L BUN (9-20) mg/dL Glucose (74-99) mg/dL Plasma Lactic Acid Marcos 2.5 H* 2.1 H* (0.7-2.0) mmol/L Calcium (8.4-10.2) mg/dL Total Bilirubin (0.2-1.3) mg/dL Total Protein (6.3-8.2) g/dL Albumin (3.5-5.0) g/dL 04/24/24 04/24/24 Range/Units 06:06 06:06 RBC (4.30-5.90) m/uL Hgb (13.0-17.5) gm/dL MCV (80.0-100.0) fL Plt Count (150-450) k/uL Lymphocytes # (1.0-4.8) k/uL Monocytes # (0-1.0) k/uL Macrocytosis Sodium 131 L (137-145) mmol/L BUN 26 H (9-20) mg/dL Glucose 137 H (74-99) mg/dL Plasma Lactic Acid Marcos 2.3 H* (0.7-2.0) mmol/L Calcium 7.9 L (8.4-10.2) mg/dL Total Bilirubin 3.7 H (0.2-1.3) mg/dL Total Protein 5.6 L (6.3-8.2) g/dL Albumin 2.3 L (3.5-5.0) g/dL Microbiology - Last 24 Hours (Table) 04/23/24 02:54 Gram Stain - Preliminary Leg - Right 04/23/24 02:25 Blood Culture Gram Stain - Preliminary Blood Blood Culture - Preliminary Molecular ID
--- NOTE | 2024-04-24 13:23 | P.CONS ---
History of Present Illness - Reason for Consult Consult date: 04/23/24 bilateral lower extremity cellulitis Requesting physician: Justin Patton - Chief Complaint Increasing swelling redness to the legs x few days - History of Present Illness Patient is a 74-year-old male with a past medical history significant for atrial fibrillation hypertension heart failure liver cirrhosis did have a history of nonhealing wound to lower extremity especially in the heel area for the patient to follow at [facility] patient presented to hospital this morning for evaluation of mental status changes and increasing swelling and redness to bilateral lower extremity specially the right leg that seem to be getting worse for the last few days history was provided mostly by the at the bedside the patient was lethargic and did not answer any question noticed to have increasing swelling redness to the right leg and some weeping edema mention the patient felt warm but no fever have been recorded on presentation the hospit al patient was not tachycardic or hypotensive mildly hypoxic currently on 2 L nasal cannula oxygen patient did have a white count of 7.9 creatinine 1.14 lactic acid was 2.5 bilirubin is 4 ALT AST normal urine has been negative patient was started on vancomycin and Radhasyn infectious disease was consulted for further management of antibiotic therapy as mentioned earlier most information has been obtained from review of chart and talking to the at the bedside Review of Systems Positive points has been mentioned in HPI complete review could not be obtained because of his underlying mental status Past Medical History Past Medical History: Atrial Fibrillation, Heart Failure, Hypertension, Skin Disorder Additional Past Medical History / Comment(s): leg wounds since early 2022. History of Any Multi-Drug Resistant Organisms: None Reported Past Surgical History: No Surgical Hx Reported Past Anesthesia/Blood Transfusion Reactions: No Reported Reaction Past Psychological History: No Psychological Hx Reported Smoking Status: Never smoker Past Alcohol Use History: None Reported Past Drug Use History: None Reported - Past Family History Mother Family Medical History: Hypertension Father Family Medical History: Hypertension Medications and Allergies Home Medications Medication Instructions Recorded Confirmed Type Apixaban [Eliquis] 5 mg PO BID 01/21/24 04/23/24 History allopurinoL [Zyloprim] 100 mg PO DAILY 01/21/24 04/23/24 History Metoprolol Tartrate 25 mg PO BID #90 tab 01/24/24 04/23/24 Rx Spironolactone [Aldactone] 50 mg PO DAILY 03/12/24 04/23/24 History Furosemide [Lasix] 40 mg PO DAILY 04/23/24 04/23/24 History Furosemide [Lasix] 40 mg PO DAILY@1600 PRN 04/23/24 04/23/24 History Allergies Allergy/AdvReac Type Severity Reaction Status Date / Time No Known Allergies Allergy Verified 04/23/24 08:09 Physical Exam Vitals: Vital Signs Temp Pulse Resp BP Pulse Ox 04/23/24 10:22 100 16 122/85 94 L 04/23/24 09:39 98.5 F 105 H 16 119/81 95 04/23/24 07:00 99 18 119/79 94 L 04/23/24 06:05 105 H 18 112/83 95 04/23/24 05:00 109 H 18 133/75 94 L 04/23/24 03:15 104 H 18 131/111 95 04/23/24 02:45 118/74 04/23/24 02:30 107 H 18 114/81 95 04/23/24 02:15 108 H 18 116/76 95 04/23/24 01:39 98.7 F 110 H 18 111/64 95 Intake and Output 04/22/24 04/23/24 04/23/24 22:59 06:59 14:59 Other: Weight 99.79 kg GENERAL DESCRIPTION: Elderly male lying in bed, no distress. No tachypnea or accessory muscle of respiration use. HEENT: Shows Pallor , no scleral icterus. Oral mucous membrane is dry. No pharyngeal erythema or thrush NECK: Trachea central, no thyromegaly. LUNGS: Unlabored breathing. Clear to auscultation anteriorly. No wheeze or crackle. HEART: S1, S2, regular rate and rhythm. No loud murmur ABDOMEN: Soft, no tenderness , guarding or rigidity, no organomegaly EXTREMITIES: Diffuse swelling to bilateral extremity did have superficial ulceration to the heel area but no slough tissue or any foul-smelling drainage SKIN: No rash, no masses palpable. NEUROLOGICAL: The patient is lethargic orientation could not determine Results CBC & Chem 7: 04/24/24 06:06 04/24/24 06:06 Labs: Abnormal Lab Results - Last 24 Hours (Table) 04/23/24 04/23/24 04/23/24 Range/Units 01:54 01:54 01:54 MCV 106.4 H (80.0-100.0) fL Plt Count 143 L (150-450) k/uL Lymphocytes # 0.3 L (1.0-4.8) k/uL PT 18.6 H (10.0-12.5) sec INR 1.8 H (<1.2) APTT 31.7 H (22.0-30.0) sec Sodium 129 L (137-145) mmol/L Carbon Dioxide 19 L (22-30) mmol/L BUN 23 H (9-20) mg/dL Plasma Lactic Acid Marcos (0.7-2.0) mmol/L Calcium 8.3 L (8.4-10.2) mg/dL Total Bilirubin 4.0 H (0.2-1.3) mg/dL Alkaline Phosphatase 148 H (38-126) U/L Ammonia (<30) umol/L Albumin 3.3 L (3.5-5.0) g/dL 04/23/24 04/23/24 04/23/24 Range/Units 01:54 04:45 08:39 MCV (80.0-100.0) fL Plt Count (150-450) k/uL Lymphocytes # (1.0-4.8) k/uL PT (10.0-12.5) sec INR (<1.2) APTT (22.0-30.0) sec Sodium (137-145) mmol/L Carbon Dioxide (22-30) mmol/L BUN (9-20) mg/dL Plasma Lactic Acid Marcos 3.8 H* 3.1 H* 3.3 H* (0.7-2.0) mmol/L Calcium (8.4-10.2) mg/dL Total Bilirubin (0.2-1.3) mg/dL Alkaline Phosphatase (38-126) U/L Ammonia 66 H (<30) umol/L Albumin (3.5-5.0) g/dL Assessment and Plan (1) Bilateral lower leg cellulitis Current Visit: Yes Status: Acute Code(s): L03.116 - CELLULITIS OF LEFT LOWER LIMB; L03.115 - CELLULITIS OF RIGHT LOWER LIMB SNOMED Code(s): 149660113 (2) Pressure ulcer of right heel, stage 2 Current Visit: No Status: Acute Code(s): L89.612 - PRESSURE ULCER OF RIGHT HEEL, STAGE 2 SNOMED Code(s): 95559930893506 Plan: 1patient presented hospital with increased weakness lethargy and this patient also have increasing swelling redness to both legs especially in the right leg and the patient did have a ulceration to the right heel likely the source of this cellulitis likely from gram-positive skin phillip underlying gram-negative infection not entirely excluded 2-patient is currently covered with vancomycin and Unasyn to continue while waiting for the culture to finalize 3-local wound care to the right heel with Aquacel silver dressing and mild compression dressing to the leg to keep the swelling down at the bedside questions were answered We will follow on clinical condition and cultures to further adjust medication if needed Thank you for this consultation we will follow the patient along with you Dictation was produced using [employer] dictation software. please excuse any grammatical, word or spelling errors. Time with Patient: Greater than 30
--- NOTE | 2024-04-24 13:25 | P.PN ---
Subjective Progress Note Date: 04/24/24 Principal diagnosis: Reason for follow-up is right lower extremity cellulitis and bacteremia Patient is a 74-year-old male with a past medical history significant for atrial fibrillation hypertension heart failure liver cirrhosis did have a history of nonhealing wound to lower extremity especially in the heel area presented to hospital with increasing swelling redness to the right lower extremity has been diagnosed with cellulitis. Patient blood cultures are coming back positive gram-negative. On today's evaluation that is 04/24/2024,the patient is more awake alert today sitting up in the bed, remains to be afebrile, patient is on room air not requiring supplemental oxygen and denies any shortness of breath no chest pain or cough.Patient denies having any nausea or vomiting, no abdominal pain denies any worsening pain to the lower extremity especially right leg. Patient white count is 8.4, creatinine 0.98 lactic acid 2.3 local culture with Serratia blood culture with gram-negative Objective - Vital Signs Vital signs: Vital Signs Temp 98.5 F 04/24/24 07:52 Pulse 78 04/24/24 11:57 Resp 15 04/24/24 11:57 BP 101/69 04/24/24 11:57 Pulse Ox 95 04/24/24 11:57 FiO2 Intake & Output 04/23/24 04/24/24 04/24/24 18:59 06:59 18:59 Intake Total 540 240 Output Total 800 600 Balance -260 -360 Weight 99.79 kg Intake: Oral 540 240 Output: Urine 800 600 Other: Voiding Method Bedside Commode Bedside Commode Urinal Urinal Diaper Diaper # Bowel Movements 3 - Exam GENERAL DESCRIPTION: An elderly male up in bed in no distress RESPIRATORY SYSTEM: Unlabored breathing , decreased breath sounds at bases HEART: S1 S2 regular rate and rhythm , ABDOMEN: Soft , no tenderness EXTREMITIES: Bilateral extremity with swelling some weeping to the right lower extremity - Labs CBC & Chem 7: 04/24/24 06:06 04/24/24 06:06 Labs: Abnormal Lab Results - Last 24 Hours (Table) 04/23/24 04/23/24 04/23/24 Range/Units 12:33 16:01 19:48 RBC (4.30-5.90) m/uL Hgb (13.0-17.5) gm/dL MCV (80.0-100.0) fL Plt Count (150-450) k/uL Lymphocytes # (1.0-4.8) k/uL Monocytes # (0-1.0) k/uL Macrocytosis Sodium (137-145) mmol/L BUN (9-20) mg/dL Glucose (74-99) mg/dL Plasma Lactic Acid Marcos 3.4 H* 3.7 H* 3.6 H* (0.7-2.0) mmol/L Calcium (8.4-10.2) mg/dL Total Bilirubin (0.2-1.3) mg/dL Total Protein (6.3-8.2) g/dL Albumin (3.5-5.0) g/dL 04/23/24 04/24/24 04/24/24 Range/Units 22:40 01:39 06:06 RBC 3.64 L (4.30-5.90) m/uL Hgb 12.2 L (13.0-17.5) gm/dL MCV 107.0 H (80.0-100.0) fL Plt Count 132 L (150-450) k/uL Lymphocytes # 0.4 L (1.0-4.8) k/uL Monocytes # 1.6 H (0-1.0) k/uL Macrocytosis Marked A Sodium (137-145) mmol/L BUN (9-20) mg/dL Glucose (74-99) mg/dL Plasma Lactic Acid Marcos 2.5 H* 2.1 H* (0.7-2.0) mmol/L Calcium (8.4-10.2) mg/dL Total Bilirubin (0.2-1.3) mg/dL Total Protein (6.3-8.2) g/dL Albumin (3.5-5.0) g/dL 04/24/24 04/24/24 Range/Units 06:06 06:06 RBC (4.30-5.90) m/uL Hgb (13.0-17.5) gm/dL MCV (80.0-100.0) fL Plt Count (150-450) k/uL Lymphocytes # (1.0-4.8) k/uL Monocytes # (0-1.0) k/uL Macrocytosis Sodium 131 L (137-145) mmol/L BUN 26 H (9-20) mg/dL Glucose 137 H (74-99) mg/dL Plasma Lactic Acid Marcos 2.3 H* (0.7-2.0) mmol/L Calcium 7.9 L (8.4-10.2) mg/dL Total Bilirubin 3.7 H (0.2-1.3) mg/dL Total Protein 5.6 L (6.3-8.2) g/dL Albumin 2.3 L (3.5-5.0) g/dL Microbiology - Last 24 Hours (Table) 04/23/24 02:10 Blood Culture - Preliminary Blood 04/23/24 02:54 Gram Stain - Final Leg - Right Wound Culture - Final Serratia marcescens 04/23/24 02:25 Blood Culture Gram Stain - Preliminary Blood Blood Culture - Preliminary Molecular ID Assessment and Plan (1) Bilateral lower leg cellulitis Current Visit: Yes Status: Acute Code(s): L03.116 - CELLULITIS OF LEFT LOWER LIMB; L03.115 - CELLULITIS OF RIGHT LOWER LIMB SNOMED Code(s): 805917129 (2) Pressure ulcer of right heel, stage 2 Current Visit: No Status: Acute Code(s): L89.612 - PRESSURE ULCER OF RIGHT HEEL, STAGE 2 SNOMED Code(s): 59902392145392 (3) Gram-negative bacteremia Current Visit: Yes Status: Acute Code(s): R78.81 - BACTEREMIA SNOMED Code(s): 476888953563 Plan: 1patient presented hospital with increased weakness lethargy and this patient also have increasing swelling redness to both legs especially in the right leg and the patient did have a ulceration to the right heel likely the source of this cellulitis likely from gram-positive skin phillip underlying gram-negative infection not entirely excluded 2-patient local cultures are growing Serratia and blood culture growing gram- negative bacilli 3-patient antibiotic has been adjusted to Zosyn Unasyn has been discontinued will discuss vancomycin decrease risk of nephrotoxicity Dictation was produced using [employer] dictation software. please excuse any grammatical, word or spelling errors. Time with Patient: Less than 30
[2024-04-25 10:08] LABS: HCT 44.6 % (39.0-53.0); HGB 13.8 gm/dL (13.0-17.5); Hypochromasia Moderate; MCH 32.6 pg (25.0-35.0); MCHC 30.8 g/dL (31.0-37.0); MCV 105.8 fL (80.0-100.0); Macrocytosis Moderate; Mean Platelet Volume 9.8; Platelet Count 154 k/uL (150-450); RBC 4.22 m/uL (4.30-5.90)
[2024-04-25 10:29] LABS: Potassium 3.5 mmol/L (3.5-5.1)
[2024-04-25 10:30] LABS: ALT 17 U/L (4-49); AST 29 U/L (17-59); African American GFR (CKD) 75 (>60 ml/min/1.73 sqM); Albumin 2.9 g/dL (3.5-5.0); Albumin/Globulin Ratio 0.7; Alkaline Phosphatase 138 U/L (38-126); Anion Gap 6 mmol/L; Blood Urea Nitrogen 25 mg/dL (9-20); Calcium 8.5 mg/dL (8.4-10.2); Carbon Dioxide 29 mmol/L (22-30); Chloride 96 mmol/L (98-107); Globulin 3.9 g/dL; Glucose 139 mg/dL (74-99); Magnesium 1.8 mg/dL (1.6-2.3); Non-African American GFR(CKD) 65 (>60 ml/min/1.73 sqM); Sodium 131 mmol/L (137-145); Total Bilirubin 3.8 mg/dL (0.2-1.3); Total Protein 6.8 g/dL (6.3-8.2)
--- NOTE | 2024-04-25 10:50 | P.PN ---
Subjective Progress Note Date: 04/25/24 Reason for Consult (text): Atrial fibrillation on Eliquis at home History of present illness: This is a 74-year-old male patient of Dr. Sandra Reis with past medical history of persistent atrial fibrillation on Eliquis, chronic liver disease, chronic bilate ral lower extremity edema, chronic diastolic heart failure, hypertension, mitral valve insufficiency. We have been asked to evaluate the patient for atrial fibrillation on Eliquis at home. Patient presented to the emergency center due to edema in his legs and wounds. He also had change in mental status. Patient's history is obtained from his , patient is unable to provide any history. Patient apparently had a fall at home which his states occurred probably while she was sleeping. Patient has been started on IV Lasix 40 mg every 12 hours. Blood pressure 113/77, heart rate 84, pulse ox 95% on room air. Patient is seen today in the emergency center waiting for bed on the [facility] floor. EKG: Atrial fibrillation with RVR at 112 bpm Chest x-ray: No consolidation. CT of the head no acute hemorrhage, hydrocephalus or mass effect. Questionable right inferior orbital wall fracture. Tib-fib x-ray no acute findings. CT face: Acute minimally displaced fracture through the right orbital floor with associated hemorrhage into the right maxillary sinus. Laboratory studies: WBC 7.9, hemoglobin 14.8. INR 1.8. Sodium 129, potassium 4.9, BUN 23 creatinine 1.14. Lactic acid elevated 3.3. Alkaline phosphatase 148, ammonia 66. proBNP 2140. Home cardiac medications: Eliquis 5 mg twice daily, Lasix 40 mg twice daily, metoprolol tartrate 25 mg twice daily, Aldactone 50 mg daily Echocardiogram performed on 03/13/2024 reveals left ventricular systolic function borderline normal at 50 to 55%, severe tricuspid regurgitation with mild pulmonary hypertension. Severely calcified aortic valve with mean gradient 12 mmHg. The valve area could be underestimated. Mild mitral regurgitation. Lexiscan Cardiolite stress test performed 12/18/2023 in the office revealed inconclusive EKG part of the stress test due to baseline EKG abnormalities. Normal myocardial perfusion and function. 04/25 Patient is seen today on the [facility] floor. Blood pressure 124/78, heart rate 91, pulse ox 99% on room air. Blood work from yesterday revealed hemoglobin of 12.2. Platelet count 132. Sodium 131, potassium 3.5, BUN 26 and creatinine 0.98. Lactic acid was 2.3. Patient is followed by infectious disease for gram- negative bacteremia, pressure ulcer in the right heel and cellulitis of the low er extremities. He states he feels weaker todya. He also states that he has been urinating every hour. he has sat at the side of the bed and denies lightheadedness. He states he had abd cramps this morning. Physical examination: Gen: This is a 74-year-old obese male in no respiratory distress VS: reviewed HEENT: Head is atraumatic, normocephalic. Pupils equal, round. Sclerae is anicteric. NECK: Supple. Positive JVD. LUNGS: Clear to auscultation. No wheezes or rhonchi. No intercostal retract ions. HEART: Regular rate and rhythm. No murmur. ABDOMEN: Soft No tenderness. Positive ascites EXTREMITIES:2- 3+ bilateral lower extremity edema, chronic skin changes. No calf tenderness. NEUROLOGICAL: Patient is awake and alert, cooperative. Assessment: Persistent atrial fibrillation on Eliquis Nasal bone fracture and orbital wall fracture with bleeding into the sinus Acute metabolic encephalopathy most likely hepatic in nature with elevated ammonia level or septic encephalopathy Fall at home Cellulitis of bilateral lower extremities Gram-negative bacteremia Chronic liver disease Chronic bilateral lower extremity edema increased Chronic diastolic heart failure Hypertension Mitral valve insufficiency Plan: Continue patient's home cardiac medications with the following changes: Continue patient on Coreg 6.25 mg twice daily Continue patient on metolazone 5 mg daily Continue IV Lasix 40 mg every 12 hours another 24 hours Monitor SONIA, daily weights, electrolytes and renal function Eliquis will be resumed No need to repeat echocardiogram as this was done in February Further recommendations to follow based upon clinical course Nurse practitioner note has been reviewed, I agree with documented findings and plan of care. Patient was seen and examined. Objective - Vital Signs Vital signs: Vital Signs Temp 98.0 F 04/25/24 02:00 Pulse 91 04/25/24 02:00 Resp 18 04/25/24 02:00 BP 124/78 04/25/24 02:00 Pulse Ox 99 04/25/24 02:00 FiO2 Intake & Output 04/24/24 04/25/24 04/25/24 18:59 06:59 18:59 Intake Total 240 Output Total 1380 700 Balance -1140 -700 Weight 99.79 kg 100.5 kg Intake: Oral 240 Output: Urine 1250 700 Post Void Residual 130 Other: Voiding Method Bedside Commode Bedside Commode Urinal Urinal Diaper # Voids 2 # Bowel Movements 3 2 - Labs CBC & Chem 7: 04/25/24 09:52 04/25/24 09:52 Labs: Microbiology - Last 24 Hours (Table) 04/23/24 02:10 Blood Culture - Preliminary Blood 04/23/24 02:54 Gram Stain - Final Leg - Right Wound Culture - Final Serratia marcescens 04/23/24 02:25 Blood Culture Gram Stain - Preliminary Blood Blood Culture - Preliminary Molecular ID
[2024-04-25] MEDS ORDERED: CYCLOBENZAPRINE 5 MG TAB PO PRN (10:59)
--- NOTE | 2024-04-25 11:05 | P.PN ---
Subjective Progress Note Date: 04/25/24 I assumed care for this patient on 04/24. 74-year-old male with a PMH of liver cirrhosis, chronic atrial fibrillation on anticoagulation with Eliquis, chronic diastolic CHF with a EF of 55 to 60% on Lasix and Aldactone, HTN, CKD stage IIIb and chronic bilateral lower extremity wounds/ulcers presents to the ED for worsening swelling, redness and pain in his bilateral lower extremities. also reports intermittent confusion. Patient recently admitted from 03/12-03/19 for CHF exacerbation, hepatic ence phalopathy and MSSA/Seratia cellulitis of the lower extremities. Patient reports sharp stabbing pain in his lower extremities. He denies any recent falls or LOC. He denies any head trauma. reports diarrhea which she related to the use of Lactulose. In the ED he underwent extensive evaluation. BP 111/64, HR 110, RR 18, T 98.7F, 95% on RA. CBC, Coag panel, CMP performed significant for MCV 106.5, Plt 143, PT 18.6, INR 1.8, APTT 31.7, Na 129, bicarb 19, BUN 23, Ca 8.3, T. Bili 4, alk phos 148, alb 3.3. BNP 2140. Ammonia 66. Lactic acid 2.5. EKG atrial fibrillation with RVR rate of 112, RBBB, nonspecific ST T wave changes. CT brain negative. CT face acute minimally displaced fracture through right orbital floor with associated right maxillary sinus hemorrhage. Tib-Fib and CXR negative. Started on Vancomycin and Zosyn for treatment of cellulitis. US RLE negative for abscess. ID and Wound care consulted. BCx + gram negative bacteria. Cardiology consulted for A-Fib with RVR. Eliquis held, Metoprolol discontinued and started on Coreg 6.25 mg PO BID, metolazone 5 mg PO QD added and continued on Lasix 40 mg IV BID. ENT consulted for orbital fracture. 04/24 Patient was seen and examined. at bedside. No acute events overnight. CBC RBC 3.64, Hg 12.2, MCV 107, Plt 132. CMP Na 131, BUN 26, glu 137, Ca 7.9, T. Bili 3.7, alb 2.3. Lactic acid 2.3. 04/25 Patient was seen and examined. at bedside. Patient reports shooting pain in both of his legs along with cramping. Blood cultures Klebsiella and WCx growing Serratia. ID has adjusted antibiotics and discontinued Vancomycin while continuing Zosyn. CBC RBC 4.22, MCV 105.8. CMP Na 131, Cl 96, BUN 25, glu 139, T. Bili 3.8, alk phos 138, alb 2.9. C. diff negative. General: no acute distress, appears at stated age Derm: warm, dry Head: atraumatic, normocephalic, symmetric Eyes: EOMI, no lid lag, anicteric sclera Mouth: no lip lesion, mucus membranes moist Cardiovascular: Good distal perfusion in all 4 extremities Lungs: Breathing comfortably, no accessory muscle use Ext: no gross muscle atrophy, bilateral lower extremity edema with weeping wounds and erythema, no contractures Neuro: no focal neuro deficits Psych: Alert, oriented, appropriate affect Based on my assessment of this patient, this patient meets a high complexity level of care. Acute metabolic encephalopathy likey due to hyperammonemia and bacteremia: Fall and aspiration precautions. Continue Lactulose 30g PO QID. PT and OT consulted. Gram negative bacteremia likely due to cellulitis: Vancomycin discontinued. Continue Zosyn 3.375g IV TID (D2). Telemetry monitoring. Follow WCx and final BCx. ID and wound care on board. Atrial fibrillation with RVR: Coreg 6.25 mg PO BID. Eliquis on hold due to maxillary sinus hemorrhage. Cardiology on board. Right orbital floor fracture with right maxillary sinus hemorrhage: ENT consulted. Lactic acidosis in the setting of liver cirrhosis: We will stop trending persistently elevated lactic acid. Hyponatremia: Improving with IV diuresis. Prerenal azotemia due to forced diuresis: Monitor electrolytes and renal function while on Lasix IV and Vancomycin. Supratherapeutic INR in the setting of liver cirrhosis Chronic conditions: Diastolic CHF with EF 55-60%, HTN, CKD stage IIIb CODE STATUS: FULL CODE DVT Prophylaxis: Lovenox GI Prophylaxis: Designated medical POA if patient is not able to make medical decisions for themselves: I have reviewed the following small business consultant notes: Cardiology, ID I have reviewed the results of the following tests: CBC, CMP, C. diff I have ordered the following tests: CBC, BMP I have discussed the care of this patient with the following independent historian: . I have independently interpreted the following test below: I have discussed the management of this patient with the following physician: Objective - Vital Signs Vital signs: Vital Signs Temp 98.2 F 04/25/24 06:54 Pulse 91 04/25/24 07:55 Resp 18 04/25/24 07:55 BP 128/72 04/25/24 06:54 Pulse Ox 95 04/25/24 06:54 FiO2 Intake & Output 04/24/24 04/25/24 04/25/24 18:59 06:59 18:59 Intake Total 240 Output Total 1380 700 Balance -1140 -700 Weight 99.79 kg 100.5 kg Intake: Oral 240 Output: Urine 1250 700 Post Void Residual 130 Other: Voiding Method Bedside Commode Bedside Commode Bedside Commode Urinal Urinal Urinal Diaper # Voids 2 # Bowel Movements 3 2 - Labs CBC & Chem 7: 04/25/24 09:52 04/25/24 09:52 Labs: Abnormal Lab Results - Last 24 Hours (Table) 04/25/24 04/25/24 Range/Units 09:52 09:52 RBC 4.22 L (4.30-5.90) m/uL MCV 105.8 H (80.0-100.0) fL MCHC 30.8 L (31.0-37.0) g/dL Sodium 131 L (137-145) mmol/L Chloride 96 L (98-107) mmol/L BUN 25 H (9-20) mg/dL Glucose 139 H (74-99) mg/dL Total Bilirubin 3.8 H (0.2-1.3) mg/dL Alkaline Phosphatase 138 H (38-126) U/L Albumin 2.9 L (3.5-5.0) g/dL Microbiology - Last 24 Hours (Table) 04/23/24 02:54 Gram Stain - Final Leg - Right Wound Culture - Final Serratia marcescens 04/23/24 02:10 Blood Culture - Preliminary Blood 04/23/24 02:25 Blood Culture Gram Stain - Preliminary Blood Blood Culture - Preliminary Molecular ID
[2024-04-25] MEDS: APIXABAN 5 MG TAB PO SCH (12:01)
[2024-04-25] MEDS: GABAPENTIN 100 MG CAP PO SCH (12:01)
[2024-04-25] MEDS: CYCLOBENZAPRINE 5 MG TAB PO STA (12:01)
[2024-04-25] MEDS ORDERED: VANCOMYCIN TROUGH DUE 1 EACH MISC MISCELLANE ONE (15:00)
--- NOTE | 2024-04-25 15:03 | P.PN ---
Subjective Progress Note Date: 04/25/24 Principal diagnosis: Reason for follow-up is right lower extremity cellulitis and bacteremia Patient is a 74-year-old male with a past medical history significant for atrial fibrillation hypertension heart failure liver cirrhosis did have a history of nonhealing wound to lower extremity especially in the heel area presented to hospital with increasing swelling redness to the right lower extremity has been diagnosed with cellulitis. Patient blood cultures are coming back positive gram-negative. On today's evaluation that is 04/25/2024, the patient continues to be afebrile, the patient is on room air and breathing comfortably, the Pt denies having any chest pain or cough, the patient denies having any abdominal pain no vomiting complaining of some discomfort to the ankle area on the right side. Patient white count is 9.0, creatinine is 1.10 Objective - Vital Signs Vital signs: Vital Signs Temp 98.2 F 04/25/24 06:54 Pulse 91 04/25/24 07:55 Resp 18 04/25/24 07:55 BP 128/72 04/25/24 06:54 Pulse Ox 95 04/25/24 06:54 FiO2 Intake & Output 04/24/24 04/25/24 04/25/24 18:59 06:59 18:59 Intake Total 240 Output Total 1380 700 Balance -1140 -700 Weight 99.79 kg 100.5 kg Intake: Oral 240 Output: Urine 1250 700 Post Void Residual 130 Other: Voiding Method Bedside Commode Bedside Commode Bedside Commode Urinal Urinal Urinal Diaper # Voids 2 # Bowel Movements 3 2 - Exam GENERAL DESCRIPTION: An elderly male up in bed in no distress RESPIRATORY SYSTEM: Unlabored breathing , decreased breath sounds at bases HEART: S1 S2 regular rate and rhythm , ABDOMEN: Soft , no tenderness EXTREMITIES: Bilateral extremity currently wrapped in Jim wrap no drainage - Labs CBC & Chem 7: 04/25/24 09:52 04/25/24 09:52 Labs: Abnormal Lab Results - Last 24 Hours (Table) 04/25/24 04/25/24 Range/Units 09:52 09:52 RBC 4.22 L (4.30-5.90) m/uL MCV 105.8 H (80.0-100.0) fL MCHC 30.8 L (31.0-37.0) g/dL Sodium 131 L (137-145) mmol/L Chloride 96 L (98-107) mmol/L BUN 25 H (9-20) mg/dL Glucose 139 H (74-99) mg/dL Total Bilirubin 3.8 H (0.2-1.3) mg/dL Alkaline Phosphatase 138 H (38-126) U/L Albumin 2.9 L (3.5-5.0) g/dL Microbiology - Last 24 Hours (Table) 04/23/24 02:54 Anaerobic Culture - Preliminary Leg - Right 04/23/24 02:10 Blood Culture - Preliminary Blood 04/23/24 02:25 Blood Culture Gram Stain - Preliminary Blood Blood Culture - Preliminary Gram Neg Bacilli Molecular ID 04/23/24 02:54 Gram Stain - Final Leg - Right Wound Culture - Final Serratia marcescens Assessment and Plan (1) Bilateral lower leg cellulitis Current Visit: Yes Status: Acute Code(s): L03.116 - CELLULITIS OF LEFT LOWER LIMB; L03.115 - CELLULITIS OF RIGHT LOWER LIMB SNOMED Code(s): 142897471 (2) Pressure ulcer of right heel, stage 2 Current Visit: No Status: Acute Code(s): L89.612 - PRESSURE ULCER OF RIGHT HEEL, STAGE 2 SNOMED Code(s): 92836741458135 (3) Gram-negative bacteremia Current Visit: Yes Status: Acute Code(s): R78.81 - BACTEREMIA SNOMED Code(s): 039297969205 Plan: 1patient presented hospital with increased weakness lethargy and this patient also have increasing swelling redness to both legs especially in the right leg and the patient did have a ulceration to the right heel likely the source of this cellulitis likely from gram-positive skin phillip underlying gram-negative infection not entirely excluded 2-patient local cultures are growing Serratia and blood culture growing gram- negative bacilli 3-patient currently be treated with the Zosyn to continue with repeated blood culture with a.m. lab Dictation was produced using [employer] dictation software. please excuse any grammatical, word or spelling errors.
[2024-04-26 05:19] LABS: HCT 39.9 % (39.0-53.0); HGB 12.9 gm/dL (13.0-17.5); Hypochromasia Slight; MCH 33.1 pg (25.0-35.0); MCHC 32.3 g/dL (31.0-37.0); MCV 102.7 fL (80.0-100.0); Macrocytosis Slight; Mean Platelet Volume 9.7; Platelet Count 148 k/uL (150-450); RBC 3.88 m/uL (4.30-5.90); RDW 15.4 % (11.5-15.5); WBC 6.2 k/uL (3.8-10.6)
[2024-04-26 05:31] LABS: ALT 15 U/L (4-49); AST 24 U/L (17-59); African American GFR (CKD) >90 (>60 ml/min/1.73 sqM); Albumin 2.6 g/dL (3.5-5.0); Albumin/Globulin Ratio 0.7; Alkaline Phosphatase 113 U/L (38-126); Anion Gap 7 mmol/L; Blood Urea Nitrogen 26 mg/dL (9-20); Calcium 8.6 mg/dL (8.4-10.2); Carbon Dioxide 29 mmol/L (22-30); Chloride 95 mmol/L (98-107); Globulin 3.6 g/dL; Glucose 104 mg/dL (74-99); Magnesium 1.6 mg/dL (1.6-2.3); Non-African American GFR(CKD) 79 (>60 ml/min/1.73 sqM); Potassium 3.3 mmol/L (3.5-5.1); Sodium 131 mmol/L (137-145); Total Protein 6.2 g/dL (6.3-8.2)
[2024-04-26] MEDS: MAGNESIUM SULFATE-D5W PMX 1 GM in DEXTROSE/WATER 1 100ML.BAG IVPB SCH (09:08)
[2024-04-26] MEDS: POTASSIUM CHLORIDE ER 20 MEQ TAB.ER PO STA (09:09)
--- NOTE | 2024-04-26 10:32 | P.PN ---
Subjective Progress Note Date: 04/26/24 I assumed care for this patient on 04/24. 74-year-old male with a PMH of liver cirrhosis, chronic atrial fibrillation on anticoagulation with Eliquis, chronic diastolic CHF with a EF of 55 to 60% on Lasix and Aldactone, HTN, CKD stage IIIb and chronic bilateral lower extremity wounds/ulcers presents to the ED for worsening swelling, redness and pain in his bilateral lower extremities. also reports intermittent confusion. Patient recently admitted from 03/12-03/19 for CHF exacerbation, hepatic ence phalopathy and MSSA/Seratia cellulitis of the lower extremities. Patient reports sharp stabbing pain in his lower extremities. He denies any recent falls or LOC. He denies any head trauma. reports diarrhea which she related to the use of Lactulose. In the ED he underwent extensive evaluation. BP 111/64, HR 110, RR 18, T 98.7F, 95% on RA. CBC, Coag panel, CMP performed significant for MCV 106.5, Plt 143, PT 18.6, INR 1.8, APTT 31.7, Na 129, bicarb 19, BUN 23, Ca 8.3, T. Bili 4, alk phos 148, alb 3.3. BNP 2140. Ammonia 66. Lactic acid 2.5. EKG atrial fibrillation with RVR rate of 112, RBBB, nonspecific ST T wave changes. CT brain negative. CT face acute minimally displaced fracture through right orbital floor with associated right maxillary sinus hemorrhage. Tib-Fib and CXR negative. Started on Vancomycin and Zosyn for treatment of cellulitis. US RLE negative for abscess. ID and Wound care consulted. BCx + gram negative bacteria. Cardiology consulted for A-Fib with RVR. Eliquis held, Metoprolol discontinued and started on Coreg 6.25 mg PO BID, metolazone 5 mg PO QD added and continued on Lasix 40 mg IV BID. ENT consulted for orbital fracture. 04/24 Patient was seen and examined. at bedside. No acute events overnight. CBC RBC 3.64, Hg 12.2, MCV 107, Plt 132. CMP Na 131, BUN 26, glu 137, Ca 7.9, T. Bili 3.7, alb 2.3. Lactic acid 2.3. 04/25 Patient was seen and examined. at bedside. Patient reports shooting pain in both of his legs along with cramping. Blood cultures Klebsiella and WCx growing Serratia. ID has adjusted antibiotics and discontinued Vancomycin while continuing Zosyn. CBC RBC 4.22, MCV 105.8. CMP Na 131, Cl 96, BUN 25, glu 139, T. Bili 3.8, alk phos 138, alb 2.9. C. diff negative. 04/26 Patient was seen and examined. He reports well controlled pain in his bilateral lower extremities this morning. Maintained on Zosyn 3.375g IV TID (D3). CBC RBC 3.88, Hg 12.9, MCV 102.7, Plt 148. CMP Na 131, K 3.3, Cl 95, BUN 26, glu 104, T. Bili 3, alb 2.6, total protein 6.2. Mag is 1.6. General: no acute distress, appears at stated age Derm: warm, dry Head: atraumatic, normocephalic, symmetric Eyes: EOMI, no lid lag, anicteric sclera Mouth: no lip lesion, mucus membranes moist Cardiovascular: Good distal perfusion in all 4 extremities Lungs: Breathing comfortably, no accessory muscle use Ext: no gross muscle atrophy, bilateral lower extremity edema with weeping wounds and erythema, no contractures Neuro: no focal neuro deficits Psych: Alert, oriented, appropriate affect Based on my assessment of this patient, this patient meets a high complexity level of care. Acute metabolic encephalopathy likey due to hyperammonemia and bacteremia: Fall and aspiration precautions. Continue Lactulose 30g PO QID. PT and OT consulted. Gram negative bacteremia likely due to cellulitis: Vancomycin discontinued. Continue Zosyn 3.375g IV TID (D3). Telemetry monitoring. Follow WCx and final BCx. ID and wound care on board. Atrial fibrillation with RVR: Coreg 6.25 mg PO BID. Eliquis on hold due to maxillary sinus hemorrhage. Cardiology on board. Right orbital floor fracture with right maxillary sinus hemorrhage: ENT consulted. Lactic acidosis in the setting of liver cirrhosis: We will stop trending persistently elevated lactic acid. Hyponatremia: Improving with IV diuresis. Prerenal azotemia due to forced diuresis: Monitor electrolytes and renal function while on Lasix IV and Vancomycin. Hypokalemia: Replace with KCl 40 meq PO x 1 today along with Mag sulfate 2g IV x 1. Supratherapeutic INR in the setting of liver cirrhosis Chronic conditions: Diastolic CHF with EF 55-60%, HTN, CKD stage IIIb CODE STATUS: FULL CODE DVT Prophylaxis: Lovenox GI Prophylaxis: Designated medical POA if patient is not able to make medical decisions for themselves: I have reviewed the following merchandising consultant notes: Cardiology, ID I have reviewed the results of the following tests: CBC, CMP, Mag I have ordered the following tests: CBC, BMP I have discussed the care of this patient with the following independent historian: RN. I have independently interpreted the following test below: I have discussed the management of this patient with the following physician: Objective - Vital Signs Vital signs: Vital Signs Temp 97.6 F 04/26/24 07:26 Pulse 86 04/26/24 07:26 Resp 18 04/26/24 07:26 BP 112/74 04/26/24 07:26 Pulse Ox 94 L 04/26/24 07:26 FiO2 Intake & Output 04/25/24 04/26/24 04/26/24 18:59 06:59 18:59 Output Total 400 Balance -400 Weight 95.5 kg Output: Urine 400 Other: Voiding Method Bedside Commode Toilet Urinal Urinal # Voids 1 3 # Bowel Movements 1 - Labs CBC & Chem 7: 04/26/24 04:44 04/26/24 04:44 Labs: Abnormal Lab Results - Last 24 Hours (Table) 04/25/24 04/26/24 04/26/24 Range/Units 09:52 04:44 04:44 RBC 3.88 L (4.30-5.90) m/uL Hgb 12.9 L (13.0-17.5) gm/dL MCV 102.7 H (80.0-100.0) fL Plt Count 148 L (150-450) k/uL Sodium 131 L 131 L (137-145) mmol/L Potassium 3.3 L (3.5-5.1) mmol/L Chloride 96 L 95 L (98-107) mmol/L BUN 25 H 26 H (9-20) mg/dL Glucose 139 H 104 H (74-99) mg/dL Total Bilirubin 3.8 H 3.0 H (0.2-1.3) mg/dL Alkaline Phosphatase 138 H (38-126) U/L Total Protein 6.2 L (6.3-8.2) g/dL Albumin 2.9 L 2.6 L (3.5-5.0) g/dL Microbiology - Last 24 Hours (Table) 04/23/24 02:54 Anaerobic Culture - Preliminary Leg - Right 04/23/24 02:10 Blood Culture - Preliminary Blood 04/23/24 02:25 Blood Culture Gram Stain - Preliminary Blood Blood Culture - Preliminary Gram Neg Bacilli Molecular ID 04/23/24 02:54 Gram Stain - Final Leg - Right Wound Culture - Final Serratia marcescens
--- NOTE | 2024-04-26 10:48 | P.PN ---
Subjective Progress Note Date: 04/26/24 Reason for Consult (text): Atrial fibrillation on Eliquis at home History of present illness: This is a 74-year-old male patient of Dr. Sandra Reis with past medical history of persistent atrial fibrillation on Eliquis, chronic liver disease, chronic bilate ral lower extremity edema, chronic diastolic heart failure, hypertension, mitral valve insufficiency. We have been asked to evaluate the patient for atrial fibrillation on Eliquis at home. Patient presented to the emergency center due to edema in his legs and wounds. He also had change in mental status. Patient's history is obtained from his , patient is unable to provide any history. Patient apparently had a fall at home which his states occurred probably while she was sleeping. Patient has been started on IV Lasix 40 mg every 12 hours. Blood pressure 113/77, heart rate 84, pulse ox 95% on room air. Patient is seen today in the emergency center waiting for bed on the [facility] floor. EKG: Atrial fibrillation with RVR at 112 bpm Chest x-ray: No consolidation. CT of the head no acute hemorrhage, hydrocephalus or mass effect. Questionable right inferior orbital wall fracture. Tib-fib x-ray no acute findings. CT face: Acute minimally displaced fracture through the right orbital floor with associated hemorrhage into the right maxillary sinus. Laboratory studies: WBC 7.9, hemoglobin 14.8. INR 1.8. Sodium 129, potassium 4.9, BUN 23 creatinine 1.14. Lactic acid elevated 3.3. Alkaline phosphatase 148, ammonia 66. proBNP 2140. Home cardiac medications: Eliquis 5 mg twice daily, Lasix 40 mg twice daily, metoprolol tartrate 25 mg twice daily, Aldactone 50 mg daily Echocardiogram performed on 03/13/2024 reveals left ventricular systolic function borderline normal at 50 to 55%, severe tricuspid regurgitation with mild pulmonary hypertension. Severely calcified aortic valve with mean gradient 12 mmHg. The valve area could be underestimated. Mild mitral regurgitation. Lexiscan Cardiolite stress test performed 12/18/2023 in the office revealed inconclusive EKG part of the stress test due to baseline EKG abnormalities. Normal myocardial perfusion and function. 04/25 Patient is seen today on the [facility] floor. Blood pressure 124/78, heart rate 91, pulse ox 99% on room air. Blood work from yesterday revealed hemoglobin of 12.2. Platelet count 132. Sodium 131, potassium 3.5, BUN 26 and creatinine 0.98. Lactic acid was 2.3. Patient is followed by infectious disease for gram- negative bacteremia, pressure ulcer in the right heel and cellulitis of the low er extremities. He states he feels weaker todya. He also states that he has been urinating every hour. he has sat at the side of the bed and denies lightheadedness. He states he had abd cramps this morning. 04/26 Patient has been afebrile, heart rate 70, blood pressure 114/77, pulse ox 95% on room air. Repeat blood work reveals WBC 6.2, hemoglobin 12.9. Sodium 131, potassium 3.3, chloride 95, CO2 29, BUN 26 creatinine 0.9. Telemetry atrial fibrillation. Patient has been maintained on IV Lasix 40 mg every 12 hours. Yesterday, we resumed patient back on Eliquis. Patient denies chest pain but does have shortness of breath. This is about the same. He feels he is urinating less today. Edema is improving slowly. Physical examination: Gen: This is a 74-year-old obese male in no respiratory distress VS: reviewed HEENT: Head is atraumatic, normocephalic. Pupils equal, round. Sclerae is ani cteric. NECK: Supple. Positive JVD. LUNGS: Clear to auscultation. No wheezes or rhonchi. No intercostal retractions. HEART: Regular rate and rhythm. No murmur. ABDOMEN: Soft No tenderness. Positive ascites EXTREMITIES:2+ bilateral lower extremity edema, chronic skin changes. No calf tenderness. NEUROLOGICAL: Patient is awake and alert, cooperative. Assessment: Persistent atrial fibrillation on Eliquis Nasal bone fracture and orbital wall fracture with bleeding into the sinus Acute metabolic encephalopathy most likely hepatic in nature with elevated ammonia level or septic encephalopathy Fall at home Cellulitis of bilateral lower extremities Gram-negative bacteremia Chronic liver disease Chronic bilateral lower extremity edema increased Chronic diastolic heart failure Hypertension Mitral valve insufficiency Plan: Continue current cardiac medications: Eliquis 5 mg twice daily, Coreg 6.25 mg twice daily, metolazone 5 mg daily, Aldactone 50 mg daily Continue IV Lasix 40 mg every 12 hours another 24 hours and transition to oral tomorrow Monitor SONIA, daily weights, electrolytes and renal function No need to repeat echocardiogram as this was done in February Further recommendations to follow based upon clinical course Nurse practitioner note has been reviewed, I agree with documented findings and plan of care. Patient was seen and examined. Objective - Vital Signs Vital signs: Vital Signs Temp 97.5 F L 04/26/24 01:17 Pulse 70 04/26/24 01:17 Resp 18 04/26/24 01:17 BP 114/77 04/26/24 01:17 Pulse Ox 95 04/26/24 01:17 FiO2 Intake & Output 04/25/24 04/26/24 04/26/24 18:59 06:59 18:59 Output Total 400 Balance -400 Weight 95.5 kg Output: Urine 400 Other: Voiding Method Bedside Commode Toilet Urinal Urinal # Voids 1 3 # Bowel Movements 1 - Labs CBC & Chem 7: 04/26/24 04:44 04/26/24 04:44 Labs: Abnormal Lab Results - Last 24 Hours (Table) 04/25/24 04/25/24 04/26/24 Range/Units 09:52 09:52 04:44 RBC 4.22 L 3.88 L (4.30-5.90) m/uL Hgb 12.9 L (13.0-17.5) gm/dL MCV 105.8 H 102.7 H (80.0-100.0) fL MCHC 30.8 L (31.0-37.0) g/dL Plt Count 148 L (150-450) k/uL Sodium 131 L (137-145) mmol/L Potassium (3.5-5.1) mmol/L Chloride 96 L (98-107) mmol/L BUN 25 H (9-20) mg/dL Glucose 139 H (74-99) mg/dL Total Bilirubin 3.8 H (0.2-1.3) mg/dL Alkaline Phosphatase 138 H (38-126) U/L Total Protein (6.3-8.2) g/dL Albumin 2.9 L (3.5-5.0) g/dL 04/26/24 Range/Units 04:44 RBC (4.30-5.90) m/uL Hgb (13.0-17.5) gm/dL MCV (80.0-100.0) fL MCHC (31.0-37.0) g/dL Plt Count (150-450) k/uL Sodium 131 L (137-145) mmol/L Potassium 3.3 L (3.5-5.1) mmol/L Chloride 95 L (98-107) mmol/L BUN 26 H (9-20) mg/dL Glucose 104 H (74-99) mg/dL Total Bilirubin 3.0 H (0.2-1.3) mg/dL Alkaline Phosphatase (38-126) U/L Total Protein 6.2 L (6.3-8.2) g/dL Albumin 2.6 L (3.5-5.0) g/dL Microbiology - Last 24 Hours (Table) 04/23/24 02:54 Anaerobic Culture - Preliminary Leg - Right 04/23/24 02:10 Blood Culture - Preliminary Blood 04/23/24 02:25 Blood Culture Gram Stain - Preliminary Blood Blood Culture - Preliminary Gram Neg Bacilli Molecular ID 04/23/24 02:54 Gram Stain - Final Leg - Right Wound Culture - Final Serratia marcescens
[2024-04-26] MEDS: POTASSIUM CHLORIDE ER 20 MEQ TAB.ER PO ONE (10:55)
--- NOTE | 2024-04-26 15:58 | P.PN ---
Subjective Progress Note Date: 04/26/24 Principal diagnosis: Reason for follow-up is right lower extremity cellulitis and bacteremia Patient is a 74-year-old male with a past medical history significant for atrial fibrillation hypertension heart failure liver cirrhosis did have a history of nonhealing wound to lower extremity especially in the heel area presented to hospital with increasing swelling redness to the right lower extremity has been diagnosed with cellulitis. Patient blood cultures are coming back positive gram-negative. On today's evaluation that is 04/26/2024, Patient is afebrile patient is currently on room air and denies having any shortness of breath, the patient denies any chest pain or cough, the patient denies any nausea vomiting did not have any abdominal pain and no worsening diarrhea and no worsening pain to the lower extremity. Patient white count 6.2, creatinine 0.94. Blood culture repeat has been negative so far Objective - Vital Signs Vital signs: Vital Signs Temp 97.5 F L 04/26/24 13:28 Pulse 98 04/26/24 13:28 Resp 17 04/26/24 13:28 BP 103/67 04/26/24 13:28 Pulse Ox 96 04/26/24 13:28 FiO2 Intake & Output 04/25/24 04/26/24 04/26/24 18:59 06:59 18:59 Output Total 400 Balance -400 Weight 95.5 kg Output: Urine 400 Other: Voiding Method Bedside Commode Toilet Toilet Urinal Urinal Urinal # Voids 1 3 2 # Bowel Movements 1 - Exam GENERAL DESCRIPTION: An elderly male up in bed in no distress RESPIRATORY SYSTEM: Unlabored breathing , decreased breath sounds at bases HEART: S1 S2 regular rate and rhythm , ABDOMEN: Soft , no tenderness EXTREMITIES: Bilateral extremity currently wrapped in Jim wrap no drainage - Labs CBC & Chem 7: 04/26/24 04:44 04/26/24 04:44 Labs: Abnormal Lab Results - Last 24 Hours (Table) 04/26/24 04/26/24 Range/Units 04:44 04:44 RBC 3.88 L (4.30-5.90) m/uL Hgb 12.9 L (13.0-17.5) gm/dL MCV 102.7 H (80.0-100.0) fL Plt Count 148 L (150-450) k/uL Sodium 131 L (137-145) mmol/L Potassium 3.3 L (3.5-5.1) mmol/L Chloride 95 L (98-107) mmol/L BUN 26 H (9-20) mg/dL Glucose 104 H (74-99) mg/dL Total Bilirubin 3.0 H (0.2-1.3) mg/dL Total Protein 6.2 L (6.3-8.2) g/dL Albumin 2.6 L (3.5-5.0) g/dL Microbiology - Last 24 Hours (Table) 04/23/24 02:10 Blood Culture - Preliminary Blood 04/23/24 02:25 Blood Culture Gram Stain - Final Blood Blood Culture - Final Klebsiella pneumoniae Molecular ID 04/23/24 02:54 Anaerobic Culture - Preliminary Leg - Right Assessment and Plan (1) Bilateral lower leg cellulitis Current Visit: Yes Status: Acute Code(s): L03.116 - CELLULITIS OF LEFT LOWER LIMB; L03.115 - CELLULITIS OF RIGHT LOWER LIMB SNOMED Code(s): 774844977 (2) Pressure ulcer of right heel, stage 2 Current Visit: No Status: Acute Code(s): L89.612 - PRESSURE ULCER OF RIGHT HEEL, STAGE 2 SNOMED Code(s): 37816233924411 (3) Gram-negative bacteremia Current Visit: Yes Status: Acute Code(s): R78.81 - BACTEREMIA SNOMED Code(s): 254213066194 Plan: 1patient presented hospital with increased weakness lethargy and this patient also have increasing swelling redness to both legs especially in the right leg and the patient did have a ulceration to the right heel likely the source of this cellulitis likely from gram-positive skin phillip underlying gram-negative infection not entirely excluded 2-patient local cultures are growing Serratia and blood culture growing Klebsiella that is a sensitive pathogen 3-patient antibiotics will be switched over to cefepime and hopefully finishing therapy with oral Cipro if no drug interactions Dictation was produced using [email or web address] dictation software. please excuse any grammatical, word or spelling errors. Time with Patient: Less than 30
[2024-04-26] MEDS: CEFEPIME 2 GM in SODIUM CHLORIDE 0.9% 100 ML IVPB SCH (17:42)
[2024-04-27] MEDS ORDERED: MAGNESIUM SULFATE-D5W PMX 1 GM in DEXTROSE/WATER 1 100ML.BAG IVPB SCH (08:15)
[2024-04-27 09:01] LABS: Basophils # (A) 0.1 k/uL (0-0.2); Basophils % (A) 1 %; Eosinophils # (A) 0.2 k/uL (0-0.7); Eosinophils % (A) 3 %; HCT 47.9 % (39.0-53.0); HGB 14.6 gm/dL (13.0-17.5); Hypochromasia Moderate; Lymphocytes # (A) 0.5 k/uL (1.0-4.8); Lymphocytes % (A) 9 %; MCH 32.3 pg (25.0-35.0); MCHC 30.4 g/dL (31.0-37.0); MCV 106.2 fL (80.0-100.0); Macrocytosis Moderate; Mean Platelet Volume 9.7; Monocytes # (A) 0.7 k/uL (0-1.0); Monocytes % (A) 12 %; Neutrophils # (A) 4.4 k/uL (1.3-7.7); Neutrophils % (A) 73 %; Platelet Count 221 k/uL (150-450); RBC 4.51 m/uL (4.30-5.90); RDW 15.2 % (11.5-15.5)
[2024-04-27 09:15] LABS: ALT 19 U/L (4-49); AST 34 U/L (17-59); African American GFR (CKD) 79 (>60 ml/min/1.73 sqM); Albumin 3.1 g/dL (3.5-5.0); Albumin/Globulin Ratio 0.7; Alkaline Phosphatase 139 U/L (38-126); Anion Gap 8 mmol/L; Blood Urea Nitrogen 27 mg/dL (9-20); Calcium 9.3 mg/dL (8.4-10.2); Carbon Dioxide 34 mmol/L (22-30); Chloride 90 mmol/L (98-107); Globulin 4.3 g/dL; Glucose 117 mg/dL (74-99); Non-African American GFR(CKD) 68 (>60 ml/min/1.73 sqM); Potassium 4.1 mmol/L (3.5-5.1); Sodium 132 mmol/L (137-145); Total Bilirubin 3.2 mg/dL (0.2-1.3); Total Protein 7.4 g/dL (6.3-8.2)
--- NOTE | 2024-04-27 10:11 | P.PN ---
Subjective HISTORY OF PRESENT ILLNESS: This is a 74-year-old male patient of Dr. Sandra Reis with past medical history of persistent atrial fibrillation on Eliquis, chronic liver disease, chronic bilateral lower extremity edema, chronic diastolic heart failure, hypertension, mitral valve insufficiency. We have been asked to evaluate the patient for atrial fibrillation on Eliquis at home. Patient presented to the emergency center due to edema in his legs and wounds. He also had change in mental status. Patient's history is obtained from his , patient is unable to provide any history. Patient apparently had a fall at home which his states occurred probably while she was sleeping. Patient has been started on IV Lasix 40 mg every 12 hours. Blood pressure 113/77, heart rate 84, pulse ox 95% on room air. Patient is seen today in the emergency center waiting for bed on the [facility] floor. EKG: Atrial fibrillation with RVR at 112 bpm Chest x-ray: No consolidation. CT of the head no acute hemorrhage, hydrocephalus or mass effect. Questionable right inferior orbital wall fracture. Tib-fib x-ray no acute findings. CT face: Acute minimally displaced fracture through the right orbital floor with associated hemorrhage into the right maxillary sinus. Laboratory studies: WBC 7.9, hemoglobin 14.8. INR 1.8. Sodium 129, potassium 4.9, BUN 23 creatinine 1.14. Lactic acid elevated 3.3. Alkaline phosphatase 148, ammonia 66. proBNP 2140. Home cardiac medications: Eliquis 5 mg twice daily, Lasix 40 mg twice daily, metoprolol tartrate 25 mg twice daily, Aldactone 50 mg daily Echocardiogram performed on 03/13/2024 reveals left ventricular systolic function borderline normal at 50 to 55%, severe tricuspid regurgitation with mild pulmonary hypertension. Severely calcified aortic valve with mean gradient 12 mmHg. The valve area could be underestimated. Mild mitral regurgitation. Lexiscan Cardiolite stress test performed 12/18/2023 in the office revealed inconclusive EKG part of the stress test due to baseline EKG abnormalities. No rmal myocardial perfusion and function. 04/25 Patient is seen today on the [facility] floor. Blood pressure 124/78, heart rate 91, pulse ox 99% on room air. Blood work from yesterday revealed hemoglobin of 12.2. Platelet count 132. Sodium 131, potassium 3.5, BUN 26 and creatinine 0.98. Lactic acid was 2.3. Patient is followed by infectious disease for gram- negative bacteremia, pressure ulcer in the right heel and cellulitis of the lower extremities. He states he feels weaker todya. He also states that he has been urinating every hour. he has sat at the side of the bed and denies lightheadedness. He states he had abd cramps this morning. 04/26 Patient has been afebrile, heart rate 70, blood pressure 114/77, pulse ox 95% on room air. Repeat blood work reveals WBC 6.2, hemoglobin 12.9. Sodium 131, potassium 3.3, chloride 95, CO2 29, BUN 26 creatinine 0.9. Telemetry atrial fibrillation. Patient has been maintained on IV Lasix 40 mg every 12 hours. Yesterday, we resumed patient back on Eliquis. Patient denies chest pain but does have shortness of breath. This is about the same. He feels he is urinating less today. Edema is improving slowly. 04/27/2024 Patient examined this morning. Patient is sitting on the side of the bed. Patient's family is present. Patient currently denies chest pain or pressure. He denies shortness of breath. He does report having a lot of cramping in his legs this morning. He has Jim wraps noted to bilateral lower extremities with chronic edema. He remains on IV diuretics. Creatinine today remained stable at 1.07. Telemetry reveals atrial fibrillation with controlled ventricular rate. PHYSICAL EXAM: VITAL SIGNS: Reviewed. GENERAL: Well-developed in no acute distress. NECK: Supple. No JVD or thyromegaly LUNGS: Respirations even and unlabored. Lungs essentially clear to auscultation bilaterally. HEART: Irregular rate and rhythm. S1 and S2 heard. EXTREMITIES: Normal range of motion. No clubbing or cyanosis. Peripheral pulses intact. 2+ bilateral lower extremity edema with Jim bandages noted. ASSESSMENT: S/P mechanical fall Nasal bone fracture and orbital wall fracture with bleeding into the sinus Persistent atrial fibrillation on Eliquis Chronic heart failure with preserved EF, 50 to 55% Acute on chronic lower extremity edema, worsened by cellulitis Acute metabolic encephalopathy secondary to hyperammonemia Hyperammonemia Bilateral lower extremity cellulitis Bacteremia, blood cultures positive for Klebsiella pneumoniae Chronic liver disease Hypertension Severe tricuspid regurgitation Mild pulmonary hypertension PLAN: Continue current cardiac medications Discontinue IV lasix. Begin oral lasix 40mg BID. Patient is currently stable from a cardiac standpoint. We will follow on an as needed basis. Please call with questions or concerns. Nurse practitioner note has been reviewed by physician. Signing provider agrees with the documented findings, assessment, and plan of care documented by MATERIALS SPECIALIST as a scribe. Objective - Vital Signs Vital signs: Vital Signs Temp 97.3 F L 04/27/24 07:17 Pulse 90 04/27/24 07:17 Resp 16 04/27/24 07:17 BP 110/70 04/27/24 07:17 Pulse Ox 98 04/27/24 07:17 FiO2 Intake & Output 04/26/24 04/27/24 04/27/24 18:59 06:59 18:59 Intake Total 120 Output Total 850 Balance -730 Weight 98 kg Intake: Oral 120 Output: Urine 850 Other: Voiding Method Toilet Toilet Urinal Urinal # Voids 2 1 # Bowel Movements 1 1 - Labs CBC & Chem 7: 04/27/24 08:28 04/27/24 08:28 Labs: Abnormal Lab Results - Last 24 Hours (Table) 04/27/24 04/27/24 Range/Units 08:28 08:28 MCV 106.2 H (80.0-100.0) fL MCHC 30.4 L (31.0-37.0) g/dL Lymphocytes # 0.5 L (1.0-4.8) k/uL Sodium 132 L (137-145) mmol/L Chloride 90 L (98-107) mmol/L Carbon Dioxide 34 H (22-30) mmol/L BUN 27 H (9-20) mg/dL Glucose 117 H (74-99) mg/dL Total Bilirubin 3.2 H (0.2-1.3) mg/dL Alkaline Phosphatase 139 H (38-126) U/L Albumin 3.1 L (3.5-5.0) g/dL Microbiology - Last 24 Hours (Table) 04/23/24 02:10 Blood Culture - Preliminary Blood 04/23/24 02:25 Blood Culture Gram Stain - Final Blood Blood Culture - Final Klebsiella pneumoniae Molecular ID
[2024-04-27] MEDS: POTASSIUM CHLORIDE ER 20 MEQ TAB.ER PO STA (10:31)
[2024-04-27 14:01] VITALS: BMI 31.8
[2024-04-27] MEDS: IBUPROFEN 400 MG TAB PO PRN (14:54)
[2024-04-27] MEDS: FUROSEMIDE 40 MG TAB PO SCH (16:15)
--- NOTE | 2024-04-27 16:39 | P.PN ---
Subjective Progress Note Date: 04/27/24 Subjective: Patient seen and examined at bedside. No significant overnight events. Patient denies headache, chest pain, shortness of breath, palpitations, nausea, vomiting, diarrhea, abdominal pain. Pertinent positives and negatives discussed above, a complete review of systems was preformed and all the other sytems were negative. Vitals Signs Reveiwed. General: Nontoxic, no distress, appears at stated age Derm: Warm, dry, Jaundice Head: Atraumatic, normocephalic, symmetric Eyes: EOMI, no lid lag, sclera icterus Cardiovascular: Regular rate and rhythm, no murmurs or gallops appreciated Lungs: Lungs clear to auscultation bilaterally, no rhonchi or wheezing auscultated Abdominal: Soft nontender, no distention nor rigidity. Ext: Right lower extremity shows heavy bandaging, wound not observed. Neuro: Neurologically intact, no deficits appreciated. Psych: Alert, oriented, appropriate affect Data Reveiwed Today: Patient Labs: WBC 6.0, hemoglobin 14.6, MCV 106.2, platelet 221, sodium 132, potassium 4.1, chloride 98, bicarb 34, BUN 27, glucose 117, T. bili 3.2, alk phos 139, albumin 3.1, WBC 6, MCV 106.2 Imaging: CXR (04/23): Cardiomegaly without acute peripheral pulmonary infiltrate. No significant change from most recent imaging. Lower extremity ultrasound (04/23): Edema present, no evidence for abnormal collection or mass. Assesment and Plan: 74-year-old male with a past medical history of A-fib on Eliquis, cirrhosis recently diagnosed, and nonhealing wound on right lower extremity near the heel presented on 04/23 with right lower extremity swelling and confusion and is currently being treated for cellulitis. Right lower extremity cellulitis: Wound cultures positive for Serratia, MDRO Patient was previously on vancomycin, and Zosyn, now discontinued Currently on IV cefepime 2 g every 8 hours Discussed management with ID, patient to likely be discharged on oral antibiotics Continue wound care, wound care following Patient remains afebrile and shows no further signs of sepsis Bacteremia, likely contaminant Repeat blood cultures pending Acute hepatic encephalopathy, resolved Hyperammonemia History of recently diagnosed cirrhosis Macrocytosis MELD score 18 Currently receiving lactulose 30 g p.o. 4 times daily, titrate to 2-3 bowel movements a day On Lasix and Aldactone Hypervolemia, resolved Hypervolemic hyponatremia Chronic diastolic CHF, not in exacerbation Hypertension Was previously on IV Lasix, currently on oral Lasix 40 twice daily Appears euvolemic Cardiology note reviewed, stable from their standpoint to be discharged Continue metolazone 5 mg daily, carvedilol 6.25 mg twice daily, Aldactone 50 mg daily Right orbital floor fracture with right maxillary sinus hemorrhage Status post mechanical fall ENT was consulted, no ENT available Eliquis was previously held, now continued No further signs of bleeding Outpatient ENT follow-up Persistent atrial fibrillation Continue Eliquis 5 mg twice daily Continue carvedilol 6.25 twice daily Hypokalemia 40 mill equivalent oral potassium given today Repeat BMP and magnesium tomorrow Pain control Gabapentin and Flexeril as needed discontinued On ibuprofen 400 mg every 6 hours as needed Can utilize Tylenol if needed Resolved: Lactic acidosis Thrombocytopenia F: none E: potassium chloride ER 40 mEq p.o. once N: Heart healthy diet A: ambulates with walker DVT ppx: Eliquis Code Status: Full code Anticipated discharge place: Home Anticipated discharge time: 04/28/2024 I have seen and evaluated the patient today. Discussed with the resident and agree with the residents finding and plan as documented in the resident's note. Changes are highlighted in blue font. Objective - Vital Signs Vital signs: Vital Signs Temp 97.3 F L 04/27/24 07:17 Pulse 90 04/27/24 07:17 Resp 16 04/27/24 07:17 BP 110/70 04/27/24 07:17 Pulse Ox 98 04/27/24 07:17 FiO2 Intake & Output 04/26/24 04/27/24 04/27/24 18:59 06:59 18:59 Intake Total 120 Output Total 850 310 Balance -730 -310 Weight 98 kg 98 kg Intake: Oral 120 Output: Urine 850 310 Other: Voiding Method Toilet Toilet Toilet Urinal Urinal Urinal # Voids 2 1 # Bowel Movements 1 1 - Labs CBC & Chem 7: 04/27/24 08:28 04/27/24 08:28 Labs: Abnormal Lab Results - Last 24 Hours (Table) 04/27/24 04/27/24 Range/Units 08:28 08:28 MCV 106.2 H (80.0-100.0) fL MCHC 30.4 L (31.0-37.0) g/dL Lymphocytes # 0.5 L (1.0-4.8) k/uL Sodium 132 L (137-145) mmol/L Chloride 90 L (98-107) mmol/L Carbon Dioxide 34 H (22-30) mmol/L BUN 27 H (9-20) mg/dL Glucose 117 H (74-99) mg/dL Total Bilirubin 3.2 H (0.2-1.3) mg/dL Alkaline Phosphatase 139 H (38-126) U/L Albumin 3.1 L (3.5-5.0) g/dL Microbiology - Last 24 Hours (Table) 04/26/24 04:45 Blood Culture - Preliminary Blood 04/23/24 02:54 Anaerobic Culture - Final Leg - Right 04/23/24 02:10 Blood Culture - Preliminary Blood 04/23/24 02:25 Blood Culture Gram Stain - Final Blood Blood Culture - Final Klebsiella pneumoniae Molecular ID
[2024-04-28 08:56] LABS: BUN/Creat Ratio 19.64 Ratio (12.00-20.00); Blood Urea Nitrogen 27.5 mg/dL (9.0-27.0); Calcium 9.1 mg/dL (8.7-10.3); Carbon Dioxide 30.9 mmol/L (21.6-31.8); Chloride 92 mmol/L (96-109); Glucose 105 mg/dL (70-110); Potassium 3.9 mmol/L (3.5-5.5); Sodium 134 mmol/L (135-145)
[2024-04-28 09:21] LABS: Basophils # (A) 0.08 X 10*3/uL (0.00-0.10); Basophils % (A) 1.2 %; Eosinophils # (A) 0.16 X 10*3/uL (0.04-0.35); Eosinophils % (A) 2.4 %; HGB 13.7 g/dL (13.0-17.0); Lymphocytes # (A) 0.67 X 10*3/uL (0.90-5.00); MCH 32.2 pg (27.0-32.0); MCHC 32.6 g/dL (32.0-37.0); MCV 98.8 FL (80.0-97.0); Mean Platelet Volume 12.3 FL (9.5-12.2); Monocytes # (A) 0.86 X 10*3/uL (0.20-1.00); Monocytes % (A) 12.9 %; NRBC Per 100 WBC 0 X 10*3/uL (0.00-0.01); Neutrophils % (A) 73.2 %; Platelet Count 133 X 10*3/uL (140-440); RBC 4.25 X 10*6/uL (4.40-5.60); RBC Morphology Normal (Normal); RDW 15.7 % (11.5-14.5); WBC 6.69 X 10*3/uL (4.50-10.00)
[2024-04-28] MEDS: allopurinoL 100 MG TAB PO SCH (09:52)
--- NOTE | 2024-04-28 12:00 | P.PN ---
Subjective Progress Note Date: 04/28/24 This is a 74-year-old patient known to the wound care center with nonhealing ulcerations to the left plantar great toe left posterior lower extremity right calcaneus and right lateral lower extremity. Patient has history of venous insufficiency pressure ulceration to the right heel. He has been following the wound care center utilizing compression wraps and Hydrofera Blue. Patient is being seen in 3 S. for management of the ulcerations. Original cause of wound was Pressure Injury. The date acquired was: 01/02/2024. The wound has been in treatment 9 weeks. The wound is currently classified as a Unstageable/Unclassified wound with etiology of Pressure Ulcer and is located on the Left,Medial,Plantar Toe Great. The wound measures 0.7cm length x 1.4cm width x 0.1cm depth; 0.77cm^2 area and 0.077cm^3 volume. There is no tunneling or undermining noted. There is a small amount of serosanguineous drainage noted. The wound margin is indistinct and nonvisible. There is small (1-33%) pink gran ulation within the wound bed. There is a large (67-100%) amount of necrotic tissue within the wound bed including Eschar. The periwound skin appearance exhibited: Callus, Scarring, Dry/Scaly. The periwound skin appearance did not exhibit: Crepitus, Excoriation, Induration, Rash, Maceration, Atrophie [place], Cyanosis, Ecchymosis, Hemosiderin Staining, Mottled, Pallor, Rubor, Erythema. Periwound temperature was noted as No Abnormality. The periwound has tenderness on palpation. Wound #2 status is Open. Original cause of wound was Blister. The date acquired was: 12/07/2023. The wound has been in treatment 9 weeks. The wound is currently classified as a Full Thickness Without Exposed Support Structures wound with etiology of Venous Leg Ulcer and is located on the Left,Posterior Lower Leg. The wound measures 0cm length x 0cm width x 0cm depth; 0cm^2 area and 0cm^3 volume. There is Fat Layer (Subcutaneous Tissue) exposed. There is no tunneling or undermining noted. There is a none present amount of drainage noted. The wound margin is flat and intact. There is no granulation within the wound bed. There is no necrotic tissue within the wound bed. The periwound skin appearance exhibited: Hemosiderin Staining, Erythema. The periwound skin appearance did not exhibit: Callus, Crepitus, Excoriation, Induration, Rash, Scarring, Dry/Scaly, Maceration, Atrophie [place], Cyanosis, Ecchymosis, M ottled, Pallor, Rubor. The surrounding wound skin color is noted with erythema which is circumferential. Periwound temperature was noted as No Abnormality. The periwound has tenderness on palpation. Wound #3 status is Open. Original cause of wound was Pressure Injury. The date acquired was: 12/07/2023. The wound has been in treatment 9 weeks. The wound is currently classified as a Category/Stage II wound with etiology of Pressure Ulcer and is located on the Right,Plantar Calcaneus. The wound measures 0.9cm length x 0.6cm width x 0.2cm depth; 0.424cm^2 area and 0.085cm^3 volume. There is Fat Layer (Subcutaneous Tissue) exposed. There is no tunneling or undermining noted. There is a medium amount of purulent drainage noted. The wound margin is indistinct and nonvisible. There is medium (34-66%) pink granulation within the wound bed. There is a medium (34- 66%) amount of necrotic tissue within the wound bed. The periwound skin appearance exhibited: Callus, Scarring, Dry/Scaly. The periwound skin appearance did not exhibit: Crepitus, Excoriation, Induration, Rash, Maceration, Atrophie [place], Cyanosis, Ecchymosis, Hemosiderin Staining, Mottled, Pallor, Rubor, Erythema. Periwound temperature was noted as No Abnormality. The periwound has tenderness on palpation. Wound #6 status is Healed - Epithelialized. Original cause of wound was Blister. The date acquired was: 03/19/2024. The wound has been in treatment 2 weeks. The wound is currently classified as a Partial Thickness wound with etiology of Venous Leg Ulcer and is located on the Right,Lateral Lower Leg. The wound measures 0cm length x 0cm width x 0cm depth; 0cm^2 area and 0cm^3 volume. There is no tunneling or undermining noted. There is a none present amount of drainage noted. The wound margin is flat and intact. There is no granulation within the wound bed. There is a large (67-100%) amount of necrotic tissue within the wound bed including Eschar. The periwound skin appearance exhibited: Hemosiderin Staining. The periwound skin appearance did not exhibit: Callus, Crepitus, Excoriation, Induration, Rash, Scarring, D ry/Scaly, Maceration, Atrophie [place], Cyanosis, Ecchymosis, Mottled, Pallor, Rubor, Erythema. Periwound temperature was noted as No Abnormality. The periwound has tenderness on palpation. General Notes: scabbed over 04/28/2024: Requested to reevaluate patient related to patient refusing any dressing changes until he was seen by the wound care center. Patient has new ulcerations to the lateral aspect of bilateral calfs. They are limited to skin breakdown measuring approximately 5 x 6 x 0.1 cm with granulation seen throughout the wound bed minimal slough and nonviable tissue present. Patient's right calcaneus ulceration is epithelialized. The Left great toe ulceration is showing significant improvement in size and morphology.Discussed with the patient the importance of elevation. Patient was found to be sitting with his legs dependent on the ground. Family is requesting for patient to come in after discharge to be wrapped in a compression wrap. We will set the patient up to be seen tomorrow at 2:00. Review Of Systems: Constitutional: No fever, no chills, no night sweats. No weight change. No weakness, fatigue or lethargy. No daytime sleepiness. Integumentary:reports wounds, no lesions. No rash or pruritus. No unusual bruising. No change in hair or nails. Physical exam: General Appearance: Alert, cooperative, no distress, appears stated age. Skin: See HPI all other Skin color, texture, tugor normal, no rashes or lesions. Neurologic: Alert oriented x3 Assessment: 1. Non-pressure chronic ulcer of left calf with fat layer exposed 2. Non-pressure chronic ulcer of other part of right lower leg with fat layer exposed 3. Chronic venous hypertension (idiopathic) with ulcer and inflammation of bilateral lower extremity 4. Pressure ulcer of right heel, stage 2 5. Non-pressure chronic ulcer of other part of left foot with fat layer exposed Plan: Left plantar great toe, left posterior lower extremity, and right medial lower extremity: Apply collagen, saline moist gauze, dry gauze, rolled gauze and secure with paper tape. Wrap with Jim wrap for compression. Patient to return to the wound care center on April 29 at 2:00. Thank you for the consultation any questions please contact the wound care center DNP note has been reviewed and discussed with Dr. Chavis and the impression and plan of care has been directed as dictated. Objective - Vital Signs Vital signs: Vital Signs Temp 97.7 F 04/28/24 06:53 Pulse 73 04/28/24 06:53 Resp 16 04/28/24 08:00 BP 112/71 04/28/24 06:53 Pulse Ox 94 L 04/28/24 06:53 FiO2 Intake & Output 04/27/24 04/28/24 04/28/24 18:59 06:59 18:59 Intake Total 120 Output Total 310 Balance -310 120 Weight 98 kg 93 kg Intake: Oral 120 Output: Urine 310 Other: Voiding Method Toilet Toilet Toilet Urinal Urinal Urinal # Voids 1 2 # Bowel Movements 1 1 - Labs CBC & Chem 7: 04/28/24 05:22 04/28/24 05:22 Labs: Abnormal Lab Results - Last 24 Hours (Table) 04/28/24 04/28/24 Range/Units 05:22 05:22 RBC 4.25 L (4.40-5.60) X 10*6/uL MCV 98.8 H (80.0-97.0) FL MCH 32.2 H (27.0-32.0) pg RDW 15.7 H (11.5-14.5) % Plt Count 133 L (140-440) X 10*3/uL MPV 12.3 H (9.5-12.2) FL Lymphocytes # 0.67 L (0.90-5.00) X 10*3/uL Sodium 134 L (135-145) mmol/L Chloride 92 L (96-109) mmol/L BUN 27.5 H (9.0-27.0) mg/dL Est GFR (CKD-EPI) 52 L (>=60) Microbiology - Last 24 Hours (Table) 04/26/24 04:45 Blood Culture - Preliminary Blood 04/23/24 02:54 Anaerobic Culture - Final Leg - Right Assessment and Plan (1) Chronic venous hypertension (idiopathic) with ulcer and inflammation of bilateral lower extremity Current Visit: No Status: Acute Code(s): I87.333 - CHRONIC VENOUS HTN W ULCER AND INFLAM OF BILATERAL LOW EXTRM SNOMED Code(s): 268507079733709 (2) Non-pressure chronic ulcer of left calf with fat layer exposed Current Visit: No Status: Acute Code(s): L97.222 - NON-PRESSURE CHRONIC ULCER OF LEFT CALF W FAT LAYER EXPOSED SNOMED Code(s): 55530599143397084 (3) Non-pressure chronic ulcer of other part of left foot with fat layer exposed Current Visit: No Status: Acute Code(s): L97.522 - NON-PRS CHRONIC ULCER OTH PRT LEFT FOOT W FAT LAYER EXPOSED SNOMED Code(s): 91688988908840042 (4) Non-pressure chronic ulcer of other part of right lower leg with fat layer exposed Current Visit: No Status: Acute Code(s): L97.812 - NON-PRS CHRONIC ULCER OTH PRT R LOW LEG W FAT LAYER EXPOSED SNOMED Code(s): 38310335257402841 (5) Pressure ulcer of right heel, stage 2 Current Visit: No Status: Acute Code(s): L89.612 - PRESSURE ULCER OF RIGHT HEEL, STAGE 2 SNOMED Code(s): 36321745980083
--- NOTE | 2024-04-28 12:02 | P.PN ---
Subjective Progress Note Date: 04/28/24 Subjective: Patient seen and examined at bedside. No significant overnight events. Patient had 2 loose bowel movements with no signs of blood or melena. Patient denies headache, chest pain, shortness of breath, palpitations, nausea, vomiting, diarrhea, abdominal pain. Pertinent positives and negatives discussed above, a complete review of systems was preformed and all the other sytems were negative. Vitals Signs Reveiwed. General: Nontoxic, no distress, appears at stated age Derm: Warm, dry, Jaundice Head: Atraumatic, normocephalic, symmetric Eyes: EOMI, no lid lag, sclera icterus Cardiovascular: Regular rate and rhythm, no murmurs or gallops appreciated Lungs: Lungs clear to auscultation bilaterally, no rhonchi or wheezing auscultated Abdominal: Soft nontender, no distention nor rigidity. Ext: Right lower extremity: Nearly complete fully healed wound on right heel. New wound observed on right calf (starting to heal with good blood supply). Left lower extremity new wound observed on lateral calf (starting to heal with good blood supply). Neuro: Neurologically intact, no deficits appreciated. Psych: Alert, oriented, appropriate affect Data Reveiwed Today: Patient Labs: WBC 6.69, RBC 4.25, hemoglobin 13.7, MCV 98.8, platelet 133, sodium 134, potassium 3.9, chloride 92, BUN 27.5, estimated GFR 52. Imaging: CXR (04/23): Cardiomegaly without acute peripheral pulmonary infiltrate. No significant change from most recent imaging. Lower extremity ultrasound (04/23): Edema present, no evidence for abnormal collection or mass. Assesment and Plan: 74-year-old male with a past medical history of A-fib on Eliquis, cirrhosis recently diagnosed, and nonhealing wound on right lower extremity near the heel presented on 04/23 with right lower extremity swelling and confusion and is currently being treated for cellulitis. Right lower extremity cellulitis:, Resolving Wound cultures positive for Serratia, MDRO Patient was previously on vancomycin, and Zosyn, now discontinued Started on oral ciprofloxacin 750 twice daily, discontinued cefepime IV Discussed management with ID, patient to likely be discharged on oral antibiotics Continue wound care, wound care following Patient remains afebrile and shows no further signs of sepsis Bacteremia, likely contaminant Repeat blood cultures pending Acute hepatic encephalopathy, resolved Hyperammonemia History of recently diagnosed cirrhosis Macrocytosis MELD score 18 Currently receiving lactulose 30 g p.o. 4 times daily, titrate to 2-3 bowel movements a day On Lasix and Aldactone Hypervolemia, resolved Hypervolemic hyponatremia Chronic diastolic CHF, not in exacerbation Hypertension Was previously on IV Lasix, currently on oral Lasix 40 twice daily Appears euvolemic Cardiology was consulted, stable from their standpoint to be discharged Continue metolazone 5 mg daily, carvedilol 6.25 mg twice daily, Aldactone 50 mg daily Right orbital floor fracture with right maxillary sinus hemorrhage Status post mechanical fall ENT was consulted, no ENT available Eliquis was previously held, now continued No further signs of bleeding Outpatient ENT follow-up Persistent atrial fibrillation Continue Eliquis 5 mg twice daily Continue carvedilol 6.25 twice daily Hypokalemia, resolved Pain control Gabapentin and Flexeril as needed discontinued On ibuprofen 400 mg every 6 hours as needed Can utilize Tylenol if needed Resolved: Lactic acidosis Thrombocytopenia F: none E: Replete as needed N: Heart healthy diet A: ambulates with walker DVT ppx: Eliquis Code Status: Full code Anticipated discharge place: Home Anticipated discharge time: 04/28/2024 today I have seen and evaluated the patient today. Discussed with the resident and agree with the residents finding and plan as documented in the resident's note. Changes are highlighted in blue font. Objective - Vital Signs Vital signs: Vital Signs Temp 97.5 F L 04/28/24 01:47 Pulse 65 04/28/24 01:47 Resp 19 04/28/24 01:47 BP 89/59 04/28/24 01:47 Pulse Ox 95 04/28/24 01:47 FiO2 Intake & Output 04/27/24 04/28/24 04/28/24 18:59 06:59 18:59 Output Total 310 Balance -310 Weight 98 kg 93 kg Output: Urine 310 Other: Voiding Method Toilet Toilet Urinal Urinal # Voids 1 2 # Bowel Movements 1 1 - Labs CBC & Chem 7: 04/28/24 05:22 04/28/24 05:22 Labs: Abnormal Lab Results - Last 24 Hours (Table) 04/27/24 04/27/24 Range/Units 08:28 08:28 MCV 106.2 H (80.0-100.0) fL MCHC 30.4 L (31.0-37.0) g/dL Lymphocytes # 0.5 L (1.0-4.8) k/uL Sodium 132 L (137-145) mmol/L Chloride 90 L (98-107) mmol/L Carbon Dioxide 34 H (22-30) mmol/L BUN 27 H (9-20) mg/dL Glucose 117 H (74-99) mg/dL Total Bilirubin 3.2 H (0.2-1.3) mg/dL Alkaline Phosphatase 139 H (38-126) U/L Albumin 3.1 L (3.5-5.0) g/dL Microbiology - Last 24 Hours (Table) 04/26/24 04:45 Blood Culture - Preliminary Blood 04/23/24 02:54 Anaerobic Culture - Final Leg - Right
--- NOTE | 2024-04-28 12:47 | P.DS ---
Providers Date of admission: 04/23/24 05:13 Expected date of discharge: 04/28/24 Attending physician: Boyd Simeon MD Consults: 04/23/24 05:13 Consult Physician Routine Consulting Provider: Erma Cunningham Consult Reason/Comments: cellulitis Do you want consulting provider notified?: Yes 04/23/24 06:41 Consult Physician Routine Consulting Provider: Lucho Fraser Consult Reason/Comments: nasal bone fracture Do you want consulting provider notified?: Yes 04/23/24 07:07 Consult Physician Routine Consulting Provider: Clinton Raymond Consult Reason/Comments: orbital wall fracture Do you want consulting provider notified?: Yes Primary care physician: Dg Maria Hospital Course: Discharge Diagnosis: Right lower extremity cellulitis Bacteremia, likely contaminant Acute hepatic encephalopathy Hyperammonemia History of recently diagnosed cirrhosis Macrocytosis Hypervolemia Hypervolemic hyponatremia Chronic diastolic CHF, not in exacerbation Hypertension Right orbital floor fracture with right maxillary sinus hemorrhage Status post mechanical fall Persistent atrial fibrillation Hypokalemia Generalized pain Lactic acidosis Thrombocytopenia Hospital Course: 74-year-old male with a PMH of liver cirrhosis, chronic atrial fibrillation on anticoagulation with Eliquis, chronic diastolic CHF with a EF of 55 to 60%, HTN, CKD stage IIIb and chronic bilateral lower extremity wounds/ulcers presents to the ED for worsening swelling, redness and pain in his bilateral lower extremities. also reports intermittent confusion. In the ED he underwent extensive evaluation. BP 111/64, HR 110, RR 18, T 98.7F, 95% on RA. CBC, Coag panel, CMP performed significant for MCV 106.5, Plt 143, PT 18.6, INR 1.8, APTT 31.7, Na 129, bicarb 19, BUN 23, Ca 8.3, T. Bili 4, alk phos 148, alb 3.3. BNP 2140. Ammonia 66. Lactic acid 2.5. EKG atrial fibrillation with RVR rate of 112, RBBB, nonspecific ST T wave changes. CT brain negative. CT face acute minimally displaced fracture through right orbital floor with associated right maxillary sinus hemorrhage. Tib-Fib and CXR negative. Patient admitted for cellulitis. Started on IV vancomycin and Zosyn. Patient was also in A-fib RVR, cardiology was consulted. ENT consulted for orbital fracture, but never saw the patient while inpatient. Cultures came back positive for Serratia MDRO, blood cultures growing Klebsiella and another species, likely contaminant. Patient was switched to IV cefepime. Wound care also consulted. Patient also had hepatic encephalopathy, started on lactulose, improved with frequent bowel movements. At the time of discharge patient is back to his baseline mental status. He will continue lactulose at home. Also being discharged on oral ciprofloxacin. Follow-up with wound care clinic. Patient seen and examined at bedside. Vital signs reviewed and stable. General: Nontoxic, no distress, appears at stated age Derm: Warm, dry, Jaundice, Right lower extremity: Nearly complete fully healed wound on right heel. New wound observed on right calf (starting to heal with good blood supply). Left lower extremity new wound observed on lateral calf (starting to heal with good blood supply). Head: Atraumatic, normocephalic, symmetric Eyes: EOMI, no lid lag, sclera icterus Cardiovascular: Regular rate and rhythm, no murmurs or gallops appreciated Lungs: Lungs clear to auscultation bilaterally, no rhonchi or wheezing auscultated Abdominal: Soft nontender, no distention nor rigidity. Ext: Moving all extremities Neuro: Neurologically intact, no deficits appreciated. Psych: Alert, oriented, appropriate affect A total of 33 minutes of time were spent preparing this complex discharge summary. Patient was discharged on 04/28/2024 at 1134. Patient Condition at Discharge: Stable Plan - Discharge Summary Discharge Rx Participant: No New Discharge Prescriptions: New metOLazone [Zaroxolyn] 5 mg PO DAILY #90 tab Ciprofloxacin HCl [Cipro] 750 mg PO Q12H 7 Days #14 tab Lactulose [Cephulac] 30 gm PO TID 30 Days #1000 ml carvediloL [Coreg] 6.25 mg PO BID-W/MEALS #60 tab Furosemide [Lasix] 40 mg PO BID@0900,1600 #60 tab Continue allopurinoL [Zyloprim] 100 mg PO DAILY Spironolactone [Aldactone] 50 mg PO DAILY Apixaban [Eliquis] 5 mg PO BID Discontinued Metoprolol Tartrate 25 mg PO BID #90 tab Furosemide [Lasix] 40 mg PO DAILY Furosemide [Lasix] 40 mg PO DAILY@1600 PRN PRN Reason: Edema Discharge Medication List Apixaban [Eliquis] 5 mg PO BID 01/21/24 [History] allopurinoL [Zyloprim] 100 mg PO DAILY 01/21/24 [History] Spironolactone [Aldactone] 50 mg PO DAILY 03/12/24 [History] Ciprofloxacin HCl [Cipro] 750 mg PO Q12H 7 Days #14 tab 04/28/24 [Rx] Furosemide [Lasix] 40 mg PO BID@0900,1600 #60 tab 04/28/24 [Rx] Lactulose [Cephulac] 30 gm PO TID 30 Days #1000 ml 04/28/24 [Rx] carvediloL [Coreg] 6.25 mg PO BID-W/MEALS #60 tab 04/28/24 [Rx] metOLazone [Zaroxolyn] 5 mg PO DAILY #90 tab 04/28/24 [Rx] Follow up Appointment(s)/Referral(s): Mariam Da Silva MD [STAFF PHYSICIAN] - 1 Week Dg Maria MD [Primary Care Provider] - 1-2 days [facility], [NON-STAFF] - As Needed ([facility] will call you to schedule your in home nursing visits for wound care. ) [facility] [NON-STAFF] - 05/07/24 2:00 pm Patient Instructions/Handouts: Cellulitis (ED), Hepatic Encephalopathy (DC) Activity/Diet/Wound Care/Special Instructions: Please see your PCP and cardiology. Continue taking lactulose and titrate bowel movements to 2-3 per day. Discharge Disposition: HOME WITH HOME HEALTH SERVICES
[2024-04-28 14:16] VITALS: BP 112/73; PULSE 94; RESP 19
[2024-04-28 14:23] VITALS: TEMP 97.3
--- NOTE | 2024-04-28 15:52 | P.PN ---
Subjective Progress Note Date: 04/27/24 Principal diagnosis: Reason for follow-up is right lower extremity cellulitis and bacteremia Patient is a 74-year-old male with a past medical history significant for atrial fibrillation hypertension heart failure liver cirrhosis did have a history of nonhealing wound to lower extremity especially in the heel area presented to hospital with increasing swelling redness to the right lower extremity has been diagnosed with cellulitis. Patient blood cultures are coming back positive gram-negative. On today's evaluation that is 04/27/2024, patient has been afebrile, patient is breathing comfortably and is currently on room air, patient denies having any significant cough no chest pain shortness of breath, patient denies nausea vomiting no abdominal pain did have diarrhea from lactulose. Denies pain to the lower extremity. Patient white count is 6.0, creatinine 1.06 Objective - Vital Signs Vital signs: Vital Signs Temp 98.4 F 04/27/24 14:48 Pulse 100 04/27/24 14:48 Resp 17 04/27/24 14:48 BP 116/71 04/27/24 14:48 Pulse Ox 96 04/27/24 14:48 FiO2 Intake & Output 04/26/24 04/27/24 04/27/24 18:59 06:59 18:59 Intake Total 120 Output Total 850 310 Balance -730 -310 Weight 98 kg 98 kg Intake: Oral 120 Output: Urine 850 310 Other: Voiding Method Toilet Toilet Toilet Urinal Urinal Urinal # Voids 2 1 # Bowel Movements 1 1 - Exam GENERAL DESCRIPTION: An elderly male up in bed in no distress RESPIRATORY SYSTEM: Unlabored breathing , decreased breath sounds at bases HEART: S1 S2 regular rate and rhythm , ABDOMEN: Soft , no tenderness EXTREMITIES: Bilateral extremity currently wrapped in Jim wrap no drainage - Labs CBC & Chem 7: 04/28/24 05:22 04/28/24 05:22 Labs: Abnormal Lab Results - Last 24 Hours (Table) 04/27/24 04/27/24 Range/Units 08:28 08:28 MCV 106.2 H (80.0-100.0) fL MCHC 30.4 L (31.0-37.0) g/dL Lymphocytes # 0.5 L (1.0-4.8) k/uL Sodium 132 L (137-145) mmol/L Chloride 90 L (98-107) mmol/L Carbon Dioxide 34 H (22-30) mmol/L BUN 27 H (9-20) mg/dL Glucose 117 H (74-99) mg/dL Total Bilirubin 3.2 H (0.2-1.3) mg/dL Alkaline Phosphatase 139 H (38-126) U/L Albumin 3.1 L (3.5-5.0) g/dL Microbiology - Last 24 Hours (Table) 04/26/24 04:45 Blood Culture - Preliminary Blood 04/23/24 02:54 Anaerobic Culture - Final Leg - Right Assessment and Plan (1) Bilateral lower leg cellulitis Status: Acute Code(s): L03.116 - CELLULITIS OF LEFT LOWER LIMB; L03.115 - CELLULITIS OF RIGHT LOWER LIMB SNOMED Code(s): 973649773 (2) Pressure ulcer of right heel, stage 2 Status: Acute Code(s): L89.612 - PRESSURE ULCER OF RIGHT HEEL, STAGE 2 SNOMED Code(s): 00848931746105 (3) Gram-negative bacteremia Status: Acute Code(s): R78.81 - BACTEREMIA SNOMED Code(s): 729544654380 Plan: 1patient presented hospital with increased weakness lethargy and this patient also have increasing swelling redness to both legs especially in the right leg and the patient did have a ulceration to the right heel likely the source of this cellulitis likely from gram-positive skin phillip underlying gram-negative infection not entirely excluded 2-patient local cultures are growing Serratia and blood culture growing Klebsiella that is a sensitive pathogen 3-patient to continue cefepime while inpatient and hopefully finishing therapy with oral Cipro discussed with admitting team Dictation was produced using [employer] dictation software. please excuse any grammatical, word or spelling errors. Time with Patient: Less than 30
--- NOTE | 2024-04-28 15:53 | P.PN ---
Subjective Progress Note Date: 04/28/24 Principal diagnosis: Reason for follow-up is right lower extremity cellulitis and bacteremia Patient is a 74-year-old male with a past medical history significant for atrial fibrillation hypertension heart failure liver cirrhosis did have a history of nonhealing wound to lower extremity especially in the heel area presented to hospital with increasing swelling redness to the right lower extremity has been diagnosed with cellulitis. Patient blood cultures are coming back positive gram-negative. On today's evaluation that is 04/28/2024, Patient is afebrile this morning and denies any chills, patient mention breathing comfortably and is currently on room air, patient denies any chest pain occasional cough patient denies any abdominal pain, no nausea no vomiting did have diarrhea but getting lactulose denies pain to the lower extremity. Patient white count is 6.16, creatinine is 1.4 blood culture repeat has been negative Objective - Vital Signs Vital signs: Vital Signs Temp 97.7 F 04/28/24 06:53 Pulse 73 04/28/24 06:53 Resp 16 04/28/24 08:00 BP 112/71 04/28/24 06:53 Pulse Ox 94 L 04/28/24 06:53 FiO2 Intake & Output 04/27/24 04/28/24 04/28/24 18:59 06:59 18:59 Intake Total 120 Output Total 310 Balance -310 120 Weight 98 kg 93 kg Intake: Oral 120 Output: Urine 310 Other: Voiding Method Toilet Toilet Toilet Urinal Urinal Urinal # Voids 1 2 # Bowel Movements 1 1 - Exam GENERAL DESCRIPTION: An elderly male up in bed in no distress RESPIRATORY SYSTEM: Unlabored breathing , decreased breath sounds at bases HEART: S1 S2 regular rate and rhythm , ABDOMEN: Soft , no tenderness EXTREMITIES: Bilateral lower extremity with superficial ulceration did have some bleeding overall redness has improved - Labs CBC & Chem 7: 04/28/24 05:22 04/28/24 05:22 Labs: Abnormal Lab Results - Last 24 Hours (Table) 04/28/24 04/28/24 Range/Units 05:22 05:22 RBC 4.25 L (4.40-5.60) X 10*6/uL MCV 98.8 H (80.0-97.0) FL MCH 32.2 H (27.0-32.0) pg RDW 15.7 H (11.5-14.5) % Plt Count 133 L (140-440) X 10*3/uL MPV 12.3 H (9.5-12.2) FL Lymphocytes # 0.67 L (0.90-5.00) X 10*3/uL Sodium 134 L (135-145) mmol/L Chloride 92 L (96-109) mmol/L BUN 27.5 H (9.0-27.0) mg/dL Est GFR (CKD-EPI) 52 L (>=60) Microbiology - Last 24 Hours (Table) 04/23/24 02:10 Blood Culture - Final Blood 04/26/24 04:45 Blood Culture - Preliminary Blood 04/23/24 02:54 Anaerobic Culture - Final Leg - Right Assessment and Plan (1) Bilateral lower leg cellulitis Status: Acute Code(s): L03.116 - CELLULITIS OF LEFT LOWER LIMB; L03.115 - CELLULITIS OF RIGHT LOWER LIMB SNOMED Code(s): 485428936 (2) Pressure ulcer of right heel, stage 2 Status: Acute Code(s): L89.612 - PRESSURE ULCER OF RIGHT HEEL, STAGE 2 SNOMED Code(s): 93682651002244 (3) Gram-negative bacteremia Status: Acute Code(s): R78.81 - BACTEREMIA SNOMED Code(s): 947472069206 Plan: 1patient presented hospital with increased weakness lethargy and this patient also have increasing swelling redness to both legs especially in the right leg and the patient did have a ulceration to the right heel likely the source of this cellulitis likely from gram-positive skin phillip underlying gram-negative infection not entirely excluded 2-patient local cultures are growing Serratia and blood culture growing Klebsiella that is a sensitive pathogen 3-patient finish therapy with oral Cipro x 10 days local care of the dry Aquacel dressing and Jim wrap discussed with nursing staff and the at the bedside Dictation was produced using [employer] software. please excuse any grammatical, word or spelling errors. Time with Patient: Less than 30
[2024-04-28] MEDS ORDERED: CEFEPIME 2 GM in SODIUM CHLORIDE 0.9% 100 ML IVPB SCH (21:00)
== END 2024-04-28 15:30 | disposition home health service (06) | DRG 602 ==
LOC: EC 01:38 → 5NMEDONC 05:13 → 4SSUR 05:33 → 3SCARD 19:38 → 4SSUR 04-24 18:50
PROVIDERS: ADMIT Family Medicine; ATTEND Family Medicine
DX: L03.115 Cellulitis of right lower limb (principal); G92.8 Other toxic encephalopathy; S02.31XA Fracture of orbital floor, right side, initial encounter for closed fracture; I50.32 Chronic diastolic (congestive) heart failure; I48.19 Other persistent atrial fibrillation; D68.9 Coagulation defect, unspecified; E87.1 Hypo-osmolality and hyponatremia; I13.0 Hypertensive heart and chronic kidney disease with heart failure and stage 1 through stage 4 chronic kidney disease, or unspecified chronic kidney disease; I87.333 Chronic venous hypertension (idiopathic) with ulcer and inflammation of bilateral lower extremity; L97.222 Non-pressure chronic ulcer of left calf with fat layer exposed; L97.812 Non-pressure chronic ulcer of other part of right lower leg with fat layer exposed; N17.9 Acute kidney failure, unspecified; Z16.24 Resistance to multiple antibiotics; K76.82 Hepatic encephalopathy; M79.89 Other specified soft tissue disorders; K74.60 Unspecified cirrhosis of liver; I11.0 Hypertensive heart disease with heart failure; Z79.01 Long term (current) use of anticoagulants; I08.3 Combined rheumatic disorders of mitral, aortic and tricuspid valves; L97.529 Non-pressure chronic ulcer of other part of left foot with unspecified severity; B96.1 Klebsiella pneumoniae [K. pneumoniae] as the cause of diseases classified elsewhere; D69.6 Thrombocytopenia, unspecified; D75.89 Other specified diseases of blood and blood-forming organs; E11.22 Type 2 diabetes mellitus with diabetic chronic kidney disease; E11.621 Type 2 diabetes mellitus with foot ulcer; E66.9 Obesity, unspecified; E87.6 Hypokalemia; I27.20 Pulmonary hypertension, unspecified; Z68.30 Body mass index [BMI] 30.0-30.9, adult; I45.10 Unspecified right bundle-branch block; B96.89 Other specified bacterial agents as the cause of diseases classified elsewhere; L03.116 Cellulitis of left lower limb; L89.612 Pressure ulcer of right heel, stage 2; L97.522 Non-pressure chronic ulcer of other part of left foot with fat layer exposed; N18.32 Chronic kidney disease, stage 3b; S02.2XXA Fracture of nasal bones, initial encounter for closed fracture; W19.XXXA Unspecified fall, initial encounter; Y92.009 Unspecified place in unspecified non-institutional (private) residence as the place of occurrence of the external cause; Z79.899 Other long term (current) drug therapy; Z82.49 Family history of ischemic heart disease and other diseases of the circulatory system
CPT/HCPCS: 36415; 70450; 70486; 71045; 71046; 80048; 80053; 81003; 82140; 83605; 83735; 83880; 85025; 85027; 85610; 85730; 87040; 87070; 87075; 87077; 87186; 87205; 87324; 93005; 94640; 96365; 96366; 96367; 96375; 96376; 99285

== ENCOUNTER → 2024-05-07 | Outpatient (CLI) | payer MEDICARE ==
[2024-05-07 18:30] LABS: Basophils # (A) 0.12 X 10*3/uL (0.00-0.10); Eosinophils # (A) 0.15 X 10*3/uL (0.04-0.35); Eosinophils % (A) 2.5 %; HCT 39.8 % (39.6-50.0); HGB 13.2 g/dL (13.0-17.0); Lymphocytes # (A) 0.88 X 10*3/uL (0.90-5.00); Lymphocytes % (A) 14.9 %; MCH 31.9 pg (27.0-32.0); MCHC 33.2 g/dL (32.0-37.0); MCV 96.1 FL (80.0-97.0); Mean Platelet Volume 12.8 FL (9.5-12.2); Monocytes # (A) 0.74 X 10*3/uL (0.20-1.00); Monocytes % (A) 12.5 %; NRBC Per 100 WBC 0 X 10*3/uL (0.00-0.01); Neutrophils # (A) 3.99 X 10*3/uL (1.80-7.70); Neutrophils % (A) 67.8 %; Platelet Count 94 X 10*3/uL (140-440); RBC 4.14 X 10*6/uL (4.40-5.60); RDW 15.9 % (11.5-14.5)
[2024-05-07 18:47] LABS: ALT 24 U/L (10-49); AST 37 U/L (14-35); Albumin 3.4 g/dL (3.8-4.9); Albumin/Globulin Ratio 0.89 Ratio (1.60-3.17); Alkaline Phosphatase 137 U/L (41-126); BUN/Creat Ratio 26.58 Ratio (12.00-20.00); Bilirubin, Conjugated 1.32 mg/dL (0.20-0.40); Blood Urea Nitrogen 31.9 mg/dL (9.0-27.0); Calcium 9.1 mg/dL (8.7-10.3); Carbon Dioxide 25.5 mmol/L (21.6-31.8); Chloride 89 mmol/L (96-109); Globulin 3.8 g/dL (1.6-3.3); Glucose 118 mg/dL (70-110); Potassium 4.3 mmol/L (3.5-5.5); Sodium 127 mmol/L (135-145); Total Bilirubin 1.9 mg/dL (0.3-1.2); Total Protein 7.2 g/dL (6.2-8.2)
[2024-05-07 18:58] LABS: Protein, Total 7.2 g/dL (6.2-8.2)
[2024-05-07 19:24] LABS: Bilirubin,Unconjugated 0.6 mg/dL (0.2-1.0)
[2024-05-08 13:32] LABS: Smooth Muscle Antibody 10 UNITS (<20)
[2024-05-08 18:24] LABS: Gamma Globulin 1.85 g/dL (0.70-1.50)
== END | disposition home or self-care (01) ==
LOC: LABWHC1 13:27
PROVIDERS: ATTEND Internal Medicine Gastroenterology
DX: K76.0 Fatty (change of) liver, not elsewhere classified (principal); E80.6 Other disorders of bilirubin metabolism
CPT/HCPCS: 36415; 80053; 81596; 82248; 83516; 84165; 85025; 86038

== ENCOUNTER → 2024-05-14 | Outpatient (CLI) | payer MEDICARE ==
[2024-05-14 15:07] LABS: Basophils # (A) 0.09 X 10*3/uL (0.00-0.10); Basophils % (A) 1.6 %; Eosinophils # (A) 0.13 X 10*3/uL (0.04-0.35); Eosinophils % (A) 2.3 %; HCT 42.7 % (39.6-50.0); Lymphocytes # (A) 1.03 X 10*3/uL (0.90-5.00); MCH 31.2 pg (27.0-32.0); MCHC 32.8 g/dL (32.0-37.0); MCV 95.1 FL (80.0-97.0); Monocytes # (A) 0.73 X 10*3/uL (0.20-1.00); Monocytes % (A) 12.8 %; NRBC Per 100 WBC 0 X 10*3/uL (0.00-0.01); Neutrophils # (A) 3.72 X 10*3/uL (1.80-7.70); Neutrophils % (A) 65.1 %; Platelet Count 150 X 10*3/uL (140-440); RBC 4.49 X 10*6/uL (4.40-5.60); RDW 15.9 % (11.5-14.5); WBC 5.71 X 10*3/uL (4.50-10.00)
[2024-05-14 15:34] LABS: % Iron Saturation 12.32 (15.00-50.00); Ferritin 92.8 ng/mL (22.0-322.0); Iron 60 UG/DL (65-175); Total Iron Binding Capacity 487 UG/DL (228-460)
[2024-05-14 15:45] LABS: Alpha Fetoprotein, Tumor Mkr 3.7 ng/mL (0.00-7.90); Ceruloplasmin 40.3 mg/dL (20.0-60.0)
[2024-05-14 15:48] LABS: ALT 22 U/L (10-49); AST 32 U/L (14-35); Albumin 3.7 g/dL (3.8-4.9); Albumin/Globulin Ratio 1.03 Ratio (1.60-3.17); Alkaline Phosphatase 132 U/L (41-126); BUN/Creat Ratio 29.85 Ratio (12.00-20.00); Bilirubin, Conjugated 1.23 mg/dL (0.20-0.40); Bilirubin,Unconjugated 0.97 mg/dL (0.20-1.00); Blood Urea Nitrogen 38.8 mg/dL (9.0-27.0); Calcium 9.2 mg/dL (8.7-10.3); Carbon Dioxide 26.8 mmol/L (21.6-31.8); Chloride 88 mmol/L (96-109); Globulin 3.6 g/dL (1.6-3.3); Glucose 107 mg/dL (70-110); Potassium 3.6 mmol/L (3.5-5.5); Sodium 127 mmol/L (135-145); Total Bilirubin 2.2 mg/dL (0.3-1.2); Total Protein 7.3 g/dL (6.2-8.2)
== END | disposition home or self-care (01) ==
LOC: LABWHC1 11:10
PROVIDERS: ATTEND Internal Medicine Gastroenterology
DX: K70.30 Alcoholic cirrhosis of liver without ascites (principal); E80.6 Other disorders of bilirubin metabolism
CPT/HCPCS: 36415; 80053; 82103; 82104; 82105; 82248; 82390; 82728; 83540; 83550; 85025